=== PATIENT | male | born 1960 | race African-American/Black ===

== ENCOUNTER 2019-05-21 16:01 | Emergency (ER) | payer OTHER, SELFPAY ==
--- OUTSIDE RECORDS SUMMARY | 2019-05-21 16:05 | XMS REPORT | Summary of Care ---
:1960 Author Organization [facility] - [facility] Address [address] [place] [id number] Care Team Providers Name Role Phone Pcp, Patient Does Not Have A Primary Care Provider Reason for Referral (Routine) Status Reason Specialty Diagnoses / Referred By Contact Referred To Procedures Contact New Request Diagnoses Generalized abdominal pain Digna Murphy, Pcp, Patient Does Procedures Discharge Follow-up: PCP PATIENT DOES NOT HAVE A PCP; 1 Week DO Not Have A [address] [place] [address] MRI/CAT Scan (STAT) Status Reason Specialty Diagnoses / Referred By Referred To Procedures Contact Contact New Request Diagnostic Diagnoses Generalized abdominal pain Digna Murphy Radiology Procedures CT ABDOMEN PELVIS W CONTRAST J, DO [address] [phone] MRI/CAT Scan (STAT) Status Reason Specialty Diagnoses / Referred By Referred To Procedures Contact Contact New Request Diagnostic Diagnoses Generalized abdominal pain Digna Murphy Radiology Procedures CT ABDOMEN PELVIS W CONTRAST J, DO [address] [phone] Reason for Visit Reason Comments Shortness of Breath Bradycardia Encounter Details Date Type Department Care Team Description 11/29/2018 Emergency ADC-Emergency Digna Murphy, Generalized abdominal Department DO pain (Primary Dx) [address] [place] [address] [address] [place] [address] [place] [address] [phone] Allergies No Known Allergiesdocumented as of this encounter (statuses as of 11/29/2018) Medications Medication Sig Dispensed Refills Start Date End Date Status cephALEXin (KEFLEX) 500 Take 1 capsule 30 capsule 0 09/07/2017 Active mg capsule by mouth 3 (three) times daily. sulfamethoxazole-trimet Take 1 tablet by 20 tablet 0 09/07/2017 Active hoprim 800-160 mg per mouth every 12 tablet (twelve) hours. traMADOL 50 mg tablet Take 1 tablet by 20 tablet 0 09/07/2017 Active mouth every 6 (six) hours as needed for Pain (scale 4-6). ondansetron (ZOFRAN Take 1 tablet by 14 tablet 0 11/29/2018 Active ODT) 4 mg mouth every 8 disintegrating (eight) hours as tabletIndications: needed for Generalized abdominal Nausea and pain Vomiting (N/V). lisinopril 10 mg Take 1 tablet by 30 tablet 0 11/29/2018 Active tabletIndications: mouth at Generalized abdominal bedtime. pain documented as of this encounter (statuses as of 11/29/2018) Active Problems No known active problemsdocumented as of this encounter (statuses as of 2018) Social History Tobacco Use Types Packs/Day Years Used Date Never Assessed Sex Assigned at Date Recorded Not on file Job Start Date Occupation Industry Not on file Not on file Not on file Travel History Travel Start Travel End No recent travel history available. documented as of this encounter Last Filed Vital Signs Vital Sign Reading Time Taken Comments Blood Pressure 186/103 11/29/2018 1:28 PM CDT Pulse 46 11/29/2018 1:28 PM CDT Temperature 36.7 C (98 F) 11/29/2018 10:18 AM CDT Respiratory Rate 15 11/29/2018 1:28 PM CDT Oxygen Saturation 100% 11/29/2018 1:28 PM CDT Inhaled Oxygen Concentration - - Weight 72.6 kg (160 lb) 11/29/2018 10:18 AM CDT Height 180.3 cm (5' 11") 11/29/2018 10:18 AM CDT Body Mass Index 22.32 11/29/2018 10:18 AM CDT documented in this encounter Discharge Instructions Digna Bryant, - 11/29/2018DIAGNOSIS 1. Hypertension 2. Vomiting 3. Abdominal Pain 4. Renal Cysts NO LIFE-THREATENING FINDINGS ON TODAY'S EXAM. PROCEDURES IN THE ER TODAY: Blood work Urine test CT abdomen/pelvis EKG MEDICATIONS ADMINISTERED IN THE ER TODAY: IV Fluids Reglan Bentyl Enalapril YOUR PRESCRIPTIONS AND [id number] MEDICATION RECOMMENDATIONS: Zofran by mouth every 8 hours as needed for nausea/vomiting. Lisinopril by mouth daily - this is medicine for your blood pressure.. SPECIAL CARE INSTRUCTIONS: Please follow-up with your primary care physician in one week for a blood pressure check. FOLLOW-UP RECOMMENDATIONS: RECOMMEND FOLLOW-UP WITH A PRIMARY CARE PROVIDER OR SPECIALIST IN 2-5 DAYS, ESPECIALLY IF NO IMPROVEMENT IN SYMPTOMS. TO FOLLOW-UP WITHIN THE [facility], TRY THESE OPTIONS (CLINIC APPOINTMENTS AVAILABLE ON [id number] BASIS): 1. SCHEDULE AN APPOINTMENT ONLINE AT WWW[facility] 2. OR CALL THE [facility]ENTER AT OR 3. OR CALL YOUR [facility] PHYSICIAN'S OFFICE DIRECTLY IF YOU ARE ALREADY AN ESTABLISHED [facility] PATIENT. OR, YOU MAY FOLLOW-UP WITH A PROVIDER OF YOUR CHOICE, SUCH : 1. A PHYSICIAN OF YOUR CHOICE 2. [facility], . LOCATIONS IN [facility] 3. [facility], [address] [place] [address]; RETURN TO ER FOR WORSENING OF SYMPTOMS. AttachmentsThe following attachments cannot be sent through Care Everywhere.Vomiting and Diarrhea, Nonspecific (Adult) (Bahraini)Vomiting and Diarrhea,Self-Care for ([place]i)Diet, [place] (Adult) ([place]i)Hypertension, Established ([place]i)documented in this encounter Plan of Treatment Health Maintenance Due Date Last Done Comments HEPATITIS C (HCV) SCREEN 1960 DTaP,Tdap,and Td Vaccines (1 - 01/08/1979 Tdap) COLONOSCOPY 01/08/2010 Zoster Recombinant Vaccine 01/08/2010 (SHINGRIX) (1 of 2) INFLUENZA VACCINE 12/24/2018 PNEUMOCOCCAL 0-64 YEARS COMBINED Aged Out No longer eligible based on SERIES patient's age to complete this topic documented as of this encounter Procedures Procedure Name Priority Date/Time Associated Diagnosis Comments CT ABDOMEN PELVIS W STAT 11/29/2018 12:24 Generalized Results for this CONTRAST PM CDT abdominal pain procedure are in the results section. CBC WITH DIFFERENTIAL STAT 11/29/2018 10:30 Generalized Results for this AM CDT abdominal pain procedure are in the results section. LACTIC ACID WHOLE STAT 11/29/2018 10:30 Generalized Results for this BLOOD AM CDT abdominal pain procedure are in the results section. URINALYSIS STAT 11/29/2018 10:30 Generalized Results for this AM CDT abdominal pain procedure are in the results section. CBC WITH DIFF Routine 11/29/2018 10:30 Generalized Results for this AM CDT abdominal pain procedure are in the results section. BASIC METABOLIC PANEL STAT 11/29/2018 10:30 Generalized Results for this (NA, K, CL, CO2, AM CDT abdominal pain procedure are in GLUCOSE, BUN, the results CREATININE, CA) section. HEPATIC FUNCTION STAT 11/29/2018 10:30 Generalized Results for this PANEL (81348) AM CDT abdominal pain procedure are in (ALB,T.PRO,BILI the results T,BU/BC,ALT,AST,ALK section. PHOS) TROPONIN I STAT 11/29/2018 10:30 Generalized Results for this AM CDT abdominal pain procedure are in the results section. LIPASE STAT 11/29/2018 10:30 Generalized Results for this AM CDT abdominal pain procedure are in the results section. EKG-12 LEAD STAT 11/29/2018 10:18 AM CDT documented in this encounter Results CT ABDOMEN PELVIS W CONTRAST (11/29/2018 12:24 PM CDT) Specimen Impressions Performed At 1. No definite acute intra-abdominal or pelvic pathology PACS/VR/DOSE 2. Bilateral renal cysts 3. Very mild aneurysmal dilation of the distal abdominal aorta with a diameter of 5 cm. The abdominal aorta is ectatic in general. Narrative Performed At * * * * * * * * ORIGINAL REPORT * * * * * * * * PACS/VR/DOSE EXAM: CT SCAN OF THE ABDOMEN AND PELVIS WITH CONTRAST HISTORY: Abd pain, acute, generalized TECHNIQUE:3 mm axial images are obtained from diaphragmatic domes to symphysis pubis following intravenous administration of 120 mL of Omnipaque 350. Sagittal and coronal preformation the carried out. COMPARISON: None FINDINGS:The visualized lung bases are clear. No pleural effusion is present. Heart size is normal. Liver and spleen are normal in size, shape and appearance. No focal masses are seen. Gallbladder is removed. No biliary tree dilation is noted. Pancreas is somewhat atrophic. No ductal dilation is seen. Adrenal glands are normal. Kidneys are normal in size and shape. No renal stone or hydronephrosis is present. A well-circumscribed low-density lesion is present in the interpolar zone of the right kidney measuring 3.[address] volume of 15 Hounsfield units. There is a well-circumscribed low-density lesion in the upper pole of the left kidney measuring3.[address] density of 11 Hounsfield units. A similar but larger well-circumscribed lesion is present in the inferior pole measuring 5.9 cm in size with CT density of 17 Hounsfield units. Very mild focal dilation of the distal abdominal aorta is seen with a maximum diameter of 2.5 cm. No free fluid or free air is seen in the abdomen. No definite enlarged lymph nodes are noted. Bowel loops are normal in caliber. No evidence of bowel obstruction is seen. The appendix is not definitely seen, however there is no indirect evidence of appendicitis. The urinary bladder appears to be normal. No free fluid seen in the pelvis. Changes of spondylosis are seen at L5-S1. There is slight retrolisthesis of L5. No suspicious bony abnormality is noted. Procedure Note [facility], Radiant Results Inft User - 11/29/2018 12:45 PM CDT * * * * * * * * ORIGINAL REPORT * * * * * * * * EXAM: CT SCAN OF THE ABDOMEN AND PELVIS WITH CONTRAST HISTORY: Abd pain, acute, generalized TECHNIQUE:3 mm axial images are obtained from diaphragmatic domes to symphysis pubis following intravenous administration of 120 mL of Omnipaque 350. Sagittal and coronal preformation the carried out. COMPARISON: None FINDINGS:The visualized lung bases are clear. No pleural effusion is present. Heart size is normal. Liver and spleen are normal in size, shape and appearance. No focal masses are seen. Gallbladder is removed. No biliary tree dilation is noted. Pancreas is somewhat atrophic. No ductal dilation is seen. Adrenal glands are normal. Kidneys are normal in size and shape. No renal stone or hydronephrosis is present. A well-circumscribed low-density lesion is present in the interpolar zone of the right kidney measuring 3.[address] volume of 15 Hounsfield units. There is a well-circumscribed low-density lesion in the upper pole of the left kidney measuring3.[address] density of 11 Hounsfield units. A similar but larger well-circumscribed lesion is present in the inferior pole measuring 5.9 cm in size with CT density of 17 Hounsfield units. Very mild focal dilation of the distal abdominal aorta is seen with a maximum diameter of 2.5 cm. No free fluid or free air is seen in the abdomen. No definite enlarged lymph nodes are noted. Bowel loops are normal in caliber. No evidence of bowel obstruction is seen. The appendix is not definitely seen, however there is no indirect evidence of appendicitis. The urinary bladder appears to be normal. No free fluid seen in the pelvis. Changes of spondylosis are seen at L5-S1. There is slight retrolisthesis of L5. No suspicious bony abnormality is noted. IMPRESSION 1. No definite acute intra-abdominal or pelvic pathology 2. Bilateral renal cysts 3. Very mild aneurysmal dilation of the distal abdominal aorta with a diameter of 5 cm. The abdominal aorta is ectatic in general. Performing Organization Address City/State/Zipcode Phone Number PACS/VR/DOSE CBC WITH DIFFERENTIAL (11/29/2018 10:30 AM CDT) WBC 9.67 4.20 - 10.70 [facility] 10*3/L [facility] RBC 4.90 4.26 - 5.52 [facility] 10*6/L [facility] HGB 13.5 12.2 - 16.4 [facility] g/dL [facility] HCT 40.5 38.4 - 49.3 % [facility] MCV 82.7 81.7 - 95.6 fL [facility] MCH 27.6 26.1 - 32.7 pg [facility] MCHC 33.3 31.2 - 35.0 [facility] g/dL [facility] RDW-SD 45.9 38.5 - 51.6 fL [facility] RDW-CV 15.3 12.1 - 15.4 % [facility] PLT 321 150 - 328 [facility] 10*3/L [facility] MPV 9.6 (L) 9.8 - 13.0 fL [facility] NRBC/100 WBC 0.0 0.0 - 10.0 /100 [facility] W[address] [facility] NRBC x10^3 <0.01 10*3/L [facility] GRAN MAT (NEUT) % 72.7 % [facility] IMM GRAN % 0.20 % [facility] LYMPH % 20.5 % [facility] MONO % 5.4 % [facility] EOS % 0.8 % [facility] BASO % 0.4 % [facility] GRAN MAT x10^3(ANC) 7.03 (H) 1.99 - 6.95 [facility] 10*3/uL [facility] IMM GRAN x10^3 <0.03 0.00 - 0.06 [facility] 10*3/uL [facility] LYMPH x10^3 1.98 1.09 - 3.23 [facility] 10*3/uL [facility] MONO x10^3 0.52 0.36 - 1.02 [facility] 10*3/uL [facility] EOS x10^3 0.08 0.06 - 0.53 [facility] 10*3/uL [facility] BASO x10^3 0.04 0.01 - 0.09 [facility] 10*3/uL [facility] Specimen Blood - VENOUS Performing Organization Address City/[facility]/Zipcode Phone Number [facility] CLIA: [id number], [address] [place], [place] [address] [address] Lactic Acid Whole Blood (11/29/2018 10:30 AM CDT) LACTIC ACID 1.91 0.50 - 2.20 mmol/L [facility] Specimen Blood - VENOUS Performing Organization Address City/[facility]/Zipcode Phone Number [facility] CLIA: [id number], [address] [place] [address] Troponin I (11/29/2018 10:30 AM CDT) TROPONIN I <0.012 <=0.034 ng/mL [facility] Specimen Blood - VENOUS Narrative Performed At Equal or Less than 0.034 ng/ml---Normal [facility] Note: Cardiac troponin begins to rise 3-4 hours after the onset of ischemia. Repeat in 4-6 hours if the sample was drawn within 3-4 hours of the onset of the symptom and found normal. Between 0.035 and 0.120 ng/mL--- Borderline. Questionable myocardial injury or necrosis Note: Serial measurement may be necessary to confirm or exclude the diagnosis of myocardial injury or necrosis; Clinical correlation (symptoms, EKGs, imaging studies, and others) required; Repeat in 4-6 hours if clinically indicated. Equal or Higher than 0.121 ng/mL---Abnormal. Myocardial Injury or Necrosis Likely Biotin has been reported to cause a negative bias, interpret results relative to patient's use of biotin. Performing Organization Address City/[facility] Phone Number [facility] CLIA: [id number], [address] [place] [address] LABORATORY Hospital [facility] Lipase Serum (11/29/2018 10:30 AM CDT) LIPASE 54 0 - 220 U/L [facility] Specimen Blood - VENOUS Performing Organization Address [facility] Phone Number [facility] CLIA: [id number], [address] [place] [address] Basic Metabolic Panel (NA, K, CL, CO2, GLUCOSE, BUN, CREATININE, CA) (2018 10:30 AM CDT) NA 147 (H) 135 - 145 [facility] mmol/L [facility] K 3.2 (L) 3.5 - 5.0 [facility] mmol/L [facility] CL 105 98 - 108 mmol/L [facility] CO2 TOTAL 31 23 - 31 mmol/L [facility] AGAP 11 2 - 16 [facility] BUN 11 7 - 23 mg/dL [facility] GLUCOSE 124 (H) 70 - 110 mg/dL [facility] CREATININE 0.77 0.60 - 1.25 [facility] mg/dL [facility] CALCIUM 9.4 8.6 - 10.6 [facility] mg/dL [facility] eGFR Calculation 103.8 mL/min/1.73m2 [facility] (Non[facility] LABORATORY [place]ian) eGFR Calculation 125.8 mL/min/1.73m2 [facility] LABORATORY Specimen Blood - VENOUS Narrative Performed At Association of Glomerular Filtration Rate (GFR) [facility] and Staging of Kidney Disease* + + +- + | GFR (mL/min/1.73 m2)| With Kidney Damage|Without Kidney Damage + + +- + |>90| Stage one| Normal + + +- + |60-89|S tage two| Decreased GFR + + +- + |30-59|S tage three| Stage three + + +- + |15-29|S tage four | Stage four + + +- + |<15 (or dialysis)|Stage five | Stage five + + +- + *Each stage assumes the associated GFR level has been in effect for at least three months.Stages 1 to 5, with or without kidney disease, indicate chronic kidney disease. Notes: Determination of stages one and two (with eGFR >59mL/min/1.73 m2) requires estimation of kidney damage for at least three months as defined by structural or functional abnormalities of the kidney, manifested by either: Pathological abnormalities or Markers of kidney damage (including abnormalities in the composition of the blood or urine or abnormalities in imaging tests). Performing Organization Address [facility] Phone Number [facility] CLIA: [id number], [address] [place] [address] Hepatic Function Panel (ALB, T.PRO, BILI T, BU/BC, ALT, AST, ALK PHOS) (2018 10:30 AM CDT) TOTAL BILI 0.3 0.1 - 1.1 mg/dL [facility] BILI UNCON 0.2 0.1 - 1.1 mg/dL [facility] BILI CONJ 0.0 0.0 - 0.3 mg/dL [facility] T PROTEIN 8.3 (H) 6.3 - 8.2 g/dL [facility] ALBUMIN 4.6 3.5 - 5.0 g/dL [facility] ALK PHOS 92 34 - 122 U/L [facility] ALT(SGPT) 13 9 - 51 U/L [facility] AST(SGOT) 25 13 - 40 U/L [facility] Specimen Blood - VENOUS Performing Organization Address [facility] Phone Number [facility] CLIA: [id number], [address] [place] [id number] [address] Urinalysis (11/29/2018 10:30 AM CDT) APPEARANCE Clear Clear [facility] COLOR Colorless (A) Yellow [facility] PH 8.0 4.8 - 8.0 [facility] SP GRAVITY 1.015 1.003 - 1.030 [facility] GLU U QUAL Negative Negative [facility] BLOOD Trace (A) Negative [facility] KETONES Negative Negative [facility] PROTEIN Negative Negative [facility] UROBILIN 0.2 mg/dL 0-1.0 mg/dL [facility] BILIRUBIN Negative Negative [facility] NITRITE Negative Negative [facility] LEUK THANG Negative Negative [facility] RBC/HPF 10 (H) 0 - 3 HPF [facility] WBC/HPF 2 0 - 5 HPF [facility] BACTERIA Few (A) Negative [facility] MUCOUS Moderate (A) Negative LPF [facility] AMORPHOUS Few HPF [facility] SQ EPITH 0 HPF [facility] SPERM 1 <=1 HPF [facility] Specimen Urine - URINE, CLEAN CATCH Performing Organization Address City/State/Zipcode Phone Number [facility] CLIA: [id number], [address] [place] [address] LABORATORY Hospital [facility] documented in this encounter Visit Diagnoses Diagnosis Generalized abdominal pain - Primary Abdominal pain, generalized documented in this encounter Administered Medications Medication Order MAR Action Action Date Dose Rate Site dicyclomine (BENTYL) Given 11/29/2018 12:57 PM 20 mg Right Deltoid-IM injection 20 mg CDT 20 mg, Intramuscular, ONCE, 1 dose, Tue11/29/18 at 1400, Routine enalaprilat (VASOTEC I.V.) injection 1.25 Given 11/29/2018 12:35 PM CDT 1.25 mg mg 1.25 mg, Slow IV Push, ONCE, 1 dose, Tue11/29/18 at 1315, STAT iohexol (OMNIPAQUE 350 BULK-150 mL) Given 11/29/2018 12:15 PM CDT 120 mL injection 120 mL 120 mL, Intravenous, ONCE, 1 dose, Tue11/29/18 at 1215, Routine metoclopramide HCl (REGLAN) injection 10 mg Given 11/29/2018 12:57 PM CDT 10 mg 10 mg, Slow IV Push, ONCE, 1 dose, Tue11/29/18 at 1400, FUENTES NaCl 0.9% (NS) bolus infusion New Bag 11/29/2018 10:30 AM CDT 1,000 mL 999 mL/hr 1,000 mL at 999 mL/hr, 1,000 mL, IV Infusion, ONCE, 1 dose, Tue11/29/18 at 1030, FUENTES documented in this encounter
--- OUTSIDE RECORDS SUMMARY | 2019-05-21 16:06 | XMS REPORT ---
:1960 Author Organization [facility] Address [address] [place] [address] [address] [place] [address] Care Team Providers Name Role Phone Unavailable Unavailable Unavailable Problems This patient has no known problems. Allergies, Adverse Reactions, Alerts This patient has no known allergies or adverse reactions. Medications This patient has no known medications. Encounters Start End Encounter Admission Attending Care Care Encounter Date/Time Date/Time Type Type Clinicians Facility Department ID 2018-12-01 2018-12-01 Inpatient E [facility] CAR [id number] 13:43:00 10:12:00 2018-12-01 2018-12-01 Outpatient [facility] LEROY [id number] 10:12:00 10:12:00
[2019-05-21 17:15] LABS: Absolute Lymphocytes (CBC) 1.6 K/uL (0.7-4.9); Basophils % 0.7 % (0-1.3); Hematocrit 39.6 % (39.6-49.0); Lymphocytes % 17.5 % (15.3-44.8); MPV 7.2 fL (7.6-11.3); RBC Red Blood Cell Count 4.66 M/uL (4.33-5.43)
--- NOTE | 2019-05-21 17:18 | RAD REPORT ---
EXAM DESCRIPTION: CT - Head Brain Wo Cont - 05/21/2019 5:11 pm CLINICAL HISTORY: SYNCOPE Hypertension, syncope, headache, drowsiness COMPARISON: No comparisons TECHNIQUE: All CT scans are performed using dose optimization technique as appropriate and may inclu de automated exposure control or mA/KV adjustment according to patient size. FINDINGS: No intracranial hemorrhage, hydrocephalus or extra-axial fluid collection.No areas of brai n edema or evidence of midline shift. The paranasal sinuses and mastoids are clear. The calvarium is intact. IMPRESSION: No acute intracranial abnormality.
[2019-05-21 17:23] LABS: Protime INR 1.09
--- NOTE | 2019-05-21 17:33 | RAD REPORT ---
EXAM DESCRIPTION: RAD - Chest Single View - 05/21/2019 5:27 pm CLINICAL HISTORY: syncope Chest pain. COMPARISON: No comparisons FINDINGS: Portable technique limits examination quality. The lungs are grossly clear. The heart is normal in size. No displaced fractures. IMPRESSION: No acute intrathoracic process suspected.
[2019-05-21 17:36] LABS: Barbiturates NEGATIVE (NEGATIVE); Benzodiazepines NEGATIVE (NEGATIVE); Cocaine NEGATIVE (NEGATIVE); METHAMPHETAM NEGATIVE (NEGATIVE); Methadone NEGATIVE (NEGATIVE); Opiates NEGATIVE (NEGATIVE); Phencyclidine NEGATIVE (NEGATIVE); THC Cannibis POSITIVE (NEGATIVE)
[2019-05-21 18:16] LABS: ALT/SGPT 19 U/L (12-78); AST/SGOT 14 U/L (15-37); Albumin 3.8 g/dL (3.4-5.0); Alkaline Phosphatase 90 U/L (45-117); BUN Blood Urea Nitrogen 7 mg/dL (7-18); Bicarbonate 31 mmol/L (21-32); Bilirubin Direct < 0.1 mg/dL (0-0.2); Bilirubin Total 0.3 mg/dL (0.2-1.0); Glucose Level 82 mg/dL (74-106); Magnesium 2.1 mg/dL (1.8-2.4); NT PRO-BNP 87 pg/mL (<125); Potassium 3.8 mmol/L (3.5-5.1); Sodium Level 140 mmol/L (136-145); Troponin (Emerg Dept Use Only) < 0.02 ng/mL (0.0-0.045)
[2019-05-21] MEDS ORDERED: ACETAMINOPHEN 500 MG TAB ONE (19:30)
[2019-05-21 20:15] LABS: Urine Blood TRACE (NEG); Urine Glucose NEGATIVE (NEG); Urine Protein NEGATIVE (NEG); Urine pH 8.5 (5.0-7.0)
--- NOTE | 2019-05-22 02:05 | EDPHYS ---
Physician Documentation [facility] Name: River Plunkett Age: 59 yrs Sex: Male : 1960 Arrival Date: 05/21/2019 Time: 16:05 Bed 17 Private MD: ED Physician Dusty Flores HPI: 05/21 17:33 This 59 yrs old Black Male presents to ER via Ambulatory with complaints of High Blood la1 Pressure, Fever, Headache. 17:33 The patient has elevated blood pressure and discovered this at home. Onset: The la1 symptoms/episode began/occurred 1 month(s) ago. Modifying factors: The symptoms are aggravated by movement. Associated signs and symptoms: Pertinent positives: syncope. Severity of symptoms: At its worst the blood pressure was moderate, in the emergency department the blood pressure is unchanged. The patient has experienced a previous episode. pt reports that he gets dizzy when going from sitting to standing for the past few months. Was recently in the hospital in [place] and saw a farm crew leader. was discharged at the end of March, reports that he did have a normal stress test. Pt reports that he has also been feeling suicidal for the last 2 weeks, reports he has never had sx like this in the past but he just doest want to live anymore, reports he would "blow his brains out", pt reports that he does have access to a gun. . Historical: - Allergies: 16:14 No Known Allergies; tw2 - Home Meds: 16:14 lisinopril 20 mg Oral tab 1 tab once daily [Active]; hydralazine 10 mg Oral tab 1 tab 2 tw2 times per day [Active]; - PMHx: 16:14 Hypertension; Pancreatitis; tw2 - PSHx: 16:14 Cholecystectomy; tw2 - Immunization history:: Adult Immunizations. - Coronavirus screen:: The patient has NOT traveled to [place], [place], or [place] in the past 14 days. - Social history:: Smoking status: Patient reports the use of cigarette tobacco products, smokes one pack cigarettes per day. Patient uses street drugs, "i used just the hydrocodone". - Ebola Screening: : Patient denies travel to an Ebola-affected area in the 21 days before illness onset. ROS: 17:37 Constitutional: Negative for fever, chills, and weight loss, Eyes: Negative for injury, la1 pain, redness, and discharge, ENT: Negative for injury, pain, and discharge, Neck: Negative for injury, pain, and swelling, Cardiovascular: Negative for chest pain, palpitations, and edema, Respiratory: Negative for shortness of breath, cough, wheezing, and pleuritic chest pain, Abdomen/GI: Negative for abdominal pain, nausea, vomiting, diarrhea, and constipation, Back: Negative for injury and pain, : Negative for injury, bleeding, discharge, and swelling, MS/Extremity: Negative for injury and deformity, Skin: Negative for injury, rash, and discoloration, Neuro: Negative for headache, weakness, numbness, tingling, and seizure. 17:37 Cardiovascular: Negative for chest pain, palpitations, and edema, reports a few episodes of syncope when moving from sitting or lying to standing at home over the course of the last couple months 17:37 Psych: Positive for suicidal ideation. Exam: 17:39 Constitutional: This is a well developed, well nourished patient who is awake, alert, la1 and in no acute distress. Head/Face: Normocephalic, atraumatic. Eyes: Pupils equal round and reactive to light, extra-ocular motions intact. Lids and lashes normal. Conjunctiva and sclera are non-icteric and not injected. Cornea within normal limits. Periorbital areas with no swelling, redness, or edema. ENT: Mucous membranes moist. Neck: Trachea midline, no thyromegaly or masses palpated, and no cervical lymphadenopathy. Supple, full range of motion without nuchal rigidity, or vertebral point tenderness. No Meningismus. Chest/axilla: Normal chest wall appearance and motion. Nontender with no deformity. No lesions are appreciated. Cardiovascular: Regular rate and rhythm with a normal S1 and S2. No gallops, murmurs, or rubs. Normal PMI, no JVD. No pulse deficits. Respiratory: Lungs have equal breath sounds bilaterally, clear to auscultation No rales, rhonchi or wheezes noted. No increased work of breathing, no retractions or nasal flaring. Abdomen/GI: Soft, non-tender, with normal bowel sounds. No distension or tympany. No guarding or rebound. No evidence of tenderness throughout. Back: No spinal tenderness. No costovertebral tenderness. Full range of motion. Skin: Warm, dry with normal turgor. Normal color with no rashes, no lesions, and no evidence of cellulitis. MS/ Extremity: Pulses equal, no cyanosis. Neurovascular intact. Full, normal range of motion. Neuro: Awake and alert, GCS 15, oriented to person, place, time, and situation. Cranial nerves II-XII grossly intact. Motor strength 5/5 in all extremities. Sensory grossly intact. Cerebellar exam normal. Normal gait. Psych: Awake, alert, with orientation to person, place and time. Behavior, mood, and affect are within normal limits. Vital Signs: 16:12 BP 166 / 105; Pulse 90; Resp 18; Temp 99.9(TE); Pulse Ox 100% on R/A; Weight 65.77 kg tw2 (R); Height 5 ft. 11 in. (180.34 cm); Pain 8/10; 16:21 BP 178 / 105; Pulse 75; Resp 20; Pulse Ox 100% on R/A; sv 16:40 BP 163 / 99 LA Supine (/reg); Pulse 80; sv 16:42 BP 173 / 96 LA Sitting (auto/reg); Pulse 86; sv 16:44 BP 139 / 116 LA Sitting (auto/reg); Pulse 92; sv 17:30 BP 162 / 92; Pulse 82; Resp 17; Pulse Ox 100% on R/A; sg 19:14 BP 168 / 98; Pulse 92; Resp 16; Pulse Ox 99% on R/A; mt 20:36 BP 131 / 97; Pulse 72; Resp 16; Pulse Ox 100% on R/A; mt 05/22 00:58 Temp 98.6(O); mt 00:58 BP 136 / 84; Pulse 84; Resp 17; Pulse Ox 98% on R/A; mt 05/21 16:12 Body Mass Index 20.22 (65.77 kg, 180.34 cm) tw2 05/21 16:44 Pt was able to stand for a minute and stated that he felt weak all over, pt sat on the sv stretcher and BP was taken. MDM: 16:22 Patient medically screened. la1 19:56 ED course: awaiting consult with [facility]. la1 22:17 Data reviewed: vital signs, nurses notes, lab test result(s), EKG, radiologic studies, la1 I have discussed the patient's presentation/case with the attending Emergency Department Physician; and as a result, I will admit patient. Data interpreted: Pulse oximetry: on room air is 100 %. Interpretation: normal. Counseling: I had a detailed discussion with the patient and/or guardian regarding: the historical points, exam findings, and any diagnostic results supporting the discharge/admit diagnosis, the presence of at least one elevated blood pressure reading (>120/80) during this emergency department visit, lab results, the need to transfer to another facility, [facility] does not immediately have the required specialist. Medication response: headache improved. Response to treatment: the patient's symptoms have mildly improved after treatment. ED course: pt reports SI with plan, recommend inpatient treatment at this time. Will begin transfer process, pt voluntary at this time, states he is feeling better now medically.. 05/21 16:42 Order name: Basic Metabolic Panel 05/21 16:42 Order name: CBC with Diff; Complete Time: 17:37 va05/21 16:42 Order name: LFT's; Complete Time: 19:19 05/21 16:42 Order name: Magnesium; Complete Time: 19:19 05/21 16:42 Order name: NT PRO-BNP; Complete Time: 19:19 va05/21 16:42 Order name: PT-INR; Complete Time: 17:37 05/21 16:42 Order name: Troponin (emerg Dept Use Only); Complete Time: 19:19 05/21 16:42 Order name: XRAY Chest (1 view); Complete Time: 17:37 05/21 16:42 Order name: ETOH Level; Complete Time: 19:19 05/21 16:42 Order name: Acetaminophen; Complete Time: 19:19 05/21 16:42 Order name: ASA; Complete Time: 19:19 va05/21 16:42 Order name: UDS; Complete Time: 17:37 05/21 16:43 Order name: Basic Metabolic Panel; Complete Time: 19:19 [facility] 05/21 17:22 Order name: Urine Dipstick--Ancillary (enter results) bd 05/21 16:42 Order name: Cardiac monitoring; Complete Time: 17:16 05/21 16:42 Order name: EKG - Nurse/Tech; Complete Time: 18:37 05/21 16:42 Order name: IV Saline Lock; Complete Time: 17:15 05/21 16:42 Order name: Labs collected and sent; Complete Time: 17:16 05/21 16:42 Order name: O2 Per Protocol; Complete Time: 17:16 05/21 16:42 Order name: O2 Sat Monitoring; Complete Time: 17:16 05/21 16:42 Order name: Urine Dipstick-Ancillary (obtain specimen); Complete Time: 22:24 05/21 16:42 Order name: Orthostatics; Complete Time: 18:37 05/21 16:42 Order name: CT Head Brain wo Cont; Complete Time: 17:37 Administered Medications: 19:30 Drug: Tylenol 1000 mg Route: PO; 05/22 03:14 Follow up: Response: No adverse reaction; Pain is decreased 03:14 Drug: Tylenol 650 mg Route: PO; 03:14 Follow up: Response: No adverse reaction Disposition: 07:00 Co-signature as Attending Physician, Dusty Flores MD I agree with the assessment and ryan plan of care. Disposition: 05/22/19 02:04 Transfer ordered to [facility]. Diagnosis is Suicidal ideations. - Reason for transfer: Higher level of care. - Accepting physician is [facility] Dr. [place]. - Condition is Stable. - Problem is new. - Symptoms are unchanged. Signatures: Dispatcher [employer] Dusty Urbina MD MD cha Attema, Lee, FACILITIES MAINTENANCE TECHNICIAN-C FACILITIES MAINTENANCE TECHNICIAN-Cla1 Ramona Thomason RN RN tw2 Anne Laureano Corrections: (The following items were deleted from the chart) 02:29 02:04 05/22/2019 02:04 Transfer ordered to [facility]. Diagnosis is Suicidal la1 ideations. Reason for transfer: Higher level of care. Accepting physician is [facility]. Condition is Stable. Problem is new. Symptoms are unchanged. la1 03:16 02:29 05/22/2019 02:04 Transfer ordered to [facility]. Diagnosis is Suicidal wh ideations. Reason for transfer: Higher level of care. Accepting physician is [facility] Dr[facility] [place]. Condition is Stable. Problem is new. Symptoms are unchanged. la1
--- NOTE | 2019-05-22 02:05 | ER ---
Nurse's Notes [facility] Name: River Plunkett Age: 59 yrs Sex: Male : 1960 Arrival Date: 05/21/2019 Time: 16:05 Bed 17 Private MD: Diagnosis: Suicidal ideations Presentation: 05/21 16:09 Presenting complaint: Patient states: i have been feeling bad for a month or more, my tw2 blood pressure is high and i am on 2 blood pressure medicines but my pressure bottoms out and i am blacking out, dr. suarez in [facility] sent me here she thinks something in my brain is causing me to black out. i have blacked out 3 times. Transition of care: patient was not received from another setting of care. Onset of symptoms was May 21, 2019. Risk Assessment: Do you want to hurt yourself or someone else? Patient reports no desire to harm self or others. Initial Sepsis Screen: Does the patient meet any 2 criteria? No. Patient's initial sepsis screen is negative. Does the patient have a suspected source of infection? No. Patient's initial sepsis screen is negative. Care prior to arrival: None. 16:09 Method Of Arrival: Ambulatory tw2 16:09 Acuity: ROBERT 3 tw2 Triage Assessment: 16:11 Headache History: The patient has had previous headaches and this one is different than tw2 previous episodes. General: Appears uncomfortable, slender, Behavior is calm, cooperative, appropriate for age. Pain: Complains of pain in headache Pain currently is 8 out of 10 on a pain scale. Pain began a month Also complains of fatigued and headache 6 days ago. Neuro: Level of Consciousness is awake, alert, obeys commands, Reports dizziness, photophobia lightheadedness. Historical: - Allergies: 16:14 No Known Allergies; tw2 - Home Meds: 16:14 lisinopril 20 mg Oral tab 1 tab once daily [Active]; hydralazine 10 mg Oral tab 1 tab 2 tw2 times per day [Active]; - PMHx: 16:14 Hypertension; Pancreatitis; tw2 - PSHx: 16:14 Cholecystectomy; tw2 - Immunization history:: Adult Immunizations. - Coronavirus screen:: The patient has NOT traveled to [place], [place], or [place] in the past 14 days. - Social history:: Smoking status: Patient reports the use of cigarette tobacco products, smokes one pack cigarettes per day. Patient uses street drugs, "i used just the hydrocodone". - Ebola Screening: : Patient denies travel to an Ebola-affected area in the 21 days before illness onset. Screenin:22 Abuse screen: Denies threats or abuse. Denies injuries from another. Nutritional sv screening: No deficits noted. Tuberculosis screening: No symptoms or risk factors identified. Fall Risk None identified. Assessment: 16:22 General: Appears in no apparent distress. comfortable, slender, Behavior is calm, sv cooperative, appropriate for age. General: Reports feeling ill for about 4 months. he has lost about 50 pounds as well. Pain: Complains of pain in left adventism and right adventism Pain currently is 8 out of 10 on a pain scale. Quality of pain is described as throbbing, Is continuous. Neuro: Level of Consciousness is awake, alert, obeys commands, Oriented to person, place, time, situation, Moves all extremities. Full function Gait is steady, Speech is normal, Facial symmetry appears normal, Reports headache a syncopal episode. Cardiovascular: Patient's skin is warm and dry. Rhythm is sinus rhythm. Respiratory: Reports shortness of breath on exertion cough that is non-productive, Airway is patent Respiratory effort is even, unlabored, Respiratory pattern is regular, symmetrical. Derm: Skin is pink, warm \\T\\ dry. Musculoskeletal: Range of motion: intact in all extremities. 17:20 Reassessment: Patient appears in no apparent distress at this time. report received sg from Britta DIAZ. General: Behavior is calm, cooperative, appropriate for age. Respiratory: Airway is patent Respiratory effort is even, unlabored, Respiratory pattern is regular, symmetrical. 19:15 Reassessment: Patient appears in no apparent distress at this time. Patient and/or family updated on plan of care and expected duration. Pain level reassessed. Patient is alert, oriented x 3, equal unlabored respirations, skin warm/dry/pink. 20:30 Reassessment: Patient appears in no apparent distress at this time. No changes from previously documented assessment. Patient and/or family updated on plan of care and expected duration. Pain level reassessed. Patient is alert, oriented x 3, equal unlabored respirations, skin warm/dry/pink. 21:04 Reassessment: [facility] at bedside assessing Pt. 22:00 Reassessment: Patient appears in no apparent distress at this time. No changes from previously documented assessment. Patient and/or family updated on plan of care and expected duration. Pain level reassessed. Patient is alert, oriented x 3, equal unlabored respirations, skin warm/dry/pink. Pt sleeping well no signs of distress noted, sitter at bedside. 23:00 Reassessment: Patient appears in no apparent distress at this time. No changes from previously documented assessment. Patient and/or family updated on plan of care and expected duration. Pain level reassessed. Patient is alert, oriented x 3, equal unlabored respirations, skin warm/dry/pink. Pt sleeping well no signs of distress noted, sitter at bedside. 05/22 00:06 Reassessment: Patient appears in no apparent distress at this time. No changes from previously documented assessment. Patient and/or family updated on plan of care and expected duration. Pain level reassessed. Patient is alert, oriented x 3, equal unlabored respirations, skin warm/dry/pink. Pt sleeping well no signs of distress noted, sitter at bedside. 02:42 Reassessment: Patient appears in no apparent distress at this time. No changes from previously documented assessment. Patient and/or family updated on plan of care and expected duration. Pain level reassessed. Patient is alert, oriented x 3, equal unlabored respirations, skin warm/dry/pink. Report given to Ilia Jewell RN at [facility]. 03:05 Reassessment: PT belongings, clothes, shoes and belt returned to PT. Psych: 05/21 17:00 Subjective: Patient's mood is sad, Having thoughts of suicide. with a plan. Objective: sv Patient is cooperative, Speech is normal, Affect is appropriate. Interventions: Removed personal items and placed in bag. Patient placed in hospital gown. Urine collected and sent for urine drug test. Safety Checks: Personal items have been removed. Door is open. No visitors are present at this time. Commitment: Patient will be a voluntary commitment. 19:30 Suicide Risk Assessment: Sad Person Scale: Sex of patient: Male: Score 1 point. Age of patient: Score 0 point if patient falls outside of specified age parameters. Depression: Score 0 point if signs of depression are not present. Previous Attempt: Score 0 point if patient has not previously attempted suicide. Substance Abuse: Score 1 point if patient abuses alcohol or drugs. Rational Thinking: Score 0 point if patient has rational thinking. Social Support: Score 0 if social support is present/available. Organized Plan: Score 1 point if patient had a plan in place. Relationship: Score 0 point if patient has a spouse or domestic partner. Patient uses marijuana. Vital Signs: 16:12 BP 166 / 105; Pulse 90; Resp 18; Temp 99.9(TE); Pulse Ox 100% on R/A; Weight 65.77 kg tw2 (R); Height 5 ft. 11 in. (180.34 cm); Pain 8/10; 16:21 BP 178 / 105; Pulse 75; Resp 20; Pulse Ox 100% on R/A; sv 16:40 BP 163 / 99 LA Supine (/reg); Pulse 80; sv 16:42 BP 173 / 96 LA Sitting (auto/reg); Pulse 86; sv 16:44 BP 139 / 116 LA Sitting (auto/reg); Pulse 92; sv 17:30 BP 162 / 92; Pulse 82; Resp 17; Pulse Ox 100% on R/A; sg 19:14 BP 168 / 98; Pulse 92; Resp 16; Pulse Ox 99% on R/A; mt 20:36 BP 131 / 97; Pulse 72; Resp 16; Pulse Ox 100% on R/A; mt 05/22 00:58 Temp 98.6(O); mt 00:58 BP 136 / 84; Pulse 84; Resp 17; Pulse Ox 98% on R/A; mt 05/21 16:12 Body Mass Index 20.22 (65.77 kg, 180.34 cm) tw2 05/21 16:44 Pt was able to stand for a minute and stated that he felt weak all over, pt sat on the sv stretcher and BP was taken. ED Course: 16:05 Patient arrived in ED. mr 16:11 Triage completed. tw2 16:11 Arm band placed on. tw2 16:15 Britta Van, JOE is Primary Nurse. sv 16:22 Stevan Cm FNP-C [facility]. la1 16:22 Dusty Flores MD is Attending Physician. la1 16:22 Awaiting ED provider evaluation. sv 16:22 Patient has correct armband on for positive identification. Placed in gown. Bed in low sv position. Call light in reach. Adult w/ patient. monitoring coordinator on. Pulse ox on. NIBP on. Door closed. Head of bed elevated. 16:34 Nurse Practitioner and/or Physician Paper Pattern Inspector to see patient. sv 16:50 Inserted saline lock: 20 gauge in right forearm, using aseptic technique. Blood sv collected. Flushed right forearm with 5 ml normal saline. 16:55 Initial lab(s) drawn, by me, sent to lab. with 21G needle, site covered with 2x2 gauze sv and tape. 17:00 15 minute safety checks done on paperwork. ms 17:[address] via wheelchair. sv 17:10 Report given to Corby DIAZ. sv 17:11 CT Head Brain wo Cont In Process Unspecified. EDMS 17:27 XRAY Chest (1 view) In Process Unspecified. EDMS 17:58 Corby Cohn, JOE is Primary Nurse. 19:19 Anne Laureano is Primary Nurse. 19:45 called [facility] spoke to Marisel. Screener will be at our facility to speak with 2 patient. 20:03 Estefany the screener from [facility] called and is leaving [place] and will be here [facility] to visit patient. 21:50 Estefany with [facility] at bedside for evaluation. [facility] 05/22 03:12 No provider procedures requiring assistance completed. IV discontinued, intact, wh bleeding controlled, No redness/swelling at site. Administered Medications: 05/21 19:30 Drug: Tylenol 1000 mg Route: PO; 05/22 03:14 Follow up: Response: No adverse reaction; Pain is decreased 03:14 Drug: Tylenol 650 mg Route: PO; 03:14 Follow up: Response: No adverse reaction Outcome: 02:04 ER care complete, transfer ordered by MD. dixon 03:15 Transferred by ground EMS to [facility], Transfer form completed. X-rays sent w/ patient. Note: Report given to [facility] 03:15 Condition: stable 03:15 Instructed on the need for transfer. 03:17 Patient left the ED. Signatures: Dispatcher [employer] Britta De Jesus RN RN sv Gay, Steven, RN RN sg Rivera, Mary mr Espinoza, Vero ms Soila, Stevan, VOYAGE MANAGEMENT SYSTEM OPERATOR-C VOYAGE MANAGEMENT SYSTEM OPERATOR-Cla1 Ramona Thomason RN RN tw2 Salazar, Caren [facility], Andreastree Walston, Cristhian 2 Corrections: (The following items were deleted from the chart) 05/21 16:36 16:22 Respiratory: Airway is patent Respiratory effort is even, unlabored, Respiratory sv pattern is regular, symmetrical, sv 22:00 20:03 Jenae the screener from [facility] called and is leaving [place] and will mw2 be here to visit patient mw2 22:01 20:03 Kathrynn the screener from [facility] called and is leaving [place] and will mw2 be here to visit patient mw2 22:01 21:50 Jenae with [facility] at bedside for evaluation [facility]
[2019-05-22] MEDS ORDERED: ACETAMINOPHEN 325 MG TABLET ONE (03:14)
[2019-05-22 03:44] VITALS: BP 136/84; TEMP 98.6; O2SAT 98
== END 2019-05-22 03:17 | disposition short-term general hospital (02) ==
LOC: ER 16:01
DX: R45.851 Suicidal ideations (principal); F17.210 Nicotine dependence, cigarettes, uncomplicated
CPT/HCPCS: 36415; 70450; 71045; 80048; 80076; 80307; 80320; 80329; 81003; 83735; 83880; 84484; 85025; 85610; 99285

== ENCOUNTER 2020-07-17 07:14 | Inpatient (IN) | payer MEDICAID, SELFPAY ==
--- OUTSIDE RECORDS SUMMARY | 2020-07-17 07:20 | XMS REPORT | Continuity of Care Document ---
:1960 Author Organization [facility] t Address [address] [place] [address] Care Team Providers Name Role Phone Antione Murphy DO Attending Clinician Aliza Good MD Attending Clinician Doctor Unassigned, Name Attending Clinician Unavailable MARIBELL Attending Clinician Unavailable Saurabh, Jacob Attending Clinician Unavailable D'EMPAIRE Admitting Clinician Unavailable Jacob Wiley Admitting Clinician Unavailable Payers Payer Name Policy Type Policy Number Effective Date Expiration Date S ource Problems Condition Condition Condition Status Onset Resolution Last Treating Co mments Source Name Details Category Date Date Treatment Clinician Date MONAE Diagnosis Active 2018-12-05 Veronicaoria BILLING 8 14:15:00 l 00:00: Roland LICONA 00 BILLING Active 12/05/2018 [facility] HYPERTENSI Diagnosis Active 2019-02-15 Memoria VE 12-01 15:40:00 l EMERGENCY 00:00: Roland HYPERTENSI 00 VE EMERGENCY Active 12/01/2018 [facility] CHEST PAIN Diagnosis Active 2018-12-01 Memoria 12-01 12:01:00 l CHEST 00:00: Roland PAIN 00 Active 12/01/2018 [facility] Allergies, Adverse Reactions, Alerts Allergy Allergy Status Severity Reaction(s) Onset Inactive Treating Comm ents Source Name Type Date Date Clinician No Known DA Active [facility] Allergie 2-13 [place] s 00:00: d 00 [facility] No Known No Known Active Memori a Medicati Medicati l on on [place] Allerggary Allergie s s Social History Smoking Status Start Date Stop Date Source Social History 2018-12-01 15:56:47 [facility] Medications Ordered Filled Start Stop Current Ordering Indication Dosage Frequency Signature Comments Components Source Medication Medication Date Date Medication? Clinician (SIG) Name Name amLODIPine Yes 10 mg = 1 Me moria 10 mg oral 8-12 tab, PO, l tablet 17:49: Daily, # Roland 00 30 tab, 1 Refill(s) lisinopril Yes 20 mg = 1 Me moria 20 mg oral 8-12 tab, PO, l tablet 17:49: Daily, # [place] 00 30 tab, 1 Refill(s) Maalox No 30 mL, Memoria Advanced 12 Route: PO, l Regular 15:24: Drug Form: Herm cecelia Strength 00 SUSP, SUSP Dosing Weight 64.205, kg, QID, PRN Indigestio n, Start date: 12/04/18 10:24:00 CDT, Duration: 30 day, Stop date: 01/03/19 10:23:00 CDT Al No Notes: Memoria hydroxide/M -12 (aluminum l g 14:00: hydroxide- Roland hydroxide/s 00 magnesium imethicone hyd-simeth icone 200-200-20 mg/5ml 30 ml ud GRECIA) Xylocaine Yes Notes: Memori a Viscous 2% 8-12 (Same as: l mucous 14:00: Xylocaine) Bonnie nn membrane 00 solution NIFEdipine No Notes: Memor ia 60 mg oral 8-12 (Same as: l tablet, 13:30: Adalat CC, Herm cecelia extended 00 Procardia release XL) Give on empty stomach. Take 1 hour before or 2 hours after meal; "Avoid grapefruit and grapefruit juice". Do not crush GI cocktail No 45 ml, Ketan brooks (aluminum 812 Route: PO, l hydroxide/m 12:29: Drug Form: [place] agnesium 00 SUSP, hydroxide/l Dosing idocaine/si Weight methicone) 64.205, kg, ONCE, Routine, Start date: 12/04/18 7:29:00 CDT, Stop date: 12/04/18 7:29:00 CDT Imdur No Notes: Memoria 12-04 (Same l 02:00: as:Imdur) Roland 00 "Do Not Crush" Take on empty stomach/ full glass of water. Do not crush NIFEdipine No 30 mg, Memor ia 30 mg oral 12-03 Route: PO, l tablet, 02:00: Drug form: Herm cecelia extended 00 ERTAB, release Q12H, Dosing Weight 64.205, kg, Start date: 12/02/18 21:00:00 CDT, Duration: 30 day, Stop date: 01/01/19 9:00:00 CDT metoprolol No Notes: Memor ia tartrate 12-03 (Same as: l 02:00: Lopressor) [place] Maalox No Notes: Memoria Advanced 12-03 (aluminum l Regular 01:20: hydroxide- Herm cecelia Strength 00 magnesium SUSP hyd-simeth icone 200-200-20 mg/5ml 30 ml ud GRECIA) Acetaminoph No Notes: Do M emoria en 300 MG / 12-03 not exceed l Codeine 01:14: 4gm/day of Herm cecelia Phosphate 00 acetaminop 30 MG Oral hen. Tablet (Same as: [Tylenol Tylenol with with Codeine #3] Codeine # 3) Protonix No 40 mg, Memoria 12-03 Route: PO, l 01:12: Daily, [place] 00 Dosing Weight 64.205, kg, Priority: NOW, Start date: 12/02/18 20:12:00 CDT, Duration: 30 day, Stop date: 01/01/19 9:00:00 CDT NIFEdipine No Notes: Memor ia 30 mg oral 8-11 (Same as: l tablet, 00:48: Adalat CC, Herm cecelia extended Procardia release XL) Give on empty stomach. Take 1 hour before or 2 hours after meal; "Avoid grapefruit and grapefruit juice". Do not crush NIFEdipine No 30 mg, Memor ia 30 mg oral 810 Route: PO, l tablet, 22:00: Drug form: Herm cecelia extended ERTAB, release BID, Dosing Weight 64.205, kg, Start date: 12/02/18 17:00:00 CDT, Duration: 30 day, Stop date: 01/01/19 9:00:00 CDT Lisinopril No Notes: Memor ia 8-10 (Same as: l 16:46: Prinivil, Zestril) Famotidine No Notes: Memor ia 8-10 (Same as: l 14:00: Pepcid AC) Aspirin No Notes: Memoria 8-10 Take with l 14:00: food. Maalox No Notes: Memoria Advanced 8-10 (aluminum l Regular 12:50: hydroxide- Herm cecelia Strength 00 magnesium SUSP hyd- simethicon e 200-200-20 mg/5ml GRECIA) (Same as: Maalox Plus Extra Strength) Saline No Notes: Memoria Flush 0.9% 12-02 (Same as: l 02:00: BD Posiflush) Lisinopril No 20 mg, PO, M emoria 12-01 Daily, 0 l 23:43: Refill(s) Potassium No Notes: Memori a Chloride 12-01 (Same as: l 23:34: K-Dur 20) "Do Not Crush" Give with food and full glass of water For patients unable to swallow tablet, dissolve in one half glass of water. Allow about 2 minutes for the tablets to disintegra te. Stir before giving to prepare slurry and administer . Please exclude Patient s with feeding tube less than 14 Italian (Dobhoff, J-tube etc) and pediatric and patients. potassium No Notes: Memori a phosphate-s 12-01 (Same as: l odium 23:34: Phos-NaK) Roland phosphate 00 Each 1.5 250 mg-280 gm pkt has mg-160 mg 250mg oral powder phosphorou for s. Mix reconstitut w/2.5oz ion water and stir. potassium No Notes: Memori a phosphate 12-01 (Same as: l 23:34: K Roland 00 Phosphate. ) Do not infuse phosphorou s concurrent ly in the same line as TPN or IVF that contains calcium. For double lumen central lines, phosphorou s may be infused in a separate lumen from TPN. 1 mMol phoshate has 1.47 mEq potassium Infuse over 4 hours sodium No Notes: Memoria phosphate 12-01 Infuse l 23:34: over 4 hour. Do not infuse phosphorou s concurrent ly in the same line as TPN or IVF that contains calcium. For double lumen central lines, phosphorou s may be infused in a separate lumen from TPN. Magnesium No Notes: Memori a Sulfate 12-01 WASTE: F/P l 23:34: - Sink; E - Municipal Trash Bin Magnesium No Notes: Memori a Oxide 12-01 (Same as: l 23:34: Mag-Ox [place] 400) Magnesium oxide 546lc=049i g elemental magnesium Dose=____m g magnesium oxide (___mg elemental magnesium) Calcium No Notes: Memoria Gluconate 12-01 WASTE: F/P l 23:34: - Sink; E - Municipal Trash Bin heparin No Notes: Memoria 12-01 porcine l 21:00: heparin Magnesium No Notes: Memori a Sulfate 12-01 WASTE: F/P l 20:36: - Sink; E - Municipal Trash Bin Isolyte S No Notes: Memori a PH-7.4 12-01 (Same as: l (Bolus) IV 20:34: Isolyte S PH7.4) Potassium No 80 mEq, 4 Mem oria Chloride 12-01 tab, l 20:33: Route: PO, Roland 00 Drug form: ERTAB, ONCE, Dosing Weight 68.182, kg, Priority: NOW, Start date: 12/01/18 15:33:00 CDT, Stop date: 12/01/18 15:33:00 CDT, 0 Cardene 40 No Notes: Memor ia mg in NS 12-01 (Same as: l 200 mL 20:32: Cardene) Roland (Titrate.) 00 IV 40 mg Morphine No Notes: Memoria 12-01 (Same l 20:11: as:MORPhin Roland 00 e Sulfate) Nystatin No Notes: Memoria 100 UNT/MG 12-01 (Same l Topical 19:04: as:Mycosta Herm cecelia Powder 00 tin, Nilstat) For external use only. Saline No Notes: Memoria Flush 0.9% 12-01 (Same as: l 19:04: BD Roland 00 Posiflush) Nitroglycer No Notes: Ketan brooks in 12-01 (Same l 17:29: as:Tridil) [place] 00 Xylocaine No Notes: Memori a Viscous 2% 12-01 (Same as: l mucous 17:00: Xylocaine) Bonnie nn membrane 00 solution Al No Notes: Memoria hydroxide/M 12-01 (aluminum l g 16:51: hydroxide- Roland hydroxide/s 00 magnesium imethicone hyd-simeth icone 200-200-20 mg/5ml 30 ml ud GRECIA) GI cocktail No 45 mL, Ketan brooks (aluminum 12-01 Route: PO, l hydroxide/m 16:45: Dosing Herm cecelia agnesium 00 Weight hydroxide/l 68.182, idocaine/si kg, ONCE, methicone) STAT, Start date: 12/01/18 11:45:00 CDT, Stop date: 12/01/18 11:45:00 CDT Nitroglycer No Notes: Ketan brooks in 12-01 (Same l 16:14: as:Tridil) Roland Final conc = 0.4 mg/ml. Premix bottle. Iohexol No 100 mL, Memoria 12-01 Route: l 16:11: IVP, Drug [place] 00 Form: SOLN, Dosing Weight 68.182, kg, ONCALL, STAT, Start date: 12/01/18 11:11:00 CDT, Duration: 1 doses or times, Dose = 2.2ml/kg, Max dose = 100ml -- "To be infused by Radiology Staff ONLY" Famotidine No Notes: Memor ia 12-01 (Same as: l 15:23: Pepcid) Roland 00 Can be dilute in 5-10cc NS IVP: Slow IV push over at least 2 minutes. GI cocktail No 45 mL, Ketan brooks (aluminum 12-01 Route: PO, l hydroxide/m 15:20: kg, ONCE, H ermann agnesium 00 STAT, hydroxide/l Start idocaine/si date: methicone) 12/01/18 10:20:00 CDT, Stop date: 12/01/18 10:20:00 CDT Vital Signs Vital Name Observation Time Observation Value Comments Source Temperature Oral (F) 2018-12-04 17:00:00 98.3 F [facility] Respitory Rate 2018-12-04 15:00:00 Memori al [place] Systolic (mm Hg) 2018-12-04 15:00:00 Ketan rial [place] Diastolic (mm Hg) 2018-12-04 15:00:00 Mem orial [place] Respitory Rate 2018-12-04 14:00:00 Memori al [place] Systolic (mm Hg) 2018-12-04 14:00:00 Ketan rial [place] Diastolic (mm Hg) 2018-12-04 14:00:00 Mem orial [place] Respitory Rate 2018-12-04 13:00:00 Memori al [place] Systolic (mm Hg) 2018-12-04 13:00:00 Ketan rial [place] Diastolic (mm Hg) 2018-12-04 13:00:00 Mem orial [place] Temperature Oral (F) 2018-12-04 12:32:00 98.5 F [facility] Temperature Oral (F) 2018-12-04 04:44:00 98.5 F [facility] Roland Height 2018-12-01 23:35:00 180.34 cm [facility] Weight 2018-12-01 23:35:00 [facility] [place] BMI Calculated 2018-12-01 23:35:00 Memori al [place] Heart Rate 2018-12-01 15:16:00 Marcos Watkins Height 2018-12-01 15:16:00 [facility] 2018-12-01 15:16:00 Tremaine Chen Weight 2018-12-01 15:16:00 [facility] Roland Procedures Procedure Date / Time Performed Performing Clinician Sourc e Cholecystectomy [facility] Roland Encounters Start End Encounter Admission Attending Care Care Encounter Source Date/Time Date/Time Type Type Clinicians Facility Department ID 2020-07-07 2020-07-07 Outpatient [facility] [id number] [place] 00:00:00 00:00:[address] 2020-06-07 2020-06-07 Emergency Jeffrey [facility] [id number] 09:18:00 13:32:00 Digna Burns [id number] [place] [id number] [place] [id number] 2019-06-12 2019-06-12 Emergency [place] [facility] [id number] 17:21:36 19:07:00 , Christine Burns [id number] Aliza [place] [id number] [place] [id number] 2019-06-12 2019-06-12 Orders Doctor LEACH [id number] 00:00:00 00:00:00 Only Unassigned, [place] [id number] [place] [facility] [id number] 2019-05-22 2019-06-04 Inpatient [facility] [id number] [place] 00:00:00 00:00:00 [place] [address] 2018-12-01 2018-12-04 Outpatient Saurabh [facility] [id number] 10:16:00 14:55:00 Selam Romero 2018-12-01 2018-12-01 Inpatient E [facility] [id number] 13:43:00 10:12:00 2018-12-01 2018-12-01 Outpatient [facility] 10:12:00 10:12:00 2018-11-29 2018-11-29 Emergency [facility] [id number] 10:15:46 14:01:00 Digna Burns [id number] [place] [id number] [place] [id number] Results Test Description Test Time Test Comments Results Result Comments Source BASIC METABOLIC PANEL 2019-06-07 03:18:00 Test Item Value Reference Range Interpretation Comme nts SODIUM (test code = NA) 139 mmol/L 134-147 N POTASSIUM (test code = K) 3.5 mmol/L 3.4-5.0 N CHLORIDE (test code = CL) 102 mmol/L 100-108 N CARBON DIOXIDE (test code = CO2) 31 mmol/L 21-32 N ANION GAP (test code = GAP) 6.0 GAP calc 4.0-15.0 N GLUCOSE (test code = GLU) 74 MG/DL 70-110 N BLOOD UREA NITROGEN (test code = BUN) 19 MG/DL 7-18 H GLOMERULAR FILTRATION RATE (test code = GFR) >=60 max estimate estG FR >60 CREATININE (test code = CREAT) 1.1 MG/DL 0.8-1.3 N CALCIUM (test code = CA) 9.7 MG/DL 8.5-10.1 N Last Dose Date: 04/25/00 Dose Time: HEPATIC FUNCTION [id number] 03:18:00 Test Item Value Reference Range Interpretation Comments TOTAL PROTEIN (test code = PROT) 8.4 G/DL 6.4-8.2 H ALBUMIN (test code = ALB) 3.5 G/DL 3.4-5.0 N BILIRUBIN TOTAL (test code = 0.20 MG/DL 0.2-1.2 N BILT) BILIRUBIN DIRECT (test code = < 0.10 MG/DL 0.00-0.30 N BILD) BILIRUBIN INDIRECT (test code = 0.10 MG/DL 0.2-1.2 L BILIND) SGOT/AST (test code = AST) 21 Unit/L 15-37 N SGPT/ALT (test code = ALT) 15 Unit/L 12-78 N ALKALINE PHOSPHATASE TOTAL (test 106 Unit/L 50-136 N code = ALKP) Last Dose Date: 04/25/00 Dose Time: [id number] 03:18:00 Test Item Value Reference Range Interpretation Comments LIPASE (test code = LIP) 114 Unit/L 114-286 N Last Dose Date: 04/25/00Las Dose Time: [id number] 03:18:00 Test Item Value Reference Range Interpretation Comments ACETAMINOPHEN (test code = ACET) <2.0 mcG/ML 10.0-30.0 L Last Dose Date: 04/25/00Las Dose Time: [id number] 03:18:00 Test Item Value Reference Range Interpretation Comments ALCOHOL (test code = ALC) < 3 MG/DL 0-10 N Last Dose Date: 04/25/00Las Dose Time: [id number] 03:10:00 Test Item Value Reference Range Interpretation Comments SALICYLATE (test code = ALYSSA) < 1.7 MG/DL 2.8-20.0 THER L UA RFLX MICR CULT IF [id number] 02:59:00 Test Item Value Reference Range Interpretation Comments UA COLOR (test code = YELLOW discript YEL/STRAW COLU) UA APPEARANCE (test code CLEAR discript CLEAR = APPU) UA GLUCOSE DIPSTICK (test NEGATIVE mg/dL NEG code = DGLUU) UA BILIRUBIN DIPSTICK NEGATIVE mg/dL NEG (test code = BILU) UA KETONE DIPSTICK (test NEGATIVE mg/dL NEG code = KETU) UA SPECIFIC GRAVITY (test 1.020 SG 1.005-1.030 code = SGU) UA BLOOD DIPSTICK (test TRACE mg/DL NEG code = PATIENCE) UA PH DIPSTICK (test code 6.0 pH UNITS 5.0-7.0 = TIFFANIE) UA PROTEIN DIPSTICK (test NEGATIVE mg/dL NEG code = PROU) UA UROBILINIOGEN DIPSTICK 0.2 mg/dL <2.0 (test code = URO) UA NITRITE DIPSTICK (test NEGATIVE SCREEN NEG code = FREDY) UA LEUKOCYTE ESTERASE NEGATIVE Leuk/mcL NEGATIVE DIPSTICK (test code = LEUU) UA WBC (test code = WBCU) 0-1 #WBC/HPF 0-3 UA RBC (test code = RBCU) 0-1 #RBC/HPF 0-3 UA BACTERIA (test code = OCCASIONAL /HPF NONE-TRACE BACU) UA CULTURE NEEDED? (test NO, WBC<10 Criteria Culture CHK code = UACULT) SOURCE OF URINE: CLEAN CATCHIndication for culture: Suprapubic PainDRUGS OF ABUSE SCREEN [id number] 02:59:00 Test Item Value Reference Range Interpretation Comments URN COCAINE (test code = NEGATIVE SCcutoff <300 NG/ML COCAURN) URN CANNABINOIDS (test code POSITIVE SCcutoff <50 NG/ML A = CANNABURN) URN AMPHETAMINE (test code NEGATIVE SCcutoff <1000 NG/ML = AMPHETURN) URN BARBITURATE (test code NEGATIVE SCcutoff <200 NG/ML = BARBITURN) URN BENZODIAZEPINE (test NEGATIVE SCcutoff <200 NG/ML code = BENZOURN) URN OPIATES (test code = NEGATIVE SCcutoff <2000 NG/ML OPIATURN) URN PHENCYCLIDINE (PCP) NEGATIVE SCcutoff <25 NG/ML (test code = PHENCURN) URN METHADONE (test code = NEGATIVE SCcutoff <300 NG/ML METHAURN) SOURCE OF URINE: CLEAN CATCHIndication for culture: Suprapubic PainBASIC METABOLIC [id number] 02:57:00 Test Item Value Reference Range Interpretation Comments SODIUM (test code = NA) 139 mmol/L 134-147 N POTASSIUM (test code = K) 3.5 mmol/L 3.4-5.0 N CHLORIDE (test code = CL) 102 mmol/L 100-108 N CARBON DIOXIDE (test code = CO2) 31 mmol/L 21-32 N ANION GAP (test code = GAP) 6.0 GAP calc 4.0-15.0 N GLUCOSE (test code = GLU) 74 MG/DL 70-110 N BLOOD UREA NITROGEN (test code = 19 MG/DL 7-18 H BUN) GLOMERULAR FILTRATION RATE (test estGFR >60 code = GFR) CREATININE (test code = CREAT) MG/DL 0.8-1.3 CALCIUM (test code = CA) 9.7 MG/DL 8.5-10.1 N Last Dose Date: 04/25/00Last Dose Time: 0000HEPATIC FUNCTION [id number] 02:57:00 Test Item Value Reference Range Interpretation Comments TOTAL PROTEIN (test code = PROT) G/DL 6.4-8.2 ALBUMIN (test code = ALB) G/DL 3.4-5.0 BILIRUBIN TOTAL (test code = BILT) MG/DL 0.2-1.2 BILIRUBIN DIRECT (test code = BILD) MG/DL 0.00-0.30 BILIRUBIN INDIRECT (test code = MG/DL 0.2-1.2 BILIND) SGOT/AST (test code = AST) Unit/L 15-37 SGPT/ALT (test code = ALT) Unit/L 12-78 ALKALINE PHOSPHATASE TOTAL (test code Unit/L 50-136 = ALKP) Last Dose Date: 04/25/00Las Dose Time: [id number] 02:57:00 Test Item Value Reference Range Interpretation Comments LIPASE (test code = LIP) 114 Unit/L 114-286 N Last Dose Date: 04/25/00Las Dose Time: [id number] 02:57:00 Test Item Value Reference Range Interpretation Comments ACETAMINOPHEN (test code = ACET) mcG/ML 10.0-30.0 Last Dose Date: 04/25/00Las Dose Time: [id number] 02:57:00 Test Item Value Reference Range Interpretation Comments ALCOHOL (test code = ALC) MG/DL 0-10 Last Dose Date: 04/25/00Las Dose Time: 0000UA RFLX MICR CULT IF INDICATED 2019-06-07 02:55:00 Test Item Value Reference Range Interpretation Comments UA COLOR (test code = YELLOW discript YEL/STRAW COLU) UA APPEARANCE (test code CLEAR discript CLEAR = APPU) UA GLUCOSE DIPSTICK (test NEGATIVE mg/dL NEG code = DGLUU) UA BILIRUBIN DIPSTICK NEGATIVE mg/dL NEG (test code = BILU) UA KETONE DIPSTICK (test NEGATIVE mg/dL NEG code = KETU) UA SPECIFIC GRAVITY (test 1.020 SG 1.005-1.030 code = SGU) UA BLOOD DIPSTICK (test TRACE mg/DL NEG code = PATIENCE) UA PH DIPSTICK (test code 6.0 pH UNITS 5.0-7.0 = TIFFANIE) UA PROTEIN DIPSTICK (test NEGATIVE mg/dL NEG code = PROU) UA UROBILINIOGEN DIPSTICK 0.2 mg/dL <2.0 (test code = URO) UA NITRITE DIPSTICK (test NEGATIVE SCREEN NEG code = FREDY) UA LEUKOCYTE ESTERASE NEGATIVE Leuk/mcL NEGATIVE DIPSTICK (test code = LEUU) UA WBC (test code = WBCU) 0-1 #WBC/HPF 0-3 UA RBC (test code = RBCU) 0-1 #RBC/HPF 0-3 UA BACTERIA (test code = OCCASIONAL /HPF NONE-TRACE BACU) UA CULTURE NEEDED? (test NO, WBC<10 Criteria Culture CHK code = UACULT) SOURCE OF URINE: CLEAN CATCHIndication for culture: Suprapubic PainDRUGS OF ABUSE SCREEN [id number] 02:55:00 Test Item Value Reference Range Interpretation Comments URN COCAINE (test code = COCAURN) SCcutoff <300 NG/ML URN CANNABINOIDS (test code = SCcutoff <50 NG/ML CANNABURN) URN AMPHETAMINE (test code = SCcutoff <1000 NG/ML AMPHETURN) URN BARBITURATE (test code = SCcutoff <200 NG/ML BARBITURN) URN BENZODIAZEPINE (test code = SCcutoff <200 NG/ML BENZOURN) URN OPIATES (test code = OPIATURN) SCcutoff <2000 NG/ML URN PHENCYCLIDINE (PCP) (test code SCcutoff <25 NG/ML = PHENCURN) URN METHADONE (test code = SCcutoff <300 NG/ML METHAURN) SOURCE OF URINE: CLEAN CATCHIndication for culture: Suprapubic PainCBC W/AUTO [id number] 02:43:00 Test Item Value Reference Range Interpretation Comments WHITE BLOOD CELL (test code = 9.0 K/mm3 3.5-11.0 N WBC) RED BLOOD CELL (test code = RBC) 4.48 M/mm3 4.70-6.10 L HEMOGLOBIN (test code = HGB) 12.4 G/DL 12.3-15.9 N HEMATOCRIT (test code = HCT) 37.1 % 35.8-46.7 N MEAN CELL VOLUME (test code = 82.8 Fl 86.3-98.9 L MCV) MEAN CELL HGB (test code = MCH) 27.7 pg 28.9-34.4 L MEAN CELL HGB CONCETRATION (test 33.4 G/DL 32.1-34.5 N code = MCHC) RED CELL DISTRIBUTION WIDTH (test 15.8 SD 11.5-14.5 H code = RDW) PLATELET COUNT (test code = PLT) 480.0 K/mm3 150-450 H MEAN PLATELET VOLUME (test code = 8.20 fL 7.0-9.6 N MPV) NEUTROPHIL % (test code = NT%) 45.4 % 40-76 N LYMPHOCYTE % (test code = LY%) 41.9 % 20.5-51.1 N MONOCYTE % (test code = MO%) 9.7 % 1.7-9.3 H EOSINOPHIL % (test code = EO%) 2.7 % 0.0-6.0 N BASOPHIL % (test code = BA%) 0.3 % 0.0-2.0 N NEUTROPHIL # (test code = NT#) 4.08 K/mm3 1.8-7.6 N LYMPHOCYTE # (test code = LY#) 3.8 K/mm3 0.6-3.0 H MONOCYTE # (test code = MO#) 0.9 K/mm3 0.2-1.5 N EOSINOPHIL # (test code = EO#) 0.2 K/mm3 0.0-0.4 N BASOPHIL # (test code = BA#) 0.0 K/mm3 0.0-0.2 N MANUAL DIFF REQUIRED (test code = NO DIFF/SCN CRITERIA MDIFF) UA RFLX MICR CULT IF [id number] 02:42:00 Test Item Value Reference Range Interpretation Comments UA COLOR (test code = COLU) YELLOW discript YEL/STRAW UA APPEARANCE (test code = CLEAR discript CLEAR APPU) UA GLUCOSE DIPSTICK (test NEGATIVE mg/dL NEG code = DGLUU) UA BILIRUBIN DIPSTICK (test NEGATIVE mg/dL NEG code = BILU) UA KETONE DIPSTICK (test NEGATIVE mg/dL NEG code = KETU) UA SPECIFIC GRAVITY (test 1.020 SG 1.005-1.030 code = SGU) UA BLOOD DIPSTICK (test TRACE mg/DL NEG code = PATIENCE) UA PH DIPSTICK (test code = 6.0 pH UNITS 5.0-7.0 TIFFANIE) UA PROTEIN DIPSTICK (test NEGATIVE mg/dL NEG code = PROU) UA UROBILINIOGEN DIPSTICK 0.2 mg/dL <2.0 (test code = URO) UA NITRITE DIPSTICK (test NEGATIVE SCREEN NEG code = FREDY) UA LEUKOCYTE ESTERASE NEGATIVE Leuk/mcL NEGATIVE DIPSTICK (test code = LEUU) UA CULTURE NEEDED? (test Criteria Culture CHK code = UACULT) SOURCE OF URINE: CLEAN CATCHIndication for culture: Suprapubic PainDRUGS OF ABUSE SCREEN [id number] 02:42:00 Test Item Value Reference Range Interpretation Comments URN COCAINE (test code = COCAURN) SCcutoff <300 NG/ML URN CANNABINOIDS (test code = SCcutoff <50 NG/ML CANNABURN) URN AMPHETAMINE (test code = SCcutoff <1000 NG/ML AMPHETURN) URN BARBITURATE (test code = SCcutoff <200 NG/ML BARBITURN) URN BENZODIAZEPINE (test code = SCcutoff <200 NG/ML BENZOURN) URN OPIATES (test code = OPIATURN) SCcutoff <2000 NG/ML URN PHENCYCLIDINE (PCP) (test code SCcutoff <25 NG/ML = PHENCURN) URN METHADONE (test code = SCcutoff <300 NG/ML METHAURN) SOURCE OF URINE: CLEAN CATCHIndication for culture: Suprapubic PainCHEM [id number] 05:19:0095[facility]annCHEM [id number] 05:19:0010 [facility]annCHEM [id number] 05:19:000.80[facility]annCHEM PANEL 2018-12-04 05:19:13611Bjdxvmmv HermannCHEM [id number] 05:19:003.5[facility]annCHEM [id number] 05:19:50238Swcycxjw HermannCHEM VSARJ3188-67-10 05:19:0030[facility]annCHEM DFHFW0729-17-47 05:19:008.7[facility]annCHEM LEUEK8294-61-63 05:19:81832Pnixqorl HermannCHEM PYLJR8829-72-60 05:19:009.5 [facility]annCHEM OBTXL7825-05-79 05:19:002.3[facility]annCHEM PANEL 2018-12-04 05:19:002.8[facility] SajicqoQBOCSEIQVD2521-27-46 05:19:008.1[facility] FjbqzqrTGFGQPKZVL1555-54-04 05:19:004.27[facility] IfexuwmWMUUBFCBGX6314-91-32 05:19:0012.2[facility] IivsdzvTTMLTMNUTX8141-21-52 05:19:0035.7[facility] [place] VIBASAACFE3693-27-54 05:19:0083.8[facility] JmllxfzYUGOQLOWSR4340-53-83 05:19:00 Test Item Value Reference Range Interpretation Comments MCH (test code = MCH) 28.6 pg 27.0-31.0 [facility] FtguzwzLLHRCGBNQB1080-13-72 05:19:0034.2[facility] HermannHEMATOLOGY 2018-12-04 05:19:0015.1[facility] NigrpcgCSDNZIKYCW3450-66-41 05:19:59821Chzfcxsz PcvhtogRAEGONEDMQ0082-80-49 05:19:007.7[facility] YsbtiwfHZHIJAKPLY1541-08-63 05:19:0040.4[facility] NqxjkpxEILAPIINMK1170-72-60 05:19:0048.4[facility] [place] SUFYVHBGIZ8149-38-34 05:19:008.6[facility] EnmobgiZBOWPKWTDL5110-68-43 05:19:001.7 [facility] VulbvflSSKWAZGEQY2541-18-46 05:19:000.9[facility] HermannHEMATOLOGY 2018-12-04 05:19:003.3[facility] GwwkmhyVJVGBPDYSQ8432-86-76 05:19:003.9[facility] TthogjpMYTPYVXLDS2298-89-14 05:19:000.7[facility] OmxuxtxYGNLELHWXB2230-38-33 05:19:000.1[facility] BqsruxfEQUTYDBUYL6843-43-76 05:19:000.1[facility] PARATHYROID UTGPETI9098-48-62 05:19:001.12[facility] HermannPARATHYROID PROFILE 2018-12-04 05:19:001.16[facility] PwpijevKYOLDI2030-57-75 13:51:64790Wmtjsbzn HeeedvmHPSZRM8785-79-49 13:51:0086[facility] UhbsvvzCXYNPT6992-76-34 13:51:38098 [facility] FhxhwgiWLSEEC1596-47-75 13:51:0035[facility] QrihioaHJHRBN1833-85-46 13:51:00 Test Item Value Reference Range Interpretation Comments CHD Risk (test code = CHD Risk) 4.89 1 4.00-7.30 [facility] YspbjocKVMHWN5341-12-69 13:51:00 Test Item Value Reference Range Interpretation Comments VLDL (test code = VLDL) 17 1 [facility] [id number] 09:48:008.7[facility]annCHE[facility] PANEL 2018-12-03 09:48:83230Lwnflmnz HermannCHEM FZLBE1889-15-40 09:48:008.7[facility]annCHE[facility] UGOMT5123-45-26 09:48:002.4[facility]annCHE[facility] FJUVG0420-53-17 09:48:002.7[facility] KamialnIOTZITGIZW4159-85-57 09:48:0046.3[facility] EUJQDQYNHF0817-77-47 09:48:0042.1[facility] TarybhdBBTRFXFNXR0553-99-79 09:48:00 9.0[facility] TwxklraSEUZTXOIJV2350-10-47 09:48:001.[facility]annHEMATOLOGY 2018-12-03 09:48:001.2[facility] XfgujoxWKHFLOZDHC8899-17-75 09:48:003.4[facility] KycmufpQQHDVZEYLA3905-25-45 09:48:003.1[facility] EhrgdyoMXNOVGRFWL6541-43-74 09:48:000.7[facility] SxvdhinKEXXJZPTJO8658-46-19 09:48:000.1[facility] RTDPCLLMZP4951-57-11 09:48:000.1[facility] CrausokQZEEBTJHLQ5235-23-83 09:48:007.4 [facility] OzgkztaWRNYHGFKWW1262-70-71 09:48:004.42[facility]annHEMATOLOGY 2018-12-03 09:48:0012.7[facility] DbssmelYQAHSEMNMU7343-90-95 09:48:0037.1[facility] DzskhgyCUOEWKUNIT3936-36-31 09:48:0083.9[facility] JozjufrDVBAWEPBRH9468-18-79 09:48:00 Test Item Value Reference Range Interpretation Comments MCH (test code = MCH) 28.7 pg 27.0-31.0 [facility] MydckkuVQUCYVLDBK2032-21-38 09:48:0034.1[facility]annHEMATOLOGY 2018-12-03 09:48:0015.2[facility] EmeswhyWFPOWEQLBU3292-30-69 09:48:55347Lehbfxlt WukefmpIOTFMFVIDN5608-50-98 09:48:007.8[facility] HermannPARATHYROID PROFILE 2018-12-03 09:48:001.04[facility]annPARATHYROID HLCOIXO0211-81-74 09:48:00 1.09[facility]annSPECIAL SCNHHQLCY3654-62-80 09:48:005.6[facility]annCHEM HWFIJ8129-06-48 09:48:0090[facility]annCHE[facility] GSCBO6324-72-78 09:48:0013 [facility] DSCXJ5644-88-45 09:48:000.77[facility]annCHEM PANEL 2018-12-03 09:48:61882Gizszfzu HermannCHEM NNLFU0808-71-94 09:48:003.7[facility]annCHE[facility] JERQC8105-34-43 09:48:63820Vyaxqncf HermannCHEM XXRDH7806-74-43 09:48:0029[facility]CHE[facility] ZKGLG7762-02-78 21:45:85513Runxpmev HermannCHEM CPBLP0065-26-42 21:45:0018[facility]CHE[facility] VJMUN3051-72-05 21:45:003.6 [facility] TQZQO8392-11-51 21:45:0079[facility]annCHE[facility] PANEL 2018-12-02 21:45:000.1[facility] RJXVX4347-96-76 21:45:000.5[facility]annCHE[facility] SFVMU9306-71-38 21:45:000.4[facility]annCHE[facility] NMCBO7920-41-47 21:45:006.9[facility]annCHE[facility] ROSNV7274-03-96 21:45:0018[facility]annCHEM DPICH0131-55-32 21:45:003.3[facility]annCHE[facility] RBKBY2254-87-27 21:45:00 Test Item Value Reference Range Interpretation Comments A/G Ratio (test code = A/G Ratio) 1.1 1 0.7-1.6 [facility]annCARDIAC BMLQIFM6242-50-13 05:53:00<0.02[facility]CHEM MSTVC6752-91-11 05:53:001.3[facility]annCHE[facility] DDMYI7321-01-05 05:53:91346 [facility] WVZDP5001-12-54 05:53:0019[facility]annCHE[facility] PANEL 2018-12-02 05:53:000.92[facility]CHE[facility] RIJOG9869-47-98 05:53:55985Jvobgrqt HermannCHEM LVQFM1667-78-80 05:53:003.5[facility]CHE[facility] FTMBG3407-53-90 05:53:33956Yemnndso HermannCHEM EUFGR1387-92-76 05:53:0029[facility]CHE[facility] WWYJF5191-39-08 05:53:008.7[facility]CHE[facility] DLHDF3299-32-54 05:53:99250 [facility] IRVKB4659-95-35 05:53:0011.5[facility]annCHEM PANEL 2018-12-02 05:53:002.8[facility]annCHE[facility] EXWLX8287-33-71 05:53:002.4[facility] ZnhmnkrWHERCDOUFO5016-77-03 05:53:0051.2[facility] YjkdvbaIXAPPSYSGJ4377-68-40 05:53:0038.9[facility] YlgssihOOMKLBEXRD8874-54-18 05:53:008.6[facility] HKLBRAPFOV4857-07-49 05:53:000.3[facility] GncdpgqTLEIPWKLCB4456-72-67 05:53:001.0 [facility] JdprxmoPLRHXUNQQB7098-49-36 05:53:005.6[facility]annHEMATOLOGY 2018-12-02 05:53:004.3[facility] PmnjirxSKUHUPGUNP3057-63-62 05:53:000.9[facility] RucwdjsMKAUWGKSBM4871-10-03 05:53:000.1[facility] UqxmnazTFWNXOTVCE9269-38-46 05:53:0011.0[facility] QvlulcmUVVWVNWKIW0793-47-49 05:53:004.46[facility] AZVKSCENFV2346-56-82 05:53:0012.5[facility] PetlkrdZTTRNIVEHB3951-04-15 05:53:00 37.3[facility] AgrsdoeOSJIYZTRWQ2030-85-57 05:53:0083.7[facility]annHEMATOLOGY 2018-12-02 05:53:00 Test Item Value Reference Range Interpretation Comments MCH (test code = MCH) 28.0 pg 27.0-31.0 [facility] QpvjiffXEZXULTZXE8186-61-25 05:53:0033.5[facility]annHEMATOLOGY 2018-12-02 05:53:0015.3[facility] BcdmudnJUPEEXEZNF5291-71-90 05:53:56233Rjoyqlcm TserslaFASVKVGXBE0658-52-29 05:53:007.5[facility] HermannBACTERIAL - SEROLOGY 2018-12-02 03:05:00Negative (12/01/18 10:05 PM)[facility]annDRUG SCREEN 2018-12-02 03:05:00Negative *NA*(12/01/18 10:05 PM)[facility] SCREEN 2018-12-02 03:05:00Negative *NA*(12/01/18 10:05 PM)[facility] SCREEN 2018-12-02 03:05:00Negative *NA*(12/01/18 10:05 PM)[facility] SCREEN 2018-12-02 03:05:00Negative *NA*(12/01/18 10:05 PM)[facility] SCREEN 2018-12-02 03:05:00Positive *ABN*(12/01/18 10:05 PM)[facility] SCREEN 2018-12-02 03:05:00Positive *ABN*(12/01/18 10:05 PM)[facility] SCREEN 2018-12-02 03:05:00Negative *NA*(12/01/18 10:05 PM)[facility]DR[facility] SCREEN 2018-12-02 03:05:00See Note (12/01/18 10:05 PM)[facility] STOOL 2018-12-02 03:05:00Yellow *NA*(12/01/18 10:05 PM)[facility] STOOL 2018-12-02 03:05:00Clear (12/01/18 10:05 PM)[facility] STOOL 2018-12-02 03:05:00 Test Item Value Reference Range Interpretation Comments UA Spec Grav (test code = UA Spec 1.036 1 Grav) [facility] [id number] 03:05:00 Test Item Value Reference Range Interpretation Comments UA pH (test code = UA pH) 5.0 1 5.0-8.0 [facility] [id number] 03:05:00Negative *NA*(12/01/18 10:05 PM) [facility] CTAMX8313-36-71 03:05:00Small *ABN*(12/01/18 10:05 PM) [facility] NYKCG3097-65-88 03:05:00<1.0[facility] [id number] 03:05:00Negative (12/01/18 10:05 PM)[facility] MIACS9696-79-18 03:05:00Negative (12/01/18 10:05 PM)[facility] XJSDF6218-98-22 03:05:001[facility] QTYXE4322-78-76 03:05:002 [facility]annCARDIAC SOJXGQD1258-17-47 21:40:00<0.02[facility] CARDIAC ZEWYCSC6848-62-21 21:18:000.7[facility]annCARDIAC CNOLNTE2303-68-38 21:18:00 Test Item Value Reference Range Interpretation Comments CK MB Index (test 0.3 1 See_Comment [Automate d message] The code = CK MB Index) system w [facility] generated this result transmit keon reference range : <=2.5. The reference range was not used to interpr et this result as evan l/abnormal. [facility]CARDIAC MWIJVOD1303-25-59 21:18:58078Msznihsn HermannCARDIAC FBBJPNA6337-20-38 21:18:00<0.02[facility]annCHEM WAYMT3655-51-88 21:18:00 2.1[facility]annCHEM HYFIC2444-19-53 21:18:0043[facility]annCHEM PANEL 2018-12-01 21:18:007.9[facility]annCHEM HHETA9583-97-71 21:18:003.7[facility]annCHEM WPZXO3329-74-39 21:18:004.2[facility]annCHEM BSXAF5185-23-87 21:18:00 Test Item Value Reference Range Interpretation Comments A/G Ratio (test code = A/G Ratio) 0.9 1 0.7-1.6 [facility] GKQZQ6125-27-60 21:18:0020[facility]annCHEM PANEL 2018-12-01 21:18:0020[facility]annCHE[facility] AJMLZ7625-61-04 21:18:0084[facility]annCHEM NEAXS5212-48-12 21:18:000.6[facility]annCHEM XIQAI8346-66-58 21:18:000.1[facility]annCHEM MJSMU0075-79-66 21:18:000.5[facility] OSJWGW9233-68-51 21:18:56680Kprweopw NezfuvsBLAWQL2795-55-25 21:18:43417Orweszge ManpfjyDKZCKG0651-50-29 21:18:0030[facility] IkddlptUCJKMD4851-54-07 21:18:78287 [facility] QhuzweeKBBXXJ2353-36-30 21:18:00 Test Item Value Reference Range Interpretation Comments VLDL (test code = VLDL) 23 1 [facility] YxoxzaeLLPBJV6651-05-46 21:18:00 Test Item Value Reference Range Interpretation Comments CHD Risk (test code = CHD Risk) 6.23 1 4.00-7.30 [facility] LlmfvuiJKWVQWEWS3967-67-15 21:18:0058[facility] HermannPARATHYROID ZNLCYUW8065-71-23 21:18:000.97[facility] HermannPARATHYROID UCAXJGS3663-54-88 21:18:001.05[facility]annSPECIAL KSJMSOVZX2645-02-11 21:18:005.5[facility]annCHEM KXIIV9435-03-61 15:51:001.3[facility] HermannBLOOD BANK RESULTS 2018-12-01 15:42:00Negative (12/01/18 10:42 AM)[facility]annCHEM PANEL 2018-12-01 15:40:578.3[facility]annCHEM DNVKR3120-41-49 15:40:574.0[facility]annCHEM ARMIJ0268-40-14 15:40:5720[facility]annCHEM VRLZD6003-01-37 15:40:5731[facility]annCHEM JCXNM0426-73-16 15:40:5789[facility]annCHEM NDCOP2150-30-80 15:40:570.5[facility]annCHEM WTQUQ8402-57-33 15:40:570.1 [facility] TEKFQ4307-35-33 15:40:570.4[facility]annCHEM PANEL 2018-12-01 15:40:574.3[facility]annCHEM KAHYI3422-33-23 15:40:57 Test Item Value Reference Range Interpretation Comments A/G Ratio (test code = A/G Ratio) 0.9 1 0.7-1.6 [facility]CHE[facility] FRHBK9825-15-01 15:40:572.8[facility]annCHEM PANEL 2018-12-01 15:40:5773[facility] VvpblheFCQPRPJJKU2083-96-13 15:40:57 Test Item Value Reference Range Interpretation Comments PTT (test code = PTT) 31.7 s 22.9-35.8 [facility] CenterFjaorjoNAONZATRQO7854-57-30 15:40:57 Test Item Value Reference Range Interpretation Comments PT (test code = PT) 13.7 s 12.0-14.7 [facility] CenterAchnttwDWXEYFEUNJ1829-36-47 15:40:57 Test Item Value Reference Range Interpretation Comments INR (test code = INR) 1.07 1 0.85-1.17 Marcos Roland
[2020-07-17 08:14] LABS: Urine Bacteria NONE SEEN /HPF (NONE SEEN); Urine RBC <5 /HPF (NONE SEEN)
[2020-07-17 08:15] LABS: Urine Blood NEGATIVE (NEG); Urine Glucose NEGATIVE (NEG); Urine Protein NEGATIVE (NEG); Urine Specific Gravity 1.025 (1.005-1.030); Urine pH 8.5 (5.0-7.0)
[2020-07-17] MEDS ORDERED: ONDANSETRON 4 MG/2 ML VIAL ONE (08:17)
[2020-07-17] MEDS ORDERED: MORPHINE 4 MG/ML SYR ONE ×2 (08:17→12:30)
[2020-07-17] MEDS ORDERED: CEFTRIAXONE/SWI 1gm 1 GM/10 ML SYR ONE (08:18)
[2020-07-17 08:24] LABS: Absolute Lymphocytes (CBC) 2.2 K/uL (0.7-4.9); Basophils % 0.5 % (0-1.3); Hematocrit 41.5 % (39.6-49.0); Lymphocytes % 15.5 % (15.3-44.8); RBC Red Blood Cell Count 4.97 M/uL (4.33-5.43)
[2020-07-17 08:28] LABS: Protime INR 1.01
[2020-07-17 08:29] LABS: ALT/SGPT 19 U/L (12-78); AST/SGOT 18 U/L (15-37); Albumin 4.1 g/dL (3.4-5.0); Alkaline Phosphatase 93 U/L (45-117); Amylase 70 U/L (25-115); BUN Blood Urea Nitrogen 14 mg/dL (7-18); Bicarbonate 27 mmol/L (21-32); Bilirubin Direct < 0.1 mg/dL (0-0.2); Bilirubin Total 0.3 mg/dL (0.2-1.0); CKMB Creatine Kinase MB 1.4 ng/mL (0.3-3.6); Creatine Phosphokinase 145 U/L (39-308); Glucose Level 136 mg/dL (74-106); Lipase 123 U/L (73-393); Potassium 3.1 mmol/L (3.5-5.1); Protein, Total 8.5 g/dL (6.4-8.2); Sodium Level 140 mmol/L (136-145); Troponin (Emerg Dept Use Only) < 0.02 ng/mL (0.0-0.045)
[2020-07-17] MEDS ORDERED: VANCOMYCIN 1.5 GM in NA CHLORIDE 0.9% 500 ML IVPB ONE (08:30)
[2020-07-17] MEDS ORDERED: FAMOTIDINE 20 MG/2 ML VIAL IV ONE (08:35)
[2020-07-17] MEDS ORDERED: HYDRALAZINE HCL 20 MG/ML VIAL ONE (08:35)
--- NOTE | 2020-07-17 09:14 | RAD REPORT ---
EXAM DESCRIPTION: CT - Chest Abdomen Pelvis W Cont - 07/17/2020 8:56 am CLINICAL HISTORY: Chest and abdominal pain COMPARISON: None TECHNIQUE: Computed axial tomography of the chest, abdomen and pelvis was obtained. 100 cc Isovue-30 0 was administered intravenously. Oral contrast was not requested. This limits evaluation of bowel. All CT scans are performed using dose optimization technique as appropriate and may include automated exposure control or mA/KV adjustment according to patient size. FINDINGS: Lungs are clear. No mediastinal or hilar lymphadenopathy. Pleural effusion is not present. No pericardial effusion 3.6 centimeter left renal cyst. 6.7 centimeter left renal cyst. 3 centimeter right renal cyst. Liver, spleen, pancreas and adrenals are unremarkable. Cholecystectomy. No evidence of diverticulitis. Left testicle lies within the left inguinal canal. Lower abdominal aorta has an AP diameter of 2.6 centimeters. Right common iliac artery measures 17 mi llimeters. Mild posterior subluxation L5 on S1. IMPRESSION: No acute abnormality displayed
--- NOTE | 2020-07-17 09:29 | RAD REPORT ---
EXAM DESCRIPTION: CT - Head Brain Wo Cont - 07/17/2020 9:02 am CLINICAL HISTORY: Dizziness COMPARISON: 2019 TECHNIQUE: Computed axial tomography of the head was obtained. IV contrast was not requested. All CT scans are performed using dose optimization technique as appropriate and may include automated exposure control or mA/KV adjustment according to patient size. FINDINGS: An intracranial bleed is not seen . The ventricles, fissures and sulci are small. No extra-axial fluid collection is noted. Fluid within the sinuses/ mastoids is not seen. IMPRESSION: The ventricles, fissures and sulci are small. However it is without significant change f rom the prior exam and probably is not significant. If the patient has clinical symptoms to suggest cerebral edema then MRI would be recommended
--- NOTE | 2020-07-17 09:32 | RAD REPORT ---
EXAM DESCRIPTION: Yogesh Single View07/17/2020 8:15 am CLINICAL HISTORY: Abdominal pain COMPARISON: 2019 FINDINGS: The lungs appear clear of acute infiltrate. The heart is normal size IMPRESSION: No acute abnormalities displayed
[2020-07-17] MEDS ORDERED: NA CHLORIDE 0.9% 1,000 ML ONE (10:21)
--- NOTE | 2020-07-17 12:59 | EDPHYS ---
Physician Documentation [facility] Name: River Plunkett Age: 60 yrs Sex: Male : 1960 Arrival Date: 07/17/2020 Time: 07:16 Bed 6 Private MD: ED Physician Dread Sanchez HPI: 07/17 07:38 This 60 yrs old Black Male presents to ER via EMS with complaints of abdomina,l n/v. kdr 07:38 The patient presents with abdominal pain that is diffuse. kdr 07:52 Onset: The symptoms/episode began/occurred gradually, 1 week(s) ago. The symptoms do kdr not radiate. Associated signs and symptoms: Pertinent positives: nausea and vomiting, Pertinent negatives: chest pain, constipation, fever, headache, hematuria, vomiting blood. The symptoms are described as achy, crampy, dull, steady. Modifying factors: The symptoms are alleviated by nothing, the symptoms are aggravated by movement, touching the area. Severity of pain: At its worst the pain was moderate severe just prior to arrival, in the emergency department the pain is unchanged. The patient has not experienced similar symptoms in the past. The patient has not recently seen a physician. Historical: - Allergies: 07:57 No Known Allergies; jl7 - Home Meds: 07:38 hydralazine 10 mg Oral tab 1 tab 2 times per day [Active]; lisinopril 20 mg Oral tab 1 jl7 tab once daily [Active]; - PMHx: 07:38 Hypertension; Pancreatitis; High Cholesterol; jl7 - PSHx: 07:38 Cholecystectomy; jl7 - Immunization history:: Adult Immunizations unknown. - Social history:: Smoking status: Patient reports the use of cigarette tobacco products, smokes one pack cigarettes per day. Patient uses street drugs, marijuana. ROS: 07:52 Constitutional: The patient was a poor historian Eyes: Negative for injury, pain, kdr redness, and discharge, ENT: Negative for injury, pain, and discharge, Neck: Negative for injury, pain, and swelling, Cardiovascular: Negative for chest pain, palpitations, and edema, Respiratory: Negative for shortness of breath, cough, wheezing, and pleuritic chest pain, Back: Negative for injury and pain, : Negative for injury, bleeding, discharge, and swelling, MS/Extremity: Negative for injury and deformity, Skin: Negative for injury, rash, and discoloration, Neuro: Negative for headache, weakness, numbness, tingling, and seizure activity. Psych: Negative for depression, anxiety, suicide ideation, homicidal ideation, and hallucinations, Allergy/Immunology: Negative for hives, rash, and allergies, Endocrine: Negative for neck swelling, polydipsia, polyuria, polyphagia, and marked weight changes, Hematologic/Lymphatic: Negative for swollen nodes, abnormal bleeding, and unusual bruising. 07:52 Abdomen/GI: Positive for abdominal pain, nausea and vomiting, abdominal cramps, Negative for constipation, abdominal distension, dysphagia, hematemesis, black/tarry stool, rectal pain, rectal bleeding, bowel incontinence. Exam: 07:52 Constitutional: This is a well developed, well nourished patient who is awake, alert, kdr and in no acute distress. Head/Face: Normocephalic, atraumatic. Eyes: Pupils equal round and reactive to light, extra-ocular motions intact. Lids and lashes normal. Conjunctiva and sclera are non-icteric and not injected. Cornea within normal limits. Periorbital areas with no swelling, redness, or edema. Neck: Trachea midline, no thyromegaly or masses palpated, and no cervical lymphadenopathy. Supple, full range of motion without nuchal rigidity, or vertebral point tenderness. No Meningismus. Chest/axilla: Normal chest wall appearance and motion. Nontender with no deformity. No lesions are appreciated. Cardiovascular: Regular rate and rhythm with a normal S1 and S2. No gallops, murmurs, or rubs. Normal PMI, no JVD. No pulse deficits. Respiratory: Lungs have equal breath sounds bilaterally, clear to auscultation and percussion. No rales, rhonchi or wheezes noted. No increased work of breathing, no retractions or nasal flaring. Back: No spinal tenderness. No costovertebral tenderness. Full range of motion. Skin: Warm, dry with normal turgor. Normal color with no rashes, no lesions, and no evidence of cellulitis. MS/ Extremity: Pulses equal, no cyanosis. Neurovascular intact. Full, normal range of motion. Neuro: Awake and alert, GCS 15, oriented to person, place, time, and situation. Cranial nerves II-XII grossly intact. Motor strength 5/5 in all extremities. Sensory grossly intact. Cerebellar exam normal. Normal gait. Psych: Awake, alert, with orientation to person, place and time. Behavior, mood, and affect are within normal limits. 07:52 Abdomen/GI: Inspection: abdomen appears normal, Bowel sounds: diminished, absent, in all quadrants, Palpation: moderate abdominal tenderness, rebound tenderness, is elicited in all quadrants, mild. 09:15 ECG was reviewed by the Attending Physician. kdr Vital Signs: 07:18 BP 228 / 110 LA; Pulse 43; Resp 24; Pulse Ox 100% ; jl7 07:30 BP 216 / 114 RA; Pulse 49; Resp 23 S; Temp 95.1(R); Pulse Ox 100% on R/A; Pain 10/10; jl7 08:11 Weight 72.57 kg; Height 5 ft. 11 in. (180.34 cm); jl7 09:43 BP 192 / 90; Pulse 50; Resp 21; Temp 94.8(R); Pulse Ox 100% ; jl7 10:27 BP 198 / 111; Pulse 55; Resp 20; Pulse Ox 100% ; jl7 11:58 BP 209 / 84; Pulse 54; Resp 19; Temp 95.9(R); Pulse Ox 100% ; jl7 12:26 BP 199 / 103; Pulse 52; Resp 20; Pulse Ox 97% ; jl7 13:00 BP 181 / 80; Pulse 53; Resp 19; Pulse Ox 100% ; jl7 14:12 BP 202 / 101; Pulse 57; Resp 17 S; Temp 98.5(O); Pulse Ox 97% on R/A; jl7 16:31 BP 141 / 96; Pulse 67; Resp 17; Pulse Ox 100% ; jl7 08:11 Body Mass Index 22.32 (72.57 kg, 180.34 cm) jl7 MDM: 12:57 Patient medically screened. kdr 12:58 Data reviewed: vital signs, nurses notes, lab test result(s), radiologic studies. kdr Counseling: I had a detailed discussion with the patient and/or guardian regarding: the historical points, exam findings, and any diagnostic results supporting the discharge/admit diagnosis, lab results, radiology results, the need for further work-up and treatment in the hospital. 07/17 07:19 Order name: Basic Metabolic Panel; Complete Time: 09:15 kdr 07/17 07:19 Order name: CBC with Diff; Complete Time: 09:15 kdr 07/17 07:19 Order name: Hepatic Function; Complete Time: 09:15 kdr 07/17 07:19 Order name: Lipase; Complete Time: 09:15 [facility] 07/17 07:30 Order name: Amylase, Serum [facility] 07/17 07:30 Order name: Blood Culture Adult (2) [facility] 07/17 07:30 Order name: Ckmb [facility] 07/17 07:30 Order name: CPK [facility] 07/17 07:30 Order name: Lactate [facility] 07/17 07:30 Order name: Procalcitonin [facility] 07/17 07:30 Order name: Protime (+inr) [facility] 07/17 07:30 Order name: Ptt, Activated; Complete Time: 09:15 [facility] 07/17 07:30 Order name: Troponin (emerg Dept Use Only); Complete Time: 09:15 [facility] 07/17 07:30 Order name: Urine Microscopic Only; Complete Time: 09:15 [facility] 07/17 07:30 Order name: Amylase; Complete Time: 09:15 [facility] 07/17 07:30 Order name: Blood Culture [facility] 07/17 07:30 Order name: CKMB Creatine Kinase MB; Complete Time: 09:15 EDMS 07/17 07:30 Order name: Creatine Phosphokinase; Complete Time: 09:15 [facility] 07/17 07:30 Order name: Lactate; Complete Time: 09:15 EDMS 07/17 07:30 Order name: Procalcitonin; Complete Time: 09:15 EDMS 07/17 07:30 Order name: Protime (+INR); Complete Time: 09:15 [facility] 07/17 08:02 Order name: Urine Dipstick--Ancillary (enter results); Complete Time: 09:15 em1 07/17 08:05 Order name: CREATININE WHOLE BLOOD; Complete Time: 09:15 EDMS 07/17 08:21 Order name: Glucose, Ancillary Testing; Complete Time: 09:15 EDMS 07/17 09:23 Order name: SARS-COV-2 RT PCR; Complete Time: 10:00 EDMS 07/17 15:24 Order name: Troponin I [facility] 07/17 15:24 Order name: T4 Free [facility] 07/17 15:24 Order name: Thyroid Stimulating Hormone [facility] 07/17 07:19 Order name: IV Saline Lock; Complete Time: 08:27 kdr 07/17 07:19 Order name: Labs collected and sent; Complete Time: 08: kdr 07/17 07:30 Order name: Chest Single View XRAY; Complete Time: 10:00 kdr 07/17 07:30 Order name: Accucheck; Complete Time: 08:27 kdr 07/17 07:30 Order name: Cardiac monitoring; Complete Time: 08: kdr 07/17 07:30 Order name: EKG - Nurse/Tech; Complete Time: 08:04 kdr 07/17 07:30 Order name: IV Saline Lock - Large Bore; Complete Time: 08: kdr 07/17 07:30 Order name: O2 Per Protocol; Complete Time: 08: kdr 07/17 07:30 Order name: O2 Sat Monitoring; Complete Time: 08: kdr 07/17 07:30 Order name: Urine Dipstick-Ancillary (obtain specimen); Complete Time: 08: kdr 07/17 07:36 Order name: CT Chest, Abdomen, Pelvis - W/Contrast; Complete Time: 10: kdr 07/17 08:50 Order name: Head Brain Wo Cont; Complete Time: 10:00 EDMS 07/17 15:24 Order name: Heart Healthy EDMS 07/17 15:25 Order name: Echo with Doppler EDMS EC:15 Rate is 43 beats/min. Rhythm is regular, Sinus bradycardia with No ectopy. QRS Bessie is kdr Normal. AR interval is normal. QRS interval is normal. QT interval is normal. Clinical impression: Sinus bradycardia. Administered Medications: 08:06 Drug: Zofran (Ondansetron) 4 mg Route: IVP; Site: left wrist; jl7 08:30 Follow up: Response: No adverse reaction; Nausea is decreased jl7 08:08 Drug: morphine 4 mg Route: IVP; Site: left wrist; jl7 08:30 Follow up: Response: No adverse reaction; Pain is decreased jl7 08:23 Drug: hydrALAZINE 10 mg Route: IV; Rate: calculated rate; Site: right forearm; jl7 08:24 Follow up: Response: No adverse reaction; IV Status: Completed infusion jl7 08:25 Drug: Pepcid 20 mg Route: IVP; Site: right forearm; jl7 09:43 Follow up: Response: No adverse reaction jl7 08:26 Drug: Rocephin (cefTRIAXone) 1 grams Route: IV; Rate: calculated rate; Site: right jl7 forearm; 08:29 Follow up: Response: No adverse reaction; IV Status: Completed infusion jl7 08:27 CANCELLED (wrong pharmacy order): Rocephin - (cefTRIAXone) 1 grams IVPB once over 30 jl7 mins; (mix in 50 mL NS) 09:15 Drug: vancoMYCIN 1.5 grams Route: IVPB; Rate: calculated rate; Site: left wrist; jl7 11:15 Follow up: Response: No adverse reaction; IV Status: Completed infusion jl7 10:25 Drug: NS 0.9% 1000 ml Route: IV; Rate: 1 bolus; Site: left forearm; jl7 10:30 Follow up: Response: No adverse reaction; IV Status: Completed infusion; IV Intake: jl7 1000ml 12:00 Drug: hydrALAZINE 10 mg Route: IV; Rate: calculated rate; Site: left wrist; jl7 12:01 Follow up: Response: No adverse reaction; IV Status: Completed infusion jl7 13:00 Follow up: Response: Blood pressure is lowered jl7 12:10 Drug: morphine 4 mg Route: IVP; Site: left wrist; jl7 12:40 Follow up: Response: No adverse reaction; Pain is decreased jl7 Disposition: 07/17/20 12:57 Hospitalization ordered by Karli Ivy for Inpatient Admission. 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 - Bed requested for Telemetry/MedSurg (Inpatient). - Status is Inpatient Admission. jl7 - Condition is Fair. - Problem is new. - Symptoms have improved. Signatures: Dispatcher [employer] EDMS Dread Sanchez MD MD kdr Calderon, Audri, RN RN aa5 Sola Daly RN RN jl7 Corrections: (The following items were deleted from the chart) 08:27 07:36 Rocephin - (cefTRIAXone) 1 grams IVPB once over 30 mins; (mix in 50 mL NS) jl7 ordered. kdr 08:27 08:26 Rocephin - (cefTRIAXone) 1 grams IVPB once over 30 mins; (mix in 50 mL NS) jl7 ordered. jl7 08:41 08:10 CORONAVIRUS+MR.LAB.BRZ ordered. EDMS EDMS 08:50 08:47 Head Brain W/ Wo Con+CT.RAD.KHOI ordered. EDWV EDMS 16:23 12:57 Hospitalization Ordered by Karli Ivy MD for Inpatient Admission. Preliminary aa5 diagnosis is Hypertenisve Heart Disease - Poorly contolled, Bradycardia, hypothermia. Bed requested for Telemetry/MedSurg (Inpatient). Status is Inpatient Admission. Condition is Fair. Problem is new. Symptoms have improved. kdr 17:28 16:23 07/17/2020 12:57 Hospitalization Ordered by Karli Ivy MD for Inpatient jl7 Admission. 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 Bed requested for Telemetry/MedSurg (Inpatient). Status is Inpatient Admission. Condition is Fair. Problem is new. Symptoms have improved. aa5
--- NOTE | 2020-07-17 12:59 | ER ---
[facility]urse[facility] Name: River Plunkett Age: 60 yrs Sex: Male : 1960 Arrival Date: 07/17/2020 Time: 07:16 Bed 6 Private MD: Diagnosis: Hypertenisve Heart Disease - Poorly contolled, Bradycardia, hypothermia Presentation: 07/17 07:30 Chief complaint: EMS states: Toned out for abdominal pain, N/V since this morning, hx jl7 of pancreatitis. Pt denies alcohol use. Reports abdominal pain at umbilical area and epigastric area. Coronavirus screen: Client denies travel out of the [place] in the last 14 days. At this time, the client does not indicate any symptoms associated with coronavirus-19. Ebola Screen: No symptoms or risks identified at this time. Initial Sepsis Screen: Does the patient meet any 2 criteria? No. Patient's initial sepsis screen is negative. Does the patient have a suspected source of infection? No. Patient's initial sepsis screen is negative. Risk Assessment: Do you want to hurt yourself or someone else? Patient reports no desire to harm self or others. Onset of symptoms was July 17, 2020. Care prior to arrival: Medication(s) given: Normal saline infusion, 500 mL, zofran 4 mg, 100 mcg Fentanyl IVP IV initiated. 20 GA, in the right forearm, Glucose check: 141. Transition of care: patient was not received from another setting of care. 07:30 Method Of Arrival: EMS: [facility] jl7 07:30 Acuity: ROBERT 2 jl7 Historical: - Allergies: 07:57 No Known Allergies; jl7 - Home Meds: 07:38 hydralazine 10 mg Oral tab 1 tab 2 times per day [Active]; lisinopril 20 mg Oral tab 1 jl7 tab once daily [Active]; - PMHx: 07:38 Hypertension; Pancreatitis; High Cholesterol; jl7 - PSHx: 07:38 Cholecystectomy; jl7 - Immunization history:: Adult Immunizations unknown. - Social history:: Smoking status: Patient reports the use of cigarette tobacco products, smokes one pack cigarettes per day. Patient uses street drugs, marijuana. Screenin:58 Abuse screen: Denies threats or abuse. Denies injuries from another. Nutritional jl7 screening: No deficits noted. Tuberculosis screening: No symptoms or risk factors identified. Fall Risk IV access (20 points). Total Norton Fall Scale indicates No Risk (0-24 pts). Assessment: 07:30 General: Appears in no apparent distress. uncomfortable, slender, unkempt, Behavior is jl7 cooperative, anxious. Pain: Complains of pain in epigastric area and umbilical area Pain currently is 10 out of 10 on a pain scale. Pain began 1 day ago. Is continuous. Neuro: Level of Consciousness is awake, alert, obeys commands, Oriented to person, place, time, situation. Cardiovascular: Heart tones present Patient's skin is warm and dry. Rhythm is regular. Respiratory: Airway is patent Respiratory effort is even, unlabored, Respiratory pattern is symmetrical, tachypnea. GI: Abdomen is flat, non-distended, Abdomen is tender to palpation X 4 quads. Reports nausea, vomiting. Derm: Skin is dry, Skin is normal, Skin temperature is cool. 08:30 Reassessment: Patient appears in no apparent distress at this time. No changes from 7 previously documented assessment. Patient and/or family updated on plan of care and expected duration. Pain level reassessed. Patient is alert, oriented x 3, equal unlabored respirations, skin warm/dry/pink. 09:30 Reassessment: Patient appears in no apparent distress at this time. No changes from 7 previously documented assessment. Patient and/or family updated on plan of care and expected duration. Pain level reassessed. Patient is alert, oriented x 3, equal unlabored respirations, skin warm/dry/pink. 10:15 Reassessment: Dr. Sanchez notified of rectal temp, VO to administer 1L NS via fluid jl7 warmer. 11:15 Reassessment: Patient appears in no apparent distress at this time. No changes from 7 previously documented assessment. Patient and/or family updated on plan of care and expected duration. Pain level reassessed. Patient is alert, oriented x 3, equal unlabored respirations, skin warm/dry/pink. 11:30 Reassessment: Chandan Plunkett, Pt's , . [facility] 12:03 Reassessment: [facility] notified of increase in rectal temp., BP and total output at this jl7 point, no new orders received. Dr. Sanchez to consult hospitalist for admission, pt updated. 13:00 Reassessment: Patient appears in no apparent distress at this time. Patient and/or jl7 family updated on plan of care and expected duration. Pain level reassessed. Patient is alert, oriented x 3, equal unlabored respirations, skin warm/dry/pink. 14:18 Reassessment: Patient appears in no apparent distress at this time. Patient and/or jl7 family updated on plan of care and expected duration. Pain level reassessed. Patient is alert, oriented x 3, equal unlabored respirations, skin warm/dry/pink. 15:30 Reassessment: Patient appears in no apparent distress at this time. No changes from jl7 previously documented assessment. Patient and/or family updated on plan of care and expected duration. Pain level reassessed. Patient is alert, oriented x 3, equal unlabored respirations, skin warm/dry/pink. 16:31 Reassessment: Patient appears in no apparent distress at this time. Patient and/or jl7 family updated on plan of care and expected duration. Pain level reassessed. Patient is alert, oriented x 3, equal unlabored respirations, skin warm/dry/pink. Patient states feeling better. Patient states symptoms have improved. Vital Signs: 07:18 BP 228 / 110 LA; Pulse 43; Resp 24; Pulse Ox 100% ; jl7 07:30 BP 216 / 114 RA; Pulse 49; Resp 23 S; Temp 95.1(R); Pulse Ox 100% on R/A; Pain 10/10; jl7 08:11 Weight 72.57 kg; Height 5 ft. 11 in. (180.34 cm); jl7 09:43 BP 192 / 90; Pulse 50; Resp 21; Temp 94.8(R); Pulse Ox 100% ; jl7 10:27 BP 198 / 111; Pulse 55; Resp 20; Pulse Ox 100% ; jl7 11:58 BP 209 / 84; Pulse 54; Resp 19; Temp 95.9(R); Pulse Ox 100% ; jl7 12:26 BP 199 / 103; Pulse 52; Resp 20; Pulse Ox 97% ; jl7 13:00 BP 181 / 80; Pulse 53; Resp 19; Pulse Ox 100% ; jl7 14:12 BP 202 / 101; Pulse 57; Resp 17 S; Temp 98.5(O); Pulse Ox 97% on R/A; jl7 16:31 BP 141 / 96; Pulse 67; Resp 17; Pulse Ox 100% ; jl7 08:11 Body Mass Index 22.32 (72.57 kg, 180.34 cm) jl7 ED Course: 07:16 Patient arrived in ED. em1 07:19 Dread Sanchez MD is Attending Physician. kdr 07:30 Sola Daly RN is Primary Nurse. jl7 07:36 Triage completed. jl7 07:38 Arm band placed on right wrist. jl7 07:45 Warm blanket given. jl7 07:57 Initial lab(s) drawn, by mt, sent to lab. Urine collected: clean catch specimen, clear. jl7 Inserted saline lock: 20 gauge in left wrist, using aseptic technique. Blood collected. 08:00 Maintain EMS IV. Dressing intact. Good blood return noted. Site clean \T\ dry. Gauge \T\ jl 7 site: 20 R FA. 08:02 Urine Microscopic Only Sent. ds4 08:03 Patient has correct armband on for positive identification. Placed in gown. Bed in low ds4 position. Call light in reach. Side rails up X2. retail director on. Pulse ox on. NIBP on. 08:03 Urine collected: clean catch specimen, clear. ds4 08:03 Thermoregulation: Mark blanket applied. jl7 08:04 EKG done, by ED staff, reviewed by Dread Sanchez MD. ds4 08:14 Chest Single View XRAY In Process Unspecified. EDMS 08:56 CT Chest, Abdomen, Pelvis - W/Contrast In Process Unspecified. EDMS 09:02 Head Brain Wo Cont In Process Unspecified. EDMS 10:25 Thermoregulation: warm intravenous fluids. jl7 10:30 No provider procedures requiring assistance completed. jl7 12:55 Karli Ivy MD is Hospitalizing Provider. kdr 16:39 Patient admitted, IV remains in place. intact, No redness/swelling at site. jl7 Administered Medications: 08:06 Drug: Zofran (Ondansetron) 4 mg Route: IVP; Site: left wrist; jl7 08:30 Follow up: Response: No adverse reaction; Nausea is decreased jl7 08:08 Drug: morphine 4 mg Route: IVP; Site: left wrist; jl7 08:30 Follow up: Response: No adverse reaction; Pain is decreased jl7 08:23 Drug: hydrALAZINE 10 mg Route: IV; Rate: calculated rate; Site: right forearm; jl7 08:24 Follow up: Response: No adverse reaction; IV Status: Completed infusion jl7 08:25 Drug: Pepcid 20 mg Route: IVP; Site: right forearm; jl7 09:43 Follow up: Response: No adverse reaction jl7 08:26 Drug: Rocephin (cefTRIAXone) 1 grams Route: IV; Rate: calculated rate; Site: right jl7 forearm; 08:29 Follow up: Response: No adverse reaction; IV Status: Completed infusion jl7 08:27 CANCELLED (wrong pharmacy order): Rocephin - (cefTRIAXone) 1 grams IVPB once over 30 jl7 mins; (mix in 50 mL NS) 09:15 Drug: vancoMYCIN 1.5 grams Route: IVPB; Rate: calculated rate; Site: left wrist; jl7 11:15 Follow up: Response: No adverse reaction; IV Status: Completed infusion jl7 10:25 Drug: NS 0.9% 1000 ml Route: IV; Rate: 1 bolus; Site: left forearm; jl7 10:30 Follow up: Response: No adverse reaction; IV Status: Completed infusion; IV Intake: jl7 1000ml 12:00 Drug: hydrALAZINE 10 mg Route: IV; Rate: calculated rate; Site: left wrist; jl7 12:01 Follow up: Response: No adverse reaction; IV Status: Completed infusion jl7 13:00 Follow up: Response: Blood pressure is lowered jl7 12:10 Drug: morphine 4 mg Route: IVP; Site: left wrist; jl7 12:40 Follow up: Response: No adverse reaction; Pain is decreased jl7 Intake: 10:30 IV: 1000ml; Total: 1000ml. jl7 11:58 IV: 1000ml (IV Fluid); Total: 2000ml. jl7 Output: 07:45 Urine: 500ml (Voided); Total: 500ml. jl7 08:30 Urine: 500ml (Voided); Total: 1000ml. jl7 09:45 Urine: 500ml (Voided); Total: 1500ml. jl7 10:30 Urine: 500ml (Voided); Total: 2000ml. jl7 11:58 Urine: 1000ml (Voided); Total: 3000ml. jl7 Outcome: 12:57 Decision to Hospitalize by Provider. kdr 16:39 Admitted to Tele accompanied by tech, via wheelchair, room 228, with chart, Report jl7 called to JOE Kinney 16:39 Condition: stable 16:39 Discharge instructions given to patient, Instructed on the need for admit, Demonstrated understanding of instructions. 17:28 Patient left the ED. jl7 Signatures: Dispatcher [employer] EDMS Dread Sanchez MD MD kdr Martinez, Eric em1 Tacho Shepherd ds4 Sola Daly RN RN jl7 Corrections: (The following items were deleted from the chart) 10:44 08:03 Warm blanket given. BEAR HUGGER. ds4 jl7 12:03 11:55 hydrALAZINE 10 mg IV at calculated rate in left wrist jl7 jl7 14:20 07:30 Chief complaint: EMS states: Toned out for abdominal pain, N/V since this jl7 morning, hx of pancreatitis. Pt denies alcohol use, reports daily marijuana use. Reports abdominal pain at umbilical area and epigastric area jl7 16:34 16:31 Reassessment: Patient appears in no apparent distress at this time. No changes jl7 from previously documented assessment. Patient and/or family updated on plan of care and expected duration. Pain level reassessed. Patient is alert, oriented x 3, equal unlabored respirations, skin warm/dry/pink. jl7
[2020-07-17] MEDS ORDERED: ONDANSETRON 4 MG/2 ML VIAL IV PRN (15:20)
[2020-07-17] MEDS ORDERED: ACETAMINOPHEN 500 MG TAB PO PRN (15:20)
[2020-07-17 17:05] LABS: Troponin I < 0.02 ng/mL (0.0-0.045)
[2020-07-17 17:42] VITALS: BMI 22.3
[2020-07-17] MEDS: NA CHLORIDE 0.9% 1,000 ML IV SCH (18:22)
[2020-07-18] MEDS: MORPHINE 2 MG/ML SYR IV PRN ×2 (04:29→13:05)
[2020-07-18] MEDS: NA CHLORIDE 0.9% 1,000 ML IV SCH (04:29)
[2020-07-18 05:16] LABS: Basophils % 0.9 % (0-1.3); Hematocrit 40.8 % (39.6-49.0); Lymphocytes % 32.1 % (15.3-44.8); MPV 7.5 fL (7.6-11.3); RBC Red Blood Cell Count 4.87 M/uL (4.33-5.43)
[2020-07-18 05:37] LABS: Bilirubin Total 0.4 mg/dL (0.2-1.0); Potassium 4.3 mmol/L (3.5-5.1); Protein, Total 8.6 g/dL (6.4-8.2)
[2020-07-18 10:16] VITALS: O2SAT 98
[2020-07-18] MEDS ORDERED: lisinopriL 20 MG TAB PO ONE (12:39)
[2020-07-18] MEDS ORDERED: METOPROLOL XL 25 MG TAB PO SCH (12:45)
[2020-07-18 12:53] VITALS: BP 190/99; TEMP 98.3
--- NOTE | 2020-07-18 13:05 | P.HP ---
Certification for Inpatient Patient admitted to: Observation With expected LOS: <2 Midnights Patient will require the following post-hospital care: None Practitioner: I am a practitioner with admitting privileges, knowledge of patient current condition, hospital course, and medical plan of care. Services: Services provided to patient in accordance with Admission requirements found in Title 42 Section 412.3 of the Code of Federal Regulations Patient History Date of Service: 07/17/20 Reason for admission: Bradycardia and hypothermia History of Present Illness: Patient is a 60-year-old gentleman who came to the hospital with a low heart rate and hypothermia. Patient has been feeling poorly for the last few days. The family brought him into the hospital for further evaluation. He said he has been feeling sick since he has got the COVID-19 vaccine. Overall, clinically he appears to be doing well. Most likely Vital signs are stable and labs are unremarkable. Thyroid studies are pending. Cortisol levels are pending. Most probable related to lopressor. Allergies No Known Allergies Allergy (Unverified 07/17/20 08:13) Home Medications: Duloxetine HCl [Cymbalta] 1 cap PO DAILY 07/17/20 Gabapentin 1 cap PO BID 07/17/20 Lisinopril [Zestril] 1 tab PO DAILY 07/17/20 Pantoprazole Sodium [Protonix] 1 tab PO DAILY 07/17/20 - Past Medical/Surgical History Has patient received pneumonia vaccine in the past: No Diabetic: No -: HTN -: Depression Past Surgical History: Patient denies surgical history - Family History Father Family History: Reviewed- Non-Contributory - Social History Smoking Status: Current every day smoker Alcohol use: No CD- Drugs: No Caffeine use: No Place of Residence: Home Review of Systems 10-point ROS is otherwise unremarkable Physical Examination - Vital Signs Temperature: 98.3 F Blood Pressure: 190/99 Pulse: 56 Respirations: 18 Pulse Ox (%): 98 - Physical Exam General: Alert, In no apparent distress, Oriented x3 HEENT: Atraumatic, PERRLA, Mucous membr. moist/pink, EOMI, Sclerae nonicteric Neck: Supple, 2+ carotid pulse no bruit, No LAD, Without JVD or thyroid abnormality Respiratory: Clear to auscultation bilaterally, Normal air movement Cardiovascular: Regular rate/rhythm, Normal S1 S2 Gastrointestinal: Normal bowel sounds, Soft and benign, Non-distended, No tenderness Musculoskeletal: No clubbing, No swelling, No tenderness Integumentary: No rashes Neurological: Normal gait, Normal speech, Normal strength at 5/5 x4 extr, Normal tone, Sensation intact, Cranial nerves 3-12 intact, Normal affect Lymphatics: No axilla or inguinal lymphadenopathy - Studies Microbiology Data (last 24 hrs): 07/17/20 07:42 Blood - Blood Anaerobic Blood Culture - Final Assessment & Plan - Problems (Diagnosis) (1) Hypothermia Current Visit: Yes Status: Acute (2) Bradycardia Current Visit: Yes Status: Acute (3) Encounter for monitoring beta yariel therapy Current Visit: Yes Status: Acute - Plan PLAN: 1. Stop beta-yariel therapy 2. Check thyroid studies 3. Check B12 levels in folic acid levels 4. Cortisol levels 5. Monitor hemodynamics closely 6. GI and DVT prophylaxis Discharge Plan: Home Plan to discharge in: 24 Hours - Advance Directives Does patient have a Living Will: No Does patient have a Durable POA for Healthcare: No - Code Status/Comfort Care Code Status Assessed: Yes Code Status: Full Code Critical Care: No Time Spent Managing PTS Care (In Minutes): 35
--- NOTE | 2020-07-18 13:13 | P.DS ---
Discharge Date: 07/18/20 Disposition: ROUTINE DISCHARGE Discharge Condition: GOOD Reason for Admission: Bradycardia and hypothermia - Problems (1) Hypothermia Current Visit: Yes Status: Acute (2) Bradycardia Current Visit: Yes Status: Acute (3) Encounter for monitoring beta yariel therapy Current Visit: Yes Status: Acute Brief History of Present Illness: Patient is a 60-year-old gentleman who came to the hospital with a low heart rate and hypothermia. Patient has been feeling poorly for the last few days. The family brought him into the hospital for further evaluation. He said he has been feeling sick since he has got the COVID-19 vaccine. Overall, clinically he appears to be doing well. Most likely Vital signs are stable and labs are unremarkable. Thyroid studies are pending. Cortisol levels are pending. Most probable related to lopressor. Hospital Course: Patient has done well during hospital stay. Patient clinically feeling much better. We decided to stop the beta-yariel therapy. Hemodynamically patient has been stable and temperature has been stable as well since we stopped beta blockers. At this time patient is stable for discharge home. Vital Signs/Physical Exam: Temp Pulse Resp BP Pulse Ox 98.3 F 56 18 190/99 H 98 07/18/20 13:08 07/18/20 13:08 07/18/20 13:08 07/18/20 13:08 07/18/20 13:08 General: Alert, In no apparent distress, Oriented x3 Laboratory Data at Discharge: WBC 9.20 K/uL (4.3-10.9) D 07/18/20 04:58 Hgb 13.6 g/dL (13.6-17.9) 07/18/20 04:58 Hct 40.8 % (39.6-49.0) 07/18/20 04:58 Plt Count 369 K/uL (152-406) 07/18/20 04:58 PT 11.6 SECONDS (9.5-12.5) 07/17/20 07:53 INR 1.01 07/17/20 07:53 APTT 32.6 SECONDS (24.3-36.9) 07/17/20 07:53 Sodium 141 mmol/L (136-145) 07/18/20 04:58 Potassium 4.3 mmol/L (3.5-5.1) 07/18/20 04:58 BUN 17 mg/dL (7-18) 07/18/20 04:58 Creatinine 1.16 mg/dL (0.55-1.3) 07/18/20 04:58 Glucose 88 mg/dL (74-106) 07/18/20 04:58 Total Bilirubin 0.4 mg/dL (0.2-1.0) 07/18/20 04:58 AST 23 U/L (15-37) 07/18/20 04:58 ALT 20 U/L (12-78) 07/18/20 04:58 Alkaline Phosphatase 92 U/L (45-117) 07/18/20 04:58 Troponin I < 0.02 ng/mL (0.0-0.045) 07/18/20 00:21 Amylase 70 U/L (25-115) 07/17/20 07:53 Lipase 123 U/L (73-393) 07/17/20 07:53 Home Medications: Duloxetine HCl [Cymbalta] 1 cap PO DAILY 07/17/20 Gabapentin 1 cap PO BID 07/17/20 Lisinopril [Zestril] 1 tab PO DAILY 07/17/20 Pantoprazole Sodium [Protonix] 1 tab PO DAILY 07/17/20 Physician Discharge Instructions: OK TO DC IV AND DC HOME FOLLOW-UP WITH PRIMARY CARE PROVIDER IN 1-2 WEEKS FOLLOW-UP WITH CARDIOLOGY for further evaluation of low heart rate if it continues even after stopping Lopressor-please give patient information 2 c ardiology office RETURN TO THE ER IF symptoms worsen CALL or TEXT DR. VALLE AT [phone] IF ANY QUESTIONS REGARDING HOSPITAL STAY. PLEASE CALL THE FLOOR AT [phone] IF ANY MEDICATION OR NURSING QUESTIONS. Diet: AHA Activity: Fall precautions Followup: NONE,NONE [Primary Care Provider] - Time spent managing pt's care (in minutes): 35
[2020-07-18] MEDS ORDERED: GABAPENTIN 100 MG CAP PO SCH (21:00)
[2020-07-18] MEDS ORDERED: ENSURE ENLIVE 237 ML CAN PO SCH (21:00)
[2020-07-19] MEDS ORDERED: PANTOPRAZOLE 40MG TABLET PO SCH (09:00)
[2020-07-19] MEDS ORDERED: lisinopriL 20 MG TAB PO SCH (09:00)
[2020-07-19] MEDS ORDERED: DULOXETINE 30 MG CAP PO SCH (09:00)
--- NOTE | 2020-07-21 08:41 | ECHO ---
HEIGHT: 5 ft 11 in WEIGHT: 160 lb 0 oz DATE OF STUDY: 07/18/[address]: Karli Ivy MD 2-DIMENSIONAL: YES M.MODE: YES DOPPLER: YES COLOR FLOW: YES TDS: NO PORTABLE: NO DEFINITY: NO BUBBLE STUDY: NO DIAGNOSIS: BRADYCARDIA CARDIAC HISTORY: CATHERIZATION: NO SURGERY: NO PROSTHETIC VALVE: NO PACEMAKER: NO MEASUREMENTS (cm) DIASTOLIC (NORMALS) SYSTOLIC (NORMALS) IVSd 1.1 (0.6-1.2) LA Diam 2.4 (1.9-4.0) LVEF 56% LVIDd 4.3 (3.5-5.7) LVIDs 3.1 (2.0-3.5) %FS 29% LVPWd 1.1 (0.6-1.2) Ao Diam 2.9 (2.0-3.7) 2 DIMENSIONAL ASSESSMENT: RIGHT ATRIUM: NORMAL LEFT ATRIUM: NORMAL RIGHT VENTRICLE: NORMAL LEFT VENTRICLE: NORMAL TRICUSPID VALVE: NORMAL MITRAL VALVE: NORMAL PULMONIC VALVE: NORMAL AORTIC VALVE: NORMAL PERICARDIAL EFFUSION: NONE AORTIC ROOT: NORMAL LEFT VENTRICULAR WALL MOTION: NORMAL DOPPLER/COLOR FLOW: NORMAL COMMENTS: NORMAL 2D ECHOCARDIOGRAM WITH DOPPLER. NO WALL MOTION ABNORMALITY. NO EFFUSION. TECHNOLOGIST: Devyn BARNHART
== END 2020-07-18 16:25 | disposition home or self-care (01) | DRG 948 ==
LOC: ER 07:14 → INTOOBSV 15:20 → ERHOLD 15:20 → OBSVTOIN 15:20 → 2ND 17:04
PROVIDERS: ADMIT Hospitalist; ATTEND Internal Medicine Nephrology
DX: R68.0 Hypothermia, not associated with low environmental temperature (principal); I10 Essential (primary) hypertension; F17.210 Nicotine dependence, cigarettes, uncomplicated; R00.1 Bradycardia, unspecified; T44.7X5A Adverse effect of beta-adrenoreceptor antagonists, initial encounter; Z90.49 Acquired absence of other specified parts of digestive tract; Z79.899 Other long term (current) drug therapy; Z20.822 Contact with and (suspected) exposure to COVID-19
CPT/HCPCS: 36415; 70450; 71045; 71260; 74177; 80048; 80053; 80076; 81003; 81015; 82150; 82533; 82550; 82553; 82565; 82947; 83605; 83690; 84145; 84439; 84443; 84484; 85025; 85610; 85730; 87040; 93005; 93306; 99285; J0360; J0696; J2270; J2405; J3370; J7030; J7040; Q9967; U0003

== ENCOUNTER 2022-06-22 10:02 | Emergency (ER) | payer SELFPAY ==
--- OUTSIDE RECORDS SUMMARY | 2022-06-22 10:16 | XMS REPORT | Continuity of Care Document ---
:1960 Author Organization [facility] t Address [address] [facility] [address] [place] [address] Care Team Providers Name Role Phone Asked, No Pcp Primary Care Physician Unavailable Vaccine, Adc Family Medicine Attending Clinician Unavailable Jewel Shabazz DO Attending Clinician Digna Medina DO Attending Clinician DIGNA MEDINA Attending Clinician Unavailable Christine Good MD Attending Clinician [phone] Doctor Unassigned, Pax Attending Clinician Unavailable KIMBERLY REYNA Attending Clinician Unavailable TRUONG HICKS Attending Clinician Unavailable IBRAHIMA URIAS Attending Clinician Unavailable Selam Wiley Attending Clinician Unavailable SHARYN OKEEFE Admitting Clinician Unavailable BRIAN PALENCIA Admitting Clinician Unavailable IBRAHIMA URIAS Admitting Clinician Unavailable Selam Wiley Admitting Clinician Unavailable Payers Payer Name Policy Type Policy Number Effective Date Expiration Date S ourmedardo Problems Condition Condition Condition Status Onset Resolution Last Treating Co mments Source Name Details Category Date Date Treatment Clinician Date Pancreatic Pancreatic Disease Recurre Methodi insufficie insufficie nce 2- [facility]cy ncy 00:[facility]: Hospita 00 l 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 pylori H. pylori Disease Recurre Me thodi infection infection nce 2- st 00:00: Hospita 00 l Essential Essential Disease Active Met hodi hypertensi hypertensi 05-22 st on on 00:00: Hospita 00 l Weight Weight Disease Active Overview: Method i loss loss 05-[address] 00:00: g of this Hospita 00 note l might be different from the original. Added automatic ally from request for surgery [id number] Dysphagia Dysphagia Disease Active Overview: Methodi 05-[address] 00:00: g of this Hospita 00 note l might be different from the original. 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 Dehydratio Dehydratio Disease Active 2018-04 U nivers n n 2-27 ity of 00:00: [address] MONAE MONAE Diagnosis Active 2018-12-05 Memoria BILLING BILLING 12-05 14:15:00 l Active 00:00: Roland 12/05/[address] [place] [address] HYPERTENSI HYPERTENS Diagnosis Active 2019-02-15 Memoria VE LINO 12-01 15:40:00 l EMERGENCY EMERGENCY 00:00: Herm cecelia Active [address] CHEST PAIN CHEST Diagnosis Active 2018-12-01 Memoria PAIN 12-01 12:01:00 l Active 00:00: Roland 12/01/2018 00 [facility] No known No known Disease Unive rs active active ity of problems problems [facility] Allergies, Adverse Reactions, Alerts Allergy Allergy Status Severity Reaction(s) Onset Inactive Treating Comm ents Source Name Type Date Date Clinician No Known DA Active U 2019-0 [facility] [facility] No Known DA Active U 2020-0 [facility] Allergie 2-13 [place] [facility] NO KNOWN Drug Active Univers ALLERGIE Class ity of S [facility] No Known No Known Active Memori a Medicati Medicati l on on [place] Allergie Allergie s s Social History Social Habit Start Date Stop Date Quantity Comments Source History of tobacco Cigarette Smoker [facility] use Hospital Exposure to Not sure University of SARS-CoV-2 (event) [facility] Alcohol intake 2019-07-05 2019-07-05 Ex-drinker [facility]ism 00:00:00 00:00:00 (finding) Hospital Cigarettes smoked 2019-05-22 2019-05-22 [facility] current (pack per 00:00:00 00:00:00 Hospita l day) - Reported Tobacco use and 2019-05-22 2019-05-22 Smokeless Yazidism exposure 00:00:00 00:00:00 tobacco non-user Hospital Cigarette 2019-04-20 2019-04-20 University of pack-years 00:00:00 00:00:00 [facility] Sex Ass[birth year] At [birth year] [facility] 00:00:00 00:00:00 Hospital Smoking Status Start Date Stop Date Source Smokes tobacco daily 2019-05-22 00:00:00 [facility] Social History 2018-12-01 15:56:47 [facility] Unknown if ever smoked [facility] Medications Ordered Filled Start Stop Current Ordering Indication Dosage Frequency Signature Comments Components Source Medication Medication Date Date Medication? Clinician (SIG) Name Name amLODIPine 2020- No 10mg 10 mg, Univ ers (NORVASC) 06-07 Oral, ity of tablet 10 19:15: 18:33 [place]CE[place] mg [place] :[place] dose, Sat Medical 06/07/20 at Branch 1315, FUENTES lisinopriL 2020- No 10mg 10 mg, Univ ers (PRINIVIL,Z 06-07-13 Oral, ity of ESTRIL) 19:15: 18:33 ONCE, 1 [place] tablet 10 00 :00 dose, Sat Medic al mg 06/07/20 at Branch 1315, Routine morpHINE 2020- No 4mg 4 mg, Slow Un angelo injection 4 06-07 IV Push, ity of mg 16:45: 16:03 ONCE, 1 [place] 00 :00 dose, Sat Medical 06/07/20 at Branch 1045, STAT metoclopram 2020- No 10mg 10 mg, Uni vers bella HCl 06-07- Slow IV ity of (REGLAN) 16:30: 16:08 Push, [place] injection 00 :00 ONCE, 1 Medical 10 mg dose, Sat [place] 06/07/20 at 1030, FUENTES NaCl 0.9% 2020- No 1000mL at 999 Uni vers (NS) bolus 06-07 mL/hr, ity of infusion 15:30: 19:29 1,000 mL, Eladio as 1,000 mL 00 :00 IV Medical Infusion, [place] ONCE, 1 dose, 06/07/20 at 0930, FUENTES metoclopram 2020-0 Yes [id number] 10mg Take 1 Univers bella HCl 10 2-13 tablet by ity of mg tablet 00:00: mouth [place] 00 every 6 Medical (six) Branch hours as needed for Nausea and Vomiting (N/V). metoclopram 2020-0 Yes [id number] 10mg Take 1 Univers bella HCl 10 2-13 tablet by ity of mg tablet 00:00: mouth [place] 00 every 6 Medical (six) Branch hours as needed for Nausea and Vomiting (N/V). metoclopram 2020-0 Yes [id number] 10mg Take 1 Univers bella HCl 10 2-13 tablet by ity of mg tablet 00:00: mouth [place] 00 every 6 Medical (six) Branch hours as needed for Nausea and Vomiting (N/V). hydrALAZINE 2019-0 2020- No 12.5mg 12.5 mg, Univers (APRESOLINE 06-13 Oral, ONCE i ty of ) tablet 01:15: 00:30 NOW, 1 [place] 12.5 mg 00 :00 dose, Tue Medical 06/12/19 at Branch 1915, Routine folic acid 2020-0 Yes 1mg QD Take 1 Metho di (FOLVITE) 1 2-11 tablet (1 st MG tablet 00:00: mg total) Hos ronald 00 by mouth l daily .vitamin supplement ation. multivitami 2020-0 Yes 1{tbl} QD Take 1 Me thodi n 2-[address] (THERAGRAN) 00:00: mouth Hospi ta tablet 00 daily l .vitamin supplement ation. folic acid 2020-0 Yes 1mg QD Take 1 Metho di (FOLVITE) 1 2-11 tablet (1 st MG tablet 00:00: mg total) Hos ronald 00 by mouth l daily .vitamin supplement ation. multivitami 2020-0 Yes 1{tbl} QD Take 1 Me thodi n 2-[address] (THERAGRAN) 00:00: mouth Hospi ta tablet 00 daily l .vitamin supplement ation. folic acid 2020-0 Yes 1mg QD Take 1 Metho di (FOLVITE) 1 2-11 tablet (1 st MG tablet 00:00: mg total) Hos ronald 00 by mouth l daily .vitamin supplement ation. multivitami 2020-0 Yes 1{tbl} QD Take 1 Me thodi n 2-[address] (THERAGRAN) 00:00: mouth Hospi ta tablet 00 daily l .vitamin supplement ation. folic acid 2020-0 Yes 1mg QD Take 1 Metho di (FOLVITE) 1 2-11 tablet (1 st MG tablet 00:00: mg total) Hos ronald 00 by mouth l daily .vitamin supplement ation. multivitami 2020-0 Yes 1{tbl} QD Take 1 Me thodi n 2-[address] (THERAGRAN) 00:00: mouth Hospi ta tablet 00 daily l .vitamin supplement ation. polyethylen 2020-0 Yes [id number] 17g QD Take 17 g Methodi e glycol 2-[address] (MIRALAX) 00:00: daily Hospita 17 gram 00 .constipat l packet ion. polyethylen 2020-0 Yes [id number] 17g QD Take 17 g Methodi e glycol 2-[address] (MIRALAX) 00:00: daily Hospita 17 gram 00 .constipat l packet ion. polyethylen 2020-0 Yes [id number] 17g QD Take 17 g Methodi e glycol 2-[address] (MIRALAX) 00:00: daily Hospita 17 gram 00 .constipat l packet ion. polyethylen 2020-0 Yes [id number] 17g QD Take 17 g Methodi e glycol 2-[address] (MIRALAX) 00:00: daily Hospita 17 gram 00 .constipat l packet ion. amLODIPine 2018-04 Yes 10mg Take 10 mg U nivers 10 mg 2-31 by mouth ity of tablet 21:55: daily. [address] amLODIPine 2018-04 Yes 10mg Take 10 mg U nivers 10 mg 2-31 by mouth ity of tablet 21:55: daily. [address] amLODIPine 2018-04 Yes 10mg Take 10 mg U nivers 10 mg 2-31 by mouth ity of tablet 21:55: daily. [address] amLODIPine 2018-04 Yes 10mg Take 10 mg U nivers 10 mg 2-31 by mouth ity of tablet 15:55: daily. [address] amLODIPine 2018-04 Yes 10mg Take 10 mg U nivers 10 mg 2-31 by mouth ity of tablet 15:55: daily. [address] amLODIPine Yes 10 mg = 1 Me moria 10 mg oral 8-12 tab, PO, l tablet 17:49: Daily, # [place] 00 30 tab, 1 Refill(s) lisinopril Yes 20 mg = 1 Me moria 20 mg oral 8-12 tab, PO, l tablet 17:49: Daily, # [place] 00 30 tab, 1 Refill(s) lisinopril Yes 20 mg = 1 Me moria 20 mg oral 8-12 tab, PO, l tablet 17:49: Daily, # [place] 00 30 tab, 1 Refill(s) amLODIPine Yes 10 mg = 1 Me moria 10 mg oral 8-12 tab, PO, l tablet 17:49: Daily, # [place] 00 30 tab, 1 Refill(s) lisinopril Yes 20 mg = 1 Me moria 20 mg oral 8-12 tab, PO, l tablet 17:49: Daily, # [place] 00 30 tab, 1 Refill(s) amLODIPine Yes 10 mg = 1 Me moria 10 mg oral 8-12 tab, PO, l tablet 17:49: Daily, # [place] 00 30 tab, 1 Refill(s) lisinopril 2019-0 Yes 20 mg = 1 Me moria 20 mg oral 8-12 tab, PO, l tablet 17:49: Daily, # [place] 00 30 tab, 1 Refill(s) amLODIPine 2018- Yes 10 mg = 1 Me moria 10 mg oral 8-12 tab, PO, l tablet 17:49: Daily, # [place] 00 30 tab, 1 Refill(s) Maalox 2018-0 No 30 mL, Memoria Advanced 12-04 Route: PO, l Regular 15:24: Drug Form: Herm cecelia Strength 00 SUSP, SUSP Dosing Weight 64.205, kg, QID, PRN Indigestio n, Start date: 12/04/18 10:24:00 CDT, Duration: 30 day, Stop date: 01/03/19 10:23:00 CDT Maalox 2018-0 No 30 mL, [facility] Advanced 12-04 Route: PO, l Regular 15:24: Drug Form: Herm cecelia Strength 00 SUSP, SUSP Dosing Weight 64.205, kg, QID, PRN Indigestio n, Start date: 12/04/18 10:24:00 CDT, Duration: 30 day, Stop date: 01/03/19 10:23:00 CDT Maalox 2018-0 No 30 mL, [facility] Advanced 12-04 Route: PO, l Regular 15:24: Drug Form: Herm cecelia Strength 00 SUSP, SUSP Dosing Weight 64.205, kg, QID, PRN Indigestio n, Start date: 12/04/18 10:24:00 CDT, Duration: 30 day, Stop date: 01/03/19 10:23:00 CDT Maalox 2018-0 No 30 mL, [facility] Advanced 12-04 Route: PO, l Regular 15:24: Drug Form: Herm cecelia Strength 00 SUSP, SUSP Dosing Weight 64.205, kg, QID, PRN Indigestio n, Start date: 12/04/18 10:24:00 CDT, Duration: 30 day, Stop date: 01/03/19 10:23:00 CDT Al 2019-0 No Notes: Memoria hydroxide/M 8-12 (aluminum l g 14:00: hydroxide- [place] hydroxide/s 00 magnesium imethicone hyd-simeth icone 200-200-20 mg/5ml 30 ml ud GRECIA) Xylocaine Yes Notes: Memori a Viscous 2% 8-12 (Same as: l mucous 14:00: Xylocaine) Bonnie nn membrane 00 solution Xylocaine Yes Notes: Memori a Viscous 2% 8-12 (Same as: l mucous 14:00: Xylocaine) [place] nn membrane 00 solution Al No Notes: Memoria hydroxide/M 8-12 (aluminum l g 14:00: hydroxide- [place] hydroxide/s 00 magnesium imethicone hyd-simeth icone 200-200-20 mg/5ml 30 ml ud GRECIA) Xylocaine Yes Notes: Memori a Viscous 2% 8-12 (Same as: l mucous 14:00: Xylocaine) [place] nn membrane 00 solution Al No Notes: Memoria hydroxide/M 8-12 (aluminum l g 14:00: hydroxide- [place] hydroxide/s 00 magnesium imethicone hyd-simeth icone 200-200-20 mg/5ml 30 ml ud GRECIA) Xylocaine Yes Notes: Memori a Viscous 2% 8-12 (Same as: l mucous 14:00: Xylocaine) [place] nn membrane 00 solution Al No Notes: Memoria hydroxide/M 8-12 (aluminum l g 14:00: hydroxide- [place] hydroxide/s 00 magnesium imethicone hyd-simeth icone 200-200-20 mg/5ml 30 ml ud GRECIA) NIFEdipine No Notes: Memor ia 60 mg oral 8-12 (Same as: l tablet, 13:30: Adalat CC, Herm cecelia extended 00 Procardia release XL) Give on empty stomach. Take 1 hour before or 2 hours after meal; "Avoid grapefruit and grapefruit juice". Do not crush NIFEdipine No Notes: Memor ia 60 mg oral 8-12 (Same as: l tablet, 13:30: Adalat CC, Herm cecelia extended 00 Procardia release XL) Give on empty stomach. Take 1 hour before or 2 hours after meal; "Avoid grapefruit and grapefruit juice". Do not crush NIFEdipine No Notes: Memor ia 60 mg oral 8-12 (Same as: l tablet, 13:30: Adalat CC, Herm cecelia extended 00 Procardia release XL) Give on empty stomach. Take 1 hour before or 2 hours after meal; "Avoid grapefruit and grapefruit juice". Do not crush NIFEdipine No Notes: Memor ia 60 mg oral 8-12 (Same as: l tablet, 13:30: Adalat CC, Herm cecelia extended 00 Procardia release XL) Give on empty stomach. Take 1 hour before or 2 hours after meal; "Avoid grapefruit and grapefruit juice". Do not crush GI cocktail No 45 ml, Ketan brooks (aluminum 8-12 Route: PO, l hydroxide/m 12:29: Drug Form: [place] agnesium 00 SUSP, hydroxide/l Dosing idocaine/si Weight methicone) 64.205, kg, ONCE, Routine, Start date: 12/04/18 7:29:00 CDT, Stop date: 12/04/18 7:29:00 CDT GI cocktail No 45 ml, Ketan brooks (aluminum 8-12 Route: PO, l hydroxide/m 12:29: Drug Form: [place] agnesium 00 SUSP, hydroxide/l Dosing idocaine/si Weight methicone) 64.205, kg, ONCE, Routine, Start date: 12/04/18 7:29:00 CDT, Stop date: 12/04/18 7:29:00 CDT GI cocktail No 45 ml, Ketan brooks (aluminum 8-12 Route: PO, l hydroxide/m 12:29: Drug Form: [place] agnesium 00 SUSP, hydroxide/l Dosing idocaine/si Weight methicone) 64.205, kg, ONCE, Routine, Start date: 12/04/18 7:29:00 CDT, Stop date: 12/04/18 7:29:00 CDT GI cocktail No 45 ml, Ketan brooks (aluminum 8-12 Route: PO, l hydroxide/m 12:29: Drug Form: [place] agnesium 00 SUSP, hydroxide/l Dosing idocaine/si Weight methicone) 64.205, kg, ONCE, Routine, Start date: 12/04/18 7:29:00 CDT, Stop date: 12/04/18 7:29:00 CDT Imdur 0 No Notes: Memoria 8-12 (Same l 02:00: as:Imdur) "Do Not Crush" Take on empty stomach/ full glass of water. Do not crush Imdur No Notes: Memoria 8-12 (Same l 02:00: as:Imdur) [place] 00 "Do Not Crush" Take on empty stomach/ full glass of water. Do not crush Imdur No Notes: Memoria 8-12 (Same l 02:00: as:Imdur) "Do Not Crush" Take on empty stomach/ full glass of water. Do not crush Imdur No Notes: Memoria 8-12 (Same l 02:00: as:Imdur) [place] 00 "Do Not Crush" Take on empty stomach/ full glass of water. Do not crush NIFEdipine No 30 mg, Memor ia 30 mg oral 811 Route: PO, l tablet, 02:00: Drug form: Herm cecelia extended 00 ERTAB, release Q12H, Dosing Weight 64.205, kg, Start date: 12/02/18 21:00:00 CDT, Duration: 30 day, Stop date: 01/01/19 9:00:00 CDT metoprolol 0 No Notes: Memor ia tartrate 8-11 (Same as: l 02:00: Lopressor) NIFEdipine No 30 mg, Memor ia 30 mg oral 811 Route: PO, l tablet, 02:00: Drug form: Herm cecelia extended 00 ERTAB, release Q12H, Dosing Weight 64.205, kg, Start date: 12/02/18 21:00:00 CDT, Duration: 30 day, Stop date: 01/01/19 9:00:00 CDT metoprolol 0 No Notes: Memor ia tartrate 8-11 (Same as: l 02:00: Lopressor) NIFEdipine No 30 mg, Memor ia 30 mg oral 811 Route: PO, l tablet, 02:00: Drug form: Herm cecelia extended 00 ERTAB, release Q12H, Dosing Weight 64.205, kg, Start date: 12/02/18 21:00:00 CDT, Duration: 30 day, Stop date: 01/01/19 9:00:00 CDT metoprolol 2019-0 No Notes: Memor ia tartrate 8-11 (Same as: l 02:00: Lopressor) [place] NIFEdipine 2019-0 No 30 mg, Memor ia 30 mg oral 8- Route: PO, l tablet, 02:00: Drug form: Herm cecelia extended 00 ERTAB, release Q12H, Dosing Weight 64.205, kg, Start date: 12/02/18 21:00:00 CDT, Duration: 30 day, Stop date: 01/01/19 9:00:00 CDT metoprolol 2018- No Notes: Memor ia tartrate 8-11 (Same as: l 02:00: Lopressor) [place] 00 Maalox No Notes: [facility] Advanced 8-11 (aluminum l Regular 01:20: hydroxide- Herm cecelia Strength 00 magnesium SUSP hyd-simeth icone 200-200-20 mg/5ml 30 ml ud GRECIA) Maalox No Notes: [facility] Advanced 8-11 (aluminum l Regular 01:20: hydroxide- Herm cecelia Strength 00 magnesium SUSP hyd-simeth icone 200-200-20 mg/5ml 30 ml ud GRECIA) Maalox No Notes: [facility] Advanced 8-11 (aluminum l Regular 01:20: hydroxide- Herm cecelia Strength 00 magnesium SUSP hyd-simeth icone 200-200-20 mg/5ml 30 ml ud GRECIA) Maalox No Notes: [facility] Advanced 8-11 (aluminum l Regular 01:20: hydroxide- Herm cecelia Strength 00 magnesium SUSP hyd-simeth icone 200-200-20 mg/5ml 30 ml ud GRECIA) Acetaminoph No Notes: Do M emoria en 300 MG / 8-11 not exceed l Codeine 01:14: 4gm/day of Herm cecelia Phosphate 00 acetaminop 30 MG Oral hen. (Same Tablet as: [Tylenol Tylenol with with Codeine #3] Codeine # 3) Acetaminoph No Notes: Do M emoria en 300 MG / 8-11 not exceed l Codeine 01:14: 4gm/day of Herm cecelia Phosphate 00 acetaminop 30 MG Oral hen. (Same Tablet as: [Tylenol Tylenol with with Codeine #3] Codeine # 3) Acetaminoph 2019-0 No Notes: Do M emoria en 300 MG / 11 not exceed l Codeine 01:14: 4gm/day of Herm cecelia Phosphate 00 acetaminop 30 MG Oral hen. (Same Tablet as: [Tylenol Tylenol with with Codeine #3] Codeine # 3) Acetaminoph 2019-0 No Notes: Do M emoria en 300 MG / 811 not exceed l Codeine 01:14: 4gm/day of Herm cecelia Phosphate 00 acetaminop 30 MG Oral hen. (Same Tablet as: [Tylenol Tylenol with with Codeine #3] Codeine # 3) Protonix 2019-0 No 40 mg, Memoria 8-11 Route: PO, l 01:12: Daily, Dosing Weight 64.205, kg, Priority: NOW, Start date: 12/02/18 20:12:00 CDT, Duration: 30 day, Stop date: 01/01/19 9:00:00 CDT Protonix 2019-0 No 40 mg, Memoria 8-11 Route: PO, l 01:12: Daily, Dosing Weight 64.205, kg, Priority: NOW, Start date: 12/02/18 20:12:00 CDT, Duration: 30 day, Stop date: 01/01/19 9:00:00 CDT Protonix 2019-0 No 40 mg, Memoria 8-11 Route: PO, l 01:12: Daily, Dosing Weight 64.205, kg, Priority: NOW, Start date: 12/02/18 20:12:00 CDT, Duration: 30 day, Stop date: 01/01/19 9:00:00 CDT Protonix 2019-0 No 40 mg, Memoria 8-11 Route: PO, l 01:12: Daily, Dosing Weight 64.205, kg, Priority: NOW, Start date: 12/02/18 20:12:00 CDT, Duration: 30 day, Stop date: 01/01/19 9:00:00 CDT NIFEdipine 2019-0 No Notes: Memor ia 30 mg oral 12-03 (Same as: l tablet, 00:48: Adalat CC, Herm cecelia extended 00 Procardia release XL) Give on empty stomach. Take 1 hour before or 2 hours after meal; "Avoid grapefruit and grapefruit juice". Do not crush NIFEdipine 2018-0 No Notes: Memor ia 30 mg oral 8-11 (Same as: l tablet, 00:48: Adalat CC, Herm cecelia extended 00 Procardia release XL) Give on empty stomach. Take 1 hour before or 2 hours after meal; "Avoid grapefruit and grapefruit juice". Do not crush NIFEdipine 2018-0 No Notes: Memor ia 30 mg oral 8-11 (Same as: l tablet, 00:48: Adalat CC, Herm cecelia extended 00 Procardia release XL) Give on empty stomach. Take 1 hour before or 2 hours after meal; "Avoid grapefruit and grapefruit juice". Do not crush NIFEdipine 2018-0 No Notes: Memor ia 30 mg oral 8-11 (Same as: l tablet, 00:48: Adalat CC, Herm cecelia extended 00 Procardia release XL) Give on empty stomach. Take 1 hour before or 2 hours after meal; "Avoid grapefruit and grapefruit juice". Do not crush NIFEdipine 2018-0 No 30 mg, Memor ia 30 mg oral 8-10 Route: PO, l tablet, 22:00: Drug form: Herm cecelia extended 00 ERTAB, release BID, Dosing Weight 64.205, kg, Start date: 12/02/18 17:00:00 CDT, Duration: 30 day, Stop date: 01/01/19 9:00:00 CDT NIFEdipine 2018-0 No 30 mg, Memor ia 30 mg oral 8-10 Route: PO, l tablet, 22:00: Drug form: Herm cecelia extended 00 ERTAB, release BID, Dosing Weight 64.205, kg, Start date: 12/02/18 17:00:00 CDT, Duration: 30 day, Stop date: 01/01/19 9:00:00 CDT NIFEdipine 2019-0 No 30 mg, Memor ia 30 mg oral 8-10 Route: PO, l tablet, 22:00: Drug form: Herm cecelia extended 00 ERTAB, release BID, Dosing Weight 64.205, kg, Start date: 12/02/18 17:00:00 CDT, Duration: 30 day, Stop date: 01/01/19 9:00:00 CDT NIFEdipine No 30 mg, Memor ia 30 mg oral 8-10 Route: PO, l tablet, 22:00: Drug form: Herm cecelia extended ERTAB, release BID, Dosing Weight 64.205, kg, Start date: 12/02/18 17:00:00 CDT, Duration: 30 day, Stop date: 01/01/19 9:00:00 CDT Lisinopril No Notes: Memor ia 8-10 (Same as: l 16:46: Prinivil, Roland Zestril) Lisinopril No Notes: Memor ia 8-10 (Same as: l 16:46: Prinivil, [place] 00 Zestril) Lisinopril No Notes: Memor ia 8-10 (Same as: l 16:46: Prinivil, [place] 00 Zestril) Lisinopril No Notes: Memor ia 8-10 (Same as: l 16:46: Prinivil, [place] 00 Zestril) Famotidine No Notes: Memor ia 8-10 (Same as: l 14:00: Pepcid AC) Aspirin No Notes: Memoria 8-10 Take with l 14:00: food. Famotidine No Notes: Memor ia 8-10 (Same as: l 14:00: Pepcid AC) Aspirin No Notes: Memoria 8-10 Take with l 14:00: food. Famotidine No Notes: Memor ia 8-10 (Same as: l 14:00: Pepcid AC) Aspirin No Notes: Memoria 8-10 Take with l 14:00: food. Famotidine No Notes: Memor ia 8-10 (Same as: l 14:00: Pepcid AC) Aspirin No Notes: Memoria 8-10 Take with l 14:00: food. Maalox No Notes: [facility] Advanced 8-10 (aluminum l Regular 12:50: hydroxide- Herm cecelia Strength 00 magnesium SUSP hyd- simethicon e 200-200-20 mg/5ml GRECIA) (Same as: Maalox Plus Extra Strength) Maalox No Notes: [facility] Advanced 8-10 (aluminum l Regular 12:50: hydroxide- Herm cecelia Strength 00 magnesium SUSP hyd- simethicon e 200-200-20 mg/5ml GRECIA) (Same as: Maalox Plus Extra Strength) Maalox No Notes: [facility] Advanced 8-10 (aluminum l Regular 12:50: hydroxide- Herm cecelia Strength 00 magnesium SUSP hyd- simethicon e 200-200-20 mg/5ml GRECIA) (Same as: Maalox Plus Extra Strength) Maalox No Notes: [facility] Advanced 8-10 (aluminum l Regular 12:50: hydroxide- Herm cecelia Strength 00 magnesium SUSP hyd- simethicon e 200-200-20 mg/5ml GRECIA) (Same as: Maalox Plus Extra Strength) Saline No Notes: Memoria Flush 0.9% 8-10 (Same as: l 02:00: BD Roland 00 Posiflush) Saline No Notes: Memoria Flush 0.9% 8-10 (Same as: l 02:00: BD [place] 00 Posiflush) Saline No Notes: Memoria Flush 0.9% 8-10 (Same as: l 02:00: BD [place] 00 Posiflush) Saline No Notes: Memoria Flush 0.9% 8-10 (Same as: l 02:00: BD [place] 00 Posiflush) Lisinopril No 20 mg, PO, M emoria 8- Daily, 0 l 23:43: Refill(s) Roland Lisinopril No 20 mg, PO, M emoria 8- Daily, 0 l 23:43: Refill(s) [place] Lisinopril 0 No 20 mg, PO, M emoria 8- Daily, 0 l 23:43: Refill(s) Roland 00 Lisinopril 0 No 20 mg, PO, M emoria 8- Daily, 0 l 23:43: Refill(s) Roland Potassium No Notes: Memori a Chloride 12-01 [...] s with feeding tube less than 14 [place] (Dobhoff, J-tube etc) and pediatric and patients. potassium No Notes: Memori a phosphate-s 12-01 (Same as: l odium 23:34: Phos-NaK) Roland phosphate 00 Each 1.5 250 mg-280 gm pkt has mg-160 mg 250mg oral powder phosphorou for s. Mix reconstitut w/2.5oz ion water and stir. potassium No Notes: Memori a phosphate 12-01 (Same as: l 23:34: K [place] Phosphate. ) Do not infuse phosphorou s concurrent ly in the same line as TPN or IVF that contains calcium. For double lumen central lines, phosphorou s may be infused in a separate lumen from TPN. 1 mMol phoshate has 1.47 mEq potassium Infuse over 4 hours sodium No Notes: Memoria phosphate 12-01 Infuse l 23:34: over 4 Roland 00 hour. Do not infuse phosphorou s concurrent [...] Oxide 12-01 (Same as: l 23:34: Mag-Ox Roland 00 400) Magnesium oxide 939hs=664g g elemental magnesium Dose=____m g magnesium oxide (___mg elemental magnesium) Calcium No Notes: Memoria Gluconate 12-01 WASTE: F/P l 23:34: - Sink; E - Municipal Trash Bin Potassium No Notes: Memori a Chloride 12-01 [...] s with feeding tube less than 14 [place] (Dobhoff, J-tube etc) and pediatric and patients. potassium No Notes: Memori a phosphate-s 12-01 (Same as: l odium 23:34: Phos-NaK) Roland phosphate 00 Each 1.5 250 mg-280 gm pkt has mg-160 mg 250mg oral powder phosphorou for s. Mix reconstitut w/2.5oz ion water and stir. Potassium No Notes: Memori a Chloride 12-01 [...] s with feeding tube less than 14 [place] (Dobhoff, J-tube etc) and pediatric and patients. potassium No Notes: Memori a phosphate-s 12-01 (Same as: l odium 23:34: Phos-NaK) Roland phosphate 00 Each 1.5 250 mg-280 gm pkt has mg-160 mg 250mg oral powder phosphorou for s. Mix reconstitut w/2.5oz ion water and stir. potassium No Notes: Memori a phosphate 12-01 (Same as: l 23:34: K [place] 00 Phosphate. ) Do not infuse phosphorou s concurrent ly in the same line as TPN or IVF that contains calcium. For double lumen central lines, phosphorou s may be infused in a separate lumen from TPN. 1 mMol phoshate has 1.47 mEq potassium Infuse over 4 hours sodium No Notes: Memoria phosphate 12-01 Infuse l 23:34: over 4 [place] 00 hour. Do not infuse phosphorou s concurrent ly in the same line as TPN or IVF that contains calcium. For double lumen central lines, phosphorou s may be infused in a separate lumen from TPN. Magnesium No Notes: Memori a Sulfate 8-09 WASTE: F/P l 23:34: - Sink; E [place] - Municipal Trash Bin Magnesium No Notes: Memori a Oxide 12-01 (Same as: l 23:34: Mag-Ox [place] 400) Magnesium oxide [id number] g elemental magnesium Dose=____m g magnesium oxide (___mg elemental magnesium) Calcium No Notes: Memoria Gluconate 12-01 WASTE: F/P l 23:34: - Sink; E [place] - Municipal Trash Bin potassium No Notes: Memori a phosphate 12-01 (Same as: l 23:34: K [place] 00 Phosphate. ) Do not infuse phosphorou s concurrent ly in the same line as TPN or IVF that contains calcium. For double lumen central lines, phosphorou s may be infused in a separate lumen from TPN. 1 mMol phoshate has 1.47 mEq potassium Infuse over 4 hours sodium No Notes: Memoria phosphate 12-01 Infuse l 23:34: over 4 [place] 00 hour. Do not infuse phosphorou s concurrent ly in the same line as TPN or IVF that contains calcium. For double lumen central lines, phosphorou s may be infused in a separate lumen from TPN. Magnesium No Notes: Memori a Sulfate 12-01 WASTE: F/P l 23:34: - Sink; E [place] 00 - Municipal Trash Bin Magnesium No Notes: Memori a Oxide 12-01 (Same as: l 23:34: Mag-Ox [place] 400) Magnesium oxide [id number] g elemental magnesium Dose=____m g magnesium oxide (___mg elemental magnesium) Calcium No Notes: Memoria Gluconate 12-01 WASTE: F/P l 23:34: - Sink; E [place] - [facility] Trash Bin Potassium No Notes: Memori a Chloride 12-01 [...] s with feeding tube less than 14 [place] (Dobhoff, J-tube etc) and pediatric and patients. [...] phosphate 12-01 Infuse l 23:34: over 4 [place] 00 hour. Do not infuse phosphorou s concurrent ly in the same line as TPN or IVF that contains calcium. For double lumen central lines, phosphorou s may be infused in a separate lumen from TPN. Magnesium No Notes: Memori a Sulfate 12-01 WASTE: F/P l 23:34: - Sink; E [place] - [facility] Trash Bin Magnesium No Notes: Memori a Oxide 12-01 (Same as: l 23:34: Mag-Ox [place] 00 400) Magnesium oxide [id number] g elemental magnesium Dose=____m g magnesium oxide (___mg elemental magnesium) Calcium No Notes: Memoria Gluconate 12-01 WASTE: F/P l 23:34: - Sink; E [place] - [facility] Trash Bin heparin No Notes: Memoria 12-01 porcine l 21:00: heparin [place] heparin No Notes: Memoria 12-01 porcine l 21:00: heparin [place] heparin No Notes: Memoria 12-01 porcine l 21:00: heparin [place] heparin No Notes: Memoria 12-01 porcine l 21:00: heparin [place] Magnesium No Notes: Memori a Sulfate 12-01 WASTE: F/P l 20:36: - Sink; E [place] - [facility] Trash Bin Magnesium No Notes: Memori a Sulfate 8-09 WASTE: F/P l 20:36: - Sink; E [place] - [facility] Trash Bin Magnesium No Notes: Memori a Sulfate 8-09 WASTE: F/P l 20:36: - Sink; E [place] - [facility] Trash Bin Magnesium No Notes: Memori a Sulfate 8-09 WASTE: F/P l 20:36: - Sink; E [place] - [facility] Trash Bin Isolyte S No Notes: Memori a PH-7.4 8-09 (Same as: l (Bolus) IV 20:34: Isolyte S He rmann 00 PH7.4) Isolyte S No Notes: Memori a PH-7.4 8-09 (Same as: l (Bolus) IV 20:34: Isolyte S He rmann 00 PH7.4) Isolyte S No Notes: Memori a PH-7.4 8-09 (Same as: l (Bolus) IV 20:34: Isolyte S He rmann 00 PH7.4) Isolyte S No Notes: Memori a PH-7.4 8-09 (Same as: l (Bolus) IV 20:34: Isolyte S He rmann 00 PH7.4) Potassium No 80 mEq, 4 Mem oria Chloride 8-09 tab, l 20:33: Route: PO, Drug form: ERTAB, ONCE, Dosing Weight 68.182, kg, Priority: NOW, Start date: 12/01/18 15:33:00 CDT, Stop date: 12/01/18 15:33:00 CDT, 0 Potassium 2019-0 No 80 mEq, 4 Mem oria Chloride 8-09 tab, l 20:33: Route: PO, Drug form: ERTAB, ONCE, Dosing Weight 68.182, kg, Priority: NOW, Start date: 12/01/18 15:33:00 CDT, Stop date: 12/01/18 15:33:00 CDT, 0 Potassium 2019-0 No 80 mEq, 4 Mem oria Chloride 8-09 tab, l 20:33: Route: PO, Drug form: ERTAB, ONCE, Dosing Weight 68.182, kg, Priority: NOW, Start date: 12/01/18 15:33:00 CDT, Stop date: 12/01/18 15:33:00 CDT, 0 Potassium No 80 mEq, 4 Mem oria Chloride 12-01 tab, l 20:33: Route: PO, [place] 00 Drug form: ERTAB, ONCE, Dosing Weight 68.182, kg, Priority: NOW, Start date: 12/01/18 15:33:00 CDT, Stop date: 12/01/18 15:33:00 CDT, 0 Cardene 40 No Notes: Memor ia mg in NS 12-01 (Same as: l 200 mL 20:32: Cardene) Roland (Titrate.) 00 IV 40 mg Cardene 40 No Notes: Memor ia mg in NS 12-01 (Same as: l 200 mL 20:32: Cardene) [place] (Titrate.) 00 IV 40 mg Cardene 40 No Notes: Memor ia mg in NS 12-01 (Same as: l 200 mL 20:32: Cardene) [place] (Titrate.) 00 IV 40 mg Cardene 40 No Notes: Memor ia mg in NS 12-01 (Same as: l 200 mL 20:32: Cardene) [place] (Titrate.) 00 IV 40 mg Morphine No Notes: Memoria 12-01 (Same l 20:11: as:MORPhin [place] 00 e Sulfate) Morphine No Notes: Memoria 12-01 (Same l 20:11: as:MORPhin [place] 00 e Sulfate) Morphine No Notes: Memoria 12-01 (Same l 20:11: as:MORPhin [place] 00 e Sulfate) Morphine No Notes: Memoria 12-01 (Same l 20:11: as:MORPhin [place] 00 e Sulfate) Nystatin No Notes: Memoria 100 UNT/MG 12-01 (Same l Topical 19:04: as:Mycosta Herm cecelia Powder 00 tin, Nilstat) For external use only. Saline No Notes: Memoria Flush 0.9% 12-01 (Same as: l 19:04: BD [place] 00 Posiflush) Nystatin No Notes: Memoria 100 UNT/MG 8-09 (Same l Topical 19:04: as:Mycosta Herm cecelia Powder 00 tin, Nilstat) For external use only. Saline No Notes: Memoria Flush 0.9% 8-09 (Same as: l 19:04: BD [place] 00 Posiflush) Nystatin No Notes: Memoria 100 UNT/MG 8- (Same l Topical 19:04: as:Mycosta Herm cecelia Powder 00 tin, Nilstat) For external use only. Saline No Notes: Memoria Flush 0.9% 8-09 (Same as: l 19:04: BD [place] 00 Posiflush) Nystatin No Notes: Memoria 100 UNT/MG 8- (Same l Topical 19:04: as:Mycosta Herm cecelia Powder 00 tin, Nilstat) For external use only. Saline No Notes: Memoria Flush 0.9% 8- (Same as: l 19:04: BD [place] 00 Posiflush) Nitroglycer No Notes: Ketan brooks in 8- (Same l 17:29: as:Tridil) [place] Nitroglycer No Notes: Ketan brooks in 8- (Same l 17:29: as:Tridil) [place] Nitroglycer No Notes: Ketan brooks in 8- (Same l 17:29: as:Tridil) [place] Nitroglycer No Notes: Ketan brooks in 8 (Same l 17:29: as:Tridil) [place] Xylocaine No Notes: Memori a Viscous 2% - (Same as: l mucous 17:00: Xylocaine) Bonnie nn membrane 00 solution Xylocaine No Notes: Memori a Viscous 2% 8-09 (Same as: l mucous 17:00: Xylocaine) Bonnie nn membrane 00 solution Xylocaine No Notes: Memori a Viscous 2% - (Same as: l mucous 17:00: Xylocaine) Bonnie nn membrane 00 solution Xylocaine No Notes: Memori a Viscous 2% - (Same as: l mucous 17:00: Xylocaine) Bonnie nn membrane 00 solution Al No Notes: Memoria hydroxide/M 8-09 (aluminum l g 16:51: hydroxide- [place] hydroxide/s 00 magnesium imethicone hyd-simeth icone 200-200-20 mg/5ml 30 ml ud GRECIA) Al 2018-0 No Notes: Memoria hydroxide/M 8-09 (aluminum l g 16:51: hydroxide- [place] hydroxide/s 00 magnesium imethicone hyd-simeth icone 200-200-20 mg/5ml 30 ml ud GRECIA) Al 2018-0 No Notes: Memoria hydroxide/M 8-09 (aluminum l g 16:51: hydroxide- [place] hydroxide/s 00 magnesium imethicone hyd-simeth icone 200-200-20 mg/5ml 30 ml ud GRECIA) Al 2018-0 No Notes: Memoria hydroxide/M 8-09 (aluminum l g 16:51: hydroxide- [place] hydroxide/s 00 magnesium imethicone hyd-simeth icone 200-200-20 mg/5ml 30 ml ud GRECIA) GI cocktail 0 No 45 mL, Ketan brooks (aluminum 809 Route: PO, l hydroxide/m 16:45: Dosing Herm cecelia agnesium 00 Weight hydroxide/l 68.182, idocaine/si kg, ONCE, methicone) STAT, Start date: 12/01/18 11:45:00 CDT, Stop date: 12/01/18 11:45:00 CDT GI cocktail 2018-0 No 45 mL, Ketan brooks (aluminum 8 Route: PO, l hydroxide/m 16:45: Dosing Herm cecelia agnesium 00 Weight hydroxide/l 68.182, idocaine/si kg, ONCE, methicone) STAT, Start date: 12/01/18 11:45:00 CDT, Stop date: 12/01/18 11:45:00 CDT GI cocktail 2018-0 No 45 mL, Ketan brooks (aluminum 809 Route: PO, l hydroxide/m 16:45: Dosing Herm cecelia agnesium 00 Weight hydroxide/l 68.182, idocaine/si kg, ONCE, methicone) STAT, Start date: 12/01/18 11:45:00 CDT, Stop date: 12/01/18 11:45:00 CDT GI cocktail 0 No 45 mL, Ketan brooks (aluminum 8-09 Route: PO, l hydroxide/m 16:45: Dosing Herm cecelia agnesium 00 Weight hydroxide/l 68.182, idocaine/si kg, ONCE, methicone) STAT, Start date: 12/01/18 11:45:00 CDT, Stop date: 12/01/18 11:45:00 CDT Nitroglycer No Notes: Ketan brooks in 12-01 (Same l 16:14: as:Tridil) [place] Final conc = 0.4 mg/ml. Premix bottle. Nitroglycer No Notes: Ketan brooks in 12-01 (Same l 16:14: as:Tridil) [place] Final conc = 0.4 mg/ml. Premix bottle. Nitroglycer No Notes: Ketan brooks in 12-01 (Same l 16:14: as:Tridil) [place] Final conc = 0.4 mg/ml. Premix bottle. Nitroglycer No Notes: Ketan brooks in 12-01 (Same l 16:14: as:Tridil) [place] Final conc = 0.4 mg/ml. Premix bottle. Iohexol 2018-0 No 100 mL, Memoria 12-01 Route: l 16:11: IVP, Drug [place] 00 Form: SOLN, Dosing Weight 68.182, kg, ONCALL, STAT, Start date: 12/01/18 11:11:00 CDT, Duration: 1 doses or times, Dose = 2.2ml/kg, Max dose = 100ml -- "To be infused by Radiology Staff ONLY" Iohexol 2018-0 No 100 mL, Memoria 12-01 Route: l 16:11: IVP, Drug [place] 00 Form: SOLN, Dosing Weight 68.182, kg, ONCALL, STAT, Start date: 12/01/18 11:11:00 CDT, Duration: 1 doses or times, Dose = 2.2ml/kg, Max dose = 100ml -- "To be infused by Radiology Staff ONLY" Iohexol 2019-0 No 100 mL, Memoria 12-01 Route: l 16:11: IVP, Drug [place] 00 Form: SOLN, Dosing Weight 68.182, kg, ONCALL, STAT, Start date: 12/01/18 11:11:00 CDT, Duration: 1 doses or times, Dose = 2.2ml/kg, Max dose = 100ml -- "To be infused by Radiology Staff ONLY" Iohexol No 100 mL, Memoria 12-01 Route: l 16:11: IVP, Drug [place] 00 Form: SOLN, Dosing Weight 68.182, kg, ONCALL, STAT, Start date: 12/01/18 11:11:00 CDT, Duration: 1 doses or times, Dose = 2.2ml/kg, Max dose = 100ml -- "To be infused by Radiology Staff ONLY" Famotidine No Notes: Memor ia 12-01 (Same as: l 15:23: Pepcid) [place] 00 Can be dilute in 5-10cc NS IVP: Slow IV push over at least 2 minutes. Famotidine No Notes: Memor ia 12-01 (Same as: l 15:23: Pepcid) [place] 00 Can be dilute in 5-10cc NS IVP: Slow IV push over at least 2 minutes. Famotidine No Notes: Memor ia 12-01 (Same as: l 15:23: Pepcid) [place] 00 Can be dilute in 5-10cc NS IVP: Slow IV push over at least 2 minutes. Famotidine No Notes: Memor ia 12-01 (Same as: l 15:23: Pepcid) [place] 00 Can be dilute in 5-10cc NS IVP: Slow IV push over at least 2 minutes. GI cocktail No 45 mL, Ketan brooks (aluminum 12-01 Route: PO, l hydroxide/m 15:20: kg, ONCE, H ermann agnesium 00 STAT, hydroxide/l Start idocaine/si date: methicone) 12/01/18 10:20:00 CDT, Stop date: 12/01/18 10:20:00 CDT GI cocktail No 45 mL, Ketan brooks (aluminum 12-01 Route: PO, l hydroxide/m 15:20: kg, ONCE, H ermann agnesium 00 STAT, hydroxide/l Start idocaine/si date: methicone) 12/01/18 10:20:00 CDT, Stop date: 12/01/18 10:20:00 CDT GI cocktail No 45 mL, Ketan brooks (aluminum 12-01 Route: PO, l hydroxide/m 15:20: kg, ONCE, H ermann agnesium 00 STAT, hydroxide/l Start idocaine/si date: methicone) 12/01/18 10:20:00 CDT, Stop date: 12/01/18 10:20:00 CDT GI cocktail No 45 mL, Ketan brooks (aluminum 12-01 Route: PO, l hydroxide/m 15:20: kg, ONCE, H ermann agnesium 00 STAT, hydroxide/l Start idocaine/si date: methicone) 12/01/18 10:20:00 CDT, Stop date: 12/01/18 10:20:00 CDT dicyclomine 2018- No 20mg 20 mg, Uni vers (BENTYL) 11-29 Intramuscu ity of injection 19:00: 17:57 lar, ONCE, [place] 20 mg 00 :00 1 dose, Medical [facility] 11/29/18 Branch at 1400, Routine metoclopram 2018- No 10mg 10 mg, Uni vers bella HCl 11-29 Slow IV ity of (REGLAN) 19:00: 17:57 Push, [place] injection 00 :00 ONCE, 1 Medical 10 mg dose, [facility] Branch 11/29/18 at 1400, FUENTES enalaprilat 2018- No 1.25mg 1.25 mg, Univers (VASOTEC 11-29 Slow IV ity of I.V.) 18:15: 17:35 Push, [place] injection 00 :00 ONCE, 1 Medical 1.25 mg dose, [facility] Branch 11/29/18 at 1315, STAT iohexol 2018- No 120mL 120 mL, Unive rs (OMNIPAQUE 11-29 Intravenou it y of 350 17:15: 17:15 s, ONCE, 1 [place] BULK-150 00 :00 dose, Wed Medica l mL) 11/29/18 at Branch injection 1215, 120 mL Routine NaCl 0.9% 2018- No 1000mL at 999 Uni vers (NS) bolus 11-29 mL/hr, ity of infusion 15:30: 17:40 1,000 mL, Eladio as 1,000 mL 00 :00 IV Medical Infusion, Branch ONCE, 1 dose, Tue11/29/18 at 1030, FUENTES lisinopril 2018- Yes [id number] 10mg Take 1 Univers 10 mg 8-07 tablet by ity of tablet 00:00: mouth at [place] [id number] bedtime. Medical Branch ondansetron Yes [id number] 4mg Take 1 Univers (ZOFRAN 8-07 tablet by ity of ODT) 4 mg 00:00: mouth [place] disintegrat 00 every 8 Medic al ing tablet (eight) Branch hours as needed for Nausea and Vomiting (N/V). lisinopril Yes [id number] 10mg Take 1 Univers 10 mg 8-07 tablet by ity of tablet 00:00: mouth at [place] [address] bedtime. Medical Branch lisinopril Yes [id number] 10mg Take 1 Univers 10 mg 8-07 tablet by ity of tablet 00:00: mouth at [place] [address] bedtime. Medical Branch lisinopril Yes [id number] 10mg Take 1 Univers 10 mg 8-07 tablet by ity of tablet 00:00: mouth at [place] [address] bedtime. Medical Branch lisinopril Yes [id number] 10mg Take 1 Univers 10 mg 8-07 tablet by ity of tablet 00:00: mouth at [place] [address] bedtime. Medical Branch lisinopril Yes [id number] 10mg Take 1 Univers 10 mg 8-07 tablet by ity of tablet 00:00: mouth at [place] [address] bedtime. Medical Branch cephALEXin Yes 500mg Take 1 Univ ers (KEFLEX) 5-16 capsule by ity o f 500 mg 00:00: mouth 3 [place] capsule 00 (three) Medical times Branch daily. sulfamethox 2017-0 Yes 1{tbl} Take 1 Un angelo azole-trime 5-16 tablet by ity of thoprim 00:00: mouth [place] 800-160 mg 00 every 12 Medic al per tablet (twelve) Branc h hours. traMADOL 50 2017-0 Yes 50mg Take 1 Univ ers mg tablet 5-16 tablet by ity o f 00:00: mouth [place] 00 every 6 Medical (six) Branch hours as needed for Pain (scale 4-6). Immunizations Ordered Filled Immunization Date Status Comments [facility] e Immunization Name Name SARS-COV-2 COVID-19 2021-12-10 Completed Unive rsity of PFIZER LIDIA-SUCROSE 00:00:00 [place] Medical VACCINE (DAIGLE TOP) Branch SARS-COV-2 COVID-19 2021-10-12 Completed Unive rsity of PFIZER LIDIA-SUCROSE 00:00:00 [place] Medical VACCINE (DAIGLE TOP) Branch SARS-COV-2 COVID-19 2021-10-12 Completed Unive rsity of PFIZER LIDIA-SUCROSE 00:00:00 [place] Medical VACCINE (DAIGLE TOP) Branch PFIZER COVID-19 2020-07-07 Completed [facility] VACCINATION 00:00:00 Hospital PFIZER COVID-19 2020-07-07 Completed [facility] MRNA VACCINATION 00:00:00 Hospital PFIZER COVID-19 2020-07-07 Completed [facility] MRNA VACCINATION 00:00:00 [facility] PFIZER COVID-19 2020-07-07 Completed [facility] MRNA VACCINATION 00:00:00 Hospital Vital Signs Vital Name Observation Time Observation Value Comments Source Systolic blood 2020-06-07 19:16:00 194 mm[Hg] Univer sity of pressure [place] [facility] Diastolic blood 2020-06-07 19:16:00 99 mm[Hg] Unive rsity of [facility] Heart rate 2020-06-07 19:16:00 43 /min General acute hospital Respiratory rate 2020-06-07 19:16:00 18 /min [facility] Oxygen saturation in 2020-06-07 19:16:00 100 /min [facility] Arterial blood by [facility] Pulse oximetry Branch Body temperature 2020-06-07 15:19:00 36.28 [facility] weight 2020-06-07 15:19:00 63.05 kg General acute hospital BMI 2020-06-07 15:19:00 19.39 kg/m2 General acute hospital Systolic blood 2020-06-07 19:16:00 194 mm[Hg] Univer sity of pressure [place] [facility] Diastolic blood 2020-06-07 19:16:00 99 mm[Hg] Unive rsity of pressure [place] [facility] Heart rate 2020-06-07 19:16:00 43 /min General acute hospital Respiratory rate 2020-06-07 19:16:00 18 /min Univ ersity of [place] [facility] Oxygen saturation in 2020-06-07 19:16:00 100 /min University of Arterial blood by [facility] Pulse oximetry Branch Body temperature 2020-06-07 15:19:00 36.28 Carine Univ ersity of [place] [facility] Body weight 2020-06-07 15:19:00 63.05 kg Universi ty [facility] [place] [facility] BMI 2020-06-07 15:19:00 19.39 kg/m2 [facility] [place] [facility] Systolic blood 2019-06-13 00:20:02 166 mm[Hg] Univer sity of pressure [place] [facility] Diastolic blood 2019-06-13 00:20:02 101 mm[Hg] Unive rsity of pressure [place] [facility] Heart rate 2019-06-13 00:20:02 70 /min [facility] [place] [facility] Respiratory rate 2019-06-13 00:20:02 20 /min Univ ersity of [place] [facility] Oxygen saturation in 2019-06-13 00:20:02 100 /min University of Arterial blood by [facility] Pulse oximetry Branch Body temperature 2019-06-12 23:20:00 36.56 Carine Univ ersity [facility] [place] [facility] Body weight 2019-06-12 23:20:00 63.05 kg [facility] [place] [facility] BMI 2019-06-12 23:20:00 19.39 kg/m2 [facility] [place] [facility] Systolic blood 2019-06-13 00:20:02 166 mm[Hg] Univer sity of pressure [place] [facility] Diastolic blood 2019-06-13 00:20:02 101 mm[Hg] Unive rsity of pressure [place] [facility] Heart rate 2019-06-13 00:20:02 70 /min [facility] [place] [facility] Respiratory rate 2019-06-13 00:20:02 20 /min Univ ersity of [place] [facility] Oxygen saturation in 2019-06-13 00:20:02 100 /min University of Arterial blood by [facility] Pulse oximetry Branch Body temperature 2019-06-12 23:20:00 36.56 Carine Univ ers[facility] [place] [facility] Body weight 2019-06-12 23:20:00 63.05 kg [facility] [place] [facility] BMI 2019-06-12 23:20:00 19.39 kg/m2 [facility] [place] [facility] Systolic blood 2018-11-29 18:28:00 186 mm[Hg] Univer sity of pressure [place] [facility] Diastolic blood 2018-11-29 18:28:00 103 mm[Hg] Unive rsity of pressure [place] [facility] Heart rate 2018-11-29 18:28:00 46 /min [facility] [place] [facility] Respiratory rate 2018-11-29 18:28:00 15 /min Univ ersity of [place] [facility] Oxygen saturation in 2018-11-29 18:28:00 100 /min University of Arterial blood by [place] [facility] Pulse oximetry Branch Body temperature 2018-11-29 15:18:00 36.67 Carine Univ ersity of [place] [facility] Body height 2018-11-29 15:18:00 180.3 cm [facility] [place] [facility] Body weight 2018-11-29 15:18:00 72.576 kg [facility] [place] [facility] BMI 2018-11-29 15:18:00 22.32 kg/m2 [facility] [place] [facility] Systolic blood 2018-11-29 18:28:00 186 mm[Hg] Univer sity of pressure [place] [facility] Diastolic blood 2018-11-29 18:28:00 103 mm[Hg] Unive rsity of pressure [place] [facility] Heart rate 2018-11-29 18:28:00 46 /min [facility] [place] [facility] Respiratory rate 2018-11-29 18:28:00 15 /min Univ ersity of [place] [facility] Oxygen saturation in 2018-11-29 18:28:00 100 /min University of Arterial blood by [place] [facility] eric Pulse oximetry Branch Body temperature 2018-11-29 15:18:00 36.67 Carine Univ ers[facility] [place] [facility] Body height 2018-11-29 15:18:00 180.3 cm [facility] [place] [facility] Body weight 2018-11-29 15:18:00 72.576 kg [facility] [place] [facility] BMI 2018-11-29 15:18:00 22.32 kg/m2 [facility] [place] [facility] Temperature Oral (F) 2018-12-04 17:00:00 98.3 F Marcos [place] Respitory Rate 2018-12-04 15:00:00 Tremaine Chen Systolic (mm Hg) 2018-12-04 15:00:00 Ketan rial [place] Diastolic (mm Hg) 2018-12-04 15:00:00 Mem orial [place] Respitory Rate 2018-12-04 14:00:00 Memori al [place] Systolic (mm Hg) 2018-12-04 14:00:00 Ketan rial [place] Diastolic (mm Hg) 2018-12-04 14:00:00 Mem orial [place] Respitory Rate 2018-12-04 13:00:00 Memori al [place] Systolic (mm Hg) 2018-12-04 13:00:00 Ketan rial [place] Diastolic (mm Hg) 2018-12-04 13:00:00 Mem orial [place] Temperature Oral (F) 2018-12-04 12:32:00 98.5 F [facility] [place] Temperature Oral (F) 2018-12-04 04:44:00 98.5 F [facility] [place] Height 2018-12-01 23:35:00 180.34 cm [facility] [place] Weight 2018-12-01 23:35:00 [facility] [place] BMI Calculated 2018-12-01 23:35:00 Memori al [place] Heart Rate 2018-12-01 15:16:00 [facility] [place] Height 2018-12-01 15:16:00 180.34 cm [facility] [place] BMI Calculated 2018-12-01 15:16:00 Memori al [place] Weight 2018-12-01 15:16:00 [facility] [place] Procedures Procedure Date / Time Performing Clinician Source Performed SARS-COV-2 COVID-19 2021-12-10 19:42:29 [facility]igned, [facility] [place] VACCINE 12 YRS+,0.3ML,IM [facility] (PFIZER - DAIGLE TOP) SARS-COV-2 COVID-19 2021-10-12 16:25:59 Doctor Unassigned, Unive rsity of [place] VACCINE 12 YRS+,0.3ML,IM [facility] (PFIZER - DAIGLE TOP) URINALYSIS 2020-06-07 16:42:00 Digna Medina [facility] CBC WITH DIFF 2020-06-07 15:24:00 Digna Medina [facility] LIPASE 2020-06-07 15:24:00 Digna Medina [facility] COMP. METABOLIC PANEL 2020-06-07 15:24:00 Digna Medina [facility] ([id number]) [facility] Branch POCT GLUCOSE (AUTOMATED) 2020-06-07 15:19:00 Digna Medina [facility] NOTICE OF PRIVACY 2019-06-12 23:08:16 Doctor Arik, [facility] PRACTICES Pax [facility] CONSENT/REFUSAL FOR 2019-06-12 23:08:00 Doctor Unassnakul, [facility] DIAGNOSIS AND TREATMENT [facility]ax [facility] CT ABDOMEN PELVIS W 2018-11-29 17:24:50 Digna Medina [facility] CONTRAST [facility] Branch LIPASE 2018-11-29 15:30:00 Digna Medina [facility] TROPONIN I 2018-11-29 15:30:00 Digna Medina [facility] HEPATIC FUNCTION PANEL 2018-11-29 15:30:00 [id number] (ALB,T.PRO,BILI [facility] T,BU/BC,ALT,AST,ALK PHOS) BASIC METABOLIC PANEL (NA, 2018-11-29 15:30:00 Digna Medina [facility] K, CL, CO2, GLUCOSE, BUN, Medica l Branch CREATININE, CA) CBC WITH DIFFERENTIAL 2018-11-29 15:30:00 Digna Medina [facility] acute hospital URINALYSIS 2018-11-29 15:30:00 Digna Medina [facility] LACTIC ACID WHOLE BLOOD 2018-11-29 15:30:00 [facility] 2018-11-29 15:18:19 Digna Medina [facility] Cholecystectomy [facility] Plan of Care Planned Activity Planned Date Details Comments Source Future Scheduled 2022-06-22 Pneumococcal Vaccine: [facility] Test 10:05:14 Pediatrics (0 to 5 Years) and At-Risk Patients (6 to 64 Years) (1 - PCV) [code = Pneumococcal Vaccine: Pediatrics (0 to 5 Years) and At-Risk Patients (6 to 64 Years) (1 - PCV)] Future Scheduled 2022-06-22 [facility] Test 10:05:14 (procedure) [code = [id number]] Future Scheduled 2022-06-22 COLONOSCOPY SCREENING [facility] Hospital Test 10:05:14 [code = COLONOSCOPY SCREENING] Future Scheduled 2022-06-22 SHINGLES VACCINES (1 Met [facility] Test 10:05:14 of 2) [code = SHINGLES VACCINES (1 of 2)] Future Scheduled 2022-06-22 COVID-19 VACCINE (2 - [facility] Test 10:05:14 Pfizer series) [code = COVID-19 VACCINE (2 - Pfizer series)] Future Scheduled 2022-06-22 INFLUENZA VACCINE Method is Hospital Test 10:05:14 [code = INFLUENZA VACCINE] Future Scheduled 2022-04-09 Pneumococcal Vaccine: [facility] Test 08:46:51 Pediatrics (0 to 5 Years) and At-Risk Patients (6 to 64 Years) (1 - PCV) [code = Pneumococcal Vaccine: Pediatrics (0 to 5 Years) and At-Risk Patients (6 to 64 Years) (1 - PCV)] Future Scheduled 2022-04-09 Hepatitis C screening [facility] Test 08:46:51 (procedure) [code = 319799646] Future Scheduled 2022-04-09 COLONOSCOPY SCREENING [facility] Test 08:46:51 [code = COLONOSCOPY SCREENING] Future Scheduled 2022-04-09 SHINGLES VACCINES (1 Met [facility] Hospital Test 08:46:51 of 2) [code = SHINGLES VACCINES (1 of 2)] Future Scheduled 2022-04-09 COVID-19 VACCINE (2 - [facility] Test 08:46:51 Pfizer series) [code = COVID-19 VACCINE (2 - Pfizer series)] Future Scheduled 2022-04-09 INFLUENZA VACCINE Method [facility] Hospital Test 08:46:51 [code = INFLUENZA VACCINE] Future Scheduled 2022-04-09 Pneumococcal Vaccine: [facility] Test 08:46:51 Pediatrics (0 to 5 Years) and At-Risk Patients (6 to 64 Years) (1 - PCV) [code = Pneumococcal Vaccine: Pediatrics (0 to 5 Years) and At-Risk Patients (6 to 64 Years) (1 - PCV)] Future Scheduled 2022-04-09 Hepatitis C screening [facility] Test 08:46:51 (procedure) [code = [id number]] Future Scheduled 2022-04-09 COLONOSCOPY SCREENING [facility] Test 08:46:51 [code = COLONOSCOPY SCREENING] Future Scheduled 2022-04-09 SHINGLES VACCINES ([address] [facility] Test 08:46:51 of 2) [code = SHINGLES VACCINES (1 of 2)] Future Scheduled 2022-04-09 COVID-19 VACCINE (2 - [facility] Test 08:46:51 Pfizer series) [code = COVID-19 VACCINE (2 - Pfizer series)] Future Scheduled 2022-04-09 INFLUENZA VACCINE Method [facility] Hospital Test 08:46:51 [code = INFLUENZA VACCINE] Future Scheduled 2021-12-24 HEPATITIS B VACCINES Met [facility] Test 03:33:05 (1 of 3 - 3-dose series) [code = HEPATITIS B VACCINES (1 of 3 - 3-dose series)] Future Scheduled 2021-12-24 Pneumococcal Vaccine: [facility] Test 03:33:05 Pediatrics (0 to 5 Years) and At-Risk Patients (6 to 64 Years) (1 - PCV) [code = Pneumococcal Vaccine: Pediatrics (0 to 5 Years) and At-Risk Patients (6 to 64 Years) (1 - PCV)] Future Scheduled 2021-12-24 Hepatitis C screening [facility] Test 03:33:05 (procedure) [code = [id number]] Future Scheduled 2021-12-24 COLONOSCOPY SCREENING [facility] Test 03:33:05 [code = COLONOSCOPY SCREENING] Future Scheduled 2021-12-24 SHINGLES VACCINES (1 Met [facility] Hospital Test 03:33:05 of 2) [code = SHINGLES VACCINES (1 of 2)] Future Scheduled 2021-12-24 COVID-19 VACCINE (2 - [facility] Test 03:33:05 Pfizer series) [code = COVID-19 VACCINE (2 - Pfizer series)] Future Scheduled 2021-12-24 INFLUENZA VACCINE Method [facility] Test 03:33:05 [code = INFLUENZA VACCINE] Encounters Start End Encounter Admission Attending Care Care Encounter Source Date/Time Date/Time Type Type Clinicians Facility Department ID 2019-06-07 Inpatient HCAPM MANNIE [id number] [facility] 02:13:00 28 [facility] 2022-06-22 2022-06-22 Outpatient [facility] [id number] [place] 09:08:37 09:08:37 8 F [place] 2022-06-21 2022-06-21 Outpatient [facility] [id number] [place]az[place] 14:07:14 14:07:14 7 F [place] 2021-12-10 2021-12-10 Imm/Inj Vaccine, [facility] 1.2.840.114 [id number] Univers 15:00:00 15:10:00 Visit Jewel Shabazz 350.1.13 .10 [place] [phone] dical NAL 044 [facility] 2021-10-12 2021-10-12 Imm/Inj Vaccine, [facility] 1.2.840.114 [id number] [facility] 11:00:00 11:10:00 Visit Jewel Shabazz 350.1.13 .10 [place] [phone] Ct dical NAL 044 [facility] 2020-07-07 2020-07-07 Outpatient [facility] [id number] [address] [place] [address] 00:00:00 00:00:[address] 2020-06-07 2020-06-07 Emergency [facility] 1.2.840.114 [id number] Univers 09:18:00 13:32:00 Digna Burns 350.1.13.10 [place] [phone] [address] 2020-06-07 2020-06-07 Emergency [facility] 1.2.840.114 [id number] 09:18:00 13:32:00 Digna Burns 350.1.13.10 [place] 4.2.7.2.686 [place] [phone] [facility] 2020-06-07 2020-06-07 Emergency [facility] [id number] Univers 09:18:00 09:18:[address] [facility] 2019-06-12 2019-06-12 Emergency Aufder[place]ide [facility] 1.2.840.114 [id number] Univers 17:21:36 19:07:00 , Christine Burns 350.1.13.10 i ty of [place] 4.2.7.2.686 [facility] [phone] [facility] [address] [place] 2019-06-12 2019-06-12 Emergency [place]ide [facility] 1.2.840.114 [id number] 17:21:36 19:07:00 , Christine Grant 350.1.13.10 [place] 4.2.7.2.686 [place] [phone] [facility] 2019-06-12 2019-06-12 Orders Doctor LEACH 1.2.840.114 [id number] Univers 00:00:00 00:00:00 Only Unassigned, HAILEY 350.1.13.10 ity of [place] [facility] 4.2.7.2.686 [facility] [phone] [address] 2019-06-12 2019-06-12 Orders Doctor LEACH 1.2.840.114 [id number] 00:00:00 00:00:00 Only Unassigned, HAILEY 350.1.13.10 Pax [facility] 4.2.7.2.686 [phone] 009 2019-05-22 2019-06-04 Inpatient [facility] [id number] [place] [address] 00:00:00 00:00:00 KIMBERLY [address] 2019-04-20 2019-04-24 Inpatient X KENDALLRAQUEL [facility] SAMANTHA [id number] Univers 12:26:58 15:05:00 TRUONG [facility] 2019-04-18 2019-04-18 Emergency X BRIDGETT [facility] ERT [id number] Univers 16:34:57 21:50:00 [facility] 2018-12-01 2018-12-04 Inpatient [facility] [id number] Memoria 15:16:00 19:55:00 flako Watkins [address] [place] [address] 2018-12-01 2018-12-04 Inpatient [facility] [id number] Memoria 15:16:00 19:55:00 flako Watkins [address] [place] [address] 2018-12-01 2018-12-04 Outpatient Saurabh [facility] [id number] 10:16:00 14:55:00 Selam Romero 2018-12-01 2018-12-01 Inpatient E [facility] CAR 9367 [facility] 13:43:00 10:12:00 2018-12-01 2018-12-01 Outpatient [facility] LEROY 9370 [facility] 10:12:00 10:12:00 2018-11-29 2018-11-29 Emergency [facility] 1.2.840.114 [id number] [facility] 10:15:46 14:01:00 Digna Burns 350.1.13.10 ity [facility] 4.2.7.2.686 [facility] [phone] [facility] [address] [place] 2018-11-29 2018-11-29 Emergency [facility] 1.2.840.114 [id number] 10:15:46 14:01:00 Digna Burns 350.1.13.10 [place] 4.2.7.2.686 [place] [phone] 084 Results Test Description Test Time Test Comments Results Result Comments Source LIPID PANEL 2022-01-06 06:57:58 Test Item Value Reference Range Interpretation Comme nts CHOLESTEROL (test code = 2210) 200 MG/DL <200 H TRIGLYCERIDES (test code = 2232) 112 MG/DL <150 HDL CHOLESTEROL (test code = 34 MG/DL >39 L 0) CALC LDL CHOL (test code = 2237) 143 MG/DL <100 H NOTE: CALCULATED LDL IS BASED ON TAINA-COCHRAN METHOD WHICHINCLUDES A DJUSTABLE TRIGLYCERIDE:VL DL CHOLESTEROL RATIO.THIS FACT OR VARIES BY MEASURED TRIGLY CERIDE AND NON-HDLCHOLESTE ROL CONCENTRATIONS WITH INCREASED CALCULATED LDL SEENIN HIGHER T RIGLYCERIDE OR LOWER NON-HDL S PECIMENS. FOR MOREINFORMATION , SEE CLIENT ANNOUNCEMENT AT [email or web address] RATIO LDL/HDL (test code = 4.21 RATIO <3.55 H 2237) COMPREHENSIVE METABOLIC [id number] 06:57:58 Test Item Value Reference Range Interpretation Comments GLUCOSE (test code = 70 MG/DL 70-99 2216) BUN (test code = 9 MG/DL -2207) CREATININE (test 1.05 MG/DL 0.80-1.40 code = 221) eGFR (2020 CKD-EPI) 81 ML/MIN/1.73 >60 (test code = 07089) CALC BUN/CREAT (test 9 RATIO 6-28 code = 223) SODIUM (test code = 143 MEQ/L 171-167 8250) POTASSIUM (test code 4.6 MEQ/L 3.5-5.4 = 2227) CHLORIDE (test code 103 MEQ/L 95-107 = 2214) CARBON DIOXIDE (test 28 MEQ/L 19-31 code = 2205) CALCIUM (test code = 9.8 MG/DL 8.5-10.5 2208) PROTEIN, TOTAL (test 7.5 G/DL 6.1-8.3 code = 2228) ALBUMIN (test code = 4.5 G/DL 3.5-5.2 2200) CALC GLOBULIN (test 3.0 G/DL 1.9-3.7 code = 2239) CALC A/G RATIO (test 1.5 RATIO 1.0-2.6 code = 2233) BILIRUBIN, TOTAL 0.2 MG/DL See_Comment [Automated message] (test code = 2206) The syste m which generated this result transmit keon reference range : <=1.2. The refe rence range was not u sed to interpret th is result as normal/abnormal . ALKALINE PHOSPHATASE 123 U/L 40-123 (test code = 2203) AST (test code = 13 U/L 9-50 2217) ALT (test code = <5 U/L 5-50 L 2218) CBC W/AUTO DIFF WITH [id number] 06:22:07 Test Item Value Reference Range Interpretation Comments WBC (test code = 8.7 K/UL 3.5-11.0 1001) RBC (test code = 4.35 M/UL 4.50-6.10 L 1002) HEMOGLOBIN (test code 11.9 G/DL 13.5-17.0 L = 1003) HEMATOCRIT (test code 36.9 % 40.0-51.0 L = 1004) MCV (test code = 84.8 fL 80.0-99.0 1005) MCH (test code = 27.4 PG 25.0-33.0 1006) MCHC (test code = 32.2 G/DL 31.0-36.0 1007) RDW (test code = 15.1 % 11.5-15.0 H 1038) NEUTROPHILS (test 43.7 % code = 1008) LYMPHOCYTES (test 45.8 % code = 1010) MONOCYTES (test code 7.6 % = 1011) EOSINOPHILS (test 2.1 % code = 1012) BASOPHILS (test code 0.6 % = 1013) IMMATURE GRANULOCYTES 0.2 % (test code = 1036) NUCLEATED RBCS (test 0.0 /100 WBC'S See_Comment [Aut omated code = 1065) message] The sy stem which generated this result transmitted reference range : 0.0. The refere nce range was not u sed to interpret th is result as normal/abnormal . PLATELET COUNT (test 337 K/UL 130-400 code = 1015) ABSOLUTE NEUTROPHILS 3.78 K/UL 1.50-7.50 (test code = 1066) ABSOLUTE LYMPHOCYTES 3.96 K/UL 1.00-4.00 (test code = 1067) ABSOLUTE MONOCYTES 0.66 K/UL 0.20-1.00 (test code = 1068) ABSOLUTE EOSINOPHILS 0.18 K/UL 0.00-0.50 (test code = 1040) ABSOLUTE BASOPHILS 0.05 K/UL 0.00-0.20 (test code = 1069) ABS IMMATURE 0.02 K/UL 0.00-0.10 GRANULOCYTES (test code = 1020) ABS NUCLEATED RBCS 0.00 K/UL 0.00-0.11 (test code = 38346) [id number] 03:21:52 Test Item Value Reference Range Interpretation Comments RPR RESULT (test NON-REACTIVE NON-REACTIVE code = 3501) RPR TITER (test NOT INDIC. NOT INDIC. UNLESS OTHE RWISE code = 3500) TITER INDICATED, ALL TESTING PERFORMED [facility] [address] [facility] [place] [place] [address] LABORATORY DIRE CTOR: Sheridan MENENDEZIA NUMBER [id number] [facility] [place] [id number] 17:21:00 Test Item Value Reference Range Interpretation Comments APPEARANCE (test code = Clear Clear 9245018748) COLOR (test code = Yellow Yellow 8927435343) PH (test code = 4.8-8.0 3145661959) SP GRAVITY (test code = 1.003-1.030 0069489481) GLU U QUAL (test code = Normal Normal 2109084725) BLOOD (test code = Negative Negative 7886823580) KETONES (test code = 20 mg/dL Negative A 3648135202) PROTEIN (test code = Negative Negative 2887-8) UROBILIN (test code = Normal Normal 0760472321) BILIRUBIN (test code = Negative Negative 7622240940) NITRITE (test code = Negative Negative 2867160466) LEUK THANG (test code = Negative Negative 5245854361) RBC/HPF (test code = See_Comment [Autom ated message] 0895597739) The system [employer] generated this result transmitted ref erence range: 0 - 3 HP F. The reference range was not used to int erpret this result as normal/abnormal . WBC/HPF (test code = See_Comment [Autom ated message] 6341681401) The system [employer] generated this result transmitted ref erence range: 0 - 5 HP F. The reference range was not used to int erpret this result as normal/abnormal . BACTERIA (test code = Negative Negative 0017491534) Lab Interpretation (test Abnormal code = 85502-8) [facility] [id number] 16:15:00 Test Item Value Reference Range Interpretation Comments NA (test code = 138 mmol/L 135-145 8255191003) K (test code = 3.3 mmol/L 3.5-5 L 1253366019) CL (test code = 104 mmol/L 98-108 5533678961) CO2 TOTAL (test code = 24 mmol/L 23-31 3813099403) AGAP (test code = 2-16 7738704749) BUN (test code = 21 mg/dL 7-23 1753967827) GLUCOSE (test code = 121 mg/dL 70-110 H 9313148788) CREATININE (test code = 0.80 mg/dL 0.6-1.25 6398023233) TOTAL BILI (test code = 0.7 mg/dL 0.1-1.3 6802474865) CALCIUM (test code = 9.6 mg/dL 8.6-10.6 4671959944) T PROTEIN (test code = 8.0 g/dL 6.3-8.2 6970680010) ALBUMIN (test code = 4.8 g/dL 3.5-5 4017521614) ALK PHOS (test code = 97 U/L 34-122 3705860552) ALTv (test code = 11 U/L 5-50 1742-6) AST(SGOT) (test code = 34 U/L 13-40 6995628172) eGFR Calculation mL/min/1.73m2 (Non-) (test code = 7403285924) eGFR Calculation mL/min/1.73m2 () (test code = 7532900828) CHUYITA (test code = CHUYITA) Association of Glomerular Filtration Rate (GFR) and Staging of Kidney Disease* + --+ --+ ------+| GFR (mL/min/1.73 m2) ?| With Kidney Damage ?| ?Without Kidney Damage+ --------+ --------+ +| ?>90 ?| ?Stage one ?| ? Normal ?+ ---+ ---+ -------+| ?60-89 ?| ?Stage two ?| ? Decreased GFR ? + --+ --+ ------+| ?30-59 ?| ?Stage three ?| ? Stage three ? + --+ --+ ------+| ?15-29 ?| ?Stage four ? | ? Stage four ?+ ---+ ---+ -------+| ?<15 (or dialysis) ? ?| ?Stage five ? | ? Stage five ?+ ---+ ---+ -------+ *Each stage assumes the associated GFR level has been in effect for at least three months. ?Stages 1 to 5, with or without kidney disease, indicate chronic kidney disease. Notes: Determination of stages one and two (with eGFR >59mL/min/1.73 m2) requires estimation of kidney damage for at least three months as defined by structural or functional abnormalities of the kidney, manifested by either:Pathological abnormalities or Markers of kidney damage (including abnormalities in the composition of the blood or urine or abnormalities in imaging tests). Lab Interpretation Abnormal (test code = 09470-4) [facility], [id number] 16:14:00 Test Item Value Reference Range Interpretation Comments LIPASE (test code = 6355790275) 52 U/L 0-220 Lab Interpretation (test code = Normal 29715-5) [facility] with [id number] 16:00:00 Test Item Value Reference Range Interpretation Comments WBC (test code = See_Comment [Automated 6690-2) message] The sy stem which generated this result transmitted reference range : 4.20 - 10.70 10*3/?L. The reference range was not used to interpret this result as normal/abnormal . RBC (test code = See_Comment [Automated 789-8) message] The sy stem which generated this result transmitted reference range : 4.26 - 5.52 10*6/?L. The reference range was not used to interpret this result as normal/abnormal . HGB (test code = 13.5 g/dL 12.2-16.4 718-7) HCT (test code = 40.1 % 38.4-49.3 4544-3) MCV (test code = 81.8 fL 81.7-95.6 787-2) MCH (test code = 27.6 pg 26.1-32.7 785-6) MCHC (test code = 33.7 g/dL 31.2-35 786-4) RDW-SD (test code = 46.6 fL 38.5-51.6 26940-2) RDW-CV (test code = 15.7 % 12.1-15.4 H 788-0) PLT (test code = See_Comment [Automated 777-3) message] The sy stem which generated this result transmitted reference range : 150 - 328 10*3/ ?L. The reference r gayle was not used to interpret this result as normal/abnormal . MPV (test code = 9.6 fL 9.8-13 L 44194-5) NRBC/100 WBC (test See_Comment [Automat ed code = 1512725523) message] The system which generated this result transmitted reference range : 0.0 - 10.0 /100 WBCs. The refer ence range was not u sed to interpret th is result as normal/abnormal . NRBC x10^3 (test code <0.01 See_Comment [Auto mated = 5690200498) message] The s ystem which generated this result transmitted reference range : 10*3/?L. The reference range was not used to interpret this result as normal/abnormal . GRAN MAT (NEUT) % 55.4 % (test code = 770-8) IMM GRAN % (test code 0.10 % = 5406807075) LYMPH % (test code = 35.4 % 736-9) MONO % (test code = 6.4 % 5905-5) EOS % (test code = 2.2 % 713-8) BASO % (test code = 0.5 % 706-2) GRAN MAT x10^3(ANC) 4.24 10*3/uL 1.99-6.95 (test code = 5345036102) IMM GRAN x10^3 (test <0.03 0-0.06 code = 2292561643) LYMPH x10^3 (test code 2.71 10*3/uL 1.09-3.23 = 731-0) MONO x10^3 (test code 0.49 10*3/uL 0.36-1.02 = 742-7) EOS x10^3 (test code = 0.17 10*3/uL 0.06-0.53 711-2) BASO x10^3 (test code 0.04 10*3/uL 0.01-0.09 = 704-7) Lab Interpretation Abnormal (test code = 47558-5) [facility]2020-[facility]-07 15:24:00 Test Item Value Reference Range Interpretation Comments POCT GLU (test code = 9100127078) 115 mg/dL 70-110 H Lab Interpretation (test code = Abnormal 68513-5) [facility] METABOLIC [id number] 03:18:00 Test Item Value Reference Range Interpretation Comments SODIUM (test code = NA) 139 mmol/L 134-147 N POTASSIUM (test code = 3.5 mmol/L 3.4-5.0 N K) CHLORIDE (test code = 102 mmol/L 100-108 N CL) CARBON DIOXIDE (test 31 mmol/L 21-32 N code = CO2) ANION GAP (test code = 6.0 GAP calc 4.0-15.0 N GAP) GLUCOSE (test code = 74 MG/DL 70-110 N GLU) BLOOD UREA NITROGEN 19 MG/DL 7-18 H (test code = BUN) GLOMERULAR FILTRATION >=60 max estimate >60 RATE (test code = GFR) estGFR CREATININE (test code = 1.1 MG/DL 0.8-1.3 N CREAT) CALCIUM (test code = CA) 9.7 MG/DL 8.5-10.1 N Last Dose Date: 04/25/00 Dose Time: HEPATIC FUNCTION [id number] 03:18:00 Test Item Value Reference Range Interpretation [...] ALKP) Last Dose Date: 04/25/00 Dose Time: [id number] 03:18:00 Test Item Value Reference Range Interpretation Comments LIPASE (test code = LIP) 114 Unit/L 114-286 N Last Dose Date: 04/25/00 Dose Time: [id number] 03:18:00 Test Item Value Reference Range Interpretation Comments ACETAMINOPHEN (test code = ACET) <2.0 mcG/ML 10.0-30.0 L Last Dose Date: 04/25/00 Dose Time: [id number] 03:18:00 Test Item Value Reference Range Interpretation Comments ALCOHOL (test code = ALC) < 3 MG/DL 0-10 N Last Dose Date: 04/25/00 Dose Time: [id number] 03:10:00 Test Item Value Reference Range Interpretation Comments SALICYLATE (test code = ALYSSA) < 1.7 MG/DL 2.8-20.0 THER L UA RFLX MICR CULT IF [id number] 02:59:00 Test Item Value Reference Range Interpretation [...] for culture: Suprapubic PainDRUGS OF ABUSE SCREEN [id number] 02:59:00 Test Item Value Reference Range Interpretation [...] CLEAN CATCHIndication for culture: Suprapubic PainBASIC METABOLIC [id number] 02:57:00 Test Item Value Reference Range Interpretation [...] N Last Dose Date: 04/25/00 Dose Time: 0000HEPATIC FUNCTION [id number] 02:57:00 Test Item Value Reference Range Interpretation [...] Unit/L 50-136 = ALKP) Last Dose Date: 04/25/00 Dose Time: [id number] 02:57:00 Test Item Value Reference Range Interpretation Comments LIPASE (test code = LIP) 114 Unit/L 114-286 N Last Dose Date: 04/25/00 Dose Time: [id number] 02:57:00 Test Item Value Reference Range Interpretation Comments ACETAMINOPHEN (test code = ACET) mcG/ML 10.0-30.0 Last Dose Date: 04/25/00Las Dose Time: [id number] 02:57:00 Test Item Value Reference Range Interpretation Comments ALCOHOL (test code = ALC) MG/DL 0-10 Last Dose Date: 04/25/00Last Dose Time: 0000UA RFLX MICR CULT IF [...] for culture: Suprapubic PainDRUGS OF ABUSE SCREEN [id number] 02:55:00 Test Item Value Reference Range Interpretation [...] CLEAN CATCHIndication for culture: Suprapubic PainCBC W/AUTO [id number] 02:43:00 Test Item Value Reference Range Interpretation [...] CRITERIA MDIFF) UA RFLX MICR CULT IF [id number] 02:42:00 Test Item Value Reference Range Interpretation [...] for culture: Suprapubic PainDRUGS OF ABUSE SCREEN [id number] 02:42:00 Test Item Value Reference Range Interpretation [...] URINE: CLEAN CATCHIndication for culture: Suprapubic PainCHEM PANEL 2018-12-04 05:19:00 Test Item Value Reference Range Interpretation Comments Creatinine Lvl (test code = Creatinine 0.80 0.50-1.40 Lvl) [facility]2019-08-12 05:19:00 Test Item Value Reference Range Interpretation Comments Potassium Lvl (test code = Potassium 3.5 3.5-5.1 Lvl) [facility]2019-08-12 05:19:00 Test Item Value Reference Range Interpretation Comments Chloride Lvl (test code = Chloride Lvl) 103 95-109 [facility]2019-08-12 05:19:00 Test Item Value Reference Range Interpretation Comments CO2 (test code = CO2) 30 24-32 [facility]2019-08-12 05:19:00 Test Item Value Reference Range Interpretation Comments Calcium Lvl (test code = Calcium Lvl) 8.7 8.5-10.5 [facility]2019-08-12 05:19:00 Test Item Value Reference Range Interpretation Comments eGFR (test code = eGFR) 114 [facility]2019-08-12 05:19:00 Test Item Value Reference Range Interpretation Comments AGAP (test code = AGAP) 9.5 10.0-20.0 [facility]2019-08-12 05:19:00 Test Item Value Reference Range Interpretation Comments Magnesium Lvl (test code = Magnesium 2.3 1.8-2.4 Lvl) [facility]2019-08-12 05:19:00 Test Item Value Reference Range Interpretation Comments Phosphorus (test code = Phosphorus) 2.8 2.5-4.5 [id number] 05:19:00 Test Item Value Reference Range Interpretation Comments WBC (test code = WBC) 8.1 3.7-10.4 [id number] 05:19:00 Test Item Value Reference Range Interpretation Comments RBC (test code = RBC) 4.27 4.70-6.10 [facility] [id number] 05:19:00 Test Item Value Reference Range Interpretation Comments Sodium Lvl (test code = Sodium Lvl) 139 135-145 [facility] [id number] 05:19:00 Test Item Value Reference Range Interpretation Comments Hgb (test code = Hgb) 12.2 14.0-18.0 [facility] [id number] 05:19:00 Test Item Value Reference Range Interpretation Comments Hct (test code = Hct) 35.7 42.0-54.0 [id number] 05:19:00 Test Item Value Reference Range Interpretation Comments MCV (test code = MCV) 83.8 80.0-94.0 [facility] [id number] 05:19:00 Test Item Value Reference Range Interpretation Comments MCH (test code = MCH) 28.6 pg 27.0-31.0 [facility] [id number] 05:19:00 Test Item Value Reference Range Interpretation Comments MCHC (test code = MCHC) 34.2 32.0-36.0 [facility] [id number] 05:19:00 Test Item Value Reference Range Interpretation Comments RDW (test code = RDW) 15.1 11.5-14.5 [facility] [id number] 05:19:00 Test Item Value Reference Range Interpretation Comments Platelet (test code = Platelet) 250 133-450 [facility] [facility]iscoHqvmuekZEVMMBQJZF8607-00-03 05:19:00 Test Item Value Reference Range Interpretation Comments MPV (test code = MPV) 7.7 7.4-10.4 [facility]iscoXfhwjxpBIJDZIGOVN3340-90-35 05:19:00 Test Item Value Reference Range Interpretation Comments Segs (test code = Segs) 40.4 45.0-75.0 [facility]iscoPnyvgtdMAZEDLKUCY6032-20-34 05:19:00 Test Item Value Reference Range Interpretation Comments Lymphocytes (test code = Lymphocytes) 48.4 20.0-40.0 [facility]2019-08-12 05:19:00 Test Item Value Reference Range Interpretation Comments Potassium Lvl (test code = Potassium 3.5 3.5-5.1 Lvl) [place] 210939-08-12 05:19:00 Test Item Value Reference Range Interpretation Comments Monocytes (test code = Monocytes) 8.6 2.0-12.0 [facility]iscoSdjsjjnZBMSGDZCIV5337-88-54 05:19:00 Test Item Value Reference Range Interpretation Comments Eosinophils (test code = 1.7 See_Comment [A utomated message] The Eosinophils) system which ge nerated this result tra nsmitted reference range : <=4.0. The reference r gayle was not used to int erpret this result as normal/abnormal . [facility]iscoBxxkeizUDVAZFGAOP9676-89-08 05:19:00 Test Item Value Reference Range Interpretation Comments Basophils (test code = 0.9 See_Comment [Aut omated message] The Basophils) system which ge nerated this result tra nsmitted reference range : <=1.0. The reference r gayle was not used to int erpret this result as normal/abnormal . [facility]iscoFsewebdLTNMZZISHR2621-81-34 05:19:00 Test Item Value Reference Range Interpretation Comments Neutrophils # (test code = Neutrophils 3.3 1.5-8.1 #) [facility]iscoHybbrouOROFMAKWMK3781-17-28 05:19:00 Test Item Value Reference Range Interpretation Comments Lymphocytes # (test code = Lymphocytes 3.9 1.0-5.5 #) [facility]iscoEhqslenQDQXRPRVQQ7882-76-08 05:19:00 Test Item Value Reference Range Interpretation Comments Monocytes # (test code 0.7 See_Comment [Aut omated message] The = Monocytes #) system which generated this result tra nsmitted reference range : <=0.8. The reference r gayle was not used to int erpret this result as normal/abnormal . [facility]iscoFapjbzvIONVXLXDOA8907-74-20 05:19:00 Test Item Value Reference Range Interpretation Comments Eosinophils # (test code 0.1 See_Comment [A utomated message] The = Eosinophils #) system whic h generated this result tra nsmitted reference range : <=0.5. The reference r gayle was not used to int erpret this result as normal/abnormal . [facility]iscoVzsmytbVJZQQSCWDC0432-12-81 05:19:00 Test Item Value Reference Range Interpretation Comments Basophils # (test code 0.1 See_Comment [Aut omated message] The = Basophils #) system which generated this result tra nsmitted reference range : <=0.2. The reference r gayle was not used to int erpret this result as normal/abnormal . [facility] ELUURQM2604[facility]68-14 05:19:00 Test Item Value Reference Range Interpretation Comments Ca Ion WB (test code = Ca Ion WB) 1.12 1.05-1.25 [facility] [id number] 05:19:00 Test Item Value Reference Range Interpretation Comments Ca Norm WB (test code = Ca Norm WB) 1.16 1.05-1.25 [facility]2019-08-12 05:19:00 Test Item Value Reference Range Interpretation Comments Chloride Lvl (test code = Chloride Lvl) 103 95-109 [facility]2019-08-12 05:19:00 Test Item Value Reference Range Interpretation Comments CO2 (test code = CO2) 30 24-32 [facility]2019-08-12 05:19:00 Test Item Value Reference Range Interpretation Comments Calcium Lvl (test code = Calcium Lvl) 8.7 8.5-10.5 [facility]2019-08-12 05:19:00 Test Item Value Reference Range Interpretation Comments eGFR (test code = eGFR) 114 [facility]2019-08-12 05:19:00 Test Item Value Reference Range Interpretation Comments AGAP (test code = AGAP) 9.5 10.0-20.0 [facility]2019-08-12 05:19:00 Test Item Value Reference Range Interpretation Comments Magnesium Lvl (test code = Magnesium 2.3 1.8-2.4 Lvl) [facility]2019-08-12 05:19:00 Test Item Value Reference Range Interpretation Comments Phosphorus (test code = Phosphorus) 2.8 2.5-4.5 [facility]iscoQzsxvejAYDXPOWRBT7585-21-18 05:19:00 Test Item Value Reference Range Interpretation Comments WBC (test code = WBC) 8.1 3.7-10.4 [facility]iscoLzrmbtcGQPWXIBIKZ3412-09-89 05:19:00 Test Item Value Reference Range Interpretation Comments RBC (test code = RBC) 4.27 4.70-6.10 [facility]iscoVkbgbfyLTMLXCYPEF0913-52-10 05:19:00 Test Item Value Reference Range Interpretation Comments Hgb (test code = Hgb) 12.2 14.0-18.0 [facility]iscoWcxwwjcHFOHOAXNOY4651-04-23 05:19:00 Test Item Value Reference Range Interpretation Comments Hct (test code = Hct) 35.7 42.0-54.0 [facility] FriscoUzwhgddIXYZFEXYJW6289-44-54 05:19:00 Test Item Value Reference Range Interpretation Comments MCV (test code = MCV) 83.8 80.0-94.0 [facility] FriscoSepambeAYVOMUFHEN4034-54-59 05:19:00 Test Item Value Reference Range Interpretation Comments MCH (test code = MCH) 28.6 pg 27.0-31.0 [facility] FriscoUggdcfzJEPRXOLDKQ7623-03-81 05:19:00 Test Item Value Reference Range Interpretation Comments MCHC (test code = MCHC) 34.2 32.0-36.0 [facility]iscoSbijpwoMAQLLYBGST7688-35-71 05:19:00 Test Item Value Reference Range Interpretation Comments RDW (test code = RDW) 15.1 11.5-14.5 [facility]iscoLlxpabhDLDAZABEJC3304-12-93 05:19:00 Test Item Value Reference Range Interpretation Comments Platelet (test code = Platelet) 250 133-450 [facility] FriscoZopgrdhTJOLBJQNLG0293-52-67 05:19:00 Test Item Value Reference Range Interpretation Comments MPV (test code = MPV) 7.7 7.4-10.4 [facility] FriscoDobejilCUSYSDJCUC4212-37-95 05:19:00 Test Item Value Reference Range Interpretation Comments Segs (test code = Segs) 40.4 45.0-75.0 [facility] FriscoVolwlyqHJUBFWLBCT8824-26-49 05:19:00 Test Item Value Reference Range Interpretation Comments Lymphocytes (test code = Lymphocytes) 48.4 20.0-40.0 [facility] FriscoKbaztubNRDVUOKWOL8695-68-46 05:19:00 Test Item Value Reference Range Interpretation Comments Monocytes (test code = Monocytes) 8.6 2.0-12.0 [facility] FriscoZrahhloBDBSOGPQCL6542-10-22 05:19:00 Test Item Value Reference Range Interpretation Comments Eosinophils (test code = 1.7 See_Comment [A utomated message] The Eosinophils) system which ge nerated this result tra nsmitted reference range : <=4.0. The reference r gayle was not used to int erpret this result as normal/abnormal . [facility]iscoIxwiwooCRBZQDZYFI3538-78-43 05:19:00 Test Item Value Reference Range Interpretation Comments Basophils (test code = 0.9 See_Comment [Aut omated message] The Basophils) system which ge nerated this result tra nsmitted reference range : <=1.0. The reference r gayle was not used to int erpret this result as normal/abnormal . [facility] FriscoTnllfepTKEYEXQLZT6049-10-39 05:19:00 Test Item Value Reference Range Interpretation Comments Neutrophils # (test code = Neutrophils 3.3 1.5-8.1 #) [facility]iscoRlwejhxESUKLAYBWJ0075-70-51 05:19:00 Test Item Value Reference Range Interpretation Comments Lymphocytes # (test code = Lymphocytes 3.9 1.0-5.5 #) [facility]iscoIcysckaYZMNSRCHBQ0551-98-48 05:19:00 Test Item Value Reference Range Interpretation Comments Monocytes # (test code 0.7 See_Comment [Aut omated message] The = Monocytes #) system which generated this result tra nsmitted reference range : <=0.8. The reference r gayle was not used to int erpret this result as normal/abnormal . [facility]iscoLmeyftdPBTYIGAXFD3470-95-33 05:19:00 Test Item Value Reference Range Interpretation Comments Eosinophils # (test code 0.1 See_Comment [A utomated message] The = Eosinophils #) system whic h generated this result tra nsmitted reference range : <=0.5. The reference r gayle was not used to int erpret this result as normal/abnormal . [facility]iscoVossinnASVINJHCPF5118-07-11 05:19:00 Test Item Value Reference Range Interpretation Comments Basophils # (test code 0.1 See_Comment [Aut omated message] The = Basophils #) system which generated this result tra nsmitted reference range : <=0.2. The reference r gayle was not used to int erpret this result as normal/abnormal . [facility]2019-08-12 05:19:00 Test Item Value Reference Range Interpretation Comments Ca Ion WB (test code = Ca Ion WB) 1.12 1.05-1.25 [facility]2019-08-12 05:19:00 Test Item Value Reference Range Interpretation Comments Ca Norm WB (test code = Ca Norm WB) 1.16 1.05-1.25 [facility]2019-08-12 05:19:00 Test Item Value Reference Range Interpretation Comments Glucose Lvl (test code = Glucose Lvl) 95 70-99 [facility]2019-08-12 05:19:00 Test Item Value Reference Range Interpretation Comments BUN (test code = BUN) 10 11-13 [facility]2019-08-12 05:19:00 Test Item Value Reference Range Interpretation Comments Creatinine Lvl (test code = Creatinine 0.80 0.50-1.40 Lvl) [facility]2019-08-12 05:19:00 Test Item Value Reference Range Interpretation Comments Sodium Lvl (test code = Sodium Lvl) 139 135-145 [facility]2019-08-12 05:19:00 Test Item Value Reference Range Interpretation Comments Glucose Lvl (test code = Glucose Lvl) 95 70-99 [facility]2019-08-12 05:19:00 Test Item Value Reference Range Interpretation Comments BUN (test code = BUN) 10 11-13 [facility]2019-08-12 05:19:00 Test Item Value Reference Range Interpretation Comments Creatinine Lvl (test code = Creatinine 0.80 0.50-1.40 Lvl) [facility]2019-08-12 05:19:00 Test Item Value Reference Range Interpretation Comments Potassium Lvl (test code = Potassium 3.5 3.5-5.1 Lvl) [facility]2019-08-12 05:19:00 Test Item Value Reference Range Interpretation Comments Sodium Lvl (test code = Sodium Lvl) 139 135-145 [facility]2019-08-12 05:19:00 Test Item Value Reference Range Interpretation Comments Potassium Lvl (test code = Potassium 3.5 3.5-5.1 Lvl) [facility]2019-08-12 05:19:00 Test Item Value Reference Range Interpretation Comments Chloride Lvl (test code = Chloride Lvl) 103 95-109 [facility]2019-08-12 05:19:00 Test Item Value Reference Range Interpretation Comments CO2 (test code = CO2) 30 24-32 [facility]2019-08-12 05:19:00 Test Item Value Reference Range Interpretation Comments Calcium Lvl (test code = Calcium Lvl) 8.7 8.5-10.5 [facility]2019-08-12 05:19:00 Test Item Value Reference Range Interpretation Comments eGFR (test code = eGFR) 114 [facility]2019-08-12 05:19:00 Test Item Value Reference Range Interpretation Comments AGAP (test code = AGAP) 9.5 10.0-20.0 [facility]2019-08-12 05:19:00 Test Item Value Reference Range Interpretation Comments Magnesium Lvl (test code = Magnesium 2.3 1.8-2.4 Lvl) [facility]2019-08-12 05:19:00 Test Item Value Reference Range Interpretation Comments Phosphorus (test code = Phosphorus) 2.8 2.5-4.5 [facility]iscoLzgqrhiEZBYQDPXJR3230-83-17 05:19:00 Test Item Value Reference Range Interpretation Comments WBC (test code = WBC) 8.1 3.7-10.4 [facility]2019-08-12 05:19:00 Test Item Value Reference Range Interpretation Comments Chloride Lvl (test code = Chloride Lvl) 103 95-109 [facility] [place]iscoSebwfoxNGBNDIQCAX9950-53-92 05:19:00 Test Item Value Reference Range Interpretation Comments RBC (test code = RBC) 4.27 4.70-6.10 [facility]iscoYqorqswSPLZKUSOYE0879-44-20 05:19:00 Test Item Value Reference Range Interpretation Comments Hgb (test code = Hgb) 12.2 14.0-18.0 [facility]iscoKdxhqigGGXUQOVCGY8331-66-75 05:19:00 Test Item Value Reference Range Interpretation Comments Hct (test code = Hct) 35.7 42.0-54.0 [facility]iscoWncrhkfKLOTEZKNMG6976-27-58 05:19:00 Test Item Value Reference Range Interpretation Comments MCV (test code = MCV) 83.8 80.0-94.0 [facility]iscoXslkufnDIHUJYZUVA4463-15-67 05:19:00 Test Item Value Reference Range Interpretation Comments MCH (test code = MCH) 28.6 pg 27.0-31.0 [facility]iscoPzyyasyLEZVUIWQLD2622-53-02 05:19:00 Test Item Value Reference Range Interpretation Comments MCHC (test code = MCHC) 34.2 32.0-36.0 [place] 210939-08-12 05:19:00 Test Item Value Reference Range Interpretation Comments RDW (test code = RDW) 15.1 11.5-14.5 [facility]iscoBegbygxULTJBWEYZW8416-35-30 05:19:00 Test Item Value Reference Range Interpretation Comments Platelet (test code = Platelet) 250 133-450 [facility] FriscoWpmembcCXOBPACSTA8132-28-47 05:19:00 Test Item Value Reference Range Interpretation Comments MPV (test code = MPV) 7.7 7.4-10.4 [facility]iscoNvyqnpbBQMDUAWLYE2309-76-66 05:19:00 Test Item Value Reference Range Interpretation Comments Segs (test code = Segs) 40.4 45.0-75.0 [facility]2019-08-12 05:19:00 Test Item Value Reference Range Interpretation Comments CO2 (test code = CO2) 30 24-32 [facility]iscoQkncdqaQANFQLWHTG2966-26-01 05:19:00 Test Item Value Reference Range Interpretation Comments Lymphocytes (test code = Lymphocytes) 48.4 20.0-40.0 [facility] FriscoPfhsifwINYFCENZPT5632-75-70 05:19:00 Test Item Value Reference Range Interpretation Comments Monocytes (test code = Monocytes) 8.6 2.0-12.0 [facility]iscoVyrqnhoADVUENFJVL3028-34-87 05:19:00 Test Item Value Reference Range Interpretation Comments Eosinophils (test code = 1.7 See_Comment [A utomated message] The Eosinophils) system which ge nerated this result tra nsmitted reference range : <=4.0. The reference r gayle was not used to int erpret this result as normal/abnormal . [facility] FriscoDilxpifPBDBSGPLFC4618-74-37 05:19:00 Test Item Value Reference Range Interpretation Comments Basophils (test code = 0.9 See_Comment [Aut omated message] The Basophils) system which ge nerated this result tra nsmitted reference range : <=1.0. The reference r gayle was not used to int erpret this result as normal/abnormal . [facility] FriscoRsenjnwBDZOJRKEYX0964-85-17 05:19:00 Test Item Value Reference Range Interpretation Comments Neutrophils # (test code = Neutrophils 3.3 1.5-8.1 #) [facility]iscoHftyqnkHJAMLNVLYQ3391-27-63 05:19:00 Test Item Value Reference Range Interpretation Comments Lymphocytes # (test code = Lymphocytes 3.9 1.0-5.5 #) [facility]iscoWxkuvagQHUCVRZAXT8838-92-42 05:19:00 Test Item Value Reference Range Interpretation Comments Monocytes # (test code 0.7 See_Comment [Aut omated message] The = Monocytes #) system which generated this result tra nsmitted reference range : <=0.8. The reference r gayle was not used to int erpret this result as normal/abnormal . [facility] FriscoRbsncnoZHYKZTWVEH2855-17-85 05:19:00 Test Item Value Reference Range Interpretation Comments Eosinophils # (test code 0.1 See_Comment [A utomated message] The = Eosinophils #) system whic h generated this result tra nsmitted reference range : <=0.5. The reference r gayle was not used to int erpret this result as normal/abnormal . [facility]iscoCvgtlrfOOOHPVMCEW7054-99-02 05:19:00 Test Item Value Reference Range Interpretation Comments Basophils # (test code 0.1 See_Comment [Aut omated message] The = Basophils #) system which generated this result tra nsmitted reference range : <=0.2. The reference r gayle was not used to int erpret this result as normal/abnormal . [facility] SQNSZRP7057-73-57 05:19:00 Test Item Value Reference Range Interpretation Comments Ca Ion WB (test code = Ca Ion WB) 1.12 1.05-1.25 [facility]2019-08-12 05:19:00 Test Item Value Reference Range Interpretation Comments Calcium Lvl (test code = Calcium Lvl) 8.7 8.5-10.5 [facility]2019-08-12 05:19:00 Test Item Value Reference Range Interpretation Comments Ca Norm WB (test code = Ca Norm WB) 1.16 1.05-1.25 [facility]2019-08-12 05:19:00 Test Item Value Reference Range Interpretation Comments eGFR (test code = eGFR) 114 [facility]2019-08-12 05:19:00 Test Item Value Reference Range Interpretation Comments AGAP (test code = AGAP) 9.5 10.0-20.0 [facility]2019-08-12 05:19:00 Test Item Value Reference Range Interpretation Comments Magnesium Lvl (test code = Magnesium 2.3 1.8-2.4 Lvl) [facility]2019-08-12 05:19:00 Test Item Value Reference Range Interpretation Comments Phosphorus (test code = Phosphorus) 2.8 2.5-4.5 [facility]iscoEyhaqszRXJRULRBZM1119-45-23 05:19:00 Test Item Value Reference Range Interpretation Comments WBC (test code = WBC) 8.1 3.7-10.4 [facility] FriscoSibvakgJXQFGYMOYF7395-60-11 05:19:00 Test Item Value Reference Range Interpretation Comments RBC (test code = RBC) 4.27 4.70-6.10 [facility]iscoIbvkyziRZBTNPDSFX5820-85-56 05:19:00 Test Item Value Reference Range Interpretation Comments Hgb (test code = Hgb) 12.2 14.0-18.0 [facility] FriscoTxqzfnzCXCJLLGSFD1254-15-93 05:19:00 Test Item Value Reference Range Interpretation Comments Hct (test code = Hct) 35.7 42.0-54.0 [facility]iscoXncbpqbEMABGCWZZA6951-96-87 05:19:00 Test Item Value Reference Range Interpretation Comments MCV (test code = MCV) 83.8 80.0-94.0 [facility] FriscoCgekiftZQVNLQLFOY6830-97-05 05:19:00 Test Item Value Reference Range Interpretation Comments MCH (test code = MCH) 28.6 pg 27.0-31.0 [facility] FriscoNinsjsxBBDJNNWKQS2136-37-65 05:19:00 Test Item Value Reference Range Interpretation Comments MCHC (test code = MCHC) 34.2 32.0-36.0 [facility] FriscoSsibjwsLGKMZXFGNX3321-13-57 05:19:00 Test Item Value Reference Range Interpretation Comments RDW (test code = RDW) 15.1 11.5-14.5 [facility] FriscoMjtxupzBVCKFBCFGW0246-19-84 05:19:00 Test Item Value Reference Range Interpretation Comments Platelet (test code = Platelet) 250 133-450 [facility] FriscoEowyhutKSOMCDWUOG2188-02-35 05:19:00 Test Item Value Reference Range Interpretation Comments MPV (test code = MPV) 7.7 7.4-10.4 [facility] FriscoYeymrguQJQKBSYWMA4206-63-69 05:19:00 Test Item Value Reference Range Interpretation Comments Segs (test code = Segs) 40.4 45.0-75.0 [facility] FriscoLpidaeeHCWIAEWUAK2238-15-55 05:19:00 Test Item Value Reference Range Interpretation Comments Lymphocytes (test code = Lymphocytes) 48.4 20.0-40.0 [facility] FriscoCliowhrRCZDHNPDVN3664-24-92 05:19:00 Test Item Value Reference Range Interpretation Comments Monocytes (test code = Monocytes) 8.6 2.0-12.0 [facility] FriscoAsjyxnbCIQDABZQIY6966-05-64 05:19:00 Test Item Value Reference Range Interpretation Comments Eosinophils (test code = 1.7 See_Comment [A utomated message] The Eosinophils) system which ge nerated this result tra nsmitted reference range : <=4.0. The reference r gayle was not used to int erpret this result as normal/abnormal . [facility] FriscoOnyqixeAWTFJCWOAH7149-21-30 05:19:00 Test Item Value Reference Range Interpretation Comments Basophils (test code = 0.9 See_Comment [Aut omated message] The Basophils) system which ge nerated this result tra nsmitted reference range : <=1.0. The reference r gayle was not used to int erpret this result as normal/abnormal . [facility] FriscoYxessnkUPFMQSGIGQ7529-24-59 05:19:00 Test Item Value Reference Range Interpretation Comments Neutrophils # (test code = Neutrophils 3.3 1.5-8.1 #) [facility] FriscoGceklasHMBKLKGFRR7801-61-69 05:19:00 Test Item Value Reference Range Interpretation Comments Lymphocytes # (test code = Lymphocytes 3.9 1.0-5.5 #) [facility] FriscoLbpdvppGBKKVYHKHQ7115-89-75 05:19:00 Test Item Value Reference Range Interpretation Comments Monocytes # (test code 0.7 See_Comment [Aut omated message] The = Monocytes #) system which generated this result tra nsmitted reference range : <=0.8. The reference r gayle was not used to int erpret this result as normal/abnormal . [facility] FriscoDoparjbBCSZLVMNQE6878-03-73 05:19:00 Test Item Value Reference Range Interpretation Comments Eosinophils # (test code 0.1 See_Comment [A utomated message] The = Eosinophils #) system whic h generated this result tra nsmitted reference range : <=0.5. The reference r gayle was not used to int erpret this result as normal/abnormal . [facility] FriscoZqircibHYQJZAHVMG8654-57-50 05:19:00 Test Item Value Reference Range Interpretation Comments Basophils # (test code 0.1 See_Comment [Aut omated message] The = Basophils #) system which generated this result tra nsmitted reference range : <=0.2. The reference r gayle was not used to int erpret this result as normal/abnormal . [facility]2019-08-12 05:19:00 Test Item Value Reference Range Interpretation Comments Ca Ion WB (test code = Ca Ion WB) 1.12 1.05-1.25 [facility] WAMWMOX7506-36-18 05:19:00 Test Item Value Reference Range Interpretation Comments Ca Norm WB (test code = Ca Norm WB) 1.16 1.05-1.25 [facility]2019-08-12 05:19:00 Test Item Value Reference Range Interpretation Comments Glucose Lvl (test code = Glucose Lvl) 95 70-99 [facility]2019-08-12 05:19:00 Test Item Value Reference Range Interpretation Comments BUN (test code = BUN) 10 11-13 [facility]2019-08-12 05:19:00 Test Item Value Reference Range Interpretation Comments Glucose Lvl (test code = Glucose Lvl) 95 70-99 [facility]2019-08-12 05:19:00 Test Item Value Reference Range Interpretation Comments BUN (test code = BUN) 10 11-13 [facility] [place]2019-08-12 05:19:00 Test Item Value Reference Range Interpretation Comments Creatinine Lvl (test code = Creatinine 0.80 0.50-1.40 Lvl) [facility] [place]2019-08-12 05:19:00 Test Item Value Reference Range Interpretation Comments Sodium Lvl (test code = Sodium Lvl) 139 135-145 [facility]FofkfllEAQYIF2988[facility]63-69 13:51:00 Test Item Value Reference Range Interpretation Comments LDL (Calculated) (test code = LDL 119 (Calculated)) [facility] HospitalZhewrsgHEQEPR1378-93-31 13:51:00 Test Item Value Reference Range Interpretation Comments Trig (test code = Trig) 86 [facility] HospitalDzhldebJIFZUW1446-08-28 13:51:00 Test Item Value Reference Range Interpretation Comments Chol (test code = Chol) 171 [facility] HospitalRtswdpqCJWFQY8158-90-18 13:51:00 Test Item Value Reference Range Interpretation Comments HDL (test code = HDL) 35 [facility]NuwstdmBIBPJT6164-91-00 13:51:00 Test Item Value Reference Range Interpretation Comments CHD Risk (test code = CHD Risk) 4.89 1 4.00-7.30 [facility]RjhwosrNHAYJO2022-45-55 13:51:00 Test Item Value Reference Range Interpretation Comments VLDL (test code = VLDL) 17 1 [facility]GyhglowNGPKAO5310-69-29 13:51:00 Test Item Value Reference Range Interpretation Comments LDL (Calculated) (test code = LDL 119 (Calculated)) [facility] TexasYofmshdYGPPZU2223-36-14 13:51:00 Test Item Value Reference Range Interpretation Comments Trig (test code = Trig) 86 [facility]HhcvpwaAHVXYC1832-85-15 13:51:00 Test Item Value Reference Range Interpretation Comments Chol (test code = Chol) 171 [facility]OjsrhnhQCCHCE4022-80-51 13:51:00 Test Item Value Reference Range Interpretation Comments HDL (test code = HDL) 35 [facility] TexasFsaifuyQYUWJY9544-58-48 13:51:00 Test Item Value Reference Range Interpretation Comments CHD Risk (test code = CHD Risk) 4.89 1 4.00-7.30 [facility] TexasCvcoxsrJIELBH3981-83-34 13:51:00 Test Item Value Reference Range Interpretation Comments VLDL (test code = VLDL) 17 1 [facility] TexasYapygdyOWNAPS5666-23-86 13:51:00 Test Item Value Reference Range Interpretation Comments LDL (Calculated) (test code = LDL 119 (Calculated)) [facility] TexasPzhqbdmCGSFCW1918-65-68 13:51:00 Test Item Value Reference Range Interpretation Comments Trig (test code = Trig) 86 [facility] TexasJqzimtbQQHJXY7775-31-22 13:51:00 Test Item Value Reference Range Interpretation Comments Chol (test code = Chol) 171 [facility] TexasZvatrdnSIWHJC4560-81-42 13:51:00 Test Item Value Reference Range Interpretation Comments HDL (test code = HDL) 35 [facility] TexasGggyeddOTEKOG9861-21-74 13:51:00 Test Item Value Reference Range Interpretation Comments CHD Risk (test code = CHD Risk) 4.89 1 4.00-7.30 [facility] TexasZamiuayOWZDCO0176-37-99 13:51:00 Test Item Value Reference Range Interpretation Comments VLDL (test code = VLDL) 17 1 [facility] HospitalUxkxbceNOFSNJ6261-55-18 13:51:00 Test Item Value Reference Range Interpretation Comments LDL (Calculated) (test code = LDL 119 (Calculated)) [facility] TexasFompzfdLWVGTA2141-60-14 13:51:00 Test Item Value Reference Range Interpretation Comments Trig (test code = Trig) 86 [facility] TexasZumzuxhLMJGWD8257-01-85 13:51:00 Test Item Value Reference Range Interpretation Comments Chol (test code = Chol) 171 [facility] HospitalCdsdzyvFZCCBU7469-29-59 13:51:00 Test Item Value Reference Range Interpretation Comments HDL (test code = HDL) 35 [facility] TexasBecjjdoSJHJUP1256-68-61 13:51:00 Test Item Value Reference Range Interpretation Comments CHD Risk (test code = CHD Risk) 4.89 1 4.00-7.30 [facility] TexasObbhkefDLYPDH4101-60-64 13:51:00 Test Item Value Reference Range Interpretation Comments VLDL (test code = VLDL) 17 1 [facility] [place]2019-08-11 09:48:00 Test Item Value Reference Range Interpretation Comments Calcium Lvl (test code = Calcium Lvl) 8.7 8.5-10.5 [facility] [place]2019-08-11 09:48:00 Test Item Value Reference Range Interpretation Comments eGFR (test code = eGFR) 116 [facility] [place]2019-08-11 09:48:00 Test Item Value Reference Range Interpretation Comments AGAP (test code = AGAP) 8.7 10.0-20.0 [facility] [place]2019-08-11 09:48:00 Test Item Value Reference Range Interpretation Comments Magnesium Lvl (test code = Magnesium 2.4 1.8-2.4 Lvl) [facility] [place]2019-08-11 09:48:00 Test Item Value Reference Range Interpretation Comments Phosphorus (test code = Phosphorus) 2.7 2.5-4.5 [facility]iscoJmygysrFZLRALKFAE3734-09-49 09:48:00 Test Item Value Reference Range Interpretation Comments Segs (test code = Segs) 46.3 45.0-75.0 [facility] FriscoVcekkanUWWAEQLHUQ9136-91-36 09:48:00 Test Item Value Reference Range Interpretation Comments Lymphocytes (test code = Lymphocytes) 42.1 20.0-40.0 [place] 210939-08-11 09:48:00 Test Item Value Reference Range Interpretation Comments Monocytes (test code = Monocytes) 9.0 2.0-12.0 [facility] FriscoRhevmczLKKDIBYMUX8529-58-35 09:48:00 Test Item Value Reference Range Interpretation Comments Eosinophils (test code = 1.4 See_Comment [A utomated message] The Eosinophils) system which ge nerated this result tra nsmitted reference range : <=4.0. The reference r gayle was not used to int erpret this result as normal/abnormal . [facility] FriscoLkzgvefSYKCPHTTSI9787-97-22 09:48:00 Test Item Value Reference Range Interpretation Comments Basophils (test code = 1.2 See_Comment [Aut omated message] The Basophils) system which ge nerated this result tra nsmitted reference range : <=1.0. The reference r gayle was not used to int erpret this result as normal/abnormal . [facility] FriscoEzptpmtCSEZTXRUAX8894-16-55 09:48:00 Test Item Value Reference Range Interpretation Comments Neutrophils # (test code = Neutrophils 3.4 1.5-8.1 #) [facility] FriscoNyehaiqXBERPJZFKB5327-58-70 09:48:00 Test Item Value Reference Range Interpretation Comments Lymphocytes # (test code = Lymphocytes 3.1 1.0-5.5 #) [facility] FriscoYkvxgqgWQQSGJXIYJ4606-43-09 09:48:00 Test Item Value Reference Range Interpretation Comments Monocytes # (test code 0.7 See_Comment [Aut omated message] The = Monocytes #) system which generated this result tra nsmitted reference range : <=0.8. The reference r gayle was not used to int erpret this result as normal/abnormal . [facility] FriscoTqkogjwWSFIDAKHOY5804-27-17 09:48:00 Test Item Value Reference Range Interpretation Comments Eosinophils # (test code 0.1 See_Comment [A utomated message] The = Eosinophils #) system whic h generated this result tra nsmitted reference range : <=0.5. The reference r gayle was not used to int erpret this result as normal/abnormal . [facility] FriscoUzokhuxYGCNHTLYMV6416-93-42 09:48:00 Test Item Value Reference Range Interpretation Comments Basophils # (test code 0.1 See_Comment [Aut omated message] The = Basophils #) system which generated this result tra nsmitted reference range : <=0.2. The reference r gayle was not used to int erpret this result as normal/abnormal . [facility] FriscoPrhwmegJCXUHXJRLR9234-51-31 09:48:00 Test Item Value Reference Range Interpretation Comments WBC (test code = WBC) 7.4 3.7-10.4 [facility] FriscoVivztbhBPUPEFDJGC3956-08-72 09:48:00 Test Item Value Reference Range Interpretation Comments RBC (test code = RBC) 4.42 4.70-6.10 [facility] FriscoJpkrteaFLJPBDJBSO5016-81-23 09:48:00 Test Item Value Reference Range Interpretation Comments Hgb (test code = Hgb) 12.7 14.0-18.0 [facility] FriscoRsidodiXXIEPPINLG6363-01-76 09:48:00 Test Item Value Reference Range Interpretation Comments Hct (test code = Hct) 37.1 42.0-54.0 [facility] FriscoGthcmcaKKBSTZYHKL0608-59-62 09:48:00 Test Item Value Reference Range Interpretation Comments MCV (test code = MCV) 83.9 80.0-94.0 [facility] FriscoRprraydIAIJZZMCQV0422-34-73 09:48:00 Test Item Value Reference Range Interpretation Comments MCH (test code = MCH) 28.7 pg 27.0-31.0 [facility] FriscoBotsdoyIHYKPTGAGZ0841-91-62 09:48:00 Test Item Value Reference Range Interpretation Comments MCHC (test code = MCHC) 34.1 32.0-36.0 [facility] FriscoIvxbybhJXPCUEXBCB2247-62-51 09:48:00 Test Item Value Reference Range Interpretation Comments RDW (test code = RDW) 15.2 11.5-14.5 [facility] FriscoFnaemtgZGONXZSJRA9481-87-08 09:48:00 Test Item Value Reference Range Interpretation Comments Platelet (test code = Platelet) 269 133-450 [facility] FriscoAieluvaJMUSZEZIGJ7002-51-78 09:48:00 Test Item Value Reference Range Interpretation Comments MPV (test code = MPV) 7.8 7.4-10.4 [facility] TFDCCDU3698-07-91 09:48:00 Test Item Value Reference Range Interpretation Comments Ca Ion WB (test code = Ca Ion WB) 1.04 1.05-1.25 [facility] LZKDLJD2763-57-58 09:48:00 Test Item Value Reference Range Interpretation Comments Ca Norm WB (test code = Ca Norm WB) 1.09 1.05-1.25 [facility] KGGFCNHON5659-65-71 09:48:00 Test Item Value Reference Range Interpretation Comments Hgb A1C (test code = Hgb A1C) 5.6 [facility] [place]2019-08-11 09:48:00 Test Item Value Reference Range Interpretation Comments Glucose Lvl (test code = Glucose Lvl) 90 70-99 [facility] [place]2019-08-11 09:48:00 Test Item Value Reference Range Interpretation Comments BUN (test code = BUN) 13 7-22 [facility] [place]2019-08-11 09:48:00 Test Item Value Reference Range Interpretation Comments Creatinine Lvl (test code = Creatinine 0.77 0.50-1.40 Lvl) [facility] [place]2019-08-11 09:48:00 Test Item Value Reference Range Interpretation Comments Sodium Lvl (test code = Sodium Lvl) 140 135-145 [facility] [place]2019-08-11 09:48:00 Test Item Value Reference Range Interpretation Comments Potassium Lvl (test code = Potassium 3.7 3.5-5.1 Lvl) [facility] [place]2019-08-11 09:48:00 Test Item Value Reference Range Interpretation Comments Chloride Lvl (test code = Chloride Lvl) 106 95-109 [facility] [place]2019-08-11 09:48:00 Test Item Value Reference Range Interpretation Comments CO2 (test code = CO2) 29 24-32 [facility] [place]2019-08-11 09:48:00 Test Item Value Reference Range Interpretation Comments Magnesium Lvl (test code = Magnesium 2.4 1.8-2.4 Lvl) [facility] [place]2019-08-11 09:48:00 Test Item Value Reference Range Interpretation Comments Phosphorus (test code = Phosphorus) 2.7 2.5-4.5 [facility]NxwyzohMJVZOOOJHQ1884-94-36 09:48:00 Test Item Value Reference Range Interpretation Comments Segs (test code = Segs) 46.3 45.0-75.0 [facility] HospitalTldpkkgUWCDNHUQOD9518-05-09 09:48:00 Test Item Value Reference Range Interpretation Comments Lymphocytes (test code = Lymphocytes) 42.1 20.0-40.0 [facility] FriscoMeceassWSEKQVBJWW2679-21-28 09:48:00 Test Item Value Reference Range Interpretation Comments Monocytes (test code = Monocytes) 9.0 2.0-12.0 [facility] FriscoFfhegorZQMIVAUDWX0898-58-75 09:48:00 Test Item Value Reference Range Interpretation Comments Eosinophils (test code = 1.4 See_Comment [A utomated message] The Eosinophils) system which ge nerated this result tra nsmitted reference range : <=4.0. The reference r gayle was not used to int erpret this result as normal/abnormal . [facility] FriscoQcpjasmLLSOMYRSTV6493-29-73 09:48:00 Test Item Value Reference Range Interpretation Comments Basophils (test code = 1.2 See_Comment [Aut omated message] The Basophils) system which ge nerated this result tra nsmitted reference range : <=1.0. The reference r gayle was not used to int erpret this result as normal/abnormal . [facility] FriscoVlibdusVAKXBNWLGO6310-45-07 09:48:00 Test Item Value Reference Range Interpretation Comments Neutrophils # (test code = Neutrophils 3.4 1.5-8.1 #) [facility] FriscoGawrshqLKKHNRQCDT1921-49-04 09:48:00 Test Item Value Reference Range Interpretation Comments Lymphocytes # (test code = Lymphocytes 3.1 1.0-5.5 #) [facility] FriscoSyizfbcFNGCXNKLBK9110-64-34 09:48:00 Test Item Value Reference Range Interpretation Comments Monocytes # (test code 0.7 See_Comment [Aut omated message] The = Monocytes #) system which generated this result tra nsmitted reference range : <=0.8. The reference r gayle was not used to int erpret this result as normal/abnormal . [facility] FriscoAsqkqfyUPDPKLTACN7933-12-27 09:48:00 Test Item Value Reference Range Interpretation Comments Eosinophils # (test code 0.1 See_Comment [A utomated message] The = Eosinophils #) system whic h generated this result tra nsmitted reference range : <=0.5. The reference r gayle was not used to int erpret this result as normal/abnormal . [facility] FriscoVwrmswhOBCRISNXXF7487-48-32 09:48:00 Test Item Value Reference Range Interpretation Comments Basophils # (test code 0.1 See_Comment [Aut omated message] The = Basophils #) system which generated this result tra nsmitted reference range : <=0.2. The reference r gayle was not used to int erpret this result as normal/abnormal . [facility] FriscoFtabwxoOZBILASYPX0127-58-29 09:48:00 Test Item Value Reference Range Interpretation Comments WBC (test code = WBC) 7.4 3.7-10.4 [facility] FriscoKjdqxtjFUBQMJJENG7134-93-42 09:48:00 Test Item Value Reference Range Interpretation Comments RBC (test code = RBC) 4.42 4.70-6.10 [facility] FriscoNeuzdecEFQWLCZJBQ1856-69-93 09:48:00 Test Item Value Reference Range Interpretation Comments Hgb (test code = Hgb) 12.7 14.0-18.0 [facility] FriscoZxqtvxtEUWHFLRDWA7461-64-86 09:48:00 Test Item Value Reference Range Interpretation Comments Hct (test code = Hct) 37.1 42.0-54.0 [facility] FriscoScpkyeaHPZPOFGVVO2515-10-39 09:48:00 Test Item Value Reference Range Interpretation Comments MCV (test code = MCV) 83.9 80.0-94.0 [facility] FriscoXjoqdlgIELJSMCCMQ9183-10-31 09:48:00 Test Item Value Reference Range Interpretation Comments MCH (test code = MCH) 28.7 pg 27.0-31.0 [facility] FriscoOdqyespRCCCUNSFBS1862-82-87 09:48:00 Test Item Value Reference Range Interpretation Comments MCHC (test code = MCHC) 34.1 32.0-36.0 [facility] FriscoTymbevkDGSYOZQFFP3865-96-77 09:48:00 Test Item Value Reference Range Interpretation Comments RDW (test code = RDW) 15.2 11.5-14.5 [facility] FriscoWbkgelfRYHHOQINTG6354-12-96 09:48:00 Test Item Value Reference Range Interpretation Comments Platelet (test code = Platelet) 269 133-450 [facility] FriscoDyowdceAGNNRIDPMF2443-94-79 09:48:00 Test Item Value Reference Range Interpretation Comments MPV (test code = MPV) 7.8 7.4-10.4 [facility]PARATHYROID TUNBEHB9251-60-05 09:48:00 Test Item Value Reference Range Interpretation Comments Ca Ion WB (test code = Ca Ion WB) 1.04 1.05-1.25 [facility]RO[facility] IODPRFO3319-96-84 09:48:00 Test Item Value Reference Range Interpretation Comments Ca Norm WB (test code = Ca Norm WB) 1.09 1.05-1.25 [facility] WGIYKMBMQ8143-99-96 09:48:00 Test Item Value Reference Range Interpretation Comments Hgb A1C (test code = Hgb A1C) 5.6 [facility] [place]2019-08-11 09:48:00 Test Item Value Reference Range Interpretation Comments Glucose Lvl (test code = Glucose Lvl) 90 70-99 [facility] [place]2019-08-11 09:48:00 Test Item Value Reference Range Interpretation Comments BUN (test code = BUN) 13 7-22 [facility] [place]2019-08-11 09:48:00 Test Item Value Reference Range Interpretation Comments Creatinine Lvl (test code = Creatinine 0.77 0.50-1.40 Lvl) [facility] [place]2019-08-11 09:48:00 Test Item Value Reference Range Interpretation Comments Sodium Lvl (test code = Sodium Lvl) 140 135-145 [facility] [place]2019-08-11 09:48:00 Test Item Value Reference Range Interpretation Comments Potassium Lvl (test code = Potassium 3.7 3.5-5.1 Lvl) [facility] [place]2019-08-11 09:48:00 Test Item Value Reference Range Interpretation Comments Chloride Lvl (test code = Chloride Lvl) 106 95-109 [facility] [place]2019-08-11 09:48:00 Test Item Value Reference Range Interpretation Comments CO2 (test code = CO2) 29 24-32 [facility] [place]2019-08-11 09:48:00 Test Item Value Reference Range Interpretation Comments Calcium Lvl (test code = Calcium Lvl) 8.7 8.5-10.5 [facility] [place]2019-08-11 09:48:00 Test Item Value Reference Range Interpretation Comments eGFR (test code = eGFR) 116 [facility] [place]2019-08-11 09:48:00 Test Item Value Reference Range Interpretation Comments AGAP (test code = AGAP) 8.7 10.0-20.0 [facility] [place]2019-08-11 09:48:00 Test Item Value Reference Range Interpretation Comments Magnesium Lvl (test code = Magnesium 2.4 1.8-2.4 Lvl) [facility] [place]2019-08-11 09:48:00 Test Item Value Reference Range Interpretation Comments Phosphorus (test code = Phosphorus) 2.7 2.5-4.5 [facility] FriscoMmypnlnVRMMYKPOTK7289-27-98 09:48:00 Test Item Value Reference Range Interpretation Comments Segs (test code = Segs) 46.3 45.0-75.0 [facility] FriscoVqkzbpsXXFJOAQDCW3377-60-56 09:48:00 Test Item Value Reference Range Interpretation Comments Lymphocytes (test code = Lymphocytes) 42.1 20.0-40.0 [facility] FriscoZenajwpPSHJPGGLVN2049-96-72 09:48:00 Test Item Value Reference Range Interpretation Comments Monocytes (test code = Monocytes) 9.0 2.0-12.0 [facility] FriscoZkzwcvoNOHQWHKJTP7022-55-08 09:48:00 Test Item Value Reference Range Interpretation Comments Eosinophils (test code = 1.4 See_Comment [A utomated message] The Eosinophils) system which ge nerated this result tra nsmitted reference range : <=4.0. The reference r gayle was not used to int erpret this result as normal/abnormal . [facility] FriscoKehvnmcCOARQTZGUO5276-33-81 09:48:00 Test Item Value Reference Range Interpretation Comments Basophils (test code = 1.2 See_Comment [Aut omated message] The Basophils) system which ge nerated this result tra nsmitted reference range : <=1.0. The reference r gayle was not used to int erpret this result as normal/abnormal . [facility] FriscoVuoganmAYXRGQCCNL4125-94-62 09:48:00 Test Item Value Reference Range Interpretation Comments Neutrophils # (test code = Neutrophils 3.4 1.5-8.1 #) [facility] FriscoBithqeiQTTTUSYFYG5613-78-15 09:48:00 Test Item Value Reference Range Interpretation Comments Lymphocytes # (test code = Lymphocytes 3.1 1.0-5.5 #) [facility] FriscoMgkrdmeQPNFWXEGCJ5683-78-81 09:48:00 Test Item Value Reference Range Interpretation Comments Monocytes # (test code 0.7 See_Comment [Aut omated message] The = Monocytes #) system which generated this result tra nsmitted reference range : <=0.8. The reference r gayle was not used to int erpret this result as normal/abnormal . [facility] FriscoJtykmyfBAXCZRNKQC9231-70-81 09:48:00 Test Item Value Reference Range Interpretation Comments Eosinophils # (test code 0.1 See_Comment [A utomated message] The = Eosinophils #) system whic h generated this result tra nsmitted reference range : <=0.5. The reference r gayle was not used to int erpret this result as normal/abnormal . [facility] FriscoDkvbjwwRYAGLMGJXW7755-01-03 09:48:00 Test Item Value Reference Range Interpretation Comments Basophils # (test code 0.1 See_Comment [Aut omated message] The = Basophils #) system which generated this result tra nsmitted reference range : <=0.2. The reference r gayle was not used to int erpret this result as normal/abnormal . [facility] FriscoChnrtgnACAPYRTBDH0230-56-88 09:48:00 Test Item Value Reference Range Interpretation Comments WBC (test code = WBC) 7.4 3.7-10.4 [facility] FriscoRrkubfkPHLZMXLEEF5836-78-33 09:48:00 Test Item Value Reference Range Interpretation Comments RBC (test code = RBC) 4.42 4.70-6.10 [facility] FriscoGgomtzxXQEOJYEBWB1781-84-53 09:48:00 Test Item Value Reference Range Interpretation Comments Hgb (test code = Hgb) 12.7 14.0-18.0 [facility] FriscoUrebvkaECBOZHWCUB9073-03-53 09:48:00 Test Item Value Reference Range Interpretation Comments Hct (test code = Hct) 37.1 42.0-54.0 [facility] FriscoKzpmawrEPRVOWISBG9135-10-29 09:48:00 Test Item Value Reference Range Interpretation Comments MCV (test code = MCV) 83.9 80.0-94.0 [facility] FriscoXycrdmkNPTQKJKATV9808-80-34 09:48:00 Test Item Value Reference Range Interpretation Comments MCH (test code = MCH) 28.7 pg 27.0-31.0 [facility] FriscoFxvgoyeTGRFSLAUBB3205-51-08 09:48:00 Test Item Value Reference Range Interpretation Comments MCHC (test code = MCHC) 34.1 32.0-36.0 [facility] FriscoLanhmwmCWLJAYCJMJ8980-58-60 09:48:00 Test Item Value Reference Range Interpretation Comments RDW (test code = RDW) 15.2 11.5-14.5 [facility] FriscoHbxyvxuPUDVEDOZFX5308-72-99 09:48:00 Test Item Value Reference Range Interpretation Comments Platelet (test code = Platelet) 269 133-450 [facility] HospitalAxvzmakLTEUDBQBVU9750-75-96 09:48:00 Test Item Value Reference Range Interpretation Comments MPV (test code = MPV) 7.8 7.4-10.4 [facility]PARATHYROID [id number] 09:48:00 Test Item Value Reference Range Interpretation Comments Ca Ion WB (test code = Ca Ion WB) 1.04 1.05-1.25 [facility] [id number] 09:48:00 Test Item Value Reference Range Interpretation Comments Ca Norm WB (test code = Ca Norm WB) 1.09 1.05-1.25 [facility] GGUFLVYGI1437-56-87 09:48:00 Test Item Value Reference Range Interpretation Comments Hgb A1C (test code = Hgb A1C) 5.6 [facility] [place]2019-08-11 09:48:00 Test Item Value Reference Range Interpretation Comments Glucose Lvl (test code = Glucose Lvl) 90 70-99 [facility] [place]2019-08-11 09:48:00 Test Item Value Reference Range Interpretation Comments BUN (test code = BUN) 13 7-22 [facility] [place]2019-08-11 09:48:00 Test Item Value Reference Range Interpretation Comments Creatinine Lvl (test code = Creatinine 0.77 0.50-1.40 Lvl) [facility] [place]2019-08-11 09:48:00 Test Item Value Reference Range Interpretation Comments Sodium Lvl (test code = Sodium Lvl) 140 135-145 [facility]2019-08-11 09:48:00 Test Item Value Reference Range Interpretation Comments Potassium Lvl (test code = Potassium 3.7 3.5-5.1 Lvl) [facility]2019-08-11 09:48:00 Test Item Value Reference Range Interpretation Comments Chloride Lvl (test code = Chloride Lvl) 106 95-109 [facility]2019-08-11 09:48:00 Test Item Value Reference Range Interpretation Comments CO2 (test code = CO2) 29 24-32 [facility]2019-08-11 09:48:00 Test Item Value Reference Range Interpretation Comments Calcium Lvl (test code = Calcium Lvl) 8.7 8.5-10.5 [facility]2019-08-11 09:48:00 Test Item Value Reference Range Interpretation Comments eGFR (test code = eGFR) 116 [facility]2019-08-11 09:48:00 Test Item Value Reference Range Interpretation Comments AGAP (test code = AGAP) 8.7 10.0-20.0 [facility]2019-08-11 09:48:00 Test Item Value Reference Range Interpretation Comments Magnesium Lvl (test code = Magnesium 2.4 1.8-2.4 Lvl) [facility]2019-08-11 09:48:00 Test Item Value Reference Range Interpretation Comments Phosphorus (test code = Phosphorus) 2.7 2.5-4.5 [id number] 09:48:00 Test Item Value Reference Range Interpretation Comments Segs (test code = Segs) 46.3 45.0-75.0 [facility]iscoKdwxfljMDQJFWJZCM1637-57-19 09:48:00 Test Item Value Reference Range Interpretation Comments Lymphocytes (test code = Lymphocytes) 42.1 20.0-40.0 [facility] FriscoLbqynnqEOGUSNKQZX4819-79-07 09:48:00 Test Item Value Reference Range Interpretation Comments Monocytes (test code = Monocytes) 9.0 2.0-12.0 [facility] FriscoOlplyiqAEDKWJRHGL9335-64-07 09:48:00 Test Item Value Reference Range Interpretation Comments Eosinophils (test code = 1.4 See_Comment [A utomated message] The Eosinophils) system which ge nerated this result tra nsmitted reference range : <=4.0. The reference r gayle was not used to int erpret this result as normal/abnormal . [facility] FriscoDxysyvpFWYQJLZZAK1312-66-59 09:48:00 Test Item Value Reference Range Interpretation Comments Basophils (test code = 1.2 See_Comment [Aut omated message] The Basophils) system which ge nerated this result tra nsmitted reference range : <=1.0. The reference r gayle was not used to int erpret this result as normal/abnormal . [facility]iscoMvqczleCZZRLTVRQC3862-19-91 09:48:00 Test Item Value Reference Range Interpretation Comments Neutrophils # (test code = Neutrophils 3.4 1.5-8.1 #) [facility] FriscoRdjshcgZBUWAPDGUQ9897-44-94 09:48:00 Test Item Value Reference Range Interpretation Comments Lymphocytes # (test code = Lymphocytes 3.1 1.0-5.5 #) [facility] FriscoKjecqxsKDBZSUARZD0654-81-39 09:48:00 Test Item Value Reference Range Interpretation Comments Monocytes # (test code 0.7 See_Comment [Aut omated message] The = Monocytes #) system which generated this result tra nsmitted reference range : <=0.8. The reference r gayle was not used to int erpret this result as normal/abnormal . [facility] FriscoQjkjtncUMYLWYQSZQ9680-59-95 09:48:00 Test Item Value Reference Range Interpretation Comments Eosinophils # (test code 0.1 See_Comment [A utomated message] The = Eosinophils #) system whic h generated this result tra nsmitted reference range : <=0.5. The reference r gayle was not used to int erpret this result as normal/abnormal . [facility] FriscoOqhqbjmVJFCIJNLRX1242-61-32 09:48:00 Test Item Value Reference Range Interpretation Comments Basophils # (test code 0.1 See_Comment [Aut omated message] The = Basophils #) system which generated this result tra nsmitted reference range : <=0.2. The reference r gayle was not used to int erpret this result as normal/abnormal . [facility] FriscoAglnzrpCUEMDCOEHW8744-86-38 09:48:00 Test Item Value Reference Range Interpretation Comments WBC (test code = WBC) 7.4 3.7-10.4 [facility] FriscoRkqlkkyJWIUILFSRC7064-48-83 09:48:00 Test Item Value Reference Range Interpretation Comments RBC (test code = RBC) 4.42 4.70-6.10 [facility] FriscoYlbgsksRGEAUAPYSC7849-07-18 09:48:00 Test Item Value Reference Range Interpretation Comments Hgb (test code = Hgb) 12.7 14.0-18.0 [facility] FriscoNzetjylYIJNISZHEP3264-93-36 09:48:00 Test Item Value Reference Range Interpretation Comments Hct (test code = Hct) 37.1 42.0-54.0 [facility] FriscoEwosxlcJOUGIULYMD3726-25-19 09:48:00 Test Item Value Reference Range Interpretation Comments MCV (test code = MCV) 83.9 80.0-94.0 [facility] FriscoCbxrbcpGRJHHZHWUB8757-09-14 09:48:00 Test Item Value Reference Range Interpretation Comments MCH (test code = MCH) 28.7 pg 27.0-31.0 [facility]XjpwdaiKUSRFKUBHH3175-70-15 09:48:00 Test Item Value Reference Range Interpretation Comments MCHC (test code = MCHC) 34.1 32.0-36.0 [facility] HospitalVbhyfmpVCVEWFPETH9054-26-46 09:48:00 Test Item Value Reference Range Interpretation Comments RDW (test code = RDW) 15.2 11.5-14.5 [facility]rapevineYzdqoojOCTYDWWOCO0804-57-38 09:48:00 Test Item Value Reference Range Interpretation Comments Platelet (test code = Platelet) 269 133-450 [facility]OlxcubqJTGCVICCCD0162-73-50 09:48:00 Test Item Value Reference Range Interpretation Comments MPV (test code = MPV) 7.8 7.4-10.4 [facility] HospitalPARATHYROID [id number] 09:48:00 Test Item Value Reference Range Interpretation Comments Ca Ion WB (test code = Ca Ion WB) 1.04 1.05-1.25 [facility] [id number] 09:48:00 Test Item Value Reference Range Interpretation Comments Ca Norm WB (test code = Ca Norm WB) 1.09 1.05-1.25 [facility] [id number] 09:48:00 Test Item Value Reference Range Interpretation Comments Hgb A1C (test code = Hgb A1C) 5.6 [facility] [id number] 09:48:00 Test Item Value Reference Range Interpretation Comments Glucose Lvl (test code = Glucose Lvl) 90 70-99 [facility] [id number] 09:48:00 Test Item Value Reference Range Interpretation Comments BUN (test code = BUN) 13 7-22 [facility] [id number] 09:48:00 Test Item Value Reference Range Interpretation Comments Creatinine Lvl (test code = Creatinine 0.77 0.50-1.40 Lvl) [facility] [id number] 09:48:00 Test Item Value Reference Range Interpretation Comments Sodium Lvl (test code = Sodium Lvl) 140 135-145 [facility] [id number] 09:48:00 Test Item Value Reference Range Interpretation Comments Potassium Lvl (test code = Potassium 3.7 3.5-5.1 Lvl) [facility]2019-08-11 09:48:00 Test Item Value Reference Range Interpretation Comments Chloride Lvl (test code = Chloride Lvl) 106 95-109 [facility]2019-08-11 09:48:00 Test Item Value Reference Range Interpretation Comments CO2 (test code = CO2) 29 24-32 [facility]2019-08-11 09:48:00 Test Item Value Reference Range Interpretation Comments Calcium Lvl (test code = Calcium Lvl) 8.7 8.5-10.5 [facility]2019-08-11 09:48:00 Test Item Value Reference Range Interpretation Comments eGFR (test code = eGFR) 116 [facility]2019-08-11 09:48:00 Test Item Value Reference Range Interpretation Comments AGAP (test code = AGAP) 8.7 10.0-20.0 [facility]2019-08-10 21:45:00 Test Item Value Reference Range Interpretation Comments Lipase Lvl (test code = Lipase Lvl) 114 73-393 [facility]2019-08-10 21:45:00 Test Item Value Reference Range Interpretation Comments ALT (test code = ALT) 18 See_Comment [Auto mated message] The system which ge nerated this result transmit keon reference range : <=65. The reference range was not used to interpr et this result as evan l/abnormal. [facility]2019-08-10 21:45:00 Test Item Value Reference Range Interpretation Comments Albumin Lvl (test code = Albumin Lvl) 3.6 3.5-5.0 [facility]2019-08-10 21:45:00 Test Item Value Reference Range Interpretation Comments Alk Phos (test code = Alk Phos) 79 39-136 [facility]2019-08-10 21:45:00 Test Item Value Reference Range Interpretation Comments Bili Direct (test code 0.1 See_Comment [Aut omated message] The = Bili Direct) system which generated this result tra nsmitted reference range : <=0.3. The reference r gayle was not used to int erpret this result as evan l/abnormal. [facility]2019-08-10 21:45:00 Test Item Value Reference Range Interpretation Comments Bili Total (test code = Bili Total) 0.5 0.2-1.3 [facility]2019-08-10 21:45:00 Test Item Value Reference Range Interpretation Comments Bili Indirect (test 0.4 See_Comment [Automa keon message] The code = Bili Indirect) system which generated this result tra nsmitted reference range : <=1.0. The reference r gayle was not used to int erpret this result as normal/abnormal . [facility]2019-08-10 21:45:00 Test Item Value Reference Range Interpretation Comments Total Protein (test code = Total 6.9 6.4-8.4 Protein) [facility]2019-08-10 21:45:00 Test Item Value Reference Range Interpretation Comments AST (test code = AST) 18 See_Comment [Auto mated message] The system which ge nerated this result transmit keon reference range : <=37. The reference range was not used to interpr et this result as evan l/abnormal. [facility]2019-08-10 21:45:00 Test Item Value Reference Range Interpretation Comments Globulin (test code = Globulin) 3.3 2.7-4.2 [facility]2019-08-10 21:45:00 Test Item Value Reference Range Interpretation Comments A/G Ratio (test code = A/G Ratio) 1.1 1 0.7-1.6 [facility]2019-08-10 21:45:00 Test Item Value Reference Range Interpretation Comments Lipase Lvl (test code = Lipase Lvl) 114 73-393 [facility] GrapevineEdicyNOR[facility] CAROLINA SPECIALTY [id number] 21:45:00 Test Item Value Reference Range Interpretation Comments ALT (test code = ALT) 18 See_Comment [Auto mated message] The system which ge nerated this result transmit keon reference range : <=65. The reference range was not used to interpr et this result as evan l/abnormal. [facility]rapevineStarfish 360 [id number] 21:45:00 Test Item Value Reference Range Interpretation Comments Albumin Lvl (test code = Albumin Lvl) 3.6 3.5-5.0 [facility]vineStar[facility] [id number] 21:45:00 Test Item Value Reference Range Interpretation Comments Alk Phos (test code = Alk Phos) 79 39-136 [facility]2019-08-10 21:45:00 Test Item Value Reference Range Interpretation Comments Bili Direct (test code 0.1 See_Comment [Aut omated message] The = Bili Direct) system which generated this result tra nsmitted reference range : <=0.3. The reference r gayle was not used to int erpret this result as evan l/abnormal. [facility]2019-08-10 21:45:00 Test Item Value Reference Range Interpretation Comments Bili Total (test code = Bili Total) 0.5 0.2-1.3 [facility]2019-08-10 21:45:00 Test Item Value Reference Range Interpretation Comments Bili Indirect (test 0.4 See_Comment [Automa keon message] The code = Bili Indirect) system which generated this result tra nsmitted reference range : <=1.0. The reference r gayle was not used to int erpret this result as normal/abnormal . [facility]2019-08-10 21:45:00 Test Item Value Reference Range Interpretation Comments Total Protein (test code = Total 6.9 6.4-8.4 Protein) [facility]2019-08-10 21:45:00 Test Item Value Reference Range Interpretation Comments AST (test code = AST) 18 See_Comment [Auto mated message] The system which ge nerated this result transmit keon reference range : <=37. The reference range was not used to interpr et this result as evan l/abnormal. [facility]2019-08-10 21:45:00 Test Item Value Reference Range Interpretation Comments Globulin (test code = Globulin) 3.3 2.7-4.2 [facility]2019-08-10 21:45:00 Test Item Value Reference Range Interpretation Comments A/G Ratio (test code = A/G Ratio) 1.1 1 0.7-1.6 [facility]2019-08-10 21:45:00 Test Item Value Reference Range Interpretation Comments Lipase Lvl (test code = Lipase Lvl) 114 73-393 [facility]2019-08-10 21:45:00 Test Item Value Reference Range Interpretation Comments ALT (test code = ALT) 18 See_Comment [Auto mated message] The system which ge nerated this result transmit keon reference range : <=65. The reference range was not used to interpr et this result as evan l/abnormal. [facility]2019-08-10 21:45:00 Test Item Value Reference Range Interpretation Comments Albumin Lvl (test code = Albumin Lvl) 3.6 3.5-5.0 [facility]2019-08-10 21:45:00 Test Item Value Reference Range Interpretation Comments Alk Phos (test code = Alk Phos) 79 39-136 [facility]2019-08-10 21:45:00 Test Item Value Reference Range Interpretation Comments Bili Direct (test code 0.1 See_Comment [Aut omated message] The = Bili Direct) system which generated this result tra nsmitted reference range : <=0.3. The reference r gayle was not used to int erpret this result as evan l/abnormal. [facility]2019-08-10 21:45:00 Test Item Value Reference Range Interpretation Comments Bili Total (test code = Bili Total) 0.5 0.2-1.3 [facility]2019-08-10 21:45:00 Test Item Value Reference Range Interpretation Comments Bili Indirect (test 0.4 See_Comment [Automa keon message] The code = Bili Indirect) system which generated this result tra nsmitted reference range : <=1.0. The reference r gayle was not used to int erpret this result as normal/abnormal . [facility]2019-08-10 21:45:00 Test Item Value Reference Range Interpretation Comments Total Protein (test code = Total 6.9 6.4-8.4 Protein) [facility]2019-08-10 21:45:00 Test Item Value Reference Range Interpretation Comments AST (test code = AST) 18 See_Comment [Auto mated message] The system which ge nerated this result transmit keon reference range : <=37. The reference range was not used to interpr et this result as evan l/abnormal. [facility]2019-08-10 21:45:00 Test Item Value Reference Range Interpretation Comments Globulin (test code = Globulin) 3.3 2.7-4.2 [facility]2019-08-10 21:45:00 Test Item Value Reference Range Interpretation Comments A/G Ratio (test code = A/G Ratio) 1.1 1 0.7-1.6 [facility]2019-08-10 21:45:00 Test Item Value Reference Range Interpretation Comments Lipase Lvl (test code = Lipase Lvl) 114 73-393 [facility]2019-08-10 21:45:00 Test Item Value Reference Range Interpretation Comments ALT (test code = ALT) 18 See_Comment [Auto mated message] The system which ge nerated this result transmit keon reference range : <=65. The reference range was not used to interpr et this result as evan l/abnormal. [facility]2019-08-10 21:45:00 Test Item Value Reference Range Interpretation Comments Albumin Lvl (test code = Albumin Lvl) 3.6 3.5-5.0 [facility]2019-08-10 21:45:00 Test Item Value Reference Range Interpretation Comments Alk Phos (test code = Alk Phos) 79 39-136 [facility]2019-08-10 21:45:00 Test Item Value Reference Range Interpretation Comments Bili Direct (test code 0.1 See_Comment [Aut omated message] The = Bili Direct) system which generated this result tra nsmitted reference range : <=0.3. The reference r gayle was not used to int erpret this result as evan l/abnormal. [facility]2019-08-10 21:45:00 Test Item Value Reference Range Interpretation Comments Bili Total (test code = Bili Total) 0.5 0.2-1.3 [place] 379349-08-10 21:45:00 Test Item Value Reference Range Interpretation Comments Bili Indirect (test 0.4 See_Comment [Automa keon message] The code = Bili Indirect) system which generated this result tra nsmitted reference range : <=1.0. The reference r gayle was not used to int erpret this result as normal/abnormal . [facility]2019-08-10 21:45:00 Test Item Value Reference Range Interpretation Comments Total Protein (test code = Total 6.9 6.4-8.4 Protein) [facility]2019-08-10 21:45:00 Test Item Value Reference Range Interpretation Comments AST (test code = AST) 18 See_Comment [Auto mated message] The system which ge nerated this result transmit keon reference range : <=37. The reference range was not used to interpr et this result as evan l/abnormal. [facility] [id number] 21:45:00 Test Item Value Reference Range Interpretation Comments Globulin (test code = Globulin) 3.3 2.7-4.2 [facility]2019-08-10 21:45:00 Test Item Value Reference Range Interpretation Comments A/G Ratio (test code = A/G Ratio) 1.1 1 0.7-1.6 [facility]CARDIAC [id number] 05:53:00 Test Item Value Reference Range Interpretation Comments Troponin-I (test code no gt See_Comment [Auto mated message] The = Troponin-I) system which g enerated this result transmit keon reference range : <=0.40. The reference r gayle was not used to interpr et this result as evan l/abnormal. [facility] [id number] 05:53:00 Test Item Value Reference Range Interpretation Comments Lactic Acid Lvl (test code = Lactic 1.3 0.5-2.2 Acid Lvl) [facility] [id number] 05:53:00 Test Item Value Reference Range Interpretation Comments Glucose Lvl (test code = Glucose Lvl) 101 70-99 [facility] [id number] 05:53:00 Test Item Value Reference Range Interpretation Comments BUN (test code = BUN) 19 7-22 [facility] [id number] 05:53:00 Test Item Value Reference Range Interpretation Comments Creatinine Lvl (test code = Creatinine 0.92 0.50-1.40 Lvl) [facility] [id number] 05:53:00 Test Item Value Reference Range Interpretation Comments Sodium Lvl (test code = Sodium Lvl) 140 135-145 [facility] [id number] 05:53:00 Test Item Value Reference Range Interpretation Comments Potassium Lvl (test code = Potassium 3.5 3.5-5.1 Lvl) [facility] [id number] 05:53:00 Test Item Value Reference Range Interpretation Comments Chloride Lvl (test code = Chloride Lvl) 103 95-109 [facility]2019-08-10 05:53:00 Test Item Value Reference Range Interpretation Comments CO2 (test code = CO2) 29 24-32 [facility]2019-08-10 05:53:00 Test Item Value Reference Range Interpretation Comments Calcium Lvl (test code = Calcium Lvl) 8.7 8.5-10.5 [facility]2019-08-10 05:53:00 Test Item Value Reference Range Interpretation Comments eGFR (test code = eGFR) 105 [facility]2019-08-10 05:53:00 Test Item Value Reference Range Interpretation Comments AGAP (test code = AGAP) 11.5 10.0-20.0 [facility]2019-08-10 05:53:00 Test Item Value Reference Range Interpretation Comments Magnesium Lvl (test code = Magnesium 2.8 1.8-2.4 Lvl) [facility]2019-08-10 05:53:00 Test Item Value Reference Range Interpretation Comments Phosphorus (test code = Phosphorus) 2.4 2.5-4.5 [id number] 05:53:00 Test Item Value Reference Range Interpretation Comments Segs (test code = Segs) 51.2 45.0-75.0 [facility] FriscoDlexapxZWTTVPYCIU2584-88-78 05:53:00 Test Item Value Reference Range Interpretation Comments Lymphocytes (test code = Lymphocytes) 38.9 20.0-40.0 [facility] FriscoVsltaatUURBFGGXOQ9209-99-65 05:53:00 Test Item Value Reference Range Interpretation Comments Monocytes (test code = Monocytes) 8.6 2.0-12.0 [facility] FriscoWnuqcyrOFYWJDALSA8388-52-05 05:53:00 Test Item Value Reference Range Interpretation Comments Eosinophils (test code = 0.3 See_Comment [A utomated message] The Eosinophils) system which ge nerated this result tra nsmitted reference range : <=4.0. The reference r gayle was not used to int erpret this result as normal/abnormal . [facility] [id number] 05:53:00 Test Item Value Reference Range Interpretation Comments Basophils (test code = 1.0 See_Comment [Aut omated message] The Basophils) system which ge nerated this result tra nsmitted reference range : <=1.0. The reference r gayle was not used to int erpret this result as normal/abnormal . [facility] FriscoDifkngrDWRBTBNNTE9574-46-95 05:53:00 Test Item Value Reference Range Interpretation Comments Neutrophils # (test code = Neutrophils 5.6 1.5-8.1 #) [facility] [id number] 05:53:00 Test Item Value Reference Range Interpretation Comments Lymphocytes # (test code = Lymphocytes 4.3 1.0-5.5 #) [facility] [id number] 05:53:00 Test Item Value Reference Range Interpretation Comments Monocytes # (test code 0.9 See_Comment [Aut omated message] The = Monocytes #) system which generated this result tra nsmitted reference range : <=0.8. The reference r gayle was not used to int erpret this result as normal/abnormal . [facility] FriscoIdofbntWBATNEMCKU6063-06-72 05:53:00 Test Item Value Reference Range Interpretation Comments Basophils # (test code 0.1 See_Comment [Aut omated message] The = Basophils #) system which generated this result tra nsmitted reference range : <=0.2. The reference r gayle was not used to int erpret this result as normal/abnormal . [facility] FriscoHyjsxbuOCCNZHKHVB7321-65-18 05:53:00 Test Item Value Reference Range Interpretation Comments WBC (test code = WBC) 11.0 3.7-10.4 [facility] F[id number] 05:53:00 Test Item Value Reference Range Interpretation Comments RBC (test code = RBC) 4.46 4.70-6.10 [facility] [id number] 05:53:00 Test Item Value Reference Range Interpretation Comments Hgb (test code = Hgb) 12.5 14.0-18.0 [facility] [facility] FriscoFgbaoosHBVRFZBXJL6572-07-45 05:53:00 Test Item Value Reference Range Interpretation Comments Hct (test code = Hct) 37.3 42.0-54.0 [facility]iscoLazdmcdRBEUHCJCBN2567-26-77 05:53:00 Test Item Value Reference Range Interpretation Comments MCV (test code = MCV) 83.7 80.0-94.0 [facility] FriscoDbntbrrXLZYYCMBFN7632-40-13 05:53:00 Test Item Value Reference Range Interpretation Comments MCH (test code = MCH) 28.0 pg 27.0-31.0 [facility] HospitalJcpapivPRJLMFQZGL5937-71-90 05:53:00 Test Item Value Reference Range Interpretation Comments MCHC (test code = MCHC) 33.5 32.0-36.0 [facility]OvxzmjyXVNOKUUOSB0657-00-48 05:53:00 Test Item Value Reference Range Interpretation Comments RDW (test code = RDW) 15.3 11.5-14.5 [facility]rapevineNeuojamQUAXTVUGHV7168-65-90 05:53:00 Test Item Value Reference Range Interpretation Comments Platelet (test code = Platelet) 279 133-450 [facility] HospitalLewchfzFTTWUNHRHB5655-39-76 05:53:00 Test Item Value Reference Range Interpretation Comments MPV (test code = MPV) 7.5 7.4-10.4 [facility] HospitalCARDIAC [id number] 05:53:00 Test Item Value Reference Range Interpretation Comments Troponin-I (test code no gt See_Comment [Auto mated message] The = Troponin-I) system which g enerated this result transmit keon reference range : <=0.40. The reference r gayle was not used to interpr et this result as evan l/abnormal. [facility]rapevineStarfish 360 [id number] 05:53:00 Test Item Value Reference Range Interpretation Comments Lactic Acid Lvl (test code = Lactic 1.3 0.5-2.2 Acid Lvl) [facility]Side[facility] [id number] 05:53:00 Test Item Value Reference Range Interpretation Comments Glucose Lvl (test code = Glucose Lvl) 101 70-99 [facility] [id number] 05:53:00 Test Item Value Reference Range Interpretation Comments BUN (test code = BUN) 19 7-22 [facility] [id number] 05:53:00 Test Item Value Reference Range Interpretation Comments Creatinine Lvl (test code = Creatinine 0.92 0.50-1.40 Lvl) [facility] [id number] 05:53:00 Test Item Value Reference Range Interpretation Comments Sodium Lvl (test code = Sodium Lvl) 140 135-145 [facility] [id number] 05:53:00 Test Item Value Reference Range Interpretation Comments Potassium Lvl (test code = Potassium 3.5 3.5-5.1 Lvl) [facility]2019-08-10 05:53:00 Test Item Value Reference Range Interpretation Comments Chloride Lvl (test code = Chloride Lvl) 103 95-109 [facility]2019-08-10 05:53:00 Test Item Value Reference Range Interpretation Comments CO2 (test code = CO2) 29 24-32 [facility]2019-08-10 05:53:00 Test Item Value Reference Range Interpretation Comments Calcium Lvl (test code = Calcium Lvl) 8.7 8.5-10.5 [facility]2019-08-10 05:53:00 Test Item Value Reference Range Interpretation Comments eGFR (test code = eGFR) 105 [facility]2019-08-10 05:53:00 Test Item Value Reference Range Interpretation Comments AGAP (test code = AGAP) 11.5 10.0-20.0 [facility]2019-08-10 05:53:00 Test Item Value Reference Range Interpretation Comments Magnesium Lvl (test code = Magnesium 2.8 1.8-2.4 Lvl) [facility]2019-08-10 05:53:00 Test Item Value Reference Range Interpretation Comments Phosphorus (test code = Phosphorus) 2.4 2.5-4.5 [facility]iscoEhruegxOTQKYCHEVC1160-92-48 05:53:00 Test Item Value Reference Range Interpretation Comments Segs (test code = Segs) 51.2 45.0-75.0 [facility] FriscoRywirqgDHZZECUCCT0078-11-85 05:53:00 Test Item Value Reference Range Interpretation Comments Lymphocytes (test code = Lymphocytes) 38.9 20.0-40.0 [facility] FriscoLjminohIYFHESJDKR4007-02-93 05:53:00 Test Item Value Reference Range Interpretation Comments Monocytes (test code = Monocytes) 8.6 2.0-12.0 [facility] FriscoXjxwyarLUTKDNRPUJ8664-01-74 05:53:00 Test Item Value Reference Range Interpretation Comments Eosinophils (test code = 0.3 See_Comment [A utomated message] The Eosinophils) system which ge nerated this result tra nsmitted reference range : <=4.0. The reference r gayle was not used to int erpret this result as normal/abnormal . [facility] FriscoIxtfdcoMLFGVRGTIL8999-87-97 05:53:00 Test Item Value Reference Range Interpretation Comments Basophils (test code = 1.0 See_Comment [Aut omated message] The Basophils) system which ge nerated this result tra nsmitted reference range : <=1.0. The reference r gayle was not used to int erpret this result as normal/abnormal . [facility]iscoPuahrvbLINVHWXCSI4626-52-92 05:53:00 Test Item Value Reference Range Interpretation Comments Neutrophils # (test code = Neutrophils 5.6 1.5-8.1 #) [facility] FriscoZxddxtsOHWHXZNWYO0534-22-87 05:53:00 Test Item Value Reference Range Interpretation Comments Lymphocytes # (test code = Lymphocytes 4.3 1.0-5.5 #) [facility] FriscoLpxzneeJWMQAMNCYV2093-24-69 05:53:00 Test Item Value Reference Range Interpretation Comments Monocytes # (test code 0.9 See_Comment [Aut omated message] The = Monocytes #) system which generated this result tra nsmitted reference range : <=0.8. The reference r gayle was not used to int erpret this result as normal/abnormal . [facility] FriscoSlsanayLNQYKOHNGW3009-61-90 05:53:00 Test Item Value Reference Range Interpretation Comments Basophils # (test code 0.1 See_Comment [Aut omated message] The = Basophils #) system which generated this result tra nsmitted reference range : <=0.2. The reference r gayle was not used to int erpret this result as normal/abnormal . [facility] FriscoZrcbzqjRRFXSEDITE8722-03-01 05:53:00 Test Item Value Reference Range Interpretation Comments WBC (test code = WBC) 11.0 3.7-10.4 [facility] FriscoDfdhwffPYOBBWCBYV7732-79-69 05:53:00 Test Item Value Reference Range Interpretation Comments RBC (test code = RBC) 4.46 4.70-6.10 [facility] FriscoRcwpnkiLVVRFAGXMO9294-31-83 05:53:00 Test Item Value Reference Range Interpretation Comments Hgb (test code = Hgb) 12.5 14.0-18.0 [facility] FriscoJangnwsOIVIHWYGDZ7093-37-98 05:53:00 Test Item Value Reference Range Interpretation Comments Hct (test code = Hct) 37.3 42.0-54.0 [facility] FriscoVparipbZJBWKAMPFR2126-11-64 05:53:00 Test Item Value Reference Range Interpretation Comments MCV (test code = MCV) 83.7 80.0-94.0 [facility] HospitalOzgesglPKKQUSNVSI7172-08-74 05:53:00 Test Item Value Reference Range Interpretation Comments MCH (test code = MCH) 28.0 pg 27.0-31.0 [facility] HospitalGvjwbzpTWDMGNABVF0865-53-22 05:53:00 Test Item Value Reference Range Interpretation Comments MCHC (test code = MCHC) 33.5 32.0-36.0 [facility] HospitalWeatuzxVTSSIVFFIT7039-65-29 05:53:00 Test Item Value Reference Range Interpretation Comments RDW (test code = RDW) 15.3 11.5-14.5 [facility]rapevineGnrrpbbOPFMYZKNCZ0949-62-38 05:53:00 Test Item Value Reference Range Interpretation Comments Platelet (test code = Platelet) 279 133-450 [facility] HospitalYisqmdvLENIMREIWS7919-03-97 05:53:00 Test Item Value Reference Range Interpretation Comments MPV (test code = MPV) 7.5 7.4-10.4 [facility]CARDIAC [id number] 05:53:00 Test Item Value Reference Range Interpretation Comments Troponin-I (test code no gt See_Comment [Auto mated message] The = Troponin-I) system which g enerated this result transmit keon reference range : <=0.40. The reference r gayle was not used to interpr et this result as evan l/abnormal. [facility] [id number] 05:53:00 Test Item Value Reference Range Interpretation Comments Lactic Acid Lvl (test code = Lactic 1.3 0.5-2.2 Acid Lvl) [facility]2019-08-10 05:53:00 Test Item Value Reference Range Interpretation Comments Glucose Lvl (test code = Glucose Lvl) 101 70-99 [facility]2019-08-10 05:53:00 Test Item Value Reference Range Interpretation Comments BUN (test code = BUN) 19 7-22 [facility]2019-08-10 05:53:00 Test Item Value Reference Range Interpretation Comments Creatinine Lvl (test code = Creatinine 0.92 0.50-1.40 Lvl) [facility]2019-08-10 05:53:00 Test Item Value Reference Range Interpretation Comments Sodium Lvl (test code = Sodium Lvl) 140 135-145 [facility]2019-08-10 05:53:00 Test Item Value Reference Range Interpretation Comments Potassium Lvl (test code = Potassium 3.5 3.5-5.1 Lvl) [facility]2019-08-10 05:53:00 Test Item Value Reference Range Interpretation Comments Chloride Lvl (test code = Chloride Lvl) 103 95-109 [facility]2019-08-10 05:53:00 Test Item Value Reference Range Interpretation Comments CO2 (test code = CO2) 29 24-32 [facility]2019-08-10 05:53:00 Test Item Value Reference Range Interpretation Comments Calcium Lvl (test code = Calcium Lvl) 8.7 8.5-10.5 [facility]2019-08-10 05:53:00 Test Item Value Reference Range Interpretation Comments eGFR (test code = eGFR) 105 [facility]2019-08-10 05:53:00 Test Item Value Reference Range Interpretation Comments AGAP (test code = AGAP) 11.5 10.0-20.0 [facility]2019-08-10 05:53:00 Test Item Value Reference Range Interpretation Comments Magnesium Lvl (test code = Magnesium 2.8 1.8-2.4 Lvl) [facility]2019-08-10 05:53:00 Test Item Value Reference Range Interpretation Comments Phosphorus (test code = Phosphorus) 2.4 2.5-4.5 [facility]iscoMxzmjjvYOZIGREQHL9654-22-56 05:53:00 Test Item Value Reference Range Interpretation Comments Segs (test code = Segs) 51.2 45.0-75.0 [facility] FriscoImnshgbBLLNHMJXCB1933-91-42 05:53:00 Test Item Value Reference Range Interpretation Comments Lymphocytes (test code = Lymphocytes) 38.9 20.0-40.0 [facility] FriscoTbqxubrZFMDXZQAFP2028-12-28 05:53:00 Test Item Value Reference Range Interpretation Comments Monocytes (test code = Monocytes) 8.6 2.0-12.0 [facility] FriscoXmlraaxBCUURRHRQT0674-37-60 05:53:00 Test Item Value Reference Range Interpretation Comments Eosinophils (test code = 0.3 See_Comment [A utomated message] The Eosinophils) system which ge nerated this result tra nsmitted reference range : <=4.0. The reference r gayle was not used to int erpret this result as normal/abnormal . [facility] FriscoVypabkmDEYHRDOVUB9062-15-31 05:53:00 Test Item Value Reference Range Interpretation Comments Basophils (test code = 1.0 See_Comment [Aut omated message] The Basophils) system which ge nerated this result tra nsmitted reference range : <=1.0. The reference r gayle was not used to int erpret this result as normal/abnormal . [facility] FriscoAlzishbIQZLAMKXNL3212-56-10 05:53:00 Test Item Value Reference Range Interpretation Comments Neutrophils # (test code = Neutrophils 5.6 1.5-8.1 #) [facility] FriscoCwkgtprIRTWKKDZNL2574-21-72 05:53:00 Test Item Value Reference Range Interpretation Comments Lymphocytes # (test code = Lymphocytes 4.3 1.0-5.5 #) [facility] FriscoRctqaidKWWMDWDKXD9297-16-81 05:53:00 Test Item Value Reference Range Interpretation Comments Monocytes # (test code 0.9 See_Comment [Aut omated message] The = Monocytes #) system which generated this result tra nsmitted reference range : <=0.8. The reference r gayle was not used to int erpret this result as normal/abnormal . [facility] FriscoIqugybkGZQSIKBIFT9319-08-65 05:53:00 Test Item Value Reference Range Interpretation Comments Basophils # (test code 0.1 See_Comment [Aut omated message] The = Basophils #) system which generated this result tra nsmitted reference range : <=0.2. The reference r gayle was not used to int erpret this result as normal/abnormal . [facility] FriscoFnjpuhlDPMRHVDTXN3672-74-93 05:53:00 Test Item Value Reference Range Interpretation Comments WBC (test code = WBC) 11.0 3.7-10.4 [facility] FriscoVtzpkwmDREMMJGOXZ7003-40-31 05:53:00 Test Item Value Reference Range Interpretation Comments RBC (test code = RBC) 4.46 4.70-6.10 [facility] FriscoIdpgxzxPVCKYNISMM4929-96-72 05:53:00 Test Item Value Reference Range Interpretation Comments Hgb (test code = Hgb) 12.5 14.0-18.0 [facility] FriscoMlrsiyaEYBWMSNVED4659-00-14 05:53:00 Test Item Value Reference Range Interpretation Comments Hct (test code = Hct) 37.3 42.0-54.0 [facility] HospitalOyvpzsbWMUFPEJVNM6537-62-84 05:53:00 Test Item Value Reference Range Interpretation Comments MCV (test code = MCV) 83.7 80.0-94.0 [facility] HospitalEwllhxeJQQFQBZNET9037-56-31 05:53:00 Test Item Value Reference Range Interpretation Comments MCH (test code = MCH) 28.0 pg 27.0-31.0 [facility] HospitalKxyryrbYPHPNDPORD3571-69-66 05:53:00 Test Item Value Reference Range Interpretation Comments MCHC (test code = MCHC) 33.5 32.0-36.0 [facility] HospitalFwywawlFFZFUXNAAT5997-32-48 05:53:00 Test Item Value Reference Range Interpretation Comments RDW (test code = RDW) 15.3 11.5-14.5 [facility] HospitalTpnpqzuOFLLYSIPHD0868-38-04 05:53:00 Test Item Value Reference Range Interpretation Comments Platelet (test code = Platelet) 279 133-450 [facility] HospitalJvrpexqJSYMQRVPUJ6656-81-87 05:53:00 Test Item Value Reference Range Interpretation Comments MPV (test code = MPV) 7.5 7.4-10.4 [facility] ZHHOGQZ2135-75-36 05:53:00 Test Item Value Reference Range Interpretation Comments Troponin-I (test code no gt See_Comment [Auto mated message] The = Troponin-I) system which g enerated this result transmit keon reference range : <=0.40. The reference r gayle was not used to interpr et this result as evan l/abnormal. [facility]2019-08-10 05:53:00 Test Item Value Reference Range Interpretation Comments Lactic Acid Lvl (test code = Lactic 1.3 0.5-2.2 Acid Lvl) [facility]2019-08-10 05:53:00 Test Item Value Reference Range Interpretation Comments Glucose Lvl (test code = Glucose Lvl) 101 70-99 [facility]2019-08-10 05:53:00 Test Item Value Reference Range Interpretation Comments BUN (test code = BUN) 19 7-22 [facility]2019-08-10 05:53:00 Test Item Value Reference Range Interpretation Comments Creatinine Lvl (test code = Creatinine 0.92 0.50-1.40 Lvl) [facility]2019-08-10 05:53:00 Test Item Value Reference Range Interpretation Comments Sodium Lvl (test code = Sodium Lvl) 140 135-145 [facility]2019-08-10 05:53:00 Test Item Value Reference Range Interpretation Comments Potassium Lvl (test code = Potassium 3.5 3.5-5.1 Lvl) [facility]2019-08-10 05:53:00 Test Item Value Reference Range Interpretation Comments Chloride Lvl (test code = Chloride Lvl) 103 95-109 [facility]2019-08-10 05:53:00 Test Item Value Reference Range Interpretation Comments CO2 (test code = CO2) 29 24-32 [facility]2019-08-10 05:53:00 Test Item Value Reference Range Interpretation Comments Calcium Lvl (test code = Calcium Lvl) 8.7 8.5-10.5 [facility]2019-08-10 05:53:00 Test Item Value Reference Range Interpretation Comments eGFR (test code = eGFR) 105 [facility]2019-08-10 05:53:00 Test Item Value Reference Range Interpretation Comments AGAP (test code = AGAP) 11.5 10.0-20.0 [facility]2019-08-10 05:53:00 Test Item Value Reference Range Interpretation Comments Magnesium Lvl (test code = Magnesium 2.8 1.8-2.4 Lvl) [facility]2019-08-10 05:53:00 Test Item Value Reference Range Interpretation Comments Phosphorus (test code = Phosphorus) 2.4 2.5-4.5 [facility] FriscoMifuvpvVPGJKNAMCV5392-92-94 05:53:00 Test Item Value Reference Range Interpretation Comments Segs (test code = Segs) 51.2 45.0-75.0 [facility] FriscoJjfldmlZQUHIJQWVL2735-18-63 05:53:00 Test Item Value Reference Range Interpretation Comments Lymphocytes (test code = Lymphocytes) 38.9 20.0-40.0 [facility] FriscoCdyooqqWJUQLGFOQQ3144-80-15 05:53:00 Test Item Value Reference Range Interpretation Comments Monocytes (test code = Monocytes) 8.6 2.0-12.0 [facility] FriscoWkrvgkfBUZAHLQQQL4831-70-44 05:53:00 Test Item Value Reference Range Interpretation Comments Eosinophils (test code = 0.3 See_Comment [A utomated message] The Eosinophils) system which ge nerated this result tra nsmitted reference range : <=4.0. The reference r gayle was not used to int erpret this result as normal/abnormal . [facility] FriscoXuwyjutPSIYKFYROC7085-87-44 05:53:00 Test Item Value Reference Range Interpretation Comments Basophils (test code = 1.0 See_Comment [Aut omated message] The Basophils) system which ge nerated this result tra nsmitted reference range : <=1.0. The reference r gayle was not used to int erpret this result as normal/abnormal . [facility] FriscoDvkgzkmSOXKJYLEBQ6765-82-86 05:53:00 Test Item Value Reference Range Interpretation Comments Neutrophils # (test code = Neutrophils 5.6 1.5-8.1 #) [facility] FriscoCawamdtQMPNOUBNLG1384-81-57 05:53:00 Test Item Value Reference Range Interpretation Comments Lymphocytes # (test code = Lymphocytes 4.3 1.0-5.5 #) [facility] FriscoQouyjrbPDIPNJHFOZ5207-30-11 05:53:00 Test Item Value Reference Range Interpretation Comments Monocytes # (test code 0.9 See_Comment [Aut omated message] The = Monocytes #) system which generated this result tra nsmitted reference range : <=0.8. The reference r gayle was not used to int erpret this result as normal/abnormal . [facility] FriscoVjyeskmCOIMVQQAPO1954-99-07 05:53:00 Test Item Value Reference Range Interpretation Comments Basophils # (test code 0.1 See_Comment [Aut omated message] The = Basophils #) system which generated this result tra nsmitted reference range : <=0.2. The reference r gayle was not used to int erpret this result as normal/abnormal . [facility] FriscoQigwizpEXMBDGXBDP0647-94-40 05:53:00 Test Item Value Reference Range Interpretation Comments WBC (test code = WBC) 11.0 3.7-10.4 [facility] FriscoNirvvhuDGXRTSOYKI6742-23-93 05:53:00 Test Item Value Reference Range Interpretation Comments RBC (test code = RBC) 4.46 4.70-6.10 [facility] FriscoGsefsfpJOOODAPYEY7960-80-74 05:53:00 Test Item Value Reference Range Interpretation Comments Hgb (test code = Hgb) 12.5 14.0-18.0 [facility] HospitalLbpfnftOZUEBXDUTJ6657-52-53 05:53:00 Test Item Value Reference Range Interpretation Comments Hct (test code = Hct) 37.3 42.0-54.0 [facility]vineVfglhtoSKOKMJPESS2342-72-36 05:53:00 Test Item Value Reference Range Interpretation Comments MCV (test code = MCV) 83.7 80.0-94.0 [facility] GrapevineRjxcolcXFVOXJACWT5775-02-96 05:53:00 Test Item Value Reference Range Interpretation Comments MCH (test code = MCH) 28.0 pg 27.0-31.0 [facility] GrapevineNwhxygeFTJNUZBESE3816-35-44 05:53:00 Test Item Value Reference Range Interpretation Comments MCHC (test code = MCHC) 33.5 32.0-36.0 [facility] GrapevineWmfytfaCCXRHICVUW2532-78-09 05:53:00 Test Item Value Reference Range Interpretation Comments RDW (test code = RDW) 15.3 11.5-14.5 [facility] GrapevineQpudopvBDWGBRQRKV8782-19-52 05:53:00 Test Item Value Reference Range Interpretation Comments Platelet (test code = Platelet) 279 133-450 [facility] GrapevineIwyvczqIILBCBCHUQ1083-70-51 05:53:00 Test Item Value Reference Range Interpretation Comments MPV (test code = MPV) 7.5 7.4-10.4 [facility] HospitalBACTERIAL - [id number] 03:05:00 Test Item Value Reference Range Interpretation Comments MRSA by PCR (test Negative (12/01/18 10:05 code = MRSA by PCR) PM) [facility]vineannDR[facility] [id number] 03:05:00 Test Item Value Reference Range Interpretation Comments U Amph Scr (test code Negative *NA*(12/01/18 = U Amph Scr) 10:05 PM) [facility]vineannDR[facility] BGPAPK0895-50-00 03:05:00 Test Item Value Reference Range Interpretation Comments U Bethanie Scr (test code Negative *NA*(12/01/18 = U Bethanie Scr) 10:05 PM) [facility]vineannDR[facility] [id number] 03:05:00 Test Item Value Reference Range Interpretation Comments U Benzodiaz Scr (test Negative *NA*(12/01/18 code = U Benzodiaz Scr) 10:05 PM) [facility]vineannDR[facility] PYPZLY8081-42-20 03:05:00 Test Item Value Reference Range Interpretation Comments U Cocaine Scr (test Negative *NA*(12/01/18 code = U Cocaine Scr) 10:05 PM) [facility] [id number] 03:05:00 Test Item Value Reference Range Interpretation Comments U Cannab Scr (test Positive *ABN*(12/01/18 code = U Cannab Scr) 10:05 PM) [facility] [id number] 03:05:00 Test Item Value Reference Range Interpretation Comments U Opiate Scr (test Positive *ABN*(12/01/18 code = U Opiate Scr) 10:05 PM) [facility] [id number] 03:05:00 Test Item Value Reference Range Interpretation Comments U Phencyclidine Scr (test Negative *NA*(12/01/18 code = U Phencyclidine 10:05 PM) Scr) [facility] [id number] 03:05:00 Test Item Value Reference Range Interpretation Comments UDS Note (test code = See Note (12/01/18 10:05 UDS Note) PM) [facility] [id number] 03:05:00 Test Item Value Reference Range Interpretation Comments UA Color (test code = Yellow *NA*(12/01/18 UA Color) 10:05 PM) [facility] [id number] 03:05:00 Test Item Value Reference Range Interpretation Comments UA Turbidity (test code = Clear (12/01/18 10:05 UA Turbidity) PM) [facility] [id number] 03:05:00 Test Item Value Reference Range Interpretation Comments UA Spec Grav (test code = UA Spec 1.036 1 Grav) [facility] [id number] 03:05:00 Test Item Value Reference Range Interpretation Comments UA pH (test code = UA pH) 5.0 1 5.0-8.0 [facility] [id number] 03:05:00 Test Item Value Reference Range Interpretation Comments UA Protein (test code = UA Negative mg/dL Protein) [facility] [id number] 03:05:00 Test Item Value Reference Range Interpretation Comments UA Glucose (test code = UA Negative mg/dL Glucose) [facility] [id number] 03:05:00 Test Item Value Reference Range Interpretation Comments UA Ketones (test code = UA Negative mg/dL Ketones) [facility] [id number] 03:05:00 Test Item Value Reference Range Interpretation Comments UA Bili (test code = Negative *NA*(12/01/18 UA Bili) 10:05 PM) [facility] [id number] 03:05:00 Test Item Value Reference Range Interpretation Comments UA Blood (test code = Small *ABN*(12/01/18 UA Blood) 10:05 PM) [facility] [id number] 03:05:00 Test Item Value Reference Range Interpretation Comments UA Urobilinogen (test code = UA no gt 0.1-1.0 Urobilinogen) [facility] [id number] 03:05:00 Test Item Value Reference Range Interpretation Comments UA Nitrite (test code Negative (12/01/18 10:05 = UA Nitrite) PM) [facility] [id number] 03:05:00 Test Item Value Reference Range Interpretation Comments UA Leuk Est (test Negative (12/01/18 10:05 code = UA Leuk Est) PM) [facility] [id number] 03:05:00 Test Item Value Reference Range Interpretation Comments UA Sq Epi (test code = UA Sq Occasional /LPF Epi) [facility] [id number] 03:05:00 Test Item Value Reference Range Interpretation Comments UA WBC (test code = 1 See_Comment [Automa keon message] The UA WBC) system which ge nerated this result transmit keon reference range : <=5. The reference range was not used to interpr et this result as evan l/abnormal. [facility] [id number] 03:05:00 Test Item Value Reference Range Interpretation Comments UA RBC (test code = 2 See_Comment [Automa keon message] The UA RBC) system which ge nerated this result transmit keon reference range : <=2. The reference range was not used to interpr et this result as evan l/abnormal. [facility] [id number] 03:05:00 Test Item Value Reference Range Interpretation Comments UA Mucus (test code = UA Mucus) Few /LPF [facility] - [id number] 03:05:00 Test Item Value Reference Range Interpretation Comments MRSA by PCR (test Negative (12/01/18 10:05 code = MRSA by PCR) PM) [facility] [id number] 03:05:00 Test Item Value Reference Range Interpretation Comments U Amph Scr (test code Negative *NA*(12/01/18 = U Amph Scr) 10:05 PM) [facility] [id number] 03:05:00 Test Item Value Reference Range Interpretation Comments U Bethanie Scr (test code Negative *NA*(12/01/18 = U Bethanie Scr) 10:05 PM) [facility] [id number] 03:05:00 Test Item Value Reference Range Interpretation Comments U Benzodiaz Scr (test Negative *NA*(12/01/18 code = U Benzodiaz Scr) 10:05 PM) [facility] [id number] 03:05:00 Test Item Value Reference Range Interpretation Comments U Cocaine Scr (test Negative *NA*(12/01/18 code = U Cocaine Scr) 10:05 PM) [facility] [id number] 03:05:00 Test Item Value Reference Range Interpretation Comments U Cannab Scr (test Positive *ABN*(12/01/18 code = U Cannab Scr) 10:05 PM) [facility] [id number] 03:05:00 Test Item Value Reference Range Interpretation Comments U Opiate Scr (test Positive *ABN*(12/01/18 code = U Opiate Scr) 10:05 PM) [facility] [id number] 03:05:00 Test Item Value Reference Range Interpretation Comments U Phencyclidine Scr (test Negative *NA*(12/01/18 code = U Phencyclidine 10:05 PM) Scr) [facility] [id number] 03:05:00 Test Item Value Reference Range Interpretation Comments UDS Note (test code = See Note (12/01/18 10:05 UDS Note) PM) [facility] [id number] 03:05:00 Test Item Value Reference Range Interpretation Comments UA Color (test code = Yellow *NA*(12/01/18 UA Color) 10:05 PM) [facility] [id number] 03:05:00 Test Item Value Reference Range Interpretation Comments UA Turbidity (test code = Clear (12/01/18 10:05 UA Turbidity) PM) [facility] AND [id number] 03:05:00 Test Item Value Reference Range Interpretation Comments UA Spec Grav (test code = UA Spec 1.036 1 Grav) [facility] AND [id number] 03:05:00 Test Item Value Reference Range Interpretation Comments UA pH (test code = UA pH) 5.0 1 5.0-8.0 [facility] AND [id number] 03:05:00 Test Item Value Reference Range Interpretation Comments UA Protein (test code = UA Negative mg/dL Protein) [facility] AND [id number] 03:05:00 Test Item Value Reference Range Interpretation Comments UA Glucose (test code = UA Negative mg/dL Glucose) [facility] AND [id number] 03:05:00 Test Item Value Reference Range Interpretation Comments UA Ketones (test code = UA Negative mg/dL Ketones) [facility] AND [id number] 03:05:00 Test Item Value Reference Range Interpretation Comments UA Bili (test code = Negative *NA*(12/01/18 UA Bili) 10:05 PM) [facility] AND [id number] 03:05:00 Test Item Value Reference Range Interpretation Comments UA Blood (test code = Small *ABN*(12/01/18 UA Blood) 10:05 PM) [facility] AND [id number] 03:05:00 Test Item Value Reference Range Interpretation Comments UA Urobilinogen (test code = UA no gt 0.1-1.0 Urobilinogen) [facility] AND [id number] 03:05:00 Test Item Value Reference Range Interpretation Comments UA Nitrite (test code Negative (12/01/18 10:05 = UA Nitrite) PM) [facility] AND [id number] 03:05:00 Test Item Value Reference Range Interpretation Comments UA Leuk Est (test Negative (12/01/18 10:05 code = UA Leuk Est) PM) [facility] AND [id number] 03:05:00 Test Item Value Reference Range Interpretation Comments UA Sq Epi (test code = UA Sq Occasional /LPF Epi) [facility] [id number] 03:05:00 Test Item Value Reference Range Interpretation Comments UA WBC (test code = 1 See_Comment [Automa keon message] The UA WBC) system which ge nerated this result transmit keon reference range : <=5. The reference range was not used to interpr et this result as evan l/abnormal. [facility] [id number] 03:05:00 Test Item Value Reference Range Interpretation Comments UA RBC (test code = 2 See_Comment [Automa keon message] The UA RBC) system which ge nerated this result transmit keon reference range : <=2. The reference range was not used to interpr et this result as evan l/abnormal. [facility] [id number] 03:05:00 Test Item Value Reference Range Interpretation Comments UA Mucus (test code = UA Mucus) Few /LPF [facility] - [id number] 03:05:00 Test Item Value Reference Range Interpretation Comments MRSA by PCR (test Negative (12/01/18 10:05 code = MRSA by PCR) PM) [facility] [id number] 03:05:00 Test Item Value Reference Range Interpretation Comments U Amph Scr (test code Negative *NA*(12/01/18 = U Amph Scr) 10:05 PM) [facility] [id number] 03:05:00 Test Item Value Reference Range Interpretation Comments U Bethanie Scr (test code Negative *NA*(12/01/18 = U Bethanie Scr) 10:05 PM) [facility] [id number] 03:05:00 Test Item Value Reference Range Interpretation Comments U Benzodiaz Scr (test Negative *NA*(12/01/18 code = U Benzodiaz Scr) 10:05 PM) [facility] [id number] 03:05:00 Test Item Value Reference Range Interpretation Comments U Cocaine Scr (test Negative *NA*(12/01/18 code = U Cocaine Scr) 10:05 PM) [facility] [id number] 03:05:00 Test Item Value Reference Range Interpretation Comments U Cannab Scr (test Positive *ABN*(12/01/18 code = U Cannab Scr) 10:05 PM) [facility] [id number] 03:05:00 Test Item Value Reference Range Interpretation Comments U Opiate Scr (test Positive *ABN*(12/01/18 code = U Opiate Scr) 10:05 PM) [facility] [id number] 03:05:00 Test Item Value Reference Range Interpretation Comments U Phencyclidine Scr (test Negative *NA*(12/01/18 code = U Phencyclidine 10:05 PM) Scr) [facility] [id number] 03:05:00 Test Item Value Reference Range Interpretation Comments UDS Note (test code = See Note (12/01/18 10:05 UDS Note) PM) [facility] [id number] 03:05:00 Test Item Value Reference Range Interpretation Comments UA Color (test code = Yellow *NA*(12/01/18 UA Color) 10:05 PM) [facility] [id number] 03:05:00 Test Item Value Reference Range Interpretation Comments UA Turbidity (test code = Clear (12/01/18 10:05 UA Turbidity) PM) [facility] [id number] 03:05:00 Test Item Value Reference Range Interpretation Comments UA Spec Grav (test code = UA Spec 1.036 1 Grav) [facility] [id number] 03:05:00 Test Item Value Reference Range Interpretation Comments UA pH (test code = UA pH) 5.0 1 5.0-8.0 [facility] [id number] 03:05:00 Test Item Value Reference Range Interpretation Comments UA Protein (test code = UA Negative mg/dL Protein) [facility] [id number] 03:05:00 Test Item Value Reference Range Interpretation Comments UA Glucose (test code = UA Negative mg/dL Glucose) [facility] [id number] 03:05:00 Test Item Value Reference Range Interpretation Comments UA Ketones (test code = UA Negative mg/dL Ketones) [facility] [id number] 03:05:00 Test Item Value Reference Range Interpretation Comments UA Bili (test code = Negative *NA*(12/01/18 UA Bili) 10:05 PM) [facility] [id number] 03:05:00 Test Item Value Reference Range Interpretation Comments UA Blood (test code = Small *ABN*(12/01/18 UA Blood) 10:05 PM) [facility] [id number] 03:05:00 Test Item Value Reference Range Interpretation Comments UA Urobilinogen (test code = UA no gt 0.1-1.0 Urobilinogen) [facility] [id number] 03:05:00 Test Item Value Reference Range Interpretation Comments UA Nitrite (test code Negative (12/01/18 10:05 = UA Nitrite) PM) [facility] [id number] 03:05:00 Test Item Value Reference Range Interpretation Comments UA Leuk Est (test Negative (12/01/18 10:05 code = UA Leuk Est) PM) [facility] [id number] 03:05:00 Test Item Value Reference Range Interpretation Comments UA Sq Epi (test code = UA Sq Occasional /LPF Epi) [facility] [id number] 03:05:00 Test Item Value Reference Range Interpretation Comments UA WBC (test code = 1 See_Comment [Automa keon message] The UA WBC) system which ge nerated this result transmit keon reference range : <=5. The reference range was not used to interpr et this result as evan l/abnormal. [facility] [id number] 03:05:00 Test Item Value Reference Range Interpretation Comments UA RBC (test code = 2 See_Comment [Automa keon message] The UA RBC) system which ge nerated this result transmit keon reference range : <=2. The reference range was not used to interpr et this result as evan l/abnormal. [facility] [id number] 03:05:00 Test Item Value Reference Range Interpretation Comments UA Mucus (test code = UA Mucus) Few /LPF [facility] [id number] 03:05:00 Test Item Value Reference Range Interpretation Comments MRSA by PCR (test Negative (12/01/18 10:05 code = MRSA by PCR) PM) [facility] [id number] 03:05:00 Test Item Value Reference Range Interpretation Comments U Amph Scr (test code Negative *NA*(12/01/18 = U Amph Scr) 10:05 PM) [facility] [id number] 03:05:00 Test Item Value Reference Range Interpretation Comments U Bethanie Scr (test code Negative *NA*(12/01/18 = U Bethanie Scr) 10:05 PM) [facility] [id number] 03:05:00 Test Item Value Reference Range Interpretation Comments U Benzodiaz Scr (test Negative *NA*(12/01/18 code = U Benzodiaz Scr) 10:05 PM) [facility] [id number] 03:05:00 Test Item Value Reference Range Interpretation Comments U Cocaine Scr (test Negative *NA*(12/01/18 code = U Cocaine Scr) 10:05 PM) [facility] [id number] 03:05:00 Test Item Value Reference Range Interpretation Comments U Cannab Scr (test Positive *ABN*(12/01/18 code = U Cannab Scr) 10:05 PM) [facility] [id number] 03:05:00 Test Item Value Reference Range Interpretation Comments U Opiate Scr (test Positive *ABN*(12/01/18 code = U Opiate Scr) 10:05 PM) [facility] [id number] 03:05:00 Test Item Value Reference Range Interpretation Comments U Phencyclidine Scr (test Negative *NA*(12/01/18 code = U Phencyclidine 10:05 PM) Scr) [facility] [id number] 03:05:00 Test Item Value Reference Range Interpretation Comments UDS Note (test code = See Note (12/01/18 10:05 UDS Note) PM) [facility] [id number] 03:05:00 Test Item Value Reference Range Interpretation Comments UA Color (test code = Yellow *NA*(12/01/18 UA Color) 10:05 PM) [facility] [id number] 03:05:00 Test Item Value Reference Range Interpretation Comments UA Turbidity (test code = Clear (12/01/18 10:05 UA Turbidity) PM) [facility] [id number] 03:05:00 Test Item Value Reference Range Interpretation Comments UA Spec Grav (test code = UA Spec 1.036 1 Grav) [facility] [id number] 03:05:00 Test Item Value Reference Range Interpretation Comments UA pH (test code = UA pH) 5.0 1 5.0-8.0 [facility] AND [id number] 03:05:00 Test Item Value Reference Range Interpretation Comments UA Protein (test code = UA Negative mg/dL Protein) [facility] AND [id number] 03:05:00 Test Item Value Reference Range Interpretation Comments UA Glucose (test code = UA Negative mg/dL Glucose) [facility] AND [id number] 03:05:00 Test Item Value Reference Range Interpretation Comments UA Ketones (test code = UA Negative mg/dL Ketones) [facility] AND [id number] 03:05:00 Test Item Value Reference Range Interpretation Comments UA Bili (test code = Negative *NA*(12/01/18 UA Bili) 10:05 PM) [facility] AND [id number] 03:05:00 Test Item Value Reference Range Interpretation Comments UA Blood (test code = Small *ABN*(12/01/18 UA Blood) 10:05 PM) [facility] AND [id number] 03:05:00 Test Item Value Reference Range Interpretation Comments UA Urobilinogen (test code = UA no gt 0.1-1.0 Urobilinogen) [facility] AND [id number] 03:05:00 Test Item Value Reference Range Interpretation Comments UA Nitrite (test code Negative (12/01/18 10:05 = UA Nitrite) PM) [facility] AND [id number] 03:05:00 Test Item Value Reference Range Interpretation Comments UA Leuk Est (test Negative (12/01/18 10:05 code = UA Leuk Est) PM) [facility] AND [id number] 03:05:00 Test Item Value Reference Range Interpretation Comments UA Sq Epi (test code = UA Sq Occasional /LPF Epi) [facility] AND [id number] 03:05:00 Test Item Value Reference Range Interpretation Comments UA WBC (test code = 1 See_Comment [Automa keon message] The UA WBC) system which ge nerated this result transmit keon reference range : <=5. The reference range was not used to interpr et this result as evan l/abnormal. [facility] AND [id number] 03:05:00 Test Item Value Reference Range Interpretation Comments UA RBC (test code = 2 See_Comment [Automa keon message] The UA RBC) system which ge nerated this result transmit keon reference range : <=2. The reference range was not used to interpr et this result as evan l/abnormal. [facility] AND [id number] 03:05:00 Test Item Value Reference Range Interpretation Comments UA Mucus (test code = UA Mucus) Few /LPF [facility]vine[facility]iAps2019-08-09 21:40:00 Test Item Value Reference Range Interpretation Comments Troponin-I (test code no gt See_Comment [Auto mated message] The = Troponin-I) system which g enerated this result transmit keon reference range : <=0.40. The reference r gayle was not used to interpr et this result as evan l/abnormal. [facility]2019-08-09 21:40:00 Test Item Value Reference Range Interpretation Comments Troponin-I (test code no gt See_Comment [Auto mated message] The = Troponin-I) system which g enerated this result transmit keon reference range : <=0.40. The reference r gayle was not used to interpr et this result as evan l/abnormal. [facility]2019-08-09 21:40:00 Test Item Value Reference Range Interpretation Comments Troponin-I (test code no gt See_Comment [Auto mated message] The = Troponin-I) system which g enerated this result transmit keon reference range : <=0.40. The reference r gayle was not used to interpr et this result as evan l/abnormal. [facility]2019-08-09 21:40:00 Test Item Value Reference Range Interpretation Comments Troponin-I (test code no gt See_Comment [Auto mated message] The = Troponin-I) system which g enerated this result transmit keon reference range : <=0.40. The reference r gayle was not used to interpr et this result as evan l/abnormal. [facility]2019-08-09 21:18:00 Test Item Value Reference Range Interpretation Comments CK MB (test code = CK MB) 0.7 0.5-3.6 [facility] [employer] [id number] 21:18:00 Test Item Value Reference Range Interpretation Comments CK MB Index (test 0.3 1 See_Comment [Automate d message] The code = CK MB Index) system w [facility] generated this result transmit keon reference range : <=2.5. The reference range was not used to interpr et this result as evan l/abnormal. [facility] [employer] [id number] 21:18:00 Test Item Value Reference Range Interpretation Comments Total CK (test code = Total CK) 211 12-191 [facility]vine[facility] [id number] 21:18:00 Test Item Value Reference Range Interpretation Comments Troponin-I (test code no gt See_Comment [Auto mated message] The = Troponin-I) system which g enerated this result transmit keon reference range : <=0.40. The reference r gayle was not used to interpr et this result as evan l/abnormal. [facility] [employer] [id number] 21:18:00 Test Item Value Reference Range Interpretation Comments Lactic Acid Lvl (test code = Lactic 2.1 0.5-2.2 Acid Lvl) [facility] [employer] [id number] 21:18:00 Test Item Value Reference Range Interpretation Comments Lipase Lvl (test code = Lipase Lvl) 43 73-393 [facility] [employer] [id number] 21:18:00 Test Item Value Reference Range Interpretation Comments Total Protein (test code = Total 7.9 6.4-8.4 Protein) [facility] [employer] [id number] 21:18:00 Test Item Value Reference Range Interpretation Comments Albumin Lvl (test code = Albumin Lvl) 3.7 3.5-5.0 [facility] [employer] [id number] 21:18:00 Test Item Value Reference Range Interpretation Comments Globulin (test code = Globulin) 4.2 2.7-4.2 [facility] [employer] [id number] 21:18:00 Test Item Value Reference Range Interpretation Comments A/G Ratio (test code = A/G Ratio) 0.9 1 0.7-1.6 [facility] [employer] [id number] 21:18:00 Test Item Value Reference Range Interpretation Comments ALT (test code = ALT) 20 See_Comment [Auto mated message] The system which ge nerated this result transmit keon reference range : <=65. The reference range was not used to interpr et this result as evan l/abnormal. [facility]2019-08-09 21:18:00 Test Item Value Reference Range Interpretation Comments AST (test code = AST) 20 See_Comment [Auto mated message] The system which ge nerated this result transmit keon reference range : <=37. The reference range was not used to interpr et this result as evan l/abnormal. [facility]2019-08-09 21:18:00 Test Item Value Reference Range Interpretation Comments Alk Phos (test code = Alk Phos) 84 39-136 [facility]2019-08-09 21:18:00 Test Item Value Reference Range Interpretation Comments Bili Total (test code = Bili Total) 0.6 0.2-1.3 [facility]2019-08-09 21:18:00 Test Item Value Reference Range Interpretation Comments Bili Direct (test code 0.1 See_Comment [Aut omated message] The = Bili Direct) system which generated this result tra nsmitted reference range : <=0.3. The reference r gayle was not used to int erpret this result as evan l/abnormal. [facility]2019-08-09 21:18:00 Test Item Value Reference Range Interpretation Comments Bili Indirect (test 0.5 See_Comment [Automa keon message] The code = Bili Indirect) system which generated this result tra nsmitted reference range : <=1.0. The reference r gayle was not used to int erpret this result as normal/abnormal . [id number] 21:18:00 Test Item Value Reference Range Interpretation Comments Trig (test code = Trig) 116 [facility] [id number] 21:18:00 Test Item Value Reference Range Interpretation Comments Chol (test code = Chol) 187 [facility] [id number] 21:18:00 Test Item Value Reference Range Interpretation Comments HDL (test code = HDL) 30 [facility] [id number] 21:18:00 Test Item Value Reference Range Interpretation Comments LDL (Calculated) (test code = LDL 134 (Calculated)) [id number] 21:18:00 Test Item Value Reference Range Interpretation Comments VLDL (test code = VLDL) 23 1 [facility] [id number] 21:18:00 Test Item Value Reference Range Interpretation Comments CHD Risk (test code = CHD Risk) 6.23 1 4.00-7.30 [id number] 21:18:00 Test Item Value Reference Range Interpretation Comments Myoglobin (test code = Myoglobin) 58 25-72 [facility]vineannPARATHYROID [id number] 21:18:00 Test Item Value Reference Range Interpretation Comments Ca Ion WB (test code = Ca Ion WB) 0.97 1.05-1.25 [facility]vineannPARATHYROID [id number] 21:18:00 Test Item Value Reference Range Interpretation Comments Ca Norm WB (test code = Ca Norm WB) 1.05 1.05-1.25 [facility] [id number] 21:18:00 Test Item Value Reference Range Interpretation Comments Hgb A1C (test code = Hgb A1C) 5.5 [facility]vineannCARDIAC [id number] 21:18:00 Test Item Value Reference Range Interpretation Comments CK MB (test code = CK MB) 0.7 0.5-3.6 [facility]CAR[facility] [id number] 21:18:00 Test Item Value Reference Range Interpretation Comments CK MB Index (test 0.3 1 See_Comment [Automate d message] The code = CK MB Index) system w [facility] generated this result transmit keon reference range : <=2.5. The reference range was not used to interpr et this result as evan l/abnormal. [facility]annCARDIAC [id number] 21:18:00 Test Item Value Reference Range Interpretation Comments Total CK (test code = Total CK) 211 12-191 [facility]CAR[facility] [id number] 21:18:00 Test Item Value Reference Range Interpretation Comments Troponin-I (test code no gt See_Comment [Auto mated message] The = Troponin-I) system which g enerated this result transmit keon reference range : <=0.40. The reference r gayle was not used to interpr et this result as evan l/abnormal. [facility]2019-08-09 21:18:00 Test Item Value Reference Range Interpretation Comments Lactic Acid Lvl (test code = Lactic 2.1 0.5-2.2 Acid Lvl) [facility]2019-08-09 21:18:00 Test Item Value Reference Range Interpretation Comments Lipase Lvl (test code = Lipase Lvl) 43 73-393 [facility]2019-08-09 21:18:00 Test Item Value Reference Range Interpretation Comments Total Protein (test code = Total 7.9 6.4-8.4 Protein) [facility]2019-08-09 21:18:00 Test Item Value Reference Range Interpretation Comments Albumin Lvl (test code = Albumin Lvl) 3.7 3.5-5.0 [facility]2019-08-09 21:18:00 Test Item Value Reference Range Interpretation Comments Globulin (test code = Globulin) 4.2 2.7-4.2 [facility]2019-08-09 21:18:00 Test Item Value Reference Range Interpretation Comments A/G Ratio (test code = A/G Ratio) 0.9 1 0.7-1.6 [facility]2019-08-09 21:18:00 Test Item Value Reference Range Interpretation Comments ALT (test code = ALT) 20 See_Comment [Auto mated message] The system which ge nerated this result transmit keon reference range : <=65. The reference range was not used to interpr et this result as evan l/abnormal. [facility]2019-08-09 21:18:00 Test Item Value Reference Range Interpretation Comments AST (test code = AST) 20 See_Comment [Auto mated message] The system which ge nerated this result transmit keon reference range : <=37. The reference range was not used to interpr et this result as evan l/abnormal. [facility]2019-08-09 21:18:00 Test Item Value Reference Range Interpretation Comments Alk Phos (test code = Alk Phos) 84 39-136 [facility]2019-08-09 21:18:00 Test Item Value Reference Range Interpretation Comments Bili Total (test code = Bili Total) 0.6 0.2-1.3 [place] 379349-08-09 21:18:00 Test Item Value Reference Range Interpretation Comments Bili Direct (test code 0.1 See_Comment [Aut omated message] The = Bili Direct) system which generated this result tra nsmitted reference range : <=0.3. The reference r gayle was not used to int erpret this result as evan l/abnormal. [facility] [id number] 21:18:00 Test Item Value Reference Range Interpretation Comments Bili Indirect (test 0.5 See_Comment [Automa keon message] The code = Bili Indirect) system which generated this result tra nsmitted reference range : <=1.0. The reference r gayle was not used to int erpret this result as normal/abnormal . [facility] [id number] 21:18:00 Test Item Value Reference Range Interpretation Comments Trig (test code = Trig) 116 [facility] Ho[id number] 21:18:00 Test Item Value Reference Range Interpretation Comments Chol (test code = Chol) 187 [facility] HospitalRghevtcUAHJBB1217-04-61 21:18:00 Test Item Value Reference Range Interpretation Comments HDL (test code = HDL) 30 [facility] HospitalWppnrroVZTSSF0601-47-80 21:18:00 Test Item Value Reference Range Interpretation Comments LDL (Calculated) (test code = LDL 134 (Calculated)) [facility] HospitalLnpizynPFYENJ5590-72-24 21:18:00 Test Item Value Reference Range Interpretation Comments VLDL (test code = VLDL) 23 1 [facility] HospitalKripsxyXJOZSW0202-09-06 21:18:00 Test Item Value Reference Range Interpretation Comments CHD Risk (test code = CHD Risk) 6.23 1 4.00-7.30 [facility] HospitalFfryzqoHUMZOMVNX9990-73-03 21:18:00 Test Item Value Reference Range Interpretation Comments Myoglobin (test code = Myoglobin) 58 25-72 [facility]PARATHYRO[facility] [id number] 21:18:00 Test Item Value Reference Range Interpretation Comments Ca Ion WB (test code = Ca Ion WB) 0.97 1.05-1.25 [facility]vineannPARATHYROID [id number] 21:18:00 Test Item Value Reference Range Interpretation Comments Ca Norm WB (test code = Ca Norm WB) 1.05 1.05-1.25 [facility] [id number] 21:18:00 Test Item Value Reference Range Interpretation Comments Hgb A1C (test code = Hgb A1C) 5.5 [facility] HospitalCARAC [id number] 21:18:00 Test Item Value Reference Range Interpretation Comments CK MB (test code = CK MB) 0.7 0.5-3.6 [facility] [id number] 21:18:00 Test Item Value Reference Range Interpretation Comments CK MB Index (test 0.3 1 See_Comment [Automate d message] The code = CK MB Index) system w [facility] generated this result transmit keon reference range : <=2.5. The reference range was not used to interpr et this result as evan l/abnormal. [facility] HospitalPelican RenewablesLA[facility] [id number] 21:18:00 Test Item Value Reference Range Interpretation Comments Total CK (test code = Total CK) 211 12-191 [facility]Pel[facility]ablesLA[facility] [id number] 21:18:00 Test Item Value Reference Range Interpretation Comments Troponin-I (test code no gt See_Comment [Auto mated message] The = Troponin-I) system which g enerated this result transmit keon reference range : <=0.40. The reference r gayle was not used to interpr et this result as evan l/abnormal. [facility] [employer] [id number] 21:18:00 Test Item Value Reference Range Interpretation Comments Lactic Acid Lvl (test code = Lactic 2.1 0.5-2.2 Acid Lvl) [facility] [id number] 21:18:00 Test Item Value Reference Range Interpretation Comments Lipase Lvl (test code = Lipase Lvl) 43 73-393 [facility] [id number] 21:18:00 Test Item Value Reference Range Interpretation Comments Total Protein (test code = Total 7.9 6.4-8.4 Protein) [facility] [employer] [id number] 21:18:00 Test Item Value Reference Range Interpretation Comments Albumin Lvl (test code = Albumin Lvl) 3.7 3.5-5.0 [facility] [employer] [id number] 21:18:00 Test Item Value Reference Range Interpretation Comments Globulin (test code = Globulin) 4.2 2.7-4.2 [place] 379349-08-09 21:18:00 Test Item Value Reference Range Interpretation Comments A/G Ratio (test code = A/G Ratio) 0.9 1 0.7-1.6 [place] 379349-08-09 21:18:00 Test Item Value Reference Range Interpretation Comments ALT (test code = ALT) 20 See_Comment [Auto mated message] The system which ge nerated this result transmit keon reference range : <=65. The reference range was not used to interpr et this result as evan l/abnormal. [place] 379349-08-09 21:18:00 Test Item Value Reference Range Interpretation Comments AST (test code = AST) 20 See_Comment [Auto mated message] The system which ge nerated this result transmit keon reference range : <=37. The reference range was not used to interpr et this result as evan l/abnormal. [place] 379349-08-09 21:18:00 Test Item Value Reference Range Interpretation Comments Alk Phos (test code = Alk Phos) 84 39-136 [facility]2019-08-09 21:18:00 Test Item Value Reference Range Interpretation Comments Bili Total (test code = Bili Total) 0.6 0.2-1.3 [place] 379349-08-09 21:18:00 Test Item Value Reference Range Interpretation Comments Bili Direct (test code 0.1 See_Comment [Aut omated message] The = Bili Direct) system which generated this result tra nsmitted reference range : <=0.3. The reference r gayle was not used to int erpret this result as evan l/abnormal. [facility]2019-08-09 21:18:00 Test Item Value Reference Range Interpretation Comments Bili Indirect (test 0.5 See_Comment [Automa keon message] The code = Bili Indirect) system which generated this result tra nsmitted reference range : <=1.0. The reference r gayle was not used to int erpret this result as normal/abnormal . [place] [id number] 21:18:00 Test Item Value Reference Range Interpretation Comments Trig (test code = Trig) 116 [place] 168879-08-09 21:18:00 Test Item Value Reference Range Interpretation Comments Chol (test code = Chol) 187 [facility] YxuwnnuFVVZGK2733-56-44 21:18:00 Test Item Value Reference Range Interpretation Comments HDL (test code = HDL) 30 [facility] GrapevineFqfworhXOHEDV0581-89-20 21:18:00 Test Item Value Reference Range Interpretation Comments LDL (Calculated) (test code = LDL 134 (Calculated)) [facility] [id number] 21:18:00 Test Item Value Reference Range Interpretation Comments VLDL (test code = VLDL) 23 1 [facility] GrapevineEyrjycmGDSNLC6443-27-04 21:18:00 Test Item Value Reference Range Interpretation Comments CHD Risk (test code = CHD Risk) 6.23 1 4.00-7.30 [facility] HospitalFsoknylSHZUKDCZW5618-17-17 21:18:00 Test Item Value Reference Range Interpretation Comments Myoglobin (test code = Myoglobin) 58 25-72 [facility]rapevineannPARATHYROID [id number] 21:18:00 Test Item Value Reference Range Interpretation Comments Ca Ion WB (test code = Ca Ion WB) 0.97 1.05-1.25 [facility] GrapevineannPARATHYROID [id number] 21:18:00 Test Item Value Reference Range Interpretation Comments Ca Norm WB (test code = Ca Norm WB) 1.05 1.05-1.25 [facility] HospitalSPECIAL [id number] 21:18:00 Test Item Value Reference Range Interpretation Comments Hgb A1C (test code = Hgb A1C) 5.5 [facility]vineannCARDIAC [id number] 21:18:00 Test Item Value Reference Range Interpretation Comments CK MB (test code = CK MB) 0.7 0.5-3.6 [facility]vineannCARDIAC [id number] 21:18:00 Test Item Value Reference Range Interpretation Comments CK MB Index (test 0.3 1 See_Comment [Automate d message] The code = CK MB Index) system w [facility] generated this result transmit keon reference range : <=2.5. The reference range was not used to interpr et this result as evan l/abnormal. [facility] HermannCARDIAC [id number] 21:18:00 Test Item Value Reference Range Interpretation Comments Total CK (test code = Total CK) 211 12-191 [facility]vineannCARDIAC [id number] 21:18:00 Test Item Value Reference Range Interpretation Comments Troponin-I (test code no gt See_Comment [Auto mated message] The = Troponin-I) system which g enerated this result transmit keon reference range : <=0.40. The reference r gayle was not used to interpr et this result as evan l/abnormal. [facility] [employer] [id number] 21:18:00 Test Item Value Reference Range Interpretation Comments Lactic Acid Lvl (test code = Lactic 2.1 0.5-2.2 Acid Lvl) [facility] [id number] 21:18:00 Test Item Value Reference Range Interpretation Comments Lipase Lvl (test code = Lipase Lvl) 43 73-393 [facility] [id number] 21:18:00 Test Item Value Reference Range Interpretation Comments Total Protein (test code = Total 7.9 6.4-8.4 Protein) [facility] [id number] 21:18:00 Test Item Value Reference Range Interpretation Comments Albumin Lvl (test code = Albumin Lvl) 3.7 3.5-5.0 [facility] [id number] 21:18:00 Test Item Value Reference Range Interpretation Comments Globulin (test code = Globulin) 4.2 2.7-4.2 [facility] [employer] [id number] 21:18:00 Test Item Value Reference Range Interpretation Comments A/G Ratio (test code = A/G Ratio) 0.9 1 0.7-1.6 [facility] [id number] 21:18:00 Test Item Value Reference Range Interpretation Comments ALT (test code = ALT) 20 See_Comment [Auto mated message] The system which ge nerated this result transmit keon reference range : <=65. The reference range was not used to interpr et this result as evan l/abnormal. [facility] [employer] [id number] 21:18:00 Test Item Value Reference Range Interpretation Comments AST (test code = AST) 20 See_Comment [Auto mated message] The system which ge nerated this result transmit keon reference range : <=37. The reference range was not used to interpr et this result as evan l/abnormal. [facility] [employer] [id number] 21:18:00 Test Item Value Reference Range Interpretation Comments Alk Phos (test code = Alk Phos) 84 39-136 [facility] [id number] 21:18:00 Test Item Value Reference Range Interpretation Comments Bili Total (test code = Bili Total) 0.6 0.2-1.3 [facility]2019-08-09 21:18:00 Test Item Value Reference Range Interpretation Comments Bili Direct (test code 0.1 See_Comment [Aut omated message] The = Bili Direct) system which generated this result tra nsmitted reference range : <=0.3. The reference r gayle was not used to int erpret this result as evan l/abnormal. [facility] HospitalSide.Cr [id number] 21:18:00 Test Item Value Reference Range Interpretation Comments Bili Indirect (test 0.5 See_Comment [Automa keon message] The code = Bili Indirect) system which generated this result tra nsmitted reference range : <=1.0. The reference r gayle was not used to int erpret this result as normal/abnormal . [facility] [id number] 21:18:00 Test Item Value Reference Range Interpretation Comments Trig (test code = Trig) 116 [facility] [id number] 21:18:00 Test Item Value Reference Range Interpretation Comments Chol (test code = Chol) 187 [facility] HospitalSrurqcpHNFZXM3338-81-13 21:18:00 Test Item Value Reference Range Interpretation Comments HDL (test code = HDL) 30 [facility] GrapevineBtglxltGDAIZX6570-36-78 21:18:00 Test Item Value Reference Range Interpretation Comments LDL (Calculated) (test code = LDL 134 (Calculated)) [facility] [id number] 21:18:00 Test Item Value Reference Range Interpretation Comments VLDL (test code = VLDL) 23 1 [facility] [id number] 21:18:00 Test Item Value Reference Range Interpretation Comments CHD Risk (test code = CHD Risk) 6.23 1 4.00-7.30 [facility] HospitalEiehsyaWXSQEMJGD9264-34-01 21:18:00 Test Item Value Reference Range Interpretation Comments Myoglobin (test code = Myoglobin) 58 25-72 [facility] HospitalPARATHYROID [id number] 21:18:00 Test Item Value Reference Range Interpretation Comments Ca Ion WB (test code = Ca Ion WB) 0.97 1.05-1.25 [facility]rapevineannPARATHYROID [id number] 21:18:00 Test Item Value Reference Range Interpretation Comments Ca Norm WB (test code = Ca Norm WB) 1.05 1.05-1.25 [facility] HospitalSPECIAL [id number] 21:18:00 Test Item Value Reference Range Interpretation Comments Hgb A1C (test code = Hgb A1C) 5.5 [facility] [employer]CHEM [id number] 15:51:00 Test Item Value Reference Range Interpretation Comments POC Creatinine (test code = POC 1.3 0.5-1.4 Creatinine) [facility] [employer] [id number] 15:51:00 Test Item Value Reference Range Interpretation Comments POC Creatinine (test code = POC 1.3 0.5-1.4 Creatinine) [facility] [employer] [id number] 15:51:00 Test Item Value Reference Range Interpretation Comments POC Creatinine (test code = POC 1.3 0.5-1.4 Creatinine) [facility] [employer] [id number] 15:51:00 Test Item Value Reference Range Interpretation Comments POC Creatinine (test code = POC 1.3 0.5-1.4 Creatinine) [facility] [employer] [id number] 15:42:00 Test Item Value Reference Range Interpretation Comments ABO/Rh (test code = ABO/Rh) A POS [facility] [employer] [id number] 15:42:00 Test Item Value Reference Range Interpretation Comments Antibody Scrn (test Negative (12/01/18 10:42 code = Antibody Scrn) AM) [facility] [employer] [id number] 15:42:00 Test Item Value Reference Range Interpretation Comments ABO/Rh (test code = ABO/Rh) A POS [facility] [employer] [id number] 15:42:00 Test Item Value Reference Range Interpretation Comments Antibody Scrn (test Negative (12/01/18 10:42 code = Antibody Scrn) AM) [facility] [employer] [id number] 15:42:00 Test Item Value Reference Range Interpretation Comments ABO/Rh (test code = ABO/Rh) A POS [facility] [employer] [id number] 15:42:00 Test Item Value Reference Range Interpretation Comments Antibody Scrn (test Negative (12/01/18 10:42 code = Antibody Scrn) AM) [facility] [employer] [id number] 15:42:00 Test Item Value Reference Range Interpretation Comments ABO/Rh (test code = ABO/Rh) A POS [facility] [employer] [id number] 15:42:00 Test Item Value Reference Range Interpretation Comments Antibody Scrn (test Negative (12/01/18 10:42 code = Antibody Scrn) AM) [facility] [employer] [id number] 15:40:57 Test Item Value Reference Range Interpretation Comments Total Protein (test code = Total 8.3 6.4-8.4 Protein) [facility] [employer] [id number] 15:40:57 Test Item Value Reference Range Interpretation Comments Albumin Lvl (test code = Albumin Lvl) 4.0 3.5-5.0 [facility] [employer] [id number] 15:40:57 Test Item Value Reference Range Interpretation Comments ALT (test code = ALT) 20 See_Comment [Auto mated message] The system which ge nerated this result transmit keon reference range : <=65. The reference range was not used to interpr et this result as evan l/abnormal. [facility] [employer] [id number] 15:40:57 Test Item Value Reference Range Interpretation Comments AST (test code = AST) 31 See_Comment [Auto mated message] The system which ge nerated this result transmit keon reference range : <=37. The reference range was not used to interpr et this result as evan l/abnormal. [facility] [employer] [id number] 15:40:57 Test Item Value Reference Range Interpretation Comments Alk Phos (test code = Alk Phos) 89 39-136 [facility] [employer]2019-08-09 15:40:57 Test Item Value Reference Range Interpretation Comments Bili Total (test code = Bili Total) 0.5 0.2-1.3 [facility] [employer] [id number] 15:40:57 Test Item Value Reference Range Interpretation Comments Bili Direct (test code 0.1 See_Comment [Aut omated message] The = Bili Direct) system which generated this result tra nsmitted reference range : <=0.3. The reference r gayle was not used to int erpret this result as evan l/abnormal. [facility]2019-08-09 15:40:57 Test Item Value Reference Range Interpretation Comments Bili Indirect (test 0.4 See_Comment [Automa keon message] The code = Bili Indirect) system which generated this result tra nsmitted reference range : <=1.0. The reference r gayle was not used to int erpret this result as normal/abnormal . [facility]2019-08-09 15:40:57 Test Item Value Reference Range Interpretation Comments Globulin (test code = Globulin) 4.3 2.7-4.2 [facility]2019-08-09 15:40:57 Test Item Value Reference Range Interpretation Comments A/G Ratio (test code = A/G Ratio) 0.9 1 0.7-1.6 [facility]2019-08-09 15:40:57 Test Item Value Reference Range Interpretation Comments Lactic Acid Lvl (test code = Lactic 2.8 0.5-2.2 Acid Lvl) [facility]2019-08-09 15:40:57 Test Item Value Reference Range Interpretation Comments Lipase Lvl (test code = Lipase Lvl) 73 73-393 [facility] [id number] 15:40:57 Test Item Value Reference Range Interpretation Comments PTT (test code = PTT) 31.7 s 22.9-35.8 [facility] F[id number] 15:40:57 Test Item Value Reference Range Interpretation Comments PT (test code = PT) 13.7 s 12.0-14.7 [facility] Fris[id number] 15:40:57 Test Item Value Reference Range Interpretation Comments INR (test code = INR) 1.07 1 0.85-1.17 [place] 379349-08-09 15:40:57 Test Item Value Reference Range Interpretation Comments Total Protein (test code = Total 8.3 6.4-8.4 Protein) [place] 379349-08-09 15:40:57 Test Item Value Reference Range Interpretation Comments Albumin Lvl (test code = Albumin Lvl) 4.0 3.5-5.0 [facility]2019-08-09 15:40:57 Test Item Value Reference Range Interpretation Comments ALT (test code = ALT) 20 See_Comment [Auto mated message] The system which ge nerated this result transmit keon reference range : <=65. The reference range was not used to interpr et this result as evan l/abnormal. [facility]2019-08-09 15:40:57 Test Item Value Reference Range Interpretation Comments AST (test code = AST) 31 See_Comment [Auto mated message] The system which ge nerated this result transmit keon reference range : <=37. The reference range was not used to interpr et this result as evan l/abnormal. [facility]2019-08-09 15:40:57 Test Item Value Reference Range Interpretation Comments Alk Phos (test code = Alk Phos) 89 39-136 [facility]2019-08-09 15:40:57 Test Item Value Reference Range Interpretation Comments Bili Total (test code = Bili Total) 0.5 0.2-1.3 [facility]2019-08-09 15:40:57 Test Item Value Reference Range Interpretation Comments Bili Direct (test code 0.1 See_Comment [Aut omated message] The = Bili Direct) system which generated this result tra nsmitted reference range : <=0.3. The reference r gayle was not used to int erpret this result as evan l/abnormal. [facility]2019-08-09 15:40:57 Test Item Value Reference Range Interpretation Comments Bili Indirect (test 0.4 See_Comment [Automa keon message] The code = Bili Indirect) system which generated this result tra nsmitted reference range : <=1.0. The reference r gayle was not used to int erpret this result as normal/abnormal . [facility]Side[facility] [id number] 15:40:57 Test Item Value Reference Range Interpretation Comments Globulin (test code = Globulin) 4.3 2.7-4.2 [facility]2019-08-09 15:40:57 Test Item Value Reference Range Interpretation Comments A/G Ratio (test code = A/G Ratio) 0.9 1 0.7-1.6 [facility]2019-08-09 15:40:57 Test Item Value Reference Range Interpretation Comments Lactic Acid Lvl (test code = Lactic 2.8 0.5-2.2 Acid Lvl) [facility]2019-08-09 15:40:57 Test Item Value Reference Range Interpretation Comments Lipase Lvl (test code = Lipase Lvl) 73 73-393 [facility] FriscoPysfjzcPTBTFUSETF9155-27-27 15:40:57 Test Item Value Reference Range Interpretation Comments PTT (test code = PTT) 31.7 s 22.9-35.8 [facility] FriscoHuxdunhVZPBEFIPTF5241-53-02 15:40:57 Test Item Value Reference Range Interpretation Comments PT (test code = PT) 13.7 s 12.0-14.7 [facility] FriscoQnkwnabYVBVOLUIET7882-50-10 15:40:57 Test Item Value Reference Range Interpretation Comments INR (test code = INR) 1.07 1 0.85-1.17 [facility]2019-08-09 15:40:57 Test Item Value Reference Range Interpretation Comments Total Protein (test code = Total 8.3 6.4-8.4 Protein) [facility] [facility]2019-08-09 15:40:57 Test Item Value Reference Range Interpretation Comments Albumin Lvl (test code = Albumin Lvl) 4.0 3.5-5.0 [facility]2019-08-09 15:40:57 Test Item Value Reference Range Interpretation Comments ALT (test code = ALT) 20 See_Comment [Auto mated message] The system which ge nerated this result transmit keon reference range : <=65. The reference range was not used to interpr et this result as evan l/abnormal. [facility]2019-08-09 15:40:57 Test Item Value Reference Range Interpretation Comments AST (test code = AST) 31 See_Comment [Auto mated message] The system which ge nerated this result transmit keon reference range : <=37. The reference range was not used to interpr et this result as evan l/abnormal. [facility]2019-08-09 15:40:57 Test Item Value Reference Range Interpretation Comments Alk Phos (test code = Alk Phos) 89 39-136 [facility]2019-08-09 15:40:57 Test Item Value Reference Range Interpretation Comments Bili Total (test code = Bili Total) 0.5 0.2-1.3 [facility]2019-08-09 15:40:57 Test Item Value Reference Range Interpretation Comments Bili Direct (test code 0.1 See_Comment [Aut omated message] The = Bili Direct) system which generated this result tra nsmitted reference range : <=0.3. The reference r gayle was not used to int erpret this result as evan l/abnormal. [facility]2019-08-09 15:40:57 Test Item Value Reference Range Interpretation Comments Bili Indirect (test 0.4 See_Comment [Automa keon message] The code = Bili Indirect) system which generated this result tra nsmitted reference range : <=1.0. The reference r gayle was not used to int erpret this result as normal/abnormal . [facility]2019-08-09 15:40:57 Test Item Value Reference Range Interpretation Comments Globulin (test code = Globulin) 4.3 2.7-4.2 [place] 379349-08-09 15:40:57 Test Item Value Reference Range Interpretation Comments A/G Ratio (test code = A/G Ratio) 0.9 1 0.7-1.6 [place] 379349-08-09 15:40:57 Test Item Value Reference Range Interpretation Comments Lactic Acid Lvl (test code = Lactic 2.8 0.5-2.2 Acid Lvl) [facility]2019-08-09 15:40:57 Test Item Value Reference Range Interpretation Comments Lipase Lvl (test code = Lipase Lvl) 73 73-393 [id number] 15:40:57 Test Item Value Reference Range Interpretation Comments PTT (test code = PTT) 31.7 s 22.9-35.8 [place] 210939-08-09 15:40:57 Test Item Value Reference Range Interpretation Comments PT (test code = PT) 13.7 s 12.0-14.7 [place] 210939-08-09 15:40:57 Test Item Value Reference Range Interpretation Comments INR (test code = INR) 1.07 1 0.85-1.17 [facility]2019-08-09 15:40:57 Test Item Value Reference Range Interpretation Comments Total Protein (test code = Total 8.3 6.4-8.4 Protein) [facility]2019-08-09 15:40:57 Test Item Value Reference Range Interpretation Comments Albumin Lvl (test code = Albumin Lvl) 4.0 3.5-5.0 [facility]2019-08-09 15:40:57 Test Item Value Reference Range Interpretation Comments ALT (test code = ALT) 20 See_Comment [Auto mated message] The system which ge nerated this result transmit keon reference range : <=65. The reference range was not used to interpr et this result as evan l/abnormal. [place] 379349-08-09 15:40:57 Test Item Value Reference Range Interpretation Comments AST (test code = AST) 31 See_Comment [Auto mated message] The system which ge nerated this result transmit keon reference range : <=37. The reference range was not used to interpr et this result as evan l/abnormal. [facility]2019-08-09 15:40:57 Test Item Value Reference Range Interpretation Comments Alk Phos (test code = Alk Phos) 89 39-136 [facility]2019-08-09 15:40:57 Test Item Value Reference Range Interpretation Comments Bili Total (test code = Bili Total) 0.5 0.2-1.3 [facility]2019-08-09 15:40:57 Test Item Value Reference Range Interpretation Comments Bili Direct (test code 0.1 See_Comment [Aut omated message] The = Bili Direct) system which generated this result tra nsmitted reference range : <=0.3. The reference r gayle was not used to int erpret this result as evan l/abnormal. [facility]2019-08-09 15:40:57 Test Item Value Reference Range Interpretation Comments Bili Indirect (test 0.4 See_Comment [Automa keon message] The code = Bili Indirect) system which generated this result tra nsmitted reference range : <=1.0. The reference r gayle was not used to int erpret this result as normal/abnormal . [place] 379349-08-09 15:40:57 Test Item Value Reference Range Interpretation Comments Globulin (test code = Globulin) 4.3 2.7-4.2 [place] 379349-08-09 15:40:57 Test Item Value Reference Range Interpretation Comments A/G Ratio (test code = A/G Ratio) 0.9 1 0.7-1.6 [facility] [id number] 15:40:57 Test Item Value Reference Range Interpretation Comments Lactic Acid Lvl (test code = Lactic 2.8 0.5-2.2 Acid Lvl) [facility] [id number] 15:40:57 Test Item Value Reference Range Interpretation Comments Lipase Lvl (test code = Lipase Lvl) 73 73-393 [id number] 15:40:57 Test Item Value Reference Range Interpretation Comments PTT (test code = PTT) 31.7 s 22.9-35.8 [id number] 15:40:57 Test Item Value Reference Range Interpretation Comments PT (test code = PT) 13.7 s 12.0-14.7 [id number] 15:40:57 Test Item Value Reference Range Interpretation Comments INR (test code = INR) 1.07 1 0.85-1.17 [facility] ABDOMEN PELVIS W [id number] 17:43:181. No definite acute intra-abdominal or pelvic pathology2. Bilateral renal cysts3. Very mild aneurysmal dilation of the distal abdominal aorta with adiameter of 5 cm. The abdominal aorta is ectatic in general. * * * * * * * * ORIGINAL REPORT * * * * * * * *EXAM: CT SCAN OF THE ABDOMEN AND PELVIS WITH CONTRAST HISTORY: Abd pain, acute, generalized TECHNIQUE:3 mm axial images are obtained from diaphragmatic domes tosymphysis pubis following intravenous administration of 120 mL of [id number]. Sagittal and coronal preformation the carried out. COMPARISON: None FINDINGS:The visualized lung bases are clear. No pleural effusion ispresent. Heart size is normal. Liver and spleen are normal in size, shapeand appearance. No focal massesare seen. Gallbladder is removed. No biliary tree dilation is noted. Pancreas is somewhat atrophic. No ductal dilation is seen. Adrenal glands are normal. Kidneys are normal in size and shape. No renal stone or hydronephrosis ispresent. A well-circumscribed low-density lesion is present in theinterpolar zone of the right kidney measuring 3.[address] volume of 15Hounsfield units. There is a well-circumscribed low-density lesion in theupper pole of the left kidney measuring3.[address] density of 11Hounsfield units. A similar but larger well-circumscribed lesion ispresentin the inferior pole measuring 5.9 cm in size with CT density of 17Hounsfield units. Very mild focal dilation of the distal abdominal aorta is seen with amaximum diameter of 2.5 cm. No free fluid or free air is seen in the abdomen. No definite enlargedlymph nodes are noted. Bowel loops are normal in caliber. No evidence of bowel obstruction isseen. The appendix is not definitely seen, however there is no indirectevidence of appendicitis. The urinary bladder appears to be normal. No freefluid seen in the pelvis. Changes of spondylosis are seen at L5-S1. There is slight retrolisthesis ofL5. Nosuspicious bony abnormality is noted. [facility], Radiant Results Inft User - 11/29/2018 12:45 PM CDT* * * * * * ORIGINAL REPORT * * * * * * * *EXAM: CT SCAN OF THE ABDOMEN AND PELVIS WITH CONTRASTHISTORY: Abd pain, acute, generalizedTECHNIQUE:3 mm axial images are obtained from diaphragmatic domes tosymphysis pubis following intravenous administration of 120 mL of [id number]. Sagittal and coronal preformation the carried out.COMPARISON: NoneFINDINGS:The visualized lung bases are clear. No pleural effusion ispresent. Heart size is normal.Liver and spleen are normal in size, shape and appearance. Nofocal massesare seen.Gallbladder is removed. No biliary tree dilation is noted.Pancreas is somewhat atrophic. No ductal dilation is seen.Adrenal glands are normal.Kidneys are normal in size and shape. No renal stone or hydronephrosis ispresent. A well-circumscribed low-density lesion is present in theinterpolar zone of the right kidney measuring 3.[address] volume of 15Hounsfield units. There is awell-circumscribed low-density lesion in theupper pole of the left kidney measuring3.[address] density of 11Hounsfield units. A similar but larger well-circumscribed lesion is presentin the inferior pole measuring 5.9 cm in size with CT density of 17Hounsfield units.Very mild focal dilation of the distal abdominal aorta is seen with amaximum diameter of 2.5 cm.No free fluid or free air is seen in the abdomen. No definite enlargedlymph nodes are noted.Bowel loops are normal in caliber. No evidenceof bowel obstruction isseen. The appendix is not definitely seen, however there is no indirectevidence of appendicitis. The urinary bladder appears to be normal. No freefluid seen in the pelvis.Changesof spondylosis are seen at L5-S1. There is slight retrolisthesis ofL5. No suspicious bony abnormality is noted.IMPRESSION1. No definite acute intra-abdominal or pelvic pathology2. Bilateral renal cysts3. Very mild aneurysmal dilation of the distal abdominal aorta with adiameter of 5 cm. The abdominal aorta is ectatic in general. [facility] Test Item Value Reference Range Interpretation Comments APPEARANCE (test code = Clear Clear 4650946358) COLOR (test code = Colorless Yellow A 9806684616) PH (test code = 4.8-8.0 9550648490) SP GRAVITY (test code = 1.003-1.030 8435316908) GLU U QUAL (test code = Negative Negative 5567221215) BLOOD (test code = Trace Negative A 5488021692) KETONES (test code = Negative Negative 6298554703) PROTEIN (test code = Negative Negative 2887-8) UROBILIN (test code = 0.2 mg/dL See_Comment [Auto mated message] 0216505461) The system [employer] generated this result transmit keon reference range : 0-1.0 mg/dL. Th e reference range was not used to interpret this result as normal/abnormal . BILIRUBIN (test code = Negative Negative 2017067607) NITRITE (test code = Negative Negative 2130883262) LEUK THANG (test code = Negative Negative 6734680868) RBC/HPF (test code = See_Comment H [Autom ated message] 2500373932) The system [employer] generated this result transmit keon reference range : 0 - 3 HPF. The refe rence range was not u sed to interpret th is result as normal/abnormal . WBC/HPF (test code = See_Comment [Autom ated message] 6341851877) The system [employer] generated this result transmit keon reference range : 0 - 5 HPF. The refe rence range was not u sed to interpret th is result as normal/abnormal . BACTERIA (test code = Few Negative A 0327363947) MUCOUS (test code = Moderate Negative LPF A 5232829874) AMORPHOUS (test code = Few HPF 8421855987) SQ EPITH (test code = HPF 5641949891) SPERM (test code = See_Comment [Automat ed message] 5859302569) The system [employer] generated this result transmit keon reference range : <=1 HPF. The refere nce range was not u sed to interpret th is result as normal/abnormal . Lab Interpretation (test Abnormal code = 45976-1) [facility] [id number] 16:26:00 Test Item Value Reference Range Interpretation Comments TROPONIN I (test <0.012 See_Comment [Automated code = 8665380100) message] The system which generated this result transmitted reference range : <=0.034 ng/mL. The reference range was not used to interpr et this result as normal/abnormal . CHUYITA (test code = Equal or Less than CHUYITA) 0.034 ng/ml---Normal?Not e: Cardiac troponin begins to rise 3-4 hours after the onset of ischemia. Repeat in 4-6 hours if the sample was drawn within 3-4 hours of the onset of the symptom and found normal. Between 0.035 and 0.120 ng/mL--- Borderline. Questionable myocardial injury or necrosis?Note: Serial measurement may be necessary to confirm or exclude the diagnosis of myocardial injury or necrosis; Clinical correlation (symptoms, EKGs, imaging studies, and others) required; Repeat in 4-6 hours if clinically indicated.? Equal or Higher than 0.121 ng/mL---Abnormal. Myocardial Injury or Necrosis Likely? Biotin has been reported to cause a negative bias, interpret results relative to patient's use of biotin.? ? Lab Interpretation Normal (test code = 32353-1) [facility] (NA, K, CL, CO2, GLUCOSE, BUN, CREATININE, CA)2018-11-29 16:15:00 Test Item Value Reference Range Interpretation Comments NA (test code = 147 mmol/L 135-145 H 3561454475) K (test code = 3.2 mmol/L 3.5-5 L 3838142888) CL (test code = 105 mmol/L 98-108 1345175982) CO2 TOTAL (test code = 31 mmol/L 23-31 5851495563) AGAP (test code = 2-16 9455495337) BUN (test code = 11 mg/dL 7-23 3554734488) GLUCOSE (test code = 124 mg/dL 70-110 H 7619917683) CREATININE (test code = 0.77 mg/dL 0.6-1.25 5492877501) CALCIUM (test code = 9.4 mg/dL 8.6-10.6 1629596481) eGFR Calculation mL/min/1.73m2 (Non-) (test code = 5743953968) eGFR Calculation mL/min/1.73m2 () (test code = 5374940138) CHUYITA (test code = CHUYITA) Association of Glomerular Filtration Rate (GFR) and Staging of Kidney Disease*+ + + +| GFR (mL/min/1.73 m2)?| With Kidney Damage?|?Without Kidney Damage+ --------+ --------+ +|?>90?|?S tage one?|? Normal?+ ---------+ ---------+ +|?60-89? |?Stage two?|? Decreased GFR? + --+ --+ ------+|?30-59?|?Stage three?|? Stage three? + --+ --+ ------+|?15-29?|?Stage four? |? Stage four?+ -------+ -------+ +|?<15 (or dialysis)?|?Stage five? |? Stage five?+ -------+ -------+ +*Each stage assumes the associated GFR level has been in effect for at least three months.?Stages 1 to 5, with or without kidney disease, indicate chronic kidney disease.Notes: Determination of stages one and two (with eGFR >59mL/min/1.73 m2) requires estimation of kidney damage for at least three months as defined by structural or functional abnormalities of the kidney, manifested by either:Pathological abnormalities or Markers of kidney damage (including abnormalities in the composition of the blood or urine or abnormalities in imaging tests). Lab Interpretation Abnormal (test code = 07622-5) [facility] [id number] 16:15:00 Test Item Value Reference Range Interpretation Comments LIPASE (test code = 2798479032) 54 U/L 0-220 Lab Interpretation (test code = Normal 36392-6) [facility] (ALB, T.PRO, BILI T, BU/BC, ALT, AST, ALK PHOS)2018-11-29 16:14:00 Test Item Value Reference Range Interpretation Comments TOTAL BILI (test code = 4930965376) 0.3 mg/dL 0.1-1.1 BILI UNCON (test code = 2589475663) 0.2 mg/dL 0.1-1.1 BILI CONJ (test code = 4557328003) 0.0 mg/dL 0-0.3 T PROTEIN (test code = 3486423991) 8.3 g/dL 6.3-8.2 H ALBUMIN (test code = 9344629362) 4.6 g/dL 3.5-5 ALK PHOS (test code = 4877616685) 92 U/L 34-122 ALT(SGPT) (test code = 4499576510) 13 U/L 9-51 AST(SGOT) (test code = 2834155539) 25 U/L 13-40 Lab Interpretation (test code = Abnormal 99503-4) [facility] WITH [id number] 15:58:00 Test Item Value Reference Range Interpretation Comments WBC (test code = See_Comment [Automated 4790-2) message] The sy stem which generated this result transmitted reference range : 4.20 - 10.70 10*3/?L. The reference range was not used to interpret this result as normal/abnormal . RBC (test code = See_Comment [Automated 850-8) message] The sy stem which generated this result transmitted reference range : 4.26 - 5.52 10*6/?L. The reference range was not used to interpret this result as normal/abnormal . HGB (test code = 13.5 g/dL 12.2-16.4 718-7) HCT (test code = 40.5 % 38.4-49.3 4544-3) MCV (test code = 82.7 fL 81.7-95.6 787-2) MCH (test code = 27.6 pg 26.1-32.7 785-6) MCHC (test code = 33.3 g/dL 31.2-35 786-4) RDW-SD (test code = 45.9 fL 38.5-51.6 97380-5) RDW-CV (test code = 15.3 % 12.1-15.4 788-0) PLT (test code = See_Comment [Automated 777-3) message] The sy stem which generated this result transmitted reference range : 150 - 328 10*3/ ?L. The reference r gayle was not used to interpret this result as normal/abnormal . MPV (test code = 9.6 fL 9.8-13 L 92316-0) NRBC/100 WBC (test See_Comment [Automat ed code = 4118410219) message] The system which generated this result transmitted reference range : 0.0 - 10.0 /100 WBCs. The refer ence range was not u sed to interpret th is result as normal/abnormal . NRBC x10^3 (test code <0.01 See_Comment [Auto mated = 5250642849) message] The s ystem which generated this result transmitted reference range : 10*3/?L. The reference range was not used to interpret this result as normal/abnormal . GRAN MAT (NEUT) % 72.7 % (test code = 770-8) IMM GRAN % (test code 0.20 % = 8108136259) LYMPH % (test code = 20.5 % 736-9) MONO % (test code = 5.4 % 5905-5) EOS % (test code = 0.8 % 713-8) BASO % (test code = 0.4 % 706-2) GRAN MAT x10^3(ANC) 7.03 10*3/uL 1.99-6.95 H (test code = 4962217069) IMM GRAN x10^3 (test <0.03 0-0.06 code = 4045269646) LYMPH x10^3 (test code 1.98 10*3/uL 1.09-3.23 = 731-0) MONO x10^3 (test code 0.52 10*3/uL 0.36-1.02 = 742-7) EOS x10^3 (test code = 0.08 10*3/uL 0.06-0.53 711-2) BASO x10^3 (test code 0.04 10*3/uL 0.01-0.09 = 704-7) Lab Interpretation Abnormal (test code = 79337-2) [facility] Acid Whole [id number] 15:34:00 Test Item Value Reference Range Interpretation Comments LACTIC ACID (test code = 1.91 mmol/L 0.5-2.2 0532347931) Lab Interpretation (test code = Normal 50294-7) [facility]
[2022-06-22 10:53] LABS: Absolute Lymphocytes (CBC) 2.2 K/uL (0.7-4.9); Lymphocytes % 37.1 % (15.3-44.8); MCV 84.5 fL (80-100); MPV 7.1 fL (7.6-11.3); RBC Red Blood Cell Count 4.74 M/uL (4.33-5.43)
[2022-06-22 10:54] LABS: Protime INR 1.05
[2022-06-22] MEDS ORDERED: MORPHINE 4 MG/ML SYR ONE (10:54)
[2022-06-22] MEDS ORDERED: ONDANSETRON 4 MG/2 ML VIAL ONE (10:54)
[2022-06-22 11:12] LABS: ALT/SGPT 17 U/L (16-61); AST/SGOT 10 U/L (15-37); Alkaline Phosphatase 107 U/L (45-117); BUN Blood Urea Nitrogen 13 mg/dL (7-18); Bicarbonate 31 mmol/L (21-32); Bilirubin Direct < 0.1 mg/dL (0-0.2); Bilirubin Total 0.4 mg/dL (0.2-1.0); Glomerular Filtration Rate 78 ml/min (=/>90); Glucose Level 114 mg/dL (74-106); NT PRO-BNP 82 pg/mL (<125); Potassium 3.9 mmol/L (3.5-5.1); Protein, Total 8.3 g/dL (6.4-8.2); Sodium Level 138 mmol/L (136-145); Troponin High Sensitivity 6.3 pg/mL (<58.9)
--- NOTE | 2022-06-22 11:51 | RAD REPORT ---
EXAM DESCRIPTION: CT - Angio Aorta For Dissection - 06/22/2022 11:26 am CLINICAL HISTORY: chest pain,, shortness of breath, back pain, HTN COMPARISON: Chest Abdomen Pelvis W Cont dated 07/17/2020 TECHNIQUE: Dynamically enhanced 3 mm thick images of the chest, abdomen, and upper pelvis were obtai mallika during administration of approximately 100mL Isovue 370 IV contrast. Sagittal and coronal reconst ructions as well as maximal intensity projection reconstruction were generated and reviewed per an ao rtic angiography protocol. All CT scans are performed using dose optimization technique as appropriate and may include automated exposure control or mA/KV adjustment according to patient size. FINDINGS: Aorta is normal in diameter with no dissection or other acute aortic findings. Thoracic ao rta is normal in caliber. Fusiform dilation of the infrarenal abdominal aorta with moderate burden of predominantly noncalcified atherosclerotic plaque. Aneurysm sac measures 3.2 x 3.0 centimeter in gre atest axial dimensions. Similar changes with atherosclerotic plaque formation and luminal irregularit y along the common iliac vessels bilaterally, measuring up to 2 centimeter in greatest caliber on bot h sides. Ectasia of the right more than left internal iliac arteries, measuring 1.7 and 1.1 centimete r respectively. The findings are grossly stable compared to the prior abdominal CT allowing for diffe rences in technique. Reconstruction images show no other significant findings. Pulmonary arteries are normal as well, allowing for the level of contrast opacification present. No mass or infiltrate in the lung parenchyma. No pleural thickening, pleural effusion or pneumothorax . No abnormal mediastinal or hilar mass or lymphadenopathy seen. No chest wall mass or abnormal axillar y lymphadenopathy. Celiac, SMA and renal arteries show no suspicious findings. Solid abdominal viscera and bowel show no suspicious findings. Stable bilateral renal cortical cystic lesions, the largest at the lower pole o n the left measuring 7.9 centimeter. Patient status post cholecystectomy. No mass or abnormal lymphad enopathy. IMPRESSION: No acute abnormalities on CT angiogram of the aorta. Grossly stable Fusiform aneurysmal dilation of the infrarenal abdominal aorta, as well as fusiform an eurysms of the common iliac and bilateral internal iliac arteries, as detailed above. Moderate burden of predominantly noncalcified atherosclerotic plaque with luminal irregularity along those segments. No other significant findings on chest, abdomen and pelvis examination.
[2022-06-22 12:00] LABS: SARS-COV-2 RT PCR POSITIVE (NEGATIVE)
--- NOTE | 2022-06-22 12:11 | RAD REPORT ---
[facility] CLINICAL HISTORY: CHEST PAIN COMPARISON: Chest Single View dated 07/17/2020; Chest Single View dated 05/21/2019 TECHNIQUE: Portable AP view of the chest. FINDINGS: The lungs are clear. No pneumothorax or effusion. The cardiomediastinal contours are unrem arkable. IMPRESSION: No acute cardiopulmonary process.
--- NOTE | 2022-06-22 12:48 | EKG ---
Test Date: 2022-06-22 Test Time: 10:20:26 Document Management Analyst: KRYS New MEASUREMENT RESULTS: Intervals: Rate: 55 WI: 180 QRSD: 102 QT: 432 QTc: 413 [place]: P: 24 WI: 180 QRS: -52 T: 1 INTERPRETIVE STATEMENTS: Sinus bradycardia Incomplete right bundle branch block Left anterior fascicular block Abnormal ECG Compared to ECG 07/17/2020 07:15:09 Incomplete right bundle-branch block now present Left ventricular hypertrophy no longer present Myocardial infarct finding no longer present Electronically Signed On 06-22-22 12:47:32 [employer]YING SURVEY WORKER by Con Downing
[2022-06-22] MEDS ORDERED: HYDRALAZINE HCL 20 MG/ML VIAL ONE (13:03)
[2022-06-22] MEDS ORDERED: AMLODIPINE 10 MG TAB ONE (15:03)
--- NOTE | 2022-06-22 15:33 | EDPHYS ---
Physician Documentation [facility] Name: River Plunkett Age: 62 yrs Sex: Male : 1960 Arrival Date: 06/22/2022 Time: 10:03 Bed 24 Private MD: ED Physician Valentin Delarosa HPI: 06/22 11:15 This 62 yrs old Black Male presents to ER via Ambulatory with complaints of Chest Pain, rn High Blood Pressure. 11:15 The patient or guardian reports chest pain that is located primarily in the substernal rn area. Onset: this morning. The pain radiates to back. Associated signs and symptoms: Pertinent negatives: abdominal pain, cough, diaphoresis, near syncope, palpitations, shortness of breath, syncope, vomiting. The chest pain is described as a heaviness, a pressure. Duration: The patient or guardian reports multiple episodes, that are intermittent. Modifying factors: The symptoms are alleviated by nothing. the symptoms are aggravated by nothing. Severity of pain: At its worst the pain was moderate in the emergency department the pain is unchanged. The patient has not experienced similar symptoms in the past. The patient has not recently seen a physician. Historical: - Allergies: 10:23 No Known Allergies; kr3 - Home Meds: 10:23 metoprolol tartrate 25 mg Oral tab [Active]; kr3 - PMHx: 10:23 High Cholesterol; Hypertension; Pancreatitis; kr3 - Immunization history:: Adult Immunizations not up to date. - Social history:: Smoking status: Patient reports the use of cigarette tobacco products, smokes one-half pack cigarettes per day. - Family history:: not pertinent. - Hospitalizations: : No recent hospitalization is reported. ROS: 11:15 Constitutional: Negative for fever, chills, and weight loss, Eyes: Negative for injury, rn pain, redness, and discharge, Cardiovascular: + chest pain Respiratory: Negative for shortness of breath, cough, wheezing Abdomen/GI: Negative for abdominal pain, nausea, vomiting, diarrhea, and constipation, Back: Negative for injury and pain, MS/Extremity: Negative for injury and deformity, Skin: Negative for injury, rash, and discoloration, Neuro: Negative for headache, weakness, numbness, tingling, and seizure. Exam: 11:15 Constitutional: This is a well developed, well nourished patient who is awake, alert, rn appears in pain Head/Face: Normocephalic, atraumatic. Cardiovascular: Bradycardic, regular. No pulse deficits. Respiratory: No increased work of breathing, no retractions or nasal flaring. Abdomen/GI: Soft, non-tender Skin: Warm, dry MS/ Extremity: Pulses equal, no cyanosis. Neurovascular intact. Full, normal range of motion. Equal circumference. Neuro: Awake and alert, GCS 15 11:26 ECG was reviewed by the Attending Physician. rn Vital Signs: 10:21 BP 210 / 109; Pulse 59; Resp 20; Temp 98.2; Pulse Ox 100% on R/A; Weight 71.21 kg; kr3 Height 5 ft. 11 in. (180.34 cm); Pain 9/10; 11:14 BP 168 / 98; Pulse 54; Resp 20; Pulse Ox 100% on R/A; kr3 12:18 BP 178 / 106; Pulse 52; Resp 18; Pulse Ox 100% on 4 lpm NC; kr3 13:45 BP 186 / 96; Pulse 59; Resp 18; Pulse Ox 100% on Nebulizer Mask; kr3 14:45 BP 187 / 106; Pulse 58; Resp 18; Pulse Ox 100% on 4 lpm NC; kr3 15:45 BP 196 / 108; Pulse 60; Resp 18; Pulse Ox 100% on 2 lpm NC; kr3 10:21 Body Mass Index 21.90 (71.21 kg, 180.34 cm) kr3 MDM: 10:14 Patient medically screened. rn 14:25 Differential diagnosis: acute myocardial infarction, acute pericarditis, anxiety, chest rn wall pain, costochondritis, esophagitis, gastroesophageal reflux disease (GERD), pleurisy, pneumothorax, pulmonary embolus, stable angina, thoracic aortic disection. Data reviewed: vital signs, nurses notes, lab test result(s), EKG, radiologic studies, CT scan, plain films, and as a result, I will discharge patient. Consideration of Admission/Observation Escalation of care including admission/observation considered. 15:28 Counseling: I had a detailed discussion with the patient and/or guardian regarding: the rn historical points, exam findings, and any diagnostic results supporting the discharge/admit diagnosis, lab results, radiology results, the need for outpatient follow up, to return to the emergency department if symptoms worsen or persist or if there are any questions or concerns that arise at home. Response to treatment: the patient's symptoms have markedly improved after treatment, and as a result, I will discharge patient. Special discussion: Based on the patient's history, exam, and Dx evaluation, there is no indication for emergent intervention or inpatient Tx. It is understood by the patient/guardian that if the Sx's persist or worsen they need to return immediately for re-evaluation. I discussed with the patient/guardian in detail that at this point there is no indication for admission to the hospital. It is understood, however, that if the symptoms persist or worsen the patient needs to return immediately for re-evaluation. Based on the history and exam findings, there is no indication for further emergent testing or inpatient evaluation. I discussed with the patient/guardian the need to see the emergency management specialist for further evaluation of the symptoms. ED course: CT aorta with chronic aneurysms without evidence of dissection or leakage. Trop neg x 2. No ischemia on ecg. Spoke at length with patient and spouse regarding his need for immediate smoking cessation and HTN control. Pt COVID+. No oxygen requirement. NO pneumonia on CXR or CT aorta. Will dc home with return precautions. . 06/22 10:23 Order name: Basic Metabolic Panel; Complete Time: 11:06/22 10:23 Order name: CBC with Diff; Complete Time: 06/22 10:23 Order name: LFT's; Complete Time: 06/22 10:23 Order name: NT PRO-BNP; Complete Time: :06/22 10:23 Order name: PT-INR; Complete Time: :06/22 10:23 Order name: Troponin HS; Complete Time: 06/22 10:23 Order name: XRAY Chest (1 view); Complete Time: 12:48 06/22 10:23 Order name: EKG; Complete Time: :06/22 10:23 Order name: Cardiac monitoring; Complete Time: 06/22 10:23 Order name: EKG - Nurse/Tech; Complete Time: :06/22 10:23 Order name: IV Saline Lock; Complete Time: 06/22 10:23 Order name: Labs collected and sent; Complete Time: 06/22 10:23 Order name: O2 Per Protocol; Complete Time: 10:44 rn 06/22 10:23 Order name: O2 Sat Monitoring; Complete Time: 10:44 rn 06/22 10:23 Order name: CT Aorta for Dissection; Complete Time: 12:48 rn 06/22 10:52 Order name: COVID-19/FLU A+B; Complete Time: 12:48 kr3 06/22 13:09 Order name: Troponin High Sensitivity; Complete Time: 14:24 rn 06/22 13:48 Order name: Labs - recollect needed: recollect troponin; Complete Time: 14:48 bd EC:26 Rate is 55 beats/min. Rhythm is regular. Left axis deviation noted. QRS is positive in rn lead I and negative in lead aVF. DC interval is normal. QRS interval is normal. QT interval is normal. No Q waves. T waves are Normal. No ST changes noted. Clinical impression: Sinus bradycardia. Interpreted by me. Reviewed by me. Administered Medications: 10:53 Drug: morphine 4 mg Route: IVP; Infused Over: 4 mins; Site: right antecubital; kr3 16:10 Follow up: Response: No adverse reaction; RASS: Alert and Calm (0) kr3 10:53 Drug: Zofran (Ondansetron) 4 mg Route: IVP; Site: right antecubital; kr3 16:10 Follow up: Response: No adverse reaction kr3 13:03 Drug: hydrALAZINE 10 mg Route: IVP; Site: right antecubital; kr3 16:10 Follow up: Response: No adverse reaction kr3 14:59 Drug: Norvasc (amlodipine) 10 mg Route: PO; kr3 16:10 Follow up: Response: No adverse reaction kr3 Disposition Summary: 06/22/22 15:33 Discharge Ordered Location: Home rn Problem: new rn Symptoms: have improved rn Condition: Stable rn Diagnosis - Chest pain, unspecified rn - Essential (primary) hypertension rn - SARS-associated coronavirus as the cause of diseases classified elsewhere rn Followup: rn - With: Private Physician - When: As needed - Reason: Recheck today's complaints, Re-evaluation by your physician Discharge Instructions: - Discharge Summary Sheet rn - Abdominal Aortic Aneurysm rn - Nonspecific Chest Pain, Adult rn - Hypertension, Adult rn - Managing Your Hypertension rn - COVID-19 rn Forms: - Medication Reconciliation Form rn - Thank You Letter rn - Antibiotic supervisor frame sample and pattern - Prescription Opioid Use rn Prescriptions: - Norvasc 10 mg Oral Tablet - take 1 tablet by ORAL route once daily; 30 tablet; Refills: 0, Product rn Selection Permitted Signatures: Dispatcher [employer] EDMS Lorena Egan Joel, PA PA jmm Nieto, Roman, MD MD rn Reid, Kelley, RN RN kr3 Corrections: (The following items were deleted from the chart) 10:55 10:24 SARS-COV-2 Antigen Rapid+I.LAB.BRZ ordered. EDMS EDMS
--- NOTE | 2022-06-22 15:33 | ER ---
Nurse's Notes [facility] Name: River Plunkett Age: 62 yrs Sex: Male : 1960 Arrival Date: 06/22/2022 Time: 10:03 Bed 24 Private MD: Diagnosis: Chest pain, unspecified;Essential (primary) hypertension;SARS-associated coronavirus as the cause of diseases classified elsewhere Presentation: 06/22 10:21 Chief complaint: Patient states: SOB and chest pain that does not radiate x 4 hours. kr3 Came from doctor office. Coronavirus screen: Vaccine status: Patient reports receiving the 2nd dose of the covid vaccine. Ebola Screen: Patient denies travel to an Ebola-affected area in the 21 days before illness onset. Initial Sepsis Screen: Does the patient meet any 2 criteria? No. Patient's initial sepsis screen is negative. Does the patient have a suspected source of infection? No. Patient's initial sepsis screen is negative. Risk Assessment: Do you want to hurt yourself or someone else? Patient reports no desire to harm self or others. Onset of symptoms was June 22, 2022. 10:21 Method Of Arrival: Ambulatory kr3 10:21 Acuity: ROBERT 3 kr3 Triage Assessment: 10:24 General: Appears distressed, uncomfortable, Behavior is calm, cooperative, appropriate kr3 for age. Pain: Complains of pain in chest. EENT: No signs and/or symptoms were reported regarding the EENT system. Neuro: Level of Consciousness is awake, alert, obeys commands, Oriented to person, place, time, situation. Cardiovascular: Reports chest pain, shortness of breath. Respiratory: Airway is patent Respiratory effort is even, unlabored, Respiratory pattern is regular. GI: No signs and/or symptoms were reported involving the gastrointestinal system. : No signs and/or symptoms were reported regarding the genitourinary system. Derm: No signs and/or symptoms reported regarding the dermatologic system. Musculoskeletal: Range of motion: intact in all extremities. Historical: - Allergies: 10:23 No Known Allergies; kr3 - Home Meds: 10:23 metoprolol tartrate 25 mg Oral tab [Active]; kr3 - PMHx: 10:23 High Cholesterol; Hypertension; Pancreatitis; kr3 - Immunization history:: Adult Immunizations not up to date. - Social history:: Smoking status: Patient reports the use of cigarette tobacco products, smokes one-half pack cigarettes per day. - Family history:: not pertinent. - Hospitalizations: : No recent hospitalization is reported. Screenin:08 [facility] [place] ED Fall Risk Assessment (Adult) History of falling in the last 3 months, kr3 including since admission No falls in past 3 months (0 pts) Confusion or Disorientation No (0 pts) Intoxicated or Sedated No (0 pts) Impaired Gait No (0 pts) Mobility Assist Device Used No (0 pt) Altered Elimination No (0 pt) Score/Fall Risk Level 0 - 2 = Low Risk. Abuse screen: Denies threats or abuse. Nutritional screening: No deficits noted. Tuberculosis screening: No symptoms or risk factors identified. Assessment: 11:14 Reassessment: Patient and/or family updated on plan of care and expected duration. Pain kr3 level reassessed. Patient is alert, oriented x 3, equal unlabored respirations, skin warm/dry/pink. 12:18 Reassessment: Patient and/or family updated on plan of care and expected duration. Pain kr3 level reassessed. Patient is alert, oriented x 3, equal unlabored respirations, skin warm/dry/pink. 13:15 Reassessment: Patient and/or family updated on plan of care and expected duration. Pain kr3 level reassessed. Patient is alert, oriented x 3, equal unlabored respirations, skin warm/dry/pink. 14:15 Reassessment: Patient and/or family updated on plan of care and expected duration. Pain kr3 level reassessed. Patient is alert, oriented x 3, equal unlabored respirations, skin warm/dry/pink. 15:52 Reassessment: Patient and/or family updated on plan of care and expected duration. Pain kr3 level reassessed. Patient is alert, oriented x 3, equal unlabored respirations, skin warm/dry/pink. 16:10 Pain: Pain does not radiate. kr3 16:10 Pain: Pain began gradually. kr3 Vital Signs: 10:21 BP 210 / 109; Pulse 59; Resp 20; Temp 98.2; Pulse Ox 100% on R/A; Weight 71.21 kg; kr3 Height 5 ft. 11 in. (180.34 cm); Pain 9/10; 11:14 BP 168 / 98; Pulse 54; Resp 20; Pulse Ox 100% on R/A; kr3 12:18 BP 178 / 106; Pulse 52; Resp 18; Pulse Ox 100% on 4 lpm NC; kr3 13:45 BP 186 / 96; Pulse 59; Resp 18; Pulse Ox 100% on Nebulizer Mask; kr3 14:45 BP 187 / 106; Pulse 58; Resp 18; Pulse Ox 100% on 4 lpm NC; kr3 15:45 BP 196 / 108; Pulse 60; Resp 18; Pulse Ox 100% on 2 lpm NC; kr3 10:21 Body Mass Index 21.90 (71.21 kg, 180.34 cm) kr3 ED Course: 10:03 Patient arrived in ED. mr 10:14 Valenitn Delarosa MD is Attending Physician. rn 10:21 France Arteaga RN is Primary Nurse. kr3 10:23 Triage completed. kr3 10:27 Arm band placed on right wrist. Patient placed in an exam room, on a stretcher. kr3 10:40 Client placed on continuous cardiac and pulse oximetry monitoring. NIBP monitoring kr3 applied. 10:44 Inserted saline lock: 20 gauge in right antecubital area, using aseptic technique. kr3 Blood collected. 10:45 Bed in low position. Call light in reach. Side rails up X 1. kr3 11:01 XRAY Chest (1 view) In Process Unspecified. EDMS 11:28 CT Aorta for Dissection In Process Unspecified. EDMS 16:08 No provider procedures requiring assistance completed. IV discontinued, intact, kr3 bleeding controlled, No redness/swelling at site. Pressure dressing applied. Patient maintains SpO2 saturation greater than 95% on room air. Administered Medications: 10:53 Drug: morphine 4 mg Route: IVP; Infused Over: 4 mins; Site: right antecubital; kr3 16:10 Follow up: Response: No adverse reaction; RASS: Alert and Calm (0) kr3 10:53 Drug: Zofran (Ondansetron) 4 mg Route: IVP; Site: right antecubital; kr3 16:10 Follow up: Response: No adverse reaction kr3 13:03 Drug: hydrALAZINE 10 mg Route: IVP; Site: right antecubital; kr3 16:10 Follow up: Response: No adverse reaction kr3 14:59 Drug: Norvasc (amlodipine) 10 mg Route: PO; kr3 16:10 Follow up: Response: No adverse reaction kr3 Medication: 16:10 VIS not applicable for this client. kr3 Outcome: 15:33 Discharge ordered by . rn 16:09 Discharged to home ambulatory. kr3 16:09 Condition: stable 16:09 Discharge instructions given to patient, family, Instructed on discharge instructions, follow up and referral plans. medication usage, Demonstrated understanding of instructions, follow-up care, medications, Prescriptions given X 1. 16:11 Patient left the ED. kr3 Signatures: Dispatcher [employer] [facility] Guerda RoseValentin MD MD rn Reid, Kelley, RN RN kr3 Corrections: (The following items were deleted from the chart) 15:55 12:18 BP 178 / 106; Pulse 52bpm; Resp 18bpm; Pulse Ox 100% RA; kr3 kr3
[2022-06-22 17:07] VITALS: TEMP 98.2; O2SAT 100
[2022-06-22 17:13] VITALS: BP 196/108
== END 2022-06-22 16:11 | disposition home or self-care (01) ==
LOC: ER 10:02
DX: U07.1 COVID-19 (principal); I10 Essential (primary) hypertension; F17.210 Nicotine dependence, cigarettes, uncomplicated
CPT/HCPCS: 0240U; 36415; 71045; 71275; 74175; 80048; 80076; 83880; 84484; 85025; 85610; 93005; 96374; 96375; 99284; J0360; J2405; Q9967

== ENCOUNTER 2022-08-31 22:07 | Emergency (ER) | payer SELFPAY ==
--- OUTSIDE RECORDS SUMMARY | 2022-08-31 22:29 | XMS REPORT | Continuity of Care Document ---
:1960 Author Organization [facility] t Address [address] [place] [address] [address] [place] [address] Care Team Providers Name Role Phone Asked, No Pcp Primary Care Physician Unavailable Vaccine, [facility] Attending Clinician Unavailable Jewel Shabazz DO Attending Clinician Digna Medina DO Attending Clinician DIGNA MEDINA Attending Clinician Unavailable Christine Good MD Attending Clinician [phone] Doctor Unassigned, [place] Attending Clinician Unavailable KIMBERLY REYNA Attending Clinician Unavailable TRUONG HICKS Attending Clinician Unavailable IBRAHIMA URIAS Attending Clinician Unavailable Selam Wiley Attending Clinician Unavailable SHARYN OKEEFE Admitting Clinician Unavailable BRIAN PALENCIA Admitting Clinician Unavailable IBRAHIMA URIAS Admitting Clinician Unavailable Selam Wiley Admitting Clinician Unavailable Payers Payer Name Policy Type Policy Number Effective Date Expiration Date S ki Problems Condition Condition Condition Status Onset Resolution Last Treating Co mments Source Name Details Category Date Date Treatment Clinician Date Pancreatic Pancreatic Disease Recurre Methodi insufficie insufficie nce 2 [facility] ncy ncy 00:00: Hospita 00 l 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 pylori H. 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 Added automatic ally from request for surgery [id number] Dysphagia Dysphagia Disease Active Overview: Methodi 05-[address] 00:00: g of this Hospita 00 note l might be different from the original. Added automatic ally from request for surgery [id number] Dehydratio Dehydratio Disease Active 2018-04 U nivers n n 2-27 ity of 00:00: [address] MONAE MONAE Diagnosis Active 2018-12-05 Memoria BILLING BILLING 12-05 14:15:00 l Active 00:00: Roland 12/05/[address] [place] [address] HYPERTENSI HYPERTENS Diagnosis Active 2019-02-15 Memoria VE LINO 12-01 15:40:00 l EMERGENCY EMERGENCY 00:00: Herm cecelia Active [address] CHEST PAIN CHEST Diagnosis Active 2018-12-01 Memoria PAIN 12-01 12:01:00 l Active 00:00: Roland 12/01/2018 00 [facility] No known No known Disease Unive rs active active ity of problems problems [facility] Allergies, Adverse Reactions, Alerts Allergy Allergy Status Severity Reaction(s) Onset Inactive Treating Comm ents Source Name Type Date Date Clinician No Known DA Active U 2020-0 [facility]13 [place] [facility] No Known DA Active U 2020-0 [facility] All[facility]ie 2[facility]13 [place] [facility] No Known No Known Active Memori a Medicati Medicati l on on [place] Allergie Allergie s s NO KNOWN Drug Active Univers ALLERGIE Class ity of S [facility] Social History Social Habit Start Date Stop Date Quantity Comments Source History of tobacco Cigarette [facility]oker [facility] Exposure to Not sure University of SARS-CoV-2 (event) [facility] Alcohol intake 2019-07-05 2019-07-05 Ex-drinker [facility] 00:00:00 00:00:00 (finding) Hospital History of Social 2019-06-03 2019-06-[address] function 00:00:00 00:00:00 Hospital Tobacco use and 2019-05-22 2019-05-22 Smokeless [facility] exposure 00:00:00 00:00:00 tobacco non-user Hospital Cigarettes smoked 2019-05-22 2019-05-22 [facility] current (pack per 00:00:00 00:00:00 Hospita l day) - Reported Cigarette 2019-04-20 2019-04-20 University of pack-years 00:00:00 00:00:00 [facility] Sex Ass[birth year] At [birth year] [facility] 00:00:00 00:00:00 Hospital Smoking Status Start Date Stop Date Source Smokes tobacco daily 2019-05-22 00:00:00 [facility] Social History 2018-12-01 15:56:47 [facility] [place] [facility] Unknown if ever smoked [facility] y [facility] Medications Ordered Filled Start Stop Current Ordering Indication Dosage Frequency Signature Comments Components Source Medication Medication Date Date Medication? Clinician (SIG) Name Name amLODIPine 0 202- No 10mg 10 mg, Univ ers (NORVASC) 06-07 Oral, ity of tablet 10 19:15: 18:33 [place]CE[place] mg [place] :[place] dose, Sat Medical 06/07/20 at Branch 1315, FUENTES lisinopriL 2020- No 10mg 10 mg, Univ ers (PRINIVIL,Z 06-07 Oral, ity of ESTRIL) 19:15: 18:33 ONCE, [...] 10mg 10 mg, Uni vers bella HCl 06-07 Slow IV ity of (REGLAN) 16:30: 16:08 Push, [place] injection 00 :00 ONCE, 1 Medical 10 mg dose, Sat Branch 06/07/20 at 1030, FUENTES NaCl 0.9% 2020- No 1000mL at 999 Uni vers (NS) bolus 06-07 mL/hr, ity of infusion 15:30: 19:29 1,000 mL, Eladio as 1,000 mL 00 :00 IV Medical Infusion, Branch ONCE, 1 dose, 06/07/20 at 0930, FUENTES metoclopram 2020-0 Yes [id number] 10mg Take 1 Univers bella HCl 10 2-13 tablet by ity of mg tablet 00:00: mouth [place] 00 every 6 Medical (six) Branch hours as needed for Nausea and Vomiting (N/V). metoclopram 2020-0 Yes [id number] 10mg Take 1 Univers bella HCl 10 2-13 tablet by ity of mg tablet 00:00: mouth [place] 00 every 6 Medical (six) Branch hours as needed for Nausea and Vomiting (N/V). metoclopram 2020-0 Yes [id number] 10mg Take 1 Univers bella HCl 10 2-13 tablet by ity of mg tablet 00:00: mouth [place] 00 every 6 Medical (six) Branch hours as needed for Nausea and Vomiting (N/V). hydrALAZINE 2020- No 12.5mg 12.5 mg, Univers (APRESOLINE 2-19 02-19 Oral, ONCE i ty of ) tablet 01:15: 00:30 NOW, 1 [place] 12.5 mg 00 :00 dose, [facility] 06/12/19 at Branch 1915, Routine folic acid [...] by mouth l daily .vitamin supplement ation. folic acid 2020-0 Yes 1mg QD Take 1 Metho di (FOLVITE) 1 2-11 tablet (1 st MG tablet 00:00: mg total) Hos ronald 00 by mouth l daily .vitamin supplement ation. multivitami 2020-0 Yes 1{tbl} QD Take 1 Me thodi n 2-[address] (THERAGRAN) 00:00: mouth Hospi ta tablet 00 daily l .vitamin supplement ation. multivitami 2020-0 Yes 1{tbl} [...] l .vitamin supplement ation. polyethylen 2020-0 Yes [id number] 17g QD Take 17 g Methodi e glycol 2-[address] (MIRALAX) 00:00: daily Hospita 17 gram 00 .constipat l packet ion. polyethylen 2020-0 Yes [id number] 17g QD Take 17 g Methodi e glycol 2-[address] (MIRALAX) 00:00: daily Hospita 17 gram 00 .constipat l packet ion. polyethylen 2020-0 Yes [id number] 17g QD Take 17 g Methodi e glycol 2-[address] (MIRALAX) 00:00: daily Hospita 17 gram 00 .constipat l packet ion. polyethylen 2020-0 Yes [id number] 17g QD Take 17 g Methodi e glycol 2-[address] (MIRALAX) 00:00: daily Hospita 17 gram 00 .constipat l packet ion. polyethylen 2020-0 Yes [id number] 17g QD Take 17 g Methodi e glycol 2-[address] (MIRALAX) 00:00: daily Hospita 17 gram 00 .constipat l packet ion. polyethylen 2020-0 Yes [id number] 17g QD Take 17 g Methodi e glycol 2-[address] (MIRALAX) 00:00: daily Hospita 17 gram 00 .constipat l packet ion. polyethylen Yes [id number] 17g QD Take 17 g Methodi e glycol 2-[address] (MIRALAX) 00:00: daily Hospita 17 gram 00 .constipat l packet ion. amLODIPine 2018-04 Yes 10mg Take 10 mg U nivers 10 mg 2-31 by mouth ity of tablet 21:55: daily. [address] amLODIPine 2018-04 Yes 10mg Take 10 mg U nivers 10 mg 2-31 by mouth ity of tablet 21:55: daily. [address] amLODIPine 2018-04 Yes 10mg Take 10 mg U nivers 10 mg 2-31 by mouth ity of tablet 21:55: daily. [address] amLODIPine 2018-04 Yes 10mg Take 10 mg U nivers 10 mg 2-31 by mouth ity of tablet 15:55: daily. [address] amLODIPine 2018-04 Yes 10mg Take 10 mg U nivers 10 mg 2-31 by mouth ity of tablet 15:55: daily. [address] lisinopril Yes 20 mg = 1 Me moria 20 mg oral 8-12 tab, PO, l tablet 17:49: Daily, # [place] 00 30 tab, 1 Refill(s) amLODIPine Yes 10 mg = 1 Me moria 10 mg oral 8-12 tab, PO, l tablet 17:49: Daily, # [place] 00 30 tab, 1 Refill(s) lisinopril Yes 20 mg = 1 Me moria 20 mg oral 8-12 tab, PO, l tablet 17:49: Daily, # [place] 00 30 tab, 1 Refill(s) amLODIPine Yes 10 mg = 1 Me moria 10 mg oral 8-12 tab, PO, l tablet 17:49: Daily, # [place] 00 30 tab, 1 Refill(s) lisinopril Yes [...] tab, PO, l tablet 17:49: Daily, # [place] 00 30 tab, 1 Refill(s) amLODIPine 2019-0 Yes 10 mg = 1 Me moria 10 mg oral 8-12 tab, PO, l tablet 17:49: Daily, # [place] 00 30 tab, 1 Refill(s) lisinopril 2019-0 Yes 20 mg = 1 Me moria 20 mg oral 8-12 tab, PO, l tablet 17:49: Daily, # [place] 00 30 tab, 1 Refill(s) amLODIPine 2019-0 Yes 10 mg = 1 Me moria 10 mg oral 8-12 tab, PO, l tablet 17:49: Daily, # [place] 00 30 tab, 1 Refill(s) lisinopril 2019-0 Yes 20 mg = 1 Me moria 20 mg oral 8-12 tab, PO, l tablet 17:49: Daily, # [place] 30 tab, 1 Refill(s) amLODIPine 2019-0 Yes 10 mg = 1 Me moria 10 mg oral 8-12 tab, PO, l tablet 17:49: Daily, # [place] 00 30 tab, 1 Refill(s) amLODIPine 2019-0 Yes 10 mg = 1 Me moria 10 mg oral 8-12 tab, PO, l tablet 17:49: Daily, # [place] 00 30 tab, 1 Refill(s) lisinopril 2019-0 Yes 20 mg = 1 Me moria 20 mg oral 8-12 tab, PO, l tablet 17:49: Daily, # [place] 30 tab, 1 Refill(s) Maalox 2019-0 No 30 mL, [facility] Advanced 12-04 Route: PO, l Regular 15:24: Drug Form: Herm cecelia Strength 00 SUSP, SUSP Dosing Weight 64.205, kg, QID, PRN Indigestio n, Start date: 12/04/18 10:24:00 CDT, Duration: 30 day, Stop date: 01/03/19 10:23:00 CDT Maalox 2019-0 No 30 mL, [facility] Advanced 12-04 Route: PO, l Regular 15:24: Drug Form: Herm cecelia Strength 00 SUSP, SUSP Dosing Weight 64.205, kg, QID, PRN Indigestio n, Start date: 12/04/18 10:24:00 CDT, Duration: 30 day, Stop date: 01/03/19 10:23:00 CDT Maalox 2019-0 No 30 mL, [facility] Advanced 8- Route: PO, l Regular 15:24: Drug Form: Herm cecelia Strength 00 SUSP, SUSP Dosing Weight 64.205, kg, QID, PRN Indigestio n, Start date: 12/04/18 10:24:00 CDT, Duration: 30 day, Stop date: 01/03/19 10:23:00 CDT Maalox 2019-0 No 30 mL, [facility] Advanced 8- Route: PO, l Regular 15:24: Drug Form: Herm cecelia Strength 00 SUSP, SUSP Dosing Weight 64.205, kg, QID, PRN Indigestio n, Start date: 12/04/18 10:24:00 CDT, Duration: 30 day, Stop date: 01/03/19 10:23:00 CDT Maalox 2019-0 No 30 mL, [facility] Advanced 8- Route: PO, l Regular 15:24: Drug Form: Herm cecelia Strength 00 SUSP, SUSP Dosing Weight 64.205, kg, QID, PRN Indigestio n, Start date: 12/04/18 10:24:00 CDT, Duration: 30 day, Stop date: 01/03/19 10:23:00 CDT Maalox 2019-0 No 30 mL, [facility] Advanced 8- Route: PO, l Regular 15:24: Drug Form: Herm cecelia Strength 00 SUSP, SUSP Dosing Weight 64.205, kg, QID, PRN Indigestio n, Start date: 12/04/18 10:24:00 CDT, Duration: 30 day, Stop date: 01/03/19 10:23:00 CDT Maalox 2019-0 No 30 mL, [facility] Advanced 8- Route: PO, l Regular 15:24: Drug Form: Herm cecelia Strength 00 SUSP, SUSP Dosing Weight 64.205, kg, QID, PRN Indigestio n, Start date: 12/04/18 10:24:00 CDT, Duration: 30 day, Stop date: 01/03/19 10:23:00 CDT Xylocaine 2019-0 Yes Notes: Memori a Viscous 2% 8-12 (Same as: l mucous 14:00: Xylocaine) Bonnie nn membrane 00 solution Al No Notes: Memoria hydroxide/M 8-12 (aluminum l g 14:00: hydroxide- [place] hydroxide/s 00 magnesium imethicone hyd-simeth icone 200-200-20 [...] 14:00: Xylocaine) Bonnie nn membrane 00 solution No Notes: Memoria hydroxide/M 8-12 (aluminum l [...] 200-200-20 mg/5ml 30 ml ud GRECIA) Al No Notes: Memoria hydroxide/M 8-12 (aluminum [...] Route: PO, l hydroxide/m 12:29: Drug Form: [place] agnesium 00 SUSP, hydroxide/l Dosing idocaine/si Weight methicone) 64.205, kg, ONCE, Routine, Start date: 12/04/18 7:29:00 CDT, Stop date: 12/04/18 7:29:00 CDT GI cocktail No 45 ml, Ketan brooks (aluminum 8-12 Route: PO, l hydroxide/m 12:29: Drug Form: [place] agnesium 00 SUSP, hydroxide/l Dosing idocaine/si Weight methicone) 64.205, kg, ONCE, Routine, Start date: 12/04/18 7:29:00 CDT, Stop date: 12/04/18 7:29:00 CDT GI cocktail No 45 ml, Ketan brooks (aluminum 8-12 Route: PO, l hydroxide/m 12:29: Drug Form: [place] agnesium 00 SUSP, hydroxide/l Dosing idocaine/si Weight [...] Route: PO, l hydroxide/m 12:29: Drug Form: [place] agnesium 00 SUSP, hydroxide/l Dosing idocaine/si Weight methicone) 64.205, kg, ONCE, Routine, Start date: 12/04/18 7:29:00 CDT, Stop date: 12/04/18 7:29:00 CDT Imdur No Notes: Memoria 8-12 (Same l 02:00: as:Imdur) [place] 00 "Do Not Crush" Take on empty stomach/ full glass of water. Do not crush Imdur No Notes: Memoria 8-12 (Same l 02:00: as:Imdur) [place] 00 "Do Not Crush" Take on empty [...] 30 mg, Memor ia 30 mg oral 8 Route: PO, l tablet, 02:00: Drug form: [...] 30 mg, Memor ia 30 mg oral 8 Route: PO, l tablet, 02:00: Drug form: Herm cecelia extended 00 ERTAB, release Q12H, Dosing Weight 64.205, kg, Start date: 12/02/18 21:00:00 CDT, Duration: 30 day, Stop date: 01/01/19 9:00:00 CDT metoprolol 2019-0 No Notes: Memor ia tartrate 8-11 (Same as: l 02:00: Lopressor) NIFEdipine 2019-0 No 30 mg, Memor ia 30 mg oral 8-11 Route: PO, l tablet, 02:00: Drug form: Herm cecelia extended 00 ERTAB, release Q12H, Dosing Weight 64.205, kg, Start date: 12/02/18 21:00:00 CDT, Duration: 30 day, Stop date: 01/01/19 9:00:00 CDT metoprolol 2019-0 No Notes: Memor ia tartrate 8-11 (Same as: l 02:00: Lopressor) NIFEdipine 2018-0 No 30 mg, Memor ia 30 mg oral 8-11 Route: PO, l tablet, 02:00: Drug form: Herm cecelia extended 00 ERTAB, release Q12H, Dosing Weight 64.205, kg, Start date: 12/02/18 21:00:00 CDT, Duration: 30 day, Stop date: 01/01/19 9:00:00 CDT metoprolol 2019-0 No Notes: Memor ia tartrate 8-11 (Same as: l 02:00: Lopressor) NIFEdipine 2018-0 No 30 mg, Memor ia 30 mg oral 8-11 Route: PO, l tablet, 02:00: Drug form: Herm cecelia extended 00 ERTAB, release Q12H, Dosing Weight 64.205, kg, Start date: 12/02/18 21:00:00 CDT, Duration: 30 day, Stop date: 01/01/19 9:00:00 CDT metoprolol 2019-0 No Notes: Memor ia tartrate 8-11 (Same as: l 02:00: Lopressor) NIFEdipine 2018-0 No 30 mg, Memor ia 30 mg oral 8-11 Route: PO, l tablet, 02:00: Drug form: Herm cecelia extended 00 ERTAB, release Q12H, Dosing Weight 64.205, kg, Start date: 12/02/18 21:00:00 CDT, Duration: 30 day, Stop date: 01/01/19 9:00:00 CDT metoprolol 2019-0 No Notes: Memor ia tartrate 8-11 (Same as: l 02:00: Lopressor) Maalox 2018-0 No Notes: [facility] Advanced 8-11 (aluminum l [...] Memoria 8-11 Route: PO, l 01:12: Daily, Roland Dosing Weight 64.205, kg, Priority: NOW, Start date: 12/02/18 20:12:00 CDT, Duration: 30 day, Stop date: 01/01/19 9:00:00 CDT Protonix 2019-0 No 40 mg, Memoria 8-11 Route: PO, l 01:12: Daily, [place] 00 Dosing Weight 64.205, kg, Priority: NOW, [...] and grapefruit juice". Do not crush NIFEdipine 2019-0 No Notes: Memor ia 30 mg oral 8-11 (Same as: l tablet, 00:48: Adalat CC, Herm cecelia extended 00 Procardia release XL) Give on empty stomach. Take 1 hour before or 2 hours after meal; "Avoid grapefruit and grapefruit juice". Do not crush NIFEdipine 2019-0 No Notes: Memor ia 30 mg oral 8-11 (Same as: l tablet, 00:48: Adalat CC, Herm cecelia extended 00 Procardia release XL) Give on empty stomach. Take 1 hour before or 2 hours after meal; "Avoid grapefruit and grapefruit juice". Do not crush NIFEdipine No Notes: Memor ia 30 mg oral 8-11 (Same as: l tablet, 00:48: Adalat CC, Herm cecelia extended 00 Procardia release XL) Give on empty stomach. Take 1 hour before or 2 hours after meal; "Avoid grapefruit and grapefruit juice". Do not crush NIFEdipine No Notes: Memor ia 30 mg oral 8-11 (Same as: l tablet, 00:48: Adalat CC, Herm cecelia extended 00 Procardia release XL) Give on empty stomach. Take 1 hour before or 2 hours after meal; "Avoid grapefruit and grapefruit juice". Do not crush NIFEdipine No Notes: Memor ia 30 mg oral 8-11 (Same as: l tablet, 00:48: Adalat CC, Herm cecelia extended 00 Procardia release XL) Give on empty stomach. Take 1 hour before or 2 hours after meal; "Avoid grapefruit and grapefruit juice". Do not crush NIFEdipine No Notes: Memor ia 30 mg [...] Route: PO, l tablet, 22:00: Drug form: Darshana cecelia extended 00 ERTAB, release BID, Dosing Weight 64.205, kg, Start date: 12/02/18 17:00:00 CDT, Duration: 30 day, Stop date: 01/01/19 9:00:00 CDT NIFEdipine 2019-0 No 30 mg, Memor ia 30 mg oral 8-10 Route: PO, l tablet, 22:00: Drug form: Darshana cecelia extended 00 ERTAB, release BID, Dosing Weight 64.205, kg, Start date: 12/02/18 17:00:00 CDT, Duration: 30 day, Stop date: 01/01/19 9:00:00 CDT NIFEdipine 2019-0 No 30 mg, Memor ia 30 mg oral 8-10 Route: PO, l tablet, 22:00: Drug form: Darshana cecelia extended 00 ERTAB, release BID, Dosing Weight 64.205, kg, Start date: 12/02/18 17:00:00 CDT, Duration: 30 day, Stop date: 01/01/19 9:00:00 CDT NIFEdipine 2019-0 No 30 mg, Memor ia 30 mg oral 8-10 Route: PO, l tablet, 22:00: Drug form: Darshana cecelia extended 00 ERTAB, release BID, Dosing Weight 64.205, kg, Start date: 12/02/18 17:00:00 CDT, Duration: 30 day, Stop date: 01/01/19 9:00:00 CDT NIFEdipine 2019-0 No 30 mg, Memor ia 30 mg oral 8-10 Route: PO, l tablet, 22:00: Drug form: Darshana cecelia extended 00 ERTAB, release BID, Dosing Weight 64.205, kg, Start date: 12/02/18 17:00:00 CDT, Duration: 30 day, Stop date: 01/01/19 9:00:00 CDT Lisinopril 2019-0 No Notes: Memor ia 8-10 (Same as: l 16:46: PrinivRoland miller 00 Zestril) Lisinopril 2019-0 No Notes: Memor ia 8-10 (Same as: l 16:46: Prinivil, [place] 00 Zestril) Lisinopril No Notes: Memor ia 8-10 (Same as: l 16:46: Prinivil, [place] 00 Zestril) Lisinopril No Notes: Memor ia 8-10 (Same as: l 16:46: Prinivil, [place] 00 Zestril) Lisinopril No Notes: Memor ia 8-10 (Same as: l 16:46: Prinivil, [place] 00 Zestril) Lisinopril No Notes: Memor ia 8-10 (Same as: l 16:46: Prinivil, [place] 00 Zestril) Lisinopril No Notes: Memor ia 8-10 (Same as: l 16:46: Prinivil, [place] 00 Zestril) Famotidine No Notes: Memor ia [...] 8-10 (Same as: l 14:00: Pepcid AC) [place] 00 Aspirin No Notes: Memoria 8-10 Take with l 14:00: food. Famotidine No Notes: Memor ia 8-10 (Same as: l 14:00: Pepcid AC) Aspirin No Notes: Memoria 8-10 Take with l 14:00: food. Famotidine No Notes: Memor ia 8-10 (Same as: l 14:00: Pepcid AC) Aspirin 2018- No Notes: Memoria 8-10 Take with l [...] 0.9% 8-10 (Same as: l 02:00: BD [place] 00 Posiflush) Saline No Notes: Memoria Flush 0.9% 8-10 (Same as: l 02:00: BD [place] Posiflush) Saline No Notes: [facility]oria Flush 0.9% 8-10 (Same as: l 02:00: BD [place] Posiflush) Saline No Notes: [facility]oria Flush 0.9% 8-10 (Same as: l 02:00: BD [place] 00 Posiflush) Saline No Notes: Memoria Flush 0.9% 8-10 (Same as: l 02:00: BD [place] Posiflush) Saline No Notes: [facility]oria Flush 0.9% 8-10 (Same as: l 02:00: BD [place] Posiflush) Saline No Notes: [facility]oria Flush 0.9% 8-10 (Same as: l 02:00: BD [place] Posiflush) Lisinopril No 20 mg, PO, M emoria 8-09 Daily, 0 l 23:43: Refill(s) [place] 00 Lisinopril 0 No 20 mg, PO, M emoria 8- Daily, 0 l 23:43: Refill(s) [place] 00 Lisinopril 0 No 20 mg, PO, M emoria 8- Daily, 0 l 23:43: Refill(s) [place] Lisinopril 0 No 20 mg, PO, M emoria 8-09 Daily, 0 l 23:43: Refill(s) [place] Lisinopril 0 No 20 mg, PO, M emoria 8-09 Daily, 0 l 23:43: Refill(s) [place] Lisinopril 0 No 20 mg, PO, M emoria 8-09 Daily, 0 l 23:43: Refill(s) [place] 00 Lisinopril 0 No 20 mg, PO, M emoria 8-09 Daily, 0 l 23:43: Refill(s) [place] Potassium No Notes: Memori a Chloride 12-01 [...] s with feeding tube less than 14 Brazilian (Dobhoff, J-tube etc) and pediatric and patients. potassium No Notes: Memori a phosphate-s 12-01 (Same as: l odium 23:34: Phos-NaK) phosphate 00 Each 1.5 250 mg-280 gm [...] phosphate 12-01 Infuse l 23:34: over 4 00 hour. Do not infuse phosphorou s [...] Oxide 12-01 (Same as: l 23:34: Mag-Ox [place] 400) Magnesium oxide 791eh=602w g elemental magnesium Dose=____m g magnesium oxide (___mg elemental magnesium) Calcium No Notes: Memoria Gluconate 12-01 WASTE: F/P l 23:34: - Sink; E - Municipal Trash Bin Potassium No Notes: Memori a Chloride 12-01 (Same as: l 23:34: K-Dur 20) [place] 00 "Do Not Crush" Give with food and full glass of water For patients unable to swallow tablet, dissolve in one half glass of water. Allow about 2 minutes for the tablets to disintegra te. Stir before giving to prepare slurry and administer . Please exclude Patient s with feeding tube less than 14 Brazilian (Dobhoff, J-tube etc) and pediatric and patients. potassium No Notes: Memori a phosphate-s 12-01 (Same as: l odium 23:34: Phos-NaK) [place] phosphate 00 Each 1.5 250 mg-280 gm pkt has mg-160 mg 250mg oral powder phosphorou for s. Mix reconstitut w/2.5oz ion water and stir. Potassium No Notes: Memori a Chloride 12-01 (Same as: l 23:34: K-Dur 20) [place] 00 "Do Not Crush" Give with food and full glass of water For patients unable to swallow tablet, dissolve in one half glass of water. Allow about 2 minutes for the tablets to disintegra te. Stir before giving to prepare slurry and administer . Please exclude Patient s with feeding tube less than 14 Brazilian (Dobhoff, J-tube etc) and pediatric and patients. [...] phosphate 12-01 Infuse l 23:34: over 4 [place] 00 hour. Do not infuse phosphorou s concurrent ly in the same line as TPN or IVF that contains calcium. For double lumen central lines, phosphorou s may be infused in a separate lumen from TPN. Magnesium No Notes: Memori a Sulfate 12-01 WASTE: F/P l 23:34: - Sink; E [place] - [facility] Trash Bin Magnesium No Notes: Memori a Oxide 12-01 (Same as: l 23:34: Mag-Ox [place] 400) Magnesium oxide 416hg=360k g elemental magnesium Dose=____m g magnesium oxide (___mg elemental magnesium) Calcium No Notes: Memoria Gluconate 12-01 WASTE: F/P l 23:34: - Sink; E [place] - [facility] Trash Bin potassium No Notes: [...] phosphate 12-01 Infuse l 23:34: over 4 [place] 00 hour. Do not infuse phosphorou s [...] 12-01 (Same as: l 23:34: Mag-Ox [place] 400) Magnesium oxide 199lo=458a g elemental magnesium Dose=____m g magnesium oxide (___mg elemental magnesium) Calcium No Notes: [facility]oria Gluconate 12-01 WASTE: F/P l 23:34: - Sink; E [place] - [facility] Trash Bin Potassium No Notes: [...] s with feeding tube less than 14 Brazilian (Dobhoff, J-tube etc) and pediatric and patients. [...] WASTE: F/P l 23:34: - Sink; E [place] - [facility] Trash Bin Magnesium No Notes: Memori a Oxide 12-01 (Same as: l 23:34: Mag-Ox [place] 00 400) Magnesium oxide 283fe=231w g elemental magnesium Dose=____m g magnesium oxide [...] s with feeding tube less than 14 Brazilian (Dobhoff, J-tube etc) and pediatric and patients. potassium No Notes: Memori a phosphate-s 12-01 (Same as: l odium 23:34: Phos-NaK) [place] phosphate 00 Each 1.5 250 mg-280 gm pkt has mg-160 mg 250mg oral powder phosphorou for s. Mix reconstitut w/2.5oz ion water and stir. potassium No Notes: Memori a phosphate 12-01 (Same as: l 23:34: K [place] 00 Phosphate. ) Do not infuse phosphorou s concurrent ly in the same line as TPN or IVF that contains calcium. For double lumen central lines, phosphorou s may be infused in a separate lumen from TPN. 1 mMol phoshate has 1.47 mEq potassium Infuse over 4 hours sodium No Notes: Memoria phosphate 12-01 Infuse l 23:34: over 4 [place] 00 hour. Do not infuse phosphorou s concurrent ly in the same line as TPN or IVF that contains calcium. For double lumen central lines, phosphorou s may be infused in a separate lumen from TPN. Magnesium No Notes: Memori a Sulfate 12-01 WASTE: F/P l 23:34: - Sink; E [place] 00 - Municipal Trash Bin Magnesium No Notes: Memori a Oxide 12-01 (Same as: l 23:34: Mag-Ox 400) Magnesium oxide 295bw=595b g elemental magnesium Dose=____m g magnesium oxide [...] s with feeding tube less than 14 Brazilian (Dobhoff, J-tube etc) and pediatric and patients. potassium No Notes: Memori a phosphate-s 12-01 (Same as: l odium 23:34: Phos-NaK) [place] phosphate 00 Each 1.5 250 mg-280 gm pkt has mg-160 mg 250mg oral powder phosphorou for s. Mix reconstitut w/2.5oz ion water and stir. potassium No Notes: Memori a phosphate 12-01 (Same as: l 23:34: K Phosphate. ) Do not infuse phosphorou s [...] Oxide 12-01 (Same as: l 23:34: Mag-Ox 00 400) Magnesium oxide 935ro=317k g elemental magnesium Dose=____m g magnesium oxide [...] s with feeding tube less than 14 Brazilian (Dobhoff, J-tube etc) and pediatric and patients. potassium No Notes: Memori a phosphate-s 12-01 (Same as: l odium 23:34: Phos-NaK) [place] phosphate 00 Each 1.5 250 mg-280 gm pkt has mg-160 mg 250mg oral powder phosphorou for s. Mix reconstitut w/2.5oz ion water and stir. potassium 2018- No Notes: Memori a phosphate 12-01 (Same as: l 23:34: K [place] 00 Phosphate. ) Do not infuse phosphorou s concurrent ly in the same line as TPN or IVF that contains calcium. For double lumen central lines, phosphorou s may be infused in a separate lumen from TPN. 1 mMol phoshate has 1.47 mEq potassium Infuse over 4 hours sodium 2019- No Notes: Memoria phosphate - Infuse l 23:34: over 4 [place] 00 hour. Do not infuse phosphorou s [...] Oxide 12-01 (Same as: l 23:34: Mag-Ox [place] 00 400) Magnesium oxide 499gu=389p g elemental magnesium Dose=____m g magnesium oxide (___mg elemental magnesium) Calcium No Notes: Memoria Gluconate 12-01 WASTE: F/P l 23:34: - Sink; E [place] - [facility] heparin No Notes: Memoria 8 porcine l 21:00: heparin [place] 00 heparin No Notes: Memoria 8 porcine l 21:00: heparin [place] heparin No Notes: Memoria 8- porcine l 21:00: heparin [place] 00 heparin No Notes: Memoria 8- porcine l 21:00: heparin [place] 00 heparin No Notes: Memoria 8- porcine l 21:00: heparin [place] 00 heparin No Notes: Memoria 8- porcine l 21:00: heparin [place] 00 heparin No Notes: Memoria 8 porcine l 21:00: heparin [place] 00 Magnesium No Notes: Memori a Sulfate 12-01 WASTE: F/P l 20:36: - Sink; E [place] - [facility] Magnesium No Notes: Memori a Sulfate 8-09 WASTE: F/P l 20:36: - Sink; E [place] - [facility] Magnesium 2019 No Notes: Memori a Sulfate 8-09 WASTE: F/P l 20:36: - Sink; E [place] - [facility] Magnesium No Notes: Memori a Sulfate 8-09 WASTE: F/P l 20:36: - Sink; E [place] [facility] Magnesium No Notes: Memori a Sulfate 8-09 WASTE: F/P l 20:36: - Sink; E [place] - [facility] Magnesium No Notes: Memori a Sulfate 8-09 WASTE: F/P l 20:36: - Sink; E [place] - [facility] Magnesium No Notes: Memori a Sulfate 8-09 WASTE: F/P l 20:36: - Sink; E [place] - [facility] Isolyte S No [...] as: l (Bolus) IV 20:34: Isolyte S [facility] PH7.4) Potassium 2019-0 No 80 mEq, 4 Mem [...] (Same as: l 200 mL 20:32: Cardene) [place] (Titrate.) 00 IV 40 mg Cardene 40 No Notes: Memor ia mg in NS 12-01 (Same as: l 200 mL 20:32: Cardene) [place] (Titrate.) 00 IV 40 mg Cardene 40 [...] Notes: Memoria 12-01 (Same l 20:11: as:MORPhin [place] 00 e Sulfate) Morphine No Notes: Memoria 12-01 (Same l 20:11: as:MORPhin [place] 00 e Sulfate) Morphine No Notes: Memoria 12-01 (Same l 20:11: as:MORPhin [place] 00 e Sulfate) Morphine No Notes: Memoria 8-09 (Same l 20:11: as:MORPhin [place] 00 e Sulfate) Morphine 2019- No Notes: Memoria 8-09 (Same l 20:11: as:MORPhin [place] 00 e Sulfate) Morphine 2019-0 No Notes: Memoria 8-09 (Same l 20:11: as:MORPhin [place] 00 e Sulfate) Morphine 2019- No Notes: Memoria 8-09 (Same l 20:11: as:MORPhin [place] 00 e Sulfate) Nystatin No Notes: Memoria 100 UNT/MG 8-09 [...] 0.9% 8-09 (Same as: l 19:04: BD [place] 00 Posiflush) Nystatin No Notes: Memoria 100 [...] 0.9% 8-09 (Same as: l 19:04: BD [place] 00 Posiflush) Nystatin No Notes: Memoria 100 UNT/MG 8-09 (Same l Topical 19:04: as:Mycosta Herm cecelia Powder 00 tin, Nilstat) For external use only. Saline No Notes: Memoria Flush 0.9% 8-09 (Same as: l 19:04: BD [place] 00 Posiflush) Nystatin No Notes: Memoria 100 UNT/MG 12-01 (Same l Topical 19:04: as:Mycosta Herm cecelia Powder 00 tin, Nilstat) For external use only. Saline No Notes: Memoria Flush 0.9% 12-01 (Same as: l 19:04: BD [place] Posiflush) Nystatin No Notes: Memoria 100 UNT/MG 12-01 (Same l Topical 19:04: as:Mycosta Herm cecelia Powder 00 tin, Nilstat) For external use only. Saline No Notes: Memoria Flush 0.9% 12-01 (Same as: l 19:04: BD [place] Posiflush) Nitroglycer No Notes: Ketan brooks in 12-01 (Same l 17:29: as:Tridil) [place] 00 Nitroglycer No Notes: Ketan brooks in 12-01 (Same l 17:29: as:Tridil) [place] 00 Nitroglycer No Notes: Ketan brooks in 12-01 (Same l 17:29: as:Tridil) [place] Nitroglycer No Notes: Ketan brooks in 12-01 (Same l 17:29: as:Tridil) [place] Nitroglycer No Notes: Ketan brooks in 12-01 (Same l 17:29: as:Tridil) [place] Nitroglycer No Notes: Ketan brooks in 12-01 (Same l 17:29: as:Tridil) [place] Nitroglycer No Notes: Ketan brooks in 12-01 (Same l 17:29: as:Tridil) [place] Xylocaine No Notes: Memori a Viscous 2% [...] Xylocaine) Bonnie nn membrane 00 solution Xylocaine 0 No Notes: Memori a Viscous 2% 8-09 (Same as: l mucous 17:00: Xylocaine) [place] nn membrane 00 solution Xylocaine No Notes: Memori a Viscous 2% 8-09 (Same as: l mucous 17:00: Xylocaine) [place] nn membrane 00 solution Al 0 No Notes: Memoria hydroxide/M 8-09 (aluminum l g 16:51: hydroxide- [place] hydroxide/s 00 magnesium imethicone hyd-simeth icone 200-200-20 mg/5ml 30 ml ud GRECIA) Al 0 No Notes: Memoria hydroxide/M 8-09 (aluminum l g 16:51: hydroxide- [place] hydroxide/s 00 magnesium imethicone hyd-simeth icone 200-200-20 mg/5ml 30 ml ud GRECIA) Al 0 No Notes: Memoria hydroxide/M 8-09 (aluminum l g 16:51: hydroxide- [place] hydroxide/s 00 magnesium imethicone hyd-simeth icone 200-200-20 mg/5ml 30 ml ud GRECIA) Al 0 No Notes: Memoria hydroxide/M 8-09 (aluminum l g 16:51: hydroxide- [place] hydroxide/s 00 magnesium imethicone hyd-simeth icone 200-200-20 mg/5ml 30 ml ud GRECIA) Al 0 No Notes: Memoria hydroxide/M 8-09 (aluminum l g 16:51: hydroxide- [place] hydroxide/s 00 magnesium imethicone hyd-simeth icone 200-200-20 mg/5ml 30 ml ud GRECIA) Al 2018-0 No Notes: Memoria hydroxide/M 8-09 (aluminum l g 16:51: hydroxide- [place] hydroxide/s 00 magnesium imethicone hyd-simeth icone 200-200-20 mg/5ml 30 ml ud GRECIA) Al 2018-0 No Notes: Memoria hydroxide/M 8-09 (aluminum l g 16:51: hydroxide- [place] hydroxide/s 00 magnesium imethicone hyd-simeth icone 200-200-20 mg/5ml 30 ml ud GRECIA) GI cocktail 0 No 45 mL, Ketan brooks (aluminum 12-01 Route: PO, l hydroxide/m 16:45: Dosing Herm cecelia agnesium 00 Weight hydroxide/l 68.182, idocaine/si kg, ONCE, methicone) STAT, Start date: 12/01/18 11:45:00 CDT, Stop date: 12/01/18 11:45:00 CDT GI cocktail 2018-0 No 45 mL, Ketan brooks (aluminum 12-01 Route: PO, l hydroxide/m 16:45: Dosing Herm cecelia agnesium 00 Weight hydroxide/l 68.182, idocaine/si kg, ONCE, methicone) STAT, Start date: 12/01/18 11:45:00 CDT, Stop date: 12/01/18 11:45:00 CDT GI cocktail 2018-0 No 45 mL, Ketan brooks (aluminum 12-01 Route: PO, l hydroxide/m 16:45: Dosing Herm cecelia agnesium 00 Weight hydroxide/l 68.182, idocaine/si kg, ONCE, methicone) STAT, Start date: 12/01/18 11:45:00 CDT, Stop date: 12/01/18 11:45:00 CDT GI cocktail 2018-0 No 45 mL, Ketan brooks (aluminum 12-01 Route: PO, l hydroxide/m 16:45: Dosing Herm cecelia agnesium 00 Weight hydroxide/l 68.182, idocaine/si kg, ONCE, methicone) STAT, Start date: 12/01/18 11:45:00 CDT, Stop date: 12/01/18 11:45:00 CDT GI cocktail 2018-0 No 45 mL, Ketan brooks (aluminum 12-01 [...] Stop date: 12/01/18 11:45:00 CDT GI cocktail 2019-0 No 45 mL, Ketan brooks (aluminum 12-01 Route: PO, l hydroxide/m 16:45: Dosing Herm cecelia agnesium 00 Weight hydroxide/l 68.182, idocaine/si kg, ONCE, methicone) STAT, Start date: 12/01/18 11:45:00 CDT, Stop date: 12/01/18 11:45:00 CDT Nitroglycer No Notes: Ketan brooks in 12-01 (Same l 16:14: as:Tridil) Final conc = 0.4 mg/ml. Premix bottle. Nitroglycer No Notes: Ketan brooks in 12-01 (Same l 16:14: as:Tridil) Final conc = 0.4 mg/ml. Premix bottle. Nitroglycer No Notes: Ketan brooks in 12-01 (Same l 16:14: as:Tridil) Final conc = 0.4 mg/ml. Premix bottle. Nitroglycer No Notes: Ketan brooks in 12-01 (Same l 16:14: as:Tridil) Final conc = 0.4 mg/ml. Premix bottle. Nitroglycer No Notes: Ketan brooks in 12-01 (Same l 16:14: as:Tridil) Final conc = 0.4 mg/ml. Premix bottle. Nitroglycer No Notes: Ketan brooks in 12-01 (Same l 16:14: as:Tridil) Final conc = 0.4 mg/ml. Premix bottle. Nitroglycer No Notes: Ketan brooks in 12-01 (Same l 16:14: as:Tridil) Final conc = 0.4 mg/ml. Premix bottle. Iohexol 0 No 100 mL, Memoria 12-01 Route: l 16:11: IVP, Drug Form: SOLN, Dosing Weight 68.182, kg, ONCALL, [...] Memoria 12-01 Route: l 16:11: IVP, Drug [place] 00 Form: SOLN, Dosing Weight 68.182, kg, [...] ia 12-01 (Same as: l 15:23: Pepcid) [place] 00 Can be dilute in 5-10cc NS [...] ia 12-01 (Same as: l 15:23: Pepcid) [place] 00 Can be dilute in 5-10cc NS IVP: Slow IV push over at least 2 minutes. Famotidine No Notes: Memor ia - (Same as: l 15:23: Pepcid) [place] 00 Can be dilute in 5-10cc NS IVP: Slow IV push over at least 2 minutes. Famotidine No Notes: Memor ia 12-01 (Same as: l 15:23: Pepcid) [place] 00 Can be dilute in 5-10cc NS IVP: Slow IV push over at least 2 minutes. GI cocktail No 45 mL, Ketan brooks (aluminum 8 Route: PO, l hydroxide/m 15:20: kg, ONCE, H ermann agnesium 00 STAT, hydroxide/l Start idocaine/si date: methicone) 12/01/18 10:20:00 CDT, Stop date: 12/01/18 10:20:00 CDT GI cocktail 2018-0 No 45 mL, Ketan brooks (aluminum 12-01 Route: PO, l hydroxide/m 15:20: kg, ONCE, H [place] agnesium 00 STAT, hydroxide/l Start idocaine/si date: methicone) 12/01/18 10:20:00 CDT, Stop date: 12/01/18 10:20:00 CDT GI cocktail 0 No 45 mL, Ketan brooks (aluminum 12-01 Route: PO, l hydroxide/m 15:20: kg, ONCE, H ermann agnesium 00 STAT, hydroxide/l Start idocaine/si date: methicone) 12/01/18 10:20:00 CDT, Stop date: 12/01/18 10:20:00 CDT GI cocktail 2018-0 No 45 mL, Ketan brooks (aluminum 12-01 Route: PO, l hydroxide/m 15:20: kg, ONCE, H ermann agnesium 00 STAT, hydroxide/l Start idocaine/si date: methicone) 12/01/18 10:20:00 CDT, Stop date: 12/01/18 10:20:00 CDT GI cocktail 2018-0 No 45 mL, Ketan brooks (aluminum 12-01 Route: PO, l hydroxide/m 15:20: kg, ONCE, H ermann agnesium 00 STAT, hydroxide/l Start idocaine/si date: methicone) 12/01/18 10:20:00 CDT, Stop date: 12/01/18 10:20:00 CDT GI cocktail 0 No 45 mL, Ketan brooks (aluminum 12-01 Route: PO, l hydroxide/m 15:20: kg, ONCE, H ermann agnesium 00 STAT, hydroxide/l Start idocaine/si date: methicone) 12/01/18 10:20:00 CDT, Stop date: 12/01/18 10:20:00 CDT GI cocktail 0 No 45 mL, Ketan brooks (aluminum 12-01 Route: PO, l hydroxide/m 15:20: kg, ONCE, H ermann agnesium 00 STAT, hydroxide/l Start idocaine/si date: methicone) 12/01/18 10:20:00 CDT, Stop date: 12/01/18 10:20:00 CDT dicyclomine 2019- No 20mg 20 mg, Uni vers (BENTYL) 11-29 Intramuscu ity of injection 19:00: 17:57 lar, ONCE, [place] 20 mg 00 :00 1 dose, Medical [facility] 11/29/18 Branch at 1400, Routine metoclopram 2019- No 10mg 10 mg, Uni vers bella HCl 11-29 Slow IV ity of (REGLAN) 19:00: 17:57 Push, [place] injection 00 :00 ONCE, 1 Medical 10 mg dose, [facility] Branch 11/29/18 at 1400, FUENTES enalaprilat 2019- No 1.25mg 1.25 mg, Univers (VASOTEC 11-29 Slow IV ity of I.V.) 18:15: 17:35 Push, [place] injection 00 :00 ONCE, 1 Medical 1.25 mg dose, [facility] Branch 11/29/18 at 1315, STAT iohexol 2019- No 120mL 120 mL, Unive rs (OMNIPAQUE 11-29 Intravenou it y of 350 17:15: 17:15 s, ONCE, 1 [place] BULK-150 00 :00 dose, [facility] Medica l mL) 11/29/18 at Branch injection 1215, 120 mL Routine NaCl 0.9% 2019- No 1000mL at 999 Uni vers (NS) bolus 11-29 mL/hr, ity of infusion 15:30: 17:40 1,000 mL, Eladio as 1,000 mL 00 :00 IV Medical Infusion, Branch ONCE, 1 dose, [facility] 11/29/18 at 1030, FUENTES lisinopril Yes [id number] 10mg Take 1 Univers 10 mg 11-29 tablet by ity of tablet 00:00: mouth at [place] 00 bedtime. Medical Branch ondansetron Yes [id number] 4mg Take 1 Univers (ZOFRAN 8-07 tablet by ity of ODT) 4 mg 00:00: mouth [place] disintegrat 00 every 8 Medic al ing tablet (eight) Branch hours as needed for Nausea and Vomiting (N/V). lisinopril Yes [id number] 10mg Take 1 Univers 10 mg 8-07 tablet by ity of tablet 00:00: mouth at [place] 00 bedtime. Medical Branch lisinopril Yes [id number] 10mg Take 1 Univers 10 mg 8-07 tablet by ity of tablet 00:00: mouth at [place] 00 bedtime. Medical Branch lisinopril Yes [id number] 10mg Take 1 Univers 10 mg 8-07 tablet by ity of tablet 00:00: mouth at [place] 00 bedtime. Medical Branch lisinopril Yes [id number] 10mg Take 1 Univers 10 mg 8-07 tablet by ity of tablet 00:00: mouth at [place] 00 bedtime. Medical Branch lisinopril Yes [id number] 10mg Take 1 Univers 10 mg 8-07 tablet by ity of tablet 00:00: mouth at [place] 00 bedtime. Medical Branch cephALEXin Yes 500mg Take 1 Univ ers (KEFLEX) 5-16 capsule by ity o f 500 mg 00:00: mouth 3 [place] capsule 00 (three) Medical times Branch daily. sulfamethox Yes 1{tbl} Take 1 Un angelo azole-trime 5-16 tablet by ity of thoprim 00:00: mouth [place] 800-160 mg 00 every 12 Medic al per tablet (twelve) Branc h hours. traMADOL 50 Yes 50mg Take 1 Univ ers mg tablet 5-16 tablet by ity o f 00:00: mouth [place] 00 every 6 Medical (six) Branch hours as needed for Pain (scale 4-6). Immunizations Ordered Filled Immunization Date Status Comments [facility] e Immunization Name Name SARS-COV-2 COVID-19 2021-12-10 Completed Unive rsity of PFIZER LIDIA-SUCROSE 00:00:00 [employer] Medical VACCINE (DAIGLE TOP) Branch SARS-COV-2 COVID-19 2021-10-12 Completed Unive rsity of PFIZER LIDIA-SUCROSE 00:00:00 [place] Medical VACCINE (DAIGLE TOP) Branch SARS-COV-2 COVID-19 2021-10-12 Completed Unive rsity of PFIZER LIDIA-SUCROSE 00:00:00 [place] Medical VACCINE (DAIGLE TOP) Branch PFIZER COVID-19 2020-07-07 Completed [employer] MRNA VACCINATION 00:00:00 [facility] PFIZER COVID-19 2020-07-07 Completed [facility] MRNA VACCINATION 00:00:00 Hospital PFIZER COVID-19 2020-07-07 Completed [employer] MRNA VACCINATION 00:00:00 Hospital PFIZER COVID-19 2020-07-07 Completed [employer] MRNA VACCINATION 00:00:00 Hospital PFIZER COVID-19 2020-07-07 Completed [employer] MRNA VACCINATION 00:00:00 Hospital PFIZER COVID-19 2020-07-07 Completed [employer] MRNA VACCINATION 00:00:00 Hospital PFIZER COVID-19 2020-07-07 Completed [employer] MRNA VACCINATION 00:00:00 Hospital Vital Signs Vital Name Observation Time Observation Value Comments Source Systolic blood 2020-06-07 19:16:00 194 mm[Hg] Univer sity of pressure [facility] Diastolic blood 2020-06-07 19:16:00 99 mm[Hg] Unive rsity of pressure [facility] Heart rate 2020-06-07 19:16:00 43 /min [facility] Respiratory rate 2020-06-07 19:16:00 18 /[facility] in 2020-06-07 19:16:00 100 /min [facility] Arterial blood by [facility] Pulse oximetry Branch Body temperature 2020-06-07 15:19:00 36.28 Carine [facility] Body weight 2020-06-07 15:19:00 63.05 kg Universi [facility] BMI 2020-06-07 15:19:00 19.39 kg/m2 [facility] Systolic blood 2020-06-07 19:16:00 194 mm[Hg] Univer sity of pressure [facility] Diastolic blood 2020-06-07 19:16:00 99 mm[Hg] Unive rsity of pressure [facility] Heart rate 2020-06-07 19:16:00 43 /[facility] 2020-06-07 19:16:00 18 /min Univ [facility] [place] [facility] Oxygen saturation in 2020-06-07 19:16:00 100 /min University of Arterial blood by [facility] Pulse oximetry Branch Body temperature 2020-06-07 15:19:00 36.28 Carine [facility] [place] [facility] Body weight 2020-06-07 15:19:00 63.05 kg [facility] [place] [facility] BMI 2020-06-07 15:19:00 19.39 kg/m2 [facility] [place] [facility] Systolic blood 2019-06-13 00:20:02 166 mm[Hg] Univer sity of pressure [place] [facility] Diastolic blood 2019-06-13 00:20:02 101 mm[Hg] Unive rsity of pressure [place] [facility] Heart rate 2019-06-13 00:20:02 70 /min [facility] [place] [facility] Respiratory rate 2019-06-13 00:20:02 20 /min Univ [facility] [place] [facility] Oxygen saturation in 2019-06-13 00:20:02 100 /min University of Arterial blood by [facility] Pulse oximetry Branch Body temperature 2019-06-12 23:20:00 36.56 Carine [facility] [place] [facility] Body weight 2019-06-12 23:20:00 63.05 kg [facility] [place] [facility] BMI 2019-06-12 23:20:00 19.39 kg/m2 [facility] [place] [facility] Systolic blood 2019-06-13 00:20:02 166 mm[Hg] Univer sity of pressure [place] [facility] Diastolic blood 2019-06-13 00:20:02 101 mm[Hg] Unive rsity of pressure [place] [facility] Heart rate 2019-06-13 00:20:02 70 /min [facility] [place] [facility] Respiratory rate 2019-06-13 00:20:02 20 /min Univ [facility] [place] [facility] Oxygen saturation in 2019-06-13 00:20:02 100 /min University of Arterial blood by [facility] Pulse oximetry Branch Body temperature 2019-06-12 23:20:00 36.56 Carine Univ [facility] [place] [facility] Body weight 2019-06-12 23:20:00 63.05 kg [facility] [place] [facility] BMI 2019-06-12 23:20:00 19.39 kg/m2 [facility] [place] [facility] Systolic blood 2018-11-29 18:28:00 186 mm[Hg] Univer sity of pressure [place] [facility] Diastolic blood 2018-11-29 18:28:00 103 mm[Hg] Unive rsity of pressure [place] [facility] Heart rate 2018-11-29 18:28:00 46 /min [facility] [place] [facility] Respiratory rate 2018-11-29 18:28:00 15 /min Univ ers[facility] [place] [facility] Oxygen saturation in 2018-11-29 18:28:00 100 /min University of Arterial blood by [facility] Pulse oximetry Branch Body temperature 2018-11-29 15:18:00 36.67 Carine Univ ers[facility] [place] [facility] Body height 2018-11-29 15:18:00 180.3 cm [facility] [place] [facility] Body weight 2018-11-29 15:18:00 72.576 kg [facility] [place] [facility] BMI 2018-11-29 15:18:00 22.32 kg/m2 [facility] [place] [facility] Systolic blood 2018-11-29 18:28:00 186 mm[Hg] Univer sity of pressure [place] [facility] Diastolic blood 2018-11-29 18:28:00 103 mm[Hg] Unive rsity of pressure [place] [facility] Heart rate 2018-11-29 18:28:00 46 /min [facility] [place] [facility] Respiratory rate 2018-11-29 18:28:00 15 /min Univ ers[facility] [place] [facility] Oxygen saturation in 2018-11-29 18:28:00 100 /min University of Arterial blood by [facility] Pulse oximetry Branch Body temperature 2018-11-29 15:18:00 36.67 Carine Univ ers[facility] [place] [facility] Body height 2018-11-29 15:18:00 180.3 cm [facility] [place] [facility] Body weight 2018-11-29 15:18:00 72.576 kg [facility] [place] [facility] BMI 2018-11-29 15:18:00 22.32 kg/m2 [facility] [place] [facility] Temperature Oral (F) 2018-12-04 17:00:00 98.3 F [facility] [place] Respitory Rate 2018-12-04 15:00:00 Memliset al [place] Systolic (mm Hg) 2018-12-04 15:00:00 Ketan angel [place] Diastolic (mm Hg) 2018-12-04 15:00:00 Mem orial [place] Respitory Rate 2018-12-04 14:00:00 Memori al [place] Systolic (mm Hg) 2018-12-04 14:00:00 Ketan rial [place] Diastolic (mm Hg) 2018-12-04 14:00:00 Mem orial [place] Respitory Rate 2018-12-04 13:00:00 Memori al [place] Systolic (mm Hg) 2018-12-04 13:00:00 Ketan rial [place] Diastolic (mm Hg) 2018-12-04 13:00:00 Mem orial [place] Temperature Oral (F) 2018-12-04 12:32:00 98.5 F [facility] [place] Temperature Oral (F) 2018-12-04 04:44:00 98.5 F [facility] [place] Height 2018-12-01 23:35:00 180.34 cm [facility] [place] Weight 2018-12-01 23:35:00 [facility] [place] BMI Calculated 2018-12-01 23:35:00 Memori al [place] Heart Rate 2018-12-01 15:16:00 [facility] [place] Height 2018-12-01 15:16:00 180.34 cm [facility] [place] BMI Calculated 2018-12-01 15:16:00 Memori al [place] Weight 2018-12-01 15:16:00 [facility] [place] Procedures Procedure Date / Time Performing Clinician Source Performed SARS-COV-2 COVID-19 2021-12-10 19:42:29 Doctor Unassigned, [facility] VACCINE 12 YRS+,0.3ML,IM [place] [facility] (PFIZER - DAIGLE TOP) SARS-COV-2 COVID-19 2021-10-12 16:25:59 Doctor Unassigned, [facility] VACCINE 12 YRS+,0.3ML,IM [place] [facility] (PFIZER - DAIGLE TOP) URINALYSIS 2020-06-07 16:42:00 Digna Medina [facility] CBC WITH DIFF 2020-06-07 15:24:00 Digna Medina [facility] LIPASE 2020-06-07 15:24:00 Digna Medina [facility] COMP. METABOLIC PANEL 2020-06-07 15:24:00 Digna Medina [facility] ([id number] POCT GLUCOSE (AUTOMATED) 2020-06-07 15:19:00 Digna Medina [facility] NOTICE OF PRIVACY 2019-06-12 23:08:16 Doctor Unassigned, [facility] PRACTICES [place] [facility] CONSENT/REFUSAL FOR 2019-06-12 23:08:00 Doctor Unassigned, [facility] DIAGNOSIS AND TREATMENT [place] [facility] CT ABDOMEN PELVIS W 2018-11-29 17:24:50 Digna Medina [facility] CONTRAST [facility] LIPASE 2018-11-29 15:30:00 Digna Medina [facility] TROPONIN I 2018-11-29 15:30:00 Digna Medina [facility] HEPATIC FUNCTION PANEL 2018-11-29 15:30:00 Digna Medina [facility] ([id number]) (ALB,T.PRO,BILI [facility] [place] T,BU/BC,ALT,AST,ALK PHOS) BASIC METABOLIC PANEL (NA, 2018-11-29 15:30:00 Digna Medina [facility] K, CL, CO2, GLUCOSE, BUN, Medica l Branch CREATININE, CA) CBC WITH DIFFERENTIAL 2018-11-29 15:30:00 [facility] 2018-11-29 15:30:00 Digna Medina [facility] LACTIC ACID WHOLE BLOOD 2018-11-29 15:30:00 [facility] LEAD 2018-11-29 15:18:19 Digna Medina [facility] Cholecystectomy [facility] Plan of Care Planned Activity Planned Date Details Comments Source Future Scheduled 2022-07-30 COLONOSCOPY SCREENING [facility] Test 18:07:05 [code = COLONOSCOPY SCREENING] Future Scheduled 2022-07-30 SHINGLES VACCINES (1 [facility] Test 18:07:05 of 2) [code = SHINGLES VACCINES (1 of 2)] Future Scheduled 2022-07-30 COVID-19 VACCINE (2 - [facility] Test 18:07:05 Pfizer series) [code = COVID-19 VACCINE (2 - Pfizer series)] Future Scheduled 2022-07-30 INFLUENZA VACCINE [facility] 18:07:05 [code = INFLUENZA VACCINE] Future Scheduled 2022-06-22 Pneumococcal Vaccine: [facility] Test 10:05:14 Pediatrics (0 to 5 Years) and At-Risk Patients (6 to 64 Years) (1 - PCV) [code = Pneumococcal Vaccine: Pediatrics (0 to 5 Years) and At-Risk Patients (6 to 64 Years) (1 - PCV)] Future Scheduled 2022-06-22 Hepatitis C screening [facility] Test 10:05:14 (procedure) [code = [id number]] Future Scheduled 2022-06-22 COLONOSCOPY SCREENING [facility] Test 10:05:14 [code = COLONOSCOPY SCREENING] Future Scheduled 2022-06-22 SHINGLES VACCINES ([address] [facility] Test 10:05:14 of 2) [code = SHINGLES VACCINES (1 of 2)] Future Scheduled 2022-06-22 COVID-19 VACCINE (2 - [facility] Test 10:05:14 Pfizer series) [code = COVID-19 VACCINE (2 - Pfizer series)] Future Scheduled 2022-06-22 INFLUENZA VACCINE [facility] Test 10:05:14 [code = INFLUENZA VACCINE] Future Scheduled 2022-06-22 Pneumococcal Vaccine: [facility] Test 10:05:14 Pediatrics (0 to 5 Years) and At-Risk Patients (6 to 64 Years) (1 - PCV) [code = Pneumococcal Vaccine: Pediatrics (0 to 5 Years) and At-Risk Patients (6 to 64 Years) (1 - PCV)] Future Scheduled 2022-06-22 Hepatitis C screening [facility] Test 10:05:14 (procedure) [code = 560565099] Future Scheduled 2022-06-22 COLONOSCOPY SCREENING [facility] Test 10:05:14 [code = COLONOSCOPY SCREENING] Future Scheduled 2022-06-22 SHINGLES VACCINES ([address] [facility] Test 10:05:14 of 2) [code = SHINGLES VACCINES (1 of 2)] Future Scheduled 2022-06-22 COVID-19 VACCINE (2 - [facility] Test 10:05:14 Pfizer series) [code = COVID-19 VACCINE (2 - Pfizer series)] Future Scheduled 2022-06-22 INFLUENZA VACCINE Method [facility] Test 10:05:14 [code = INFLUENZA VACCINE] Future Scheduled 2022-06-22 Pneumococcal Vaccine: [facility] Test 10:05:14 Pediatrics (0 to 5 Years) and At-Risk Patients (6 to 64 Years) (1 - PCV) [code = Pneumococcal Vaccine: Pediatrics (0 to 5 Years) and At-Risk Patients (6 to 64 Years) (1 - PCV)] Future Scheduled 2022-06-22 Hepatitis C screening [facility] Test 10:05:14 (procedure) [code = [id number]] Future Scheduled 2022-06-22 COLONOSCOPY SCREENING [facility] Test 10:05:14 [code = COLONOSCOPY SCREENING] Future Scheduled 2022-06-22 SHINGLES VACCINES (1 Met [facility] Test 10:05:14 of 2) [code = SHINGLES VACCINES (1 of 2)] Future Scheduled 2022-06-22 COVID-19 VACCINE (2 - [facility] Test 10:05:14 Pfizer series) [code = COVID-19 VACCINE (2 - Pfizer series)] Future Scheduled 2022-06-22 INFLUENZA VACCINE Method [facility] Test 10:05:14 [code = INFLUENZA VACCINE] Future Scheduled 2022-04-09 Pneumococcal Vaccine: [facility] Test 08:46:51 Pediatrics (0 to 5 Years) and At-Risk Patients (6 to 64 Years) (1 - PCV) [code = Pneumococcal Vaccine: Pediatrics (0 to 5 Years) and At-Risk Patients (6 to 64 Years) (1 - PCV)] Future Scheduled 2022-04-09 Hepatitis C screening [facility] Test 08:46:51 (procedure) [code = [id number]] Future Scheduled 2022-04-09 COLONOSCOPY SCREENING [facility] Test 08:46:51 [code = COLONOSCOPY SCREENING] Future Scheduled 2022-04-09 SHINGLES VACCINES (1 Met [facility] Test 08:46:51 of 2) [code = SHINGLES VACCINES (1 of 2)] Future Scheduled 2022-04-09 COVID-19 VACCINE (2 - [facility] Test 08:46:51 Pfizer series) [code = COVID-19 VACCINE (2 - Pfizer series)] Future Scheduled 2022-04-09 INFLUENZA VACCINE [facility] Test 08:46:51 [code = INFLUENZA VACCINE] Future Scheduled 2022-04-09 [facility] 08:46:51 Pediatrics (0 to 5 Years) and At-Risk Patients (6 to 64 Years) (1 - PCV) [code = Pneumococcal Vaccine: Pediatrics (0 to 5 Years) and At-Risk Patients (6 to 64 Years) (1 - PCV)] Future Scheduled 2022-04-09 Hepatitis C screening [facility] Test 08:46:51 (procedure) [code = [id number]] Future Scheduled 2022-04-09 COLONOSCOPY SCREENING [facility] Test 08:46:51 [code = COLONOSCOPY SCREENING] Future Scheduled 2022-04-09 SHINGLES VACCINES ([address] [facility] Test 08:46:51 of 2) [code = SHINGLES VACCINES (1 of 2)] Future Scheduled 2022-04-09 COVID-19 VACCINE (2 - [facility] Test 08:46:51 Pfizer series) [code = COVID-19 VACCINE (2 - Pfizer series)] Future Scheduled 2022-04-09 INFLUENZA VACCINE Method [facility] Test 08:46:51 [code = INFLUENZA VACCINE] Future Scheduled 2021-12-24 COVID-19 VACCINE (2 - [facility] Test 03:33:05 Pfizer series) [code = COVID-19 VACCINE (2 - Pfizer series)] Future Scheduled 2021-12-24 INFLUENZA VACCINE Method [facility] Test 03:33:05 [code = INFLUENZA VACCINE] Future Scheduled 2021-12-[address] [facility] Test 03:33:05 (1 of 3 - 3-dose series) [code = HEPATITIS B VACCINES (1 of 3 - 3-dose series)] Future Scheduled 2021-12-24 Pneumococcal Vaccine: [facility] Test 03:33:05 Pediatrics (0 to 5 Years) and At-Risk Patients (6 to 64 Years) (1 - PCV) [code = Pneumococcal Vaccine: Pediatrics (0 to 5 Years) and At-Risk Patients (6 to 64 Years) (1 - PCV)] Future Scheduled 2021-12-24 Hepatitis C screening [facility] Test 03:33:05 (procedure) [code = [id number]] Future Scheduled 2021-12-24 COLONOSCOPY SCREENING [facility] Test 03:33:05 [code = COLONOSCOPY SCREENING] Future Scheduled 2021-12-24 SHINGLES VACCINES ([address] [facility] Test 03:33:05 of 2) [code = SHINGLES VACCINES (1 of 2)] Encounters Start End Encounter Admission Attending Care Care Encounter Source Date/Time Date/Time Type Type Clinicians Facility Department ID 2019-06-07 Inpatient HCAPM MANNIE [id number] [facility] 02:13:00 28 [facility] 2022-06-28 2022-06-28 Outpatient [facility] [id number] [place] 10:02:05 10:02:05 [address] [place] 2022-06-22 2022-06-22 Outpatient [facility] [id number] [place] 09:08:37 09:08:37 0228 [place] 2022-06-21 2022-06-21 Outpatient [facility] [id number] [place] 14:07:14 14:07:14 0227 [place] 2021-12-10 2021-12-10 Imm/Inj Vaccine, [facility] [id number] [facility] 15:00:00 15:10:00 Visit Jewel Shabazz 350.1.13 .10 ity of [place] [phone] Fl dical NAL 044 [facility] 2021-10-12 2021-10-12 Imm/Inj Vaccine, [facility] 1.2.840.114 [id number] [facility] 11:00:00 11:10:00 Visit Jewel Shabazz 350.1.13 .10 it[place] [id number] Fl dical NAL 044 [facility] 2020-07-07 2020-07-07 Outpatient [facility] [id number] 831 [place] 00:00:00 00:00:[address] 2020-06-07 2020-06-07 Emergency [facility] 1.2.840.114 [id number] [facility] 09:18:00 13:32:00 Digna Burns 350.1.13.10 it[place] [phone] [facility] [address] [place] 2020-06-072020-06-07 [facility] 1.2.840.114 [id number] 09:18:00 13:32:00 Digna Burns 350.1.13.10 [place] 4.2.7.2.686 [place] [id number] [id number] 2020-06-07 2020-06-07 [facility] [id number] [facility] 09:18:00 09:18:00 DIGNA sinclair of [facility] 2019-06-12 2019-06-12 [facility] 1.2.840.114 [id number] [facility] 17:21:36 19:07:00 , Christine Burns 350.1.13.10 i ty of [facility] 4.2.7.2.686 [facility] [phone] [address] 2019-06-12 2019-06-12 [facility] 1.2.840.114 [id number] 17:21:36 19:07:00 , Christine Burns 350.1.13.10 [place] 4.2.7.2.686 [place] [phone] [facility] 2019-06-12 2019-06-12 Orders Doctor HAYLEE 1.2.840.114 [id number] Univers 00:00:00 00:00:00 Only Unassigned, HAI[place] 350.1.13.10 [place] [facility] 4.2.7.2.686 [facility] [phone] [address] 2019-06-12 2019-06-12 Orders Doctor HAYLEE 1.2.840.114 [id number] 00:00:00 00:00:00 Only Unassigned, [place] 350.1.13.10 [place] [facility] 4.2.7.2.686 [id number] 009 2019-05-22 2019-06-04 Inpatient [facility] [id number] [place] [address] 00:00:00 00:00:00 KIMBERLY [address] 2019-04-20 2019-04-24 Inpatient X KURT [facility] SAMANTHA [id number] Univers 12:26:58 15:05:00 TRUONG sinclair of [facility] 2019-04-18 2019-04-18 Emergency [facility] ERT [id number] Univers 16:34:57 21:50:00 IBRAHIMA kryshanh [facility] 2018-12-01 2018-12-04 Inpatient nullFlavo [facility] [id number] Mem[place] 15:16:00 19:55:[address] 2018-12-01 2018-12-04 Inpatient [facility] [id number] Mem[place] 15:16:00 19:55:[address] 2018-12-01 2018-12-04 Outpatient Saurabh, [facility] [id number] 10:16:00 14:55:00 Selam Romero 2018-12-01 2018-12-01 Inpatient E [facility] CAR 9367 [facility] 13:43:00 10:12:00 2018-12-01 2018-12-01 Outpatient [facility] LEROY 9370 [facility] 10:12:00 10:12:00 2018-11-29 2018-11-29 [facility] 1.2.840.114 [id number] [facility] 10:15:46 14:01:00 Digna uBrns 350.1.13.10 [facility] [place] 4.2.7.2.686 [facility] [phone] [address] 2018-11-29 2018-11-29 [facility] 1.2.840.114 [id number] 10:15:46 14:01:00 Digna Burns 350.1.13.10 [place] 4.2.7.2.686 [place] [id number] 4 Results Test Description Test Time Test Comments Results Result Comments Source LIPID PANEL 2022-01-06 06:57:58 Test Item Value Reference Range Interpretation Comme nts CHOLESTEROL (test code = 2210) 200 MG/DL <200 H TRIGLYCERIDES (test code = 2232) 112 MG/DL <150 HDL CHOLESTEROL (test code = 34 MG/DL >39 L 2220) CALC LDL CHOL (test code = 2237) 143 MG/DL <100 H NOTE: CALCULATED LDL IS BASED ON TAINA-COCHRAN METHOD WHICHINCLUDES A DJUSTABLE TRIGLYCERIDE:VL DL CHOLESTEROL RATIO.THIS FACT OR VARIES BY MEASURED TRIGLY CERIDE AND NON-HDLCHOLESTE ROL CONCENTRATIONS WITH INCREASED CALCULATED LDL SEENIN HIGHER T RIGLYCERIDE OR LOWER NON-HDL S PECIMENS. FOR MOREINFORMATION , SEE CLIENT ANNOUNCEMENT AT [email or web address] RATIO LDL/HDL (test code = 4.21 RATIO <3.55 H 2237) COMPREHENSIVE METABOLIC [id number] 06:57:58 Test Item Value Reference Range Interpretation Comments GLUCOSE (test code = 70 MG/DL 70-99 2216) BUN (test code = 9 MG/DL 8-23 2207) CREATININE (test 1.05 MG/DL 0.80-1.40 code = 221) eGFR (2020 CKD-EPI) 81 ML/MIN/1.73 >60 (test code = 77480) CALC BUN/CREAT (test 9 RATIO 6-28 code = 2235) SODIUM (test code = 143 MEQ/L 983-126 1918) POTASSIUM (test code 4.6 MEQ/L 3.5-5.4 = 2227) CHLORIDE (test code 103 MEQ/L 95-107 = 2214) CARBON DIOXIDE (test 28 MEQ/L 19-31 code = 2206) CALCIUM (test code = 9.8 MG/DL 8.5-10.5 2208) PROTEIN, TOTAL (test 7.5 G/DL 6.1-8.3 code = 222) ALBUMIN (test code = 4.5 G/DL 3.5-5.2 2200) CALC GLOBULIN (test 3.0 G/DL 1.9-3.7 code = 2240) CALC A/G RATIO (test 1.5 RATIO 1.0-2.6 code = 2234) BILIRUBIN, TOTAL 0.2 MG/DL See_Comment [Automated message] (test code = 2207) The syste m which generated this result transmit keon reference range : <=1.2. The refe rence range was not u sed to interpret th is result as normal/abnormal . ALKALINE PHOSPHATASE 123 U/L 40-123 (test code = 2204) AST (test code = 13 U/L 9-50 2217) ALT (test code = <5 U/L 5-50 L 2218) CBC W/AUTO DIFF WITH [id number] 06:22:07 Test Item Value Reference Range Interpretation [...] RBCS 0.00 K/UL 0.00-0.11 (test code = 96065) [id number] 03:21:52 Test Item Value Reference Range Interpretation Comments RPR RESULT (test NON-REACTIVE NON-REACTIVE code = 3501) RPR TITER (test NOT INDIC. NOT INDIC. UNLESS OTHE RWISE code = 3500) TITER INDICATED, ALL TESTING PERFORMED [facility] PATHOLOGY [facility]. [address] [place] [address] 4 LABORATORY DIRE CTOR: GABBY DIAZ M.D. CLIA NUMBER [id number] [place] [id number] 17:21:00 Test Item Value Reference Range Interpretation Comments APPEARANCE (test code = Clear Clear 9221175091) COLOR (test code = Yellow Yellow 7725068841) PH (test code = 4.8-8.0 2688194163) SP GRAVITY (test code = 1.003-1.030 5248544587) GLU U QUAL (test code = Normal Normal 7022308554) BLOOD (test code = Negative Negative 3931823246) KETONES (test code = 20 mg/dL Negative A 1892102244) PROTEIN (test code = Negative Negative 2887-8) UROBILIN (test code = Normal Normal 7878025966) BILIRUBIN (test code = Negative Negative 1629320133) NITRITE (test code = Negative Negative 7596120361) LEUK THANG (test code = Negative Negative 6548794529) RBC/HPF (test code = See_Comment [Autom ated message] 5360324847) The system [employer] generated this result transmitted ref erence range: 0 - 3 HP F. The reference range was not used to int erpret this result as normal/abnormal . WBC/HPF (test code = See_Comment [Autom ated message] 8832863780) The system [employer] generated this result transmitted ref erence range: 0 - 5 HP F. The reference range was not used to int erpret this result as normal/abnormal . BACTERIA (test code = Negative Negative 2425881246) Lab Interpretation (test Abnormal code = 46658-9) [facility] [id number] 16:15:00 Test Item Value Reference Range Interpretation Comments NA (test code = 138 mmol/L 135-145 3717970054) K (test code = 3.3 mmol/L 3.5-5 L 4415222668) CL (test code = 104 mmol/L 98-108 4084528186) CO2 TOTAL (test code = 24 mmol/L 23-31 5412443141) AGAP (test code = 2-16 6858571762) BUN (test code = 21 mg/dL 7-23 9154492412) GLUCOSE (test code = 121 mg/dL 70-110 H 5714317727) CREATININE (test code = 0.80 mg/dL 0.6-1.25 7427028038) TOTAL BILI (test code = 0.7 mg/dL 0.1-1.2 2109187821) CALCIUM (test code = 9.6 mg/dL 8.6-10.6 4114666617) T PROTEIN (test code = 8.0 g/dL 6.3-8.2 4731083453) ALBUMIN (test code = 4.8 g/dL 3.5-5 2196413777) ALK PHOS (test code = 97 U/L 34-122 8534801856) ALTv (test code = 11 U/L 5-50 1742-6) AST(SGOT) (test code = 34 U/L 13-40 7338211380) eGFR Calculation mL/min/1.73m2 (Non-) (test code = 6278248035) eGFR Calculation mL/min/1.73m2 () (test code = 4431388000) CHUYITA (test code = CHUYITA) Association of [...] tests). Lab Interpretation Abnormal (test code = 24325-8) [facility] CenterLipase, [id number] 16:14:00 Test Item Value Reference Range Interpretation Comments LIPASE (test code = 5265667802) 52 U/L 0-220 Lab Interpretation (test code = Normal 51923-0) [facility] CenterCBC with [id number] 16:00:00 Test Item Value Reference Range Interpretation Comments WBC (test code = See_Comment [Automated 8090-2) message] The sy stem which generated this result transmitted reference range : 4.20 - 10.70 10*3/?L. The reference range was not used to interpret this result as normal/abnormal . RBC (test code = See_Comment [Automated 979-8) message] The sy stem which generated this [...] RDW-SD (test code = 46.6 fL 38.5-51.6 06298-1) RDW-CV (test code = 15.7 % 12.1-15.4 H 788-0) PLT (test code = See_Comment [Automated 347-3) message] The sy stem which generated this result transmitted reference range : 150 - 328 10*3/ ?L. The reference r gayle was not used to interpret this result as normal/abnormal . MPV (test code = 9.6 fL 9.8-13 L 92023-0) NRBC/100 WBC (test See_Comment [Automat ed code = 4721441624) message] The system which generated this result transmitted reference range : 0.0 - 10.0 /100 WBCs. The refer ence range was not u sed to interpret th is result as normal/abnormal . NRBC x10^3 (test code <0.01 See_Comment [Auto mated = 9000654080) message] The s ystem which generated this result transmitted reference range : 10*3/?L. The reference range was not used to interpret this result as normal/abnormal . GRAN MAT (NEUT) % 55.4 % (test code = 770-8) IMM GRAN % (test code 0.10 % = 4759592029) LYMPH % (test code = 35.4 % 736-9) MONO % (test code = 6.4 % 5905-5) EOS % (test code = 2.2 % 713-8) BASO % (test code = 0.5 % 706-2) GRAN MAT x10^3(ANC) 4.24 10*3/uL 1.99-6.95 (test code = 3629980663) IMM GRAN x10^3 (test <0.03 0-0.06 code = 5713582190) LYMPH x10^3 (test code 2.71 10*3/uL 1.09-3.23 = 731-0) MONO x10^3 (test code 0.49 10*3/uL 0.36-1.02 = 742-7) EOS x10^3 (test code = 0.17 10*3/uL 0.06-0.53 711-2) BASO x10^3 (test code 0.04 10*3/uL 0.01-0.09 = 704-7) Lab Interpretation Abnormal (test code = 06297-3) [facility] (AUTOMATED)2020-06-07 15:24:00 Test Item Value Reference Range Interpretation Comments POCT GLU (test code = 6135428231) 115 mg/dL 70-110 H Lab Interpretation (test code = Abnormal 13392-2) [facility] Center[facility]OLIC [id number] 03:18:00 Test Item Value Reference Range Interpretation [...] 9.7 MG/DL 8.5-10.1 N Last Dose Date: 04/25/00Las Dose Time: HEPATIC FUNCTION [id number] 03:18:00 Test Item Value Reference Range Interpretation [...] N code = ALKP) Last Dose Date: 04/25/00Las Dose Time: [id number] 03:18:00 Test Item Value Reference Range Interpretation Comments LIPASE (test code = LIP) 114 Unit/L 114-286 N Last Dose Date: 04/25/00Las Dose Time: [id number] 03:18:00 Test Item Value Reference Range Interpretation Comments ACETAMINOPHEN (test code = ACET) <2.0 mcG/ML 10.0-30.0 L Last Dose Date: 04/25/00Las Dose Time: [id number] 03:18:00 Test Item Value Reference Range Interpretation Comments ALCOHOL (test code = ALC) < 3 MG/DL 0-10 N Last Dose Date: 04/25/00Last Dose Time: [id number] 03:10:00 Test Item Value Reference Range Interpretation Comments SALICYLATE (test code = ALYSSA) < 1.7 MG/DL 2.8-20.0 THER L UA RFLX MICR CULT IF [id number] 02:59:00 Test Item Value Reference Range Interpretation [...] for culture: Suprapubic PainDRUGS OF ABUSE SCREEN [id number] 02:59:00 Test Item Value Reference Range Interpretation [...] CLEAN CATCHIndication for culture: Suprapubic PainBASIC METABOLIC [id number] 02:57:00 Test Item Value Reference Range Interpretation [...] Dose Date: 04/25/00Last Dose Time: 0000HEPATIC FUNCTION [id number] 02:57:00 Test Item Value Reference Range Interpretation [...] Unit/L 50-136 = ALKP) Last Dose Date: 04/25/00Last Dose Time: [id number] 02:57:00 Test Item Value Reference Range Interpretation Comments LIPASE (test code = LIP) 114 Unit/L 114-286 N Last Dose Date: 04/25/00Las Dose Time: [id number] 02:57:00 Test Item Value Reference Range Interpretation Comments ACETAMINOPHEN (test code = ACET) mcG/ML 10.0-30.0 Last Dose Date: 04/25/00Las Dose Time: [id number] 02:57:00 Test Item Value Reference Range Interpretation [...] for culture: Suprapubic PainDRUGS OF ABUSE SCREEN [id number] 02:55:00 Test Item Value Reference Range Interpretation [...] CLEAN CATCHIndication for culture: Suprapubic PainCBC W/AUTO [id number] 02:43:00 Test Item Value Reference Range Interpretation [...] CRITERIA MDIFF) UA RFLX MICR CULT IF [id number] 02:42:00 Test Item Value Reference Range Interpretation [...] for culture: Suprapubic PainDRUGS OF ABUSE SCREEN [id number] 02:42:00 Test Item Value Reference Range Interpretation [...] (test code = Glucose Lvl) 95 70-99 [facility] [id number] 05:19:00 Test Item Value Reference Range Interpretation Comments BUN (test code = BUN) 10 7-22 [facility] [id number] 05:19:00 Test Item Value Reference Range Interpretation Comments Creatinine Lvl (test code = Creatinine 0.80 0.50-1.40 Lvl) [facility] [id number] 05:19:00 Test Item Value Reference Range Interpretation Comments Sodium Lvl (test code = Sodium Lvl) 139 135-145 [facility] [id number] 05:19:00 Test Item Value Reference Range Interpretation Comments Potassium Lvl (test code = Potassium 3.5 3.5-5.1 Lvl) [facility] [id number] 05:19:00 Test Item Value Reference Range Interpretation Comments Chloride Lvl (test code = Chloride Lvl) 103 95-109 [facility] [id number] 05:19:00 Test Item Value Reference Range Interpretation Comments CO2 (test code = CO2) 30 24-32 [facility] [id number] 05:19:00 Test Item Value Reference Range Interpretation Comments Calcium Lvl (test code = Calcium Lvl) 8.7 8.5-10.5 [facility]2019-08-12 05:19:00 Test Item Value Reference Range Interpretation Comments eGFR (test code = eGFR) 114 [facility]2019-08-12 05:19:00 Test Item Value Reference Range Interpretation Comments AGAP (test code = AGAP) 9.5 10.0-20.0 [facility]2019-08-12 05:19:00 Test Item Value Reference Range Interpretation Comments Magnesium Lvl (test code = Magnesium 2.3 1.8-2.4 Lvl) [facility]2019-08-12 05:19:00 Test Item Value Reference Range Interpretation Comments Phosphorus (test code = Phosphorus) 2.8 2.5-4.5 [facility]uxmhysDRNKUZDVDV3941-17-67 05:19:00 Test Item Value Reference Range Interpretation Comments WBC (test code = WBC) 8.1 3.7-10.4 [facility] HospitalLzcntlmDTMOGWVFQD8441-61-39 05:19:00 Test Item Value Reference Range Interpretation Comments RBC (test code = RBC) 4.27 4.70-6.10 [facility] HospitalUuahiyhWIGMTZHQQS5303-40-27 05:19:00 Test Item Value Reference Range Interpretation Comments Hgb (test code = Hgb) 12.2 14.0-18.0 [facility] HospitalMltmmqoQHGOHTGSXE1759-65-41 05:19:00 Test Item Value Reference Range Interpretation Comments Hct (test code = Hct) 35.7 42.0-54.0 [facility] HospitalDlfvystVOJJFKIPTN3487-20-98 05:19:00 Test Item Value Reference Range Interpretation Comments MCV (test code = MCV) 83.8 80.0-94.0 [facility] HospitalUprlqkeUIGJQGPIIN2707-36-92 05:19:00 Test Item Value Reference Range Interpretation Comments MCH (test code = MCH) 28.6 pg 27.0-31.0 [facility] HospitalCqqppvnASIISLWTLD0990-18-36 05:19:00 Test Item Value Reference Range Interpretation Comments MCHC (test code = MCHC) 34.2 32.0-36.0 [facility] HospitalNewcotuNGXQREGBRH7939-26-35 05:19:00 Test Item Value Reference Range Interpretation Comments RDW (test code = RDW) 15.1 11.5-14.5 [facility] HospitalKuouufxDEQAXIXXBA4106-39-69 05:19:00 Test Item Value Reference Range Interpretation Comments Platelet (test code = Platelet) 250 133-450 [facility] HospitalWjlfbyrLVXAMRCPGF3589-74-24 05:19:00 Test Item Value Reference Range Interpretation Comments MPV (test code = MPV) 7.7 7.4-10.4 [facility] HospitalTacaaboTSEOTZLFQM8200-64-36 05:19:00 Test Item Value Reference Range Interpretation Comments Segs (test code = Segs) 40.4 45.0-75.0 [facility] HospitalFtdbsepTMRQKMWRRI4727-36-55 05:19:00 Test Item Value Reference Range Interpretation Comments Lymphocytes (test code = Lymphocytes) 48.4 20.0-40.0 [facility] HospitalGrnvjfxHHHKWFIARF9219-42-97 05:19:00 Test Item Value Reference Range Interpretation Comments Monocytes (test code = Monocytes) 8.6 2.0-12.0 [facility] HospitalCbunoupPAFPYKOWTD0436-30-22 05:19:00 Test Item Value Reference Range Interpretation Comments Eosinophils (test code = 1.7 See_Comment [A utomated message] The Eosinophils) system which ge nerated this result tra nsmitted reference range : <=4.0. The reference r gayle was not used to int erpret this result as normal/abnormal . [facility] HospitalIdgtjpjBWGSZJXCBK3401-73-58 05:19:00 Test Item Value Reference Range Interpretation Comments Basophils (test code = 0.9 See_Comment [Aut omated message] The Basophils) system which ge nerated this result tra nsmitted reference range : <=1.0. The reference r gayle was not used to int erpret this result as normal/abnormal . [facility] [facility]il[facility]JGUNKV0184-68-07 05:19:00 Test Item Value Reference Range Interpretation Comments Neutrophils # (test code = Neutrophils 3.3 1.5-8.1 #) [facility]iaryhpFILQOQCHAX7756-82-78 05:19:00 Test Item Value Reference Range Interpretation Comments Lymphocytes # (test code = Lymphocytes 3.9 1.0-5.5 #) [facility]RenvybxLIHYHNDTCV9229-75-59 05:19:00 Test Item Value Reference Range Interpretation Comments Monocytes # (test code 0.7 See_Comment [Aut omated message] The = Monocytes #) system which generated this result tra nsmitted reference range : <=0.8. The reference r gayle was not used to int erpret this result as normal/abnormal . [facility] HospitalSconmqaMEDESGVWII8882-38-86 05:19:00 Test Item Value Reference Range Interpretation Comments Eosinophils # (test code 0.1 See_Comment [A utomated message] The = Eosinophils #) system whic h generated this result tra nsmitted reference range : <=0.5. The reference r gayle was not used to int erpret this result as normal/abnormal . [facility] HospitalJzjmiwmUZQLWIVWUS6864-82-22 05:19:00 Test Item Value Reference Range Interpretation Comments Basophils # (test code 0.1 See_Comment [Aut omated message] The = Basophils #) system which generated this result tra nsmitted reference range : <=0.2. The reference r gayle was not used to int erpret this result as normal/abnormal . [facility]2019-08-12 05:19:00 Test Item Value Reference Range Interpretation Comments Ca Ion WB (test code = Ca Ion WB) 1.12 1.05-1.25 [facility]2019-08-12 05:19:00 Test Item Value Reference Range Interpretation Comments Ca Norm WB (test code = Ca Norm WB) 1.16 1.05-1.25 [facility]2019-08-12 05:19:00 Test Item Value Reference Range Interpretation Comments Glucose Lvl (test code = Glucose Lvl) 95 70-99 [facility]2019-08-12 05:19:00 Test Item Value Reference Range Interpretation Comments BUN (test code = BUN) 10 7-22 [facility]2019-08-12 05:19:00 Test Item Value Reference Range Interpretation Comments Creatinine Lvl (test code = Creatinine 0.80 0.50-1.40 Lvl) [facility]2019-08-12 05:19:00 Test Item Value Reference Range Interpretation Comments Sodium Lvl (test code = Sodium Lvl) 139 135-145 [facility]2019-08-12 05:19:00 Test Item Value Reference Range Interpretation Comments Potassium Lvl (test code = Potassium 3.5 3.5-5.1 Lvl) [facility]2019-08-12 05:19:00 Test Item Value Reference Range Interpretation Comments Chloride Lvl (test code = Chloride Lvl) 103 95-109 [facility]2019-08-12 05:19:00 Test Item Value Reference Range Interpretation Comments CO2 (test code = CO2) 30 24-32 [facility]2019-08-12 05:19:00 Test Item Value Reference Range Interpretation Comments Calcium Lvl (test code = Calcium Lvl) 8.7 8.5-10.5 [facility]2019-08-12 05:19:00 Test Item Value Reference Range Interpretation Comments eGFR (test code = eGFR) 114 [facility]2019-08-12 05:19:00 Test Item Value Reference Range Interpretation Comments AGAP (test code = AGAP) 9.5 10.0-20.0 [facility]2019-08-12 05:19:00 Test Item Value Reference Range Interpretation Comments Magnesium Lvl (test code = Magnesium 2.3 1.8-2.4 Lvl) [facility]2019-08-12 05:19:00 Test Item Value Reference Range Interpretation Comments Phosphorus (test code = Phosphorus) 2.8 2.5-4.5 [facility] HospitalTnxhejbSPNRMAOYEV8571-57-44 05:19:00 Test Item Value Reference Range Interpretation Comments WBC (test code = WBC) 8.1 3.7-10.4 [facility] HospitalWzwojtfVZLIZVWHUS1923-19-57 05:19:00 Test Item Value Reference Range Interpretation Comments RBC (test code = RBC) 4.27 4.70-6.10 [facility] HospitalJqjntdoMXWDLSBGIY5740-84-80 05:19:00 Test Item Value Reference Range Interpretation Comments Hgb (test code = Hgb) 12.2 14.0-18.0 [facility] HospitalRgqkxamFSBYHSONBG9259-83-94 05:19:00 Test Item Value Reference Range Interpretation Comments Hct (test code = Hct) 35.7 42.0-54.0 [facility] HospitalOgezeqrIFLBIWTFWN0618-38-03 05:19:00 Test Item Value Reference Range Interpretation Comments MCV (test code = MCV) 83.8 80.0-94.0 [facility] HospitalAbpmwnpJZOKIBTKTX2162-06-43 05:19:00 Test Item Value Reference Range Interpretation Comments MCH (test code = MCH) 28.6 pg 27.0-31.0 [facility] HospitalEduijceWSRACTQDUL6621-57-39 05:19:00 Test Item Value Reference Range Interpretation Comments MCHC (test code = MCHC) 34.2 32.0-36.0 [facility] HospitalPxyvpxpUBLEVEXMRR4804-51-02 05:19:00 Test Item Value Reference Range Interpretation Comments RDW (test code = RDW) 15.1 11.5-14.5 [facility] HospitalXmzettgQVAPEWVKTK1343-28-55 05:19:00 Test Item Value Reference Range Interpretation Comments Platelet (test code = Platelet) 250 133-450 [facility] HospitalHtzchbhFLABFKWSVZ8128-18-63 05:19:00 Test Item Value Reference Range Interpretation Comments MPV (test code = MPV) 7.7 7.4-10.4 [facility] HospitalJlebkwbDBOJDXJBHR1718-44-20 05:19:00 Test Item Value Reference Range Interpretation Comments Segs (test code = Segs) 40.4 45.0-75.0 [facility] HospitalNodcviaCLLDDVOTXC5093-26-89 05:19:00 Test Item Value Reference Range Interpretation Comments Lymphocytes (test code = Lymphocytes) 48.4 20.0-40.0 [facility] HospitalRftpvjlCGXJCOQVRQ8073-33-68 05:19:00 Test Item Value Reference Range Interpretation Comments Monocytes (test code = Monocytes) 8.6 2.0-12.0 [facility] HospitalYqbdfyvWEIFQPWXMG7201-71-09 05:19:00 Test Item Value Reference Range Interpretation Comments Eosinophils (test code = 1.7 See_Comment [A utomated message] The Eosinophils) system which ge nerated this result tra nsmitted reference range : <=4.0. The reference r gayle was not used to int erpret this result as normal/abnormal . [facility] HospitalLqyxrcbJXDVVGDLEO5923-73-18 05:19:00 Test Item Value Reference Range Interpretation Comments Basophils (test code = 0.9 See_Comment [Aut omated message] The Basophils) system which ge nerated this result tra nsmitted reference range : <=1.0. The reference r gayle was not used to int erpret this result as normal/abnormal . [facility] HospitalXqrgbpvJLXYKQOWGV5862-90-16 05:19:00 Test Item Value Reference Range Interpretation Comments Neutrophils # (test code = Neutrophils 3.3 1.5-8.1 #) [facility] HospitalHieusnpEPDAJXLEZM8573-39-45 05:19:00 Test Item Value Reference Range Interpretation Comments Lymphocytes # (test code = Lymphocytes 3.9 1.0-5.5 #) [facility] HospitalNnjfijcNSPPCMHJSH3621-19-14 05:19:00 Test Item Value Reference Range Interpretation Comments Monocytes # (test code 0.7 See_Comment [Aut omated message] The = Monocytes #) system which generated this result tra nsmitted reference range : <=0.8. The reference r gayle was not used to int erpret this result as normal/abnormal . [facility] HospitalMoturnhCUTAADJODV7684-45-23 05:19:00 Test Item Value Reference Range Interpretation Comments Eosinophils # (test code 0.1 See_Comment [A utomated message] The = Eosinophils #) system whic h generated this result tra nsmitted reference range : <=0.5. The reference r gayle was not used to int erpret this result as normal/abnormal . [facility] HospitalJilhttbDFEHACBZTD0588-42-42 05:19:00 Test Item Value Reference Range Interpretation Comments Basophils # (test code 0.1 See_Comment [Aut omated message] The = Basophils #) system which generated this result tra nsmitted reference range : <=0.2. The reference r gayle was not used to int erpret this result as normal/abnormal . [facility]2019-08-12 05:19:00 Test Item Value Reference Range Interpretation Comments Ca Ion WB (test code = Ca Ion WB) 1.12 1.05-1.25 [facility]2019-08-12 05:19:00 Test Item Value Reference Range Interpretation Comments Ca Norm WB (test code = Ca Norm WB) 1.16 1.05-1.25 [facility]2019-08-12 05:19:00 Test Item Value Reference Range Interpretation Comments Glucose Lvl (test code = Glucose Lvl) 95 70-99 [facility]2019-08-12 05:19:00 Test Item Value Reference Range Interpretation Comments BUN (test code = BUN) 10 7-22 [facility]2019-08-12 05:19:00 Test Item Value Reference Range Interpretation Comments Creatinine Lvl (test code = Creatinine 0.80 0.50-1.40 Lvl) [facility]2019-08-12 05:19:00 Test Item Value Reference Range Interpretation Comments Sodium Lvl (test code = Sodium Lvl) 139 135-145 [facility]2019-08-12 05:19:00 Test Item Value Reference Range Interpretation Comments Potassium Lvl (test code = Potassium 3.5 3.5-5.1 Lvl) [facility]2019-08-12 05:19:00 Test Item Value Reference Range Interpretation Comments Chloride Lvl (test code = Chloride Lvl) 103 95-109 [facility]2019-08-12 05:19:00 Test Item Value Reference Range Interpretation Comments CO2 (test code = CO2) 30 24-32 [facility]2019-08-12 05:19:00 Test Item Value Reference Range Interpretation Comments Calcium Lvl (test code = Calcium Lvl) 8.7 8.5-10.5 [facility]2019-08-12 05:19:00 Test Item Value Reference Range Interpretation Comments eGFR (test code = eGFR) 114 [facility]2019-08-12 05:19:00 Test Item Value Reference Range Interpretation Comments AGAP (test code = AGAP) 9.5 10.0-20.0 [facility]2019-08-12 05:19:00 Test Item Value Reference Range Interpretation Comments Magnesium Lvl (test code = Magnesium 2.3 1.8-2.4 Lvl) [facility]2019-08-12 05:19:00 Test Item Value Reference Range Interpretation Comments Phosphorus (test code = Phosphorus) 2.8 2.5-4.5 [facility] HospitalPiakilhANWSOWTIYC1884-27-36 05:19:00 Test Item Value Reference Range Interpretation Comments WBC (test code = WBC) 8.1 3.7-10.4 [facility] HospitalCmckexyXMHWMQXMQI9177-96-02 05:19:00 Test Item Value Reference Range Interpretation Comments RBC (test code = RBC) 4.27 4.70-6.10 [facility] HospitalHnsvnzwOZWYLKLXTP7229-74-01 05:19:00 Test Item Value Reference Range Interpretation Comments Hgb (test code = Hgb) 12.2 14.0-18.0 [facility] HospitalUslylwjSDWZITSDJO0759-54-72 05:19:00 Test Item Value Reference Range Interpretation Comments Hct (test code = Hct) 35.7 42.0-54.0 [facility] HospitalWcmlvahCPNVCUWWWA7980-45-56 05:19:00 Test Item Value Reference Range Interpretation Comments MCV (test code = MCV) 83.8 80.0-94.0 [facility] HospitalAroiuxbAENMCNXFPZ4561-92-77 05:19:00 Test Item Value Reference Range Interpretation Comments MCH (test code = MCH) 28.6 pg 27.0-31.0 [facility] HospitalTdfxwziOORPAPFAQR1741-99-52 05:19:00 Test Item Value Reference Range Interpretation Comments MCHC (test code = MCHC) 34.2 32.0-36.0 [facility] HospitalFggpxrsXXVAYWWBPF0704-22-11 05:19:00 Test Item Value Reference Range Interpretation Comments RDW (test code = RDW) 15.1 11.5-14.5 [facility] HospitalTnhgoqjCLJCSYBYRX2141-91-65 05:19:00 Test Item Value Reference Range Interpretation Comments Platelet (test code = Platelet) 250 133-450 [facility] HospitalJgozcsqQLXUXTKUDX5601-07-33 05:19:00 Test Item Value Reference Range Interpretation Comments MPV (test code = MPV) 7.7 7.4-10.4 [facility] HospitalVhzmwbvJLYOULNUOR7044-73-48 05:19:00 Test Item Value Reference Range Interpretation Comments Segs (test code = Segs) 40.4 45.0-75.0 [facility] HospitalOwioyvbUQQRYIZKIM8451-83-24 05:19:00 Test Item Value Reference Range Interpretation Comments Lymphocytes (test code = Lymphocytes) 48.4 20.0-40.0 [facility] HospitalLyzueusPHPDUSEEVT0101-48-74 05:19:00 Test Item Value Reference Range Interpretation Comments Monocytes (test code = Monocytes) 8.6 2.0-12.0 [facility] HospitalPhzkxmwOTJWUNOSIC1477-93-83 05:19:00 Test Item Value Reference Range Interpretation Comments Eosinophils (test code = 1.7 See_Comment [A utomated message] The Eosinophils) system which ge nerated this result tra nsmitted reference range : <=4.0. The reference r gayle was not used to int erpret this result as normal/abnormal . [facility] HospitalWamrtchUBTXZHWQNG9671-97-32 05:19:00 Test Item Value Reference Range Interpretation Comments Basophils (test code = 0.9 See_Comment [Aut omated message] The Basophils) system which ge nerated this result tra nsmitted reference range : <=1.0. The reference r gayle was not used to int erpret this result as normal/abnormal . [facility] HospitalQpzozvhWPCQTRIWOJ7451-32-90 05:19:00 Test Item Value Reference Range Interpretation Comments Neutrophils # (test code = Neutrophils 3.3 1.5-8.1 #) [facility] HospitalRayxebfJHKBYNRCLU4070-39-19 05:19:00 Test Item Value Reference Range Interpretation Comments Lymphocytes # (test code = Lymphocytes 3.9 1.0-5.5 #) [facility] HospitalJoycuyxBFKRVJREVS1781-28-83 05:19:00 Test Item Value Reference Range Interpretation Comments Monocytes # (test code 0.7 See_Comment [Aut omated message] The = Monocytes #) system which generated this result tra nsmitted reference range : <=0.8. The reference r gayle was not used to int erpret this result as normal/abnormal . [facility] HospitalHemasccCXWMWRZXUY0694-27-42 05:19:00 Test Item Value Reference Range Interpretation Comments Eosinophils # (test code 0.1 See_Comment [A utomated message] The = Eosinophils #) system whic h generated this result tra nsmitted reference range : <=0.5. The reference r gayle was not used to int erpret this result as normal/abnormal . [facility] HospitalIpkgbfwTNNHROASPN2434-23-18 05:19:00 Test Item Value Reference Range Interpretation Comments Basophils # (test code 0.1 See_Comment [Aut omated message] The = Basophils #) system which generated this result tra nsmitted reference range : <=0.2. The reference r gayle was not used to int erpret this result as normal/abnormal . [facility]2019-08-12 05:19:00 Test Item Value Reference Range Interpretation Comments Ca Ion WB (test code = Ca Ion WB) 1.12 1.05-1.25 [facility]2019-08-12 05:19:00 Test Item Value Reference Range Interpretation Comments Ca Norm WB (test code = Ca Norm WB) 1.16 1.05-1.25 [facility]2019-08-12 05:19:00 Test Item Value Reference Range Interpretation Comments Glucose Lvl (test code = Glucose Lvl) 95 70-99 [facility]2019-08-12 05:19:00 Test Item Value Reference Range Interpretation Comments BUN (test code = BUN) 10 7-22 [facility]2019-08-12 05:19:00 Test Item Value Reference Range Interpretation Comments Creatinine Lvl (test code = Creatinine 0.80 0.50-1.40 Lvl) [facility]2019-08-12 05:19:00 Test Item Value Reference Range Interpretation Comments Sodium Lvl (test code = Sodium Lvl) 139 135-145 [facility]2019-08-12 05:19:00 Test Item Value Reference Range Interpretation Comments Potassium Lvl (test code = Potassium 3.5 3.5-5.1 Lvl) [facility]2019-08-12 05:19:00 Test Item Value Reference Range Interpretation Comments Chloride Lvl (test code = Chloride Lvl) 103 95-109 [facility]2019-08-12 05:19:00 Test Item Value Reference Range Interpretation Comments CO2 (test code = CO2) 30 24-32 [facility]2019-08-12 05:19:00 Test Item Value Reference Range Interpretation Comments Calcium Lvl (test code = Calcium Lvl) 8.7 8.5-10.5 [facility]2019-08-12 05:19:00 Test Item Value Reference Range Interpretation Comments eGFR (test code = eGFR) 114 [facility]2019-08-12 05:19:00 Test Item Value Reference Range Interpretation Comments AGAP (test code = AGAP) 9.5 10.0-20.0 [facility]2019-08-12 05:19:00 Test Item Value Reference Range Interpretation Comments Magnesium Lvl (test code = Magnesium 2.3 1.8-2.4 Lvl) [facility]2019-08-12 05:19:00 Test Item Value Reference Range Interpretation Comments Phosphorus (test code = Phosphorus) 2.8 2.5-4.5 [facility] HospitalWbfskraAZKUGHCGKC5653-18-28 05:19:00 Test Item Value Reference Range Interpretation Comments WBC (test code = WBC) 8.1 3.7-10.4 [facility] HospitalMawxdjtPWMAZNVJHO3592-66-29 05:19:00 Test Item Value Reference Range Interpretation Comments RBC (test code = RBC) 4.27 4.70-6.10 [place] 760719-08-12 05:19:00 Test Item Value Reference Range Interpretation Comments Hgb (test code = Hgb) 12.2 14.0-18.0 [facility] HospitalDqzwcnkDWQZRASZSL2440-27-97 05:19:00 Test Item Value Reference Range Interpretation Comments Hct (test code = Hct) 35.7 42.0-54.0 [facility] HospitalSniucazEATRSDTYTT7966-96-06 05:19:00 Test Item Value Reference Range Interpretation Comments MCV (test code = MCV) 83.8 80.0-94.0 [facility] HospitalDokcnxsACLRJEUQQF2034-94-27 05:19:00 Test Item Value Reference Range Interpretation Comments MCH (test code = MCH) 28.6 pg 27.0-31.0 [facility] HospitalGygscfhOPFSWDYKMI7092-34-96 05:19:00 Test Item Value Reference Range Interpretation Comments MCHC (test code = MCHC) 34.2 32.0-36.0 [facility] HospitalPelikpfEWDOPCNQCG4793-54-33 05:19:00 Test Item Value Reference Range Interpretation Comments RDW (test code = RDW) 15.1 11.5-14.5 [facility] HospitalKixhhabSIKMKNTRPC9471-18-25 05:19:00 Test Item Value Reference Range Interpretation Comments Platelet (test code = Platelet) 250 133-450 [facility] HospitalJzhphufQGKKVYQZZE7334-27-42 05:19:00 Test Item Value Reference Range Interpretation Comments MPV (test code = MPV) 7.7 7.4-10.4 [facility] HospitalRqeinntOYZQCIGYUJ7827-86-47 05:19:00 Test Item Value Reference Range Interpretation Comments Segs (test code = Segs) 40.4 45.0-75.0 [facility] HospitalJsysdhhSGSIXOYLTA5014-93-19 05:19:00 Test Item Value Reference Range Interpretation Comments Lymphocytes (test code = Lymphocytes) 48.4 20.0-40.0 [facility] HospitalMdoczjoYOOJLBDEKU8138-18-08 05:19:00 Test Item Value Reference Range Interpretation Comments Monocytes (test code = Monocytes) 8.6 2.0-12.0 [facility] HospitalFxoneugEOTEWJSBRN8221-29-46 05:19:00 Test Item Value Reference Range Interpretation Comments Eosinophils (test code = 1.7 See_Comment [A utomated message] The Eosinophils) system which ge nerated this result tra nsmitted reference range : <=4.0. The reference r gayle was not used to int erpret this result as normal/abnormal . [facility] HospitalVfjmbtzYXNNOMIVLK8102-72-83 05:19:00 Test Item Value Reference Range Interpretation Comments Basophils (test code = 0.9 See_Comment [Aut omated message] The Basophils) system which ge nerated this result tra nsmitted reference range : <=1.0. The reference r gayle was not used to int erpret this result as normal/abnormal . [facility] HospitalBkzxireCKLNYZKBVF6830-91-42 05:19:00 Test Item Value Reference Range Interpretation Comments Neutrophils # (test code = Neutrophils 3.3 1.5-8.1 #) [facility] HospitalTqqdivgVJHRVJLVZD2659-84-95 05:19:00 Test Item Value Reference Range Interpretation Comments Lymphocytes # (test code = Lymphocytes 3.9 1.0-5.5 #) [facility] HospitalLzvseloNJPICVOYHY5449-48-61 05:19:00 Test Item Value Reference Range Interpretation Comments Monocytes # (test code 0.7 See_Comment [Aut omated message] The = Monocytes #) system which generated this result tra nsmitted reference range : <=0.8. The reference r gayle was not used to int erpret this result as normal/abnormal . [facility] HospitalBponsxhOWCPMZLWUW5547-28-02 05:19:00 Test Item Value Reference Range Interpretation Comments Eosinophils # (test code 0.1 See_Comment [A utomated message] The = Eosinophils #) system whic h generated this result tra nsmitted reference range : <=0.5. The reference r gayle was not used to int erpret this result as normal/abnormal . [facility] HospitalQnfsyuoLDALNUAFPU7942-88-94 05:19:00 Test Item Value Reference Range Interpretation Comments Basophils # (test code 0.1 See_Comment [Aut omated message] The = Basophils #) system which generated this result tra nsmitted reference range : <=0.2. The reference r gayle was not used to int erpret this result as normal/abnormal . [facility]2019-08-12 05:19:00 Test Item Value Reference Range Interpretation Comments Ca Ion WB (test code = Ca Ion WB) 1.12 1.05-1.25 [facility]2019-08-12 05:19:00 Test Item Value Reference Range Interpretation Comments Ca Norm WB (test code = Ca Norm WB) 1.16 1.05-1.25 [facility]2019-08-12 05:19:00 Test Item Value Reference Range Interpretation Comments Glucose Lvl (test code = Glucose Lvl) 95 70-99 [facility]2019-08-12 05:19:00 Test Item Value Reference Range Interpretation Comments BUN (test code = BUN) 11-13 [facility]2019-08-12 05:19:00 Test Item Value Reference Range Interpretation Comments Creatinine Lvl (test code = Creatinine 0.80 0.50-1.40 Lvl) [facility]2019-08-12 05:19:00 Test Item Value Reference Range Interpretation Comments Sodium Lvl (test code = Sodium Lvl) 139 135-145 [facility]2019-08-12 05:19:00 Test Item Value Reference Range Interpretation Comments Glucose Lvl (test code = Glucose Lvl) 95 70-99 [facility]2019-08-12 05:19:00 Test Item Value Reference Range Interpretation Comments BUN (test code = BUN) 11-13 [facility]2019-08-12 05:19:00 Test Item Value Reference Range Interpretation Comments Creatinine Lvl (test code = Creatinine 0.80 0.50-1.40 Lvl) [facility]2019-08-12 05:19:00 Test Item Value Reference Range Interpretation Comments Potassium Lvl (test code = Potassium 3.5 3.5-5.1 Lvl) [facility]2019-08-12 05:19:00 Test Item Value Reference Range Interpretation Comments Sodium Lvl (test code = Sodium Lvl) 139 135-145 [facility]2019-08-12 05:19:00 Test Item Value Reference Range Interpretation Comments Potassium Lvl (test code = Potassium 3.5 3.5-5.1 Lvl) [facility]2019-08-12 05:19:00 Test Item Value Reference Range Interpretation Comments Chloride Lvl (test code = Chloride Lvl) 103 95-109 [facility]2019-08-12 05:19:00 Test Item Value Reference Range Interpretation Comments CO2 (test code = CO2) 30 24-32 [facility]2019-08-12 05:19:00 Test Item Value Reference Range Interpretation Comments Calcium Lvl (test code = Calcium Lvl) 8.7 8.5-10.5 [facility]2019-08-12 05:19:00 Test Item Value Reference Range Interpretation Comments eGFR (test code = eGFR) 114 [facility]2019-08-12 05:19:00 Test Item Value Reference Range Interpretation Comments AGAP (test code = AGAP) 9.5 10.0-20.0 [facility]2019-08-12 05:19:00 Test Item Value Reference Range Interpretation Comments Magnesium Lvl (test code = Magnesium 2.3 1.8-2.4 Lvl) [facility]2019-08-12 05:19:00 Test Item Value Reference Range Interpretation Comments Phosphorus (test code = Phosphorus) 2.8 2.5-4.5 [facility]XpvyzwwVJAEXVZPQZ5506-66-70 05:19:00 Test Item Value Reference Range Interpretation Comments WBC (test code = WBC) 8.1 3.7-10.4 [facility]2019-08-12 05:19:00 Test Item Value Reference Range Interpretation Comments Chloride Lvl (test code = Chloride Lvl) 103 95-109 [facility]LqkzvlyACIQRHYLPJ3865-40-70 05:19:00 Test Item Value Reference Range Interpretation Comments RBC (test code = RBC) 4.27 4.70-6.10 [facility] HospitalUfgpopnIFZIVHCDRI5457-38-93 05:19:00 Test Item Value Reference Range Interpretation Comments Hgb (test code = Hgb) 12.2 14.0-18.0 [facility] HospitalKjnudnmBIXBJJAVLP0109-94-90 05:19:00 Test Item Value Reference Range Interpretation Comments Hct (test code = Hct) 35.7 42.0-54.0 [facility] HospitalRuykireGEFQRXODFC1208-43-52 05:19:00 Test Item Value Reference Range Interpretation Comments MCV (test code = MCV) 83.8 80.0-94.0 [facility]ApvkfxiWCMLQOYEKJ9883-02-25 05:19:00 Test Item Value Reference Range Interpretation Comments MCH (test code = MCH) 28.6 pg 27.0-31.0 [facility] HospitalAthwumjLEVKYRFXQE6015-93-40 05:19:00 Test Item Value Reference Range Interpretation Comments MCHC (test code = MCHC) 34.2 32.0-36.0 [facility] HospitalEegbpgaLQTHNGDRVS5393-39-01 05:19:00 Test Item Value Reference Range Interpretation Comments RDW (test code = RDW) 15.1 11.5-14.5 [facility] HospitalJeomwccSCZRCZOZCU8984-85-19 05:19:00 Test Item Value Reference Range Interpretation Comments Platelet (test code = Platelet) 250 133-450 [facility] HospitalZrtypsaSQYLSPDQWI8966-13-42 05:19:00 Test Item Value Reference Range Interpretation Comments MPV (test code = MPV) 7.7 7.4-10.4 [facility] HospitalRhnfgaiHTEMUFODWY0758-99-16 05:19:00 Test Item Value Reference Range Interpretation Comments Segs (test code = Segs) 40.4 45.0-75.0 [facility]2019-08-12 05:19:00 Test Item Value Reference Range Interpretation Comments CO2 (test code = CO2) 30 24-32 [facility] HospitalSygvesjBYTFWDALLE1893-92-00 05:19:00 Test Item Value Reference Range Interpretation Comments Lymphocytes (test code = Lymphocytes) 48.4 20.0-40.0 [facility] HospitalCnoruqxPCLNHMWQMD2353-56-57 05:19:00 Test Item Value Reference Range Interpretation Comments Monocytes (test code = Monocytes) 8.6 2.0-12.0 [facility] HospitalNphilajYWYHAPUDAZ4912-83-22 05:19:00 Test Item Value Reference Range Interpretation Comments Eosinophils (test code = 1.7 See_Comment [A utomated message] The Eosinophils) system which ge nerated this result tra nsmitted reference range : <=4.0. The reference r gayle was not used to int erpret this result as normal/abnormal . [facility] HospitalXxhahlrRUZBRDFDWT5815-94-71 05:19:00 Test Item Value Reference Range Interpretation Comments Basophils (test code = 0.9 See_Comment [Aut omated message] The Basophils) system which ge nerated this result tra nsmitted reference range : <=1.0. The reference r gayle was not used to int erpret this result as normal/abnormal . [facility] HospitalKziuembJGHAPTSPRL5632-00-15 05:19:00 Test Item Value Reference Range Interpretation Comments Neutrophils # (test code = Neutrophils 3.3 1.5-8.1 #) [facility] HospitalQevolepHIIXBQSULV2045-74-21 05:19:00 Test Item Value Reference Range Interpretation Comments Lymphocytes # (test code = Lymphocytes 3.9 1.0-5.5 #) [facility] HospitalDbbhvqsJZDPKCTAXP7468-90-59 05:19:00 Test Item Value Reference Range Interpretation Comments Monocytes # (test code 0.7 See_Comment [Aut omated message] The = Monocytes #) system which generated this result tra nsmitted reference range : <=0.8. The reference r gayle was not used to int erpret this result as normal/abnormal . [facility] HospitalJoeghkeYBAGHCMOQN7906-95-40 05:19:00 Test Item Value Reference Range Interpretation Comments Eosinophils # (test code 0.1 See_Comment [A utomated message] The = Eosinophils #) system whic h generated this result tra nsmitted reference range : <=0.5. The reference r gayle was not used to int erpret this result as normal/abnormal . [facility] HospitalBfqjaxtPBSSYAKAWO3958-82-71 05:19:00 Test Item Value Reference Range Interpretation Comments Basophils # (test code 0.1 See_Comment [Aut omated message] The = Basophils #) system which generated this result tra nsmitted reference range : <=0.2. The reference r gayle was not used to int erpret this result as normal/abnormal . [facility]2019-08-12 05:19:00 Test Item Value Reference Range Interpretation Comments Ca Ion WB (test code = Ca Ion WB) 1.12 1.05-1.25 [facility]2019-08-12 05:19:00 Test Item Value Reference Range Interpretation Comments Calcium Lvl (test code = Calcium Lvl) 8.7 8.5-10.5 [facility]2019-08-12 05:19:00 Test Item Value Reference Range Interpretation Comments Ca Norm WB (test code = Ca Norm WB) 1.16 1.05-1.25 [facility]2019-08-12 05:19:00 Test Item Value Reference Range Interpretation Comments eGFR (test code = eGFR) 114 [facility]2019-08-12 05:19:00 Test Item Value Reference Range Interpretation Comments AGAP (test code = AGAP) 9.5 10.0-20.0 [facility]2019-08-12 05:19:00 Test Item Value Reference Range Interpretation Comments Magnesium Lvl (test code = Magnesium 2.3 1.8-2.4 Lvl) [facility]2019-08-12 05:19:00 Test Item Value Reference Range Interpretation Comments Phosphorus (test code = Phosphorus) 2.8 2.5-4.5 [facility] HospitalWmrbyuyJRTBIIRKIQ3292-86-38 05:19:00 Test Item Value Reference Range Interpretation Comments WBC (test code = WBC) 8.1 3.7-10.4 [facility]XckytlgFDEXCHGAHM9288-30-98 05:19:00 Test Item Value Reference Range Interpretation Comments RBC (test code = RBC) 4.27 4.70-6.10 [facility] HospitalDqydvcqZZBAVDFWAP9711-73-52 05:19:00 Test Item Value Reference Range Interpretation Comments Hgb (test code = Hgb) 12.2 14.0-18.0 [facility] HospitalDurzalgQGCQPNYJIK6956-82-52 05:19:00 Test Item Value Reference Range Interpretation Comments Hct (test code = Hct) 35.7 42.0-54.0 [facility] HospitalPheqwyuGWQVGGRKGP2967-30-18 05:19:00 Test Item Value Reference Range Interpretation Comments MCV (test code = MCV) 83.8 80.0-94.0 [facility] HospitalFowvbpxWJNKLXOVTE2252-48-38 05:19:00 Test Item Value Reference Range Interpretation Comments MCH (test code = MCH) 28.6 pg 27.0-31.0 [facility] HospitalWjmuctbAJITHITWNX0340-14-55 05:19:00 Test Item Value Reference Range Interpretation Comments MCHC (test code = MCHC) 34.2 32.0-36.0 [facility] HospitalBczjtppZDZAQXNKOE4202-93-20 05:19:00 Test Item Value Reference Range Interpretation Comments RDW (test code = RDW) 15.1 11.5-14.5 [facility] HospitalDfzssfbJUSKEXXVWY9511-11-98 05:19:00 Test Item Value Reference Range Interpretation Comments Platelet (test code = Platelet) 250 133-450 [facility] HospitalXrnydqgUPMFUPJDMC4531-30-39 05:19:00 Test Item Value Reference Range Interpretation Comments MPV (test code = MPV) 7.7 7.4-10.4 [facility] HospitalRypenylFPGEACSXBH6857-50-74 05:19:00 Test Item Value Reference Range Interpretation Comments Segs (test code = Segs) 40.4 45.0-75.0 [facility] HospitalMdexjldMWQLLJRCOB0298-73-28 05:19:00 Test Item Value Reference Range Interpretation Comments Lymphocytes (test code = Lymphocytes) 48.4 20.0-40.0 [facility] HospitalMeklcikERUSVCLUGQ5657-98-34 05:19:00 Test Item Value Reference Range Interpretation Comments Monocytes (test code = Monocytes) 8.6 2.0-12.0 [facility] HospitalQfnazohNOMUKAYSXG2094-02-63 05:19:00 Test Item Value Reference Range Interpretation Comments Eosinophils (test code = 1.7 See_Comment [A utomated message] The Eosinophils) system which ge nerated this result tra nsmitted reference range : <=4.0. The reference r gayle was not used to int erpret this result as normal/abnormal . [facility] HospitalHrdhjysMBXZOJVLBK7076-28-35 05:19:00 Test Item Value Reference Range Interpretation Comments Basophils (test code = 0.9 See_Comment [Aut omated message] The Basophils) system which ge nerated this result tra nsmitted reference range : <=1.0. The reference r gayle was not used to int erpret this result as normal/abnormal . [facility] HospitalZbfmtltQQNHPPTNAB4102-14-02 05:19:00 Test Item Value Reference Range Interpretation Comments Neutrophils # (test code = Neutrophils 3.3 1.5-8.1 #) [facility]2019-08-12 05:19:00 Test Item Value Reference Range Interpretation Comments Glucose Lvl (test code = Glucose Lvl) 95 70-99 [facility]2019-08-12 05:19:00 Test Item Value Reference Range Interpretation Comments BUN (test code = BUN) 10 7-22 [facility]2019-08-12 05:19:00 Test Item Value Reference Range Interpretation Comments Creatinine Lvl (test code = Creatinine 0.80 0.50-1.40 Lvl) [facility]2019-08-12 05:19:00 Test Item Value Reference Range Interpretation Comments Sodium Lvl (test code = Sodium Lvl) 139 135-145 [facility]2019-08-12 05:19:00 Test Item Value Reference Range Interpretation Comments Potassium Lvl (test code = Potassium 3.5 3.5-5.1 Lvl) [facility]2019-08-12 05:19:00 Test Item Value Reference Range Interpretation Comments Chloride Lvl (test code = Chloride Lvl) 103 95-109 [facility]2019-08-12 05:19:00 Test Item Value Reference Range Interpretation Comments CO2 (test code = CO2) 30 24-32 [facility]2019-08-12 05:19:00 Test Item Value Reference Range Interpretation Comments Calcium Lvl (test code = Calcium Lvl) 8.7 8.5-10.5 [facility]2019-08-12 05:19:00 Test Item Value Reference Range Interpretation Comments eGFR (test code = eGFR) 114 [facility]2019-08-12 05:19:00 Test Item Value Reference Range Interpretation Comments AGAP (test code = AGAP) 9.5 10.0-20.0 [facility] HospitalExshedyWIZJGXOPQD6057-43-21 05:19:00 Test Item Value Reference Range Interpretation Comments Lymphocytes # (test code = Lymphocytes 3.9 1.0-5.5 #) [facility]2019-08-12 05:19:00 Test Item Value Reference Range Interpretation Comments Magnesium Lvl (test code = Magnesium 2.3 1.8-2.4 Lvl) [facility]2019-08-12 05:19:00 Test Item Value Reference Range Interpretation Comments Phosphorus (test code = Phosphorus) 2.8 2.5-4.5 [facility] HospitalEziczrrUWJUJAJTOC9219-48-16 05:19:00 Test Item Value Reference Range Interpretation Comments WBC (test code = WBC) 8.1 3.7-10.4 [facility] HospitalQzeokkxYKMBTXERAY7623-94-25 05:19:00 Test Item Value Reference Range Interpretation Comments RBC (test code = RBC) 4.27 4.70-6.10 [facility] HospitalGrezzxvQMNSKDGAIW5634-33-06 05:19:00 Test Item Value Reference Range Interpretation Comments Hgb (test code = Hgb) 12.2 14.0-18.0 [place] 760719-08-12 05:19:00 Test Item Value Reference Range Interpretation Comments Hct (test code = Hct) 35.7 42.0-54.0 [facility] HospitalEflnbwgPIMTDRYIKI0152-22-48 05:19:00 Test Item Value Reference Range Interpretation Comments MCV (test code = MCV) 83.8 80.0-94.0 [facility] HospitalQxfdvgxZFDKYYPPBW8554-83-23 05:19:00 Test Item Value Reference Range Interpretation Comments MCH (test code = MCH) 28.6 pg 27.0-31.0 [facility] HospitalUuryygbXAXYKIVRDI2148-96-44 05:19:00 Test Item Value Reference Range Interpretation Comments MCHC (test code = MCHC) 34.2 32.0-36.0 [facility] HospitalDbikxrnMSJRZESIQB3294-30-89 05:19:00 Test Item Value Reference Range Interpretation Comments RDW (test code = RDW) 15.1 11.5-14.5 [facility] HospitalGerecitGOXYLPBIBX2630-82-37 05:19:00 Test Item Value Reference Range Interpretation Comments Monocytes # (test code 0.7 See_Comment [Aut omated message] The = Monocytes #) system which generated this result tra nsmitted reference range : <=0.8. The reference r gayle was not used to int erpret this result as normal/abnormal . [facility] HospitalHqieecaKCVEWQWWXA4168-72-19 05:19:00 Test Item Value Reference Range Interpretation Comments Platelet (test code = Platelet) 250 133-450 [facility] HospitalQucobrnUKIGYVNDJG4936-74-92 05:19:00 Test Item Value Reference Range Interpretation Comments MPV (test code = MPV) 7.7 7.4-10.4 [facility] HospitalCgoriymCYRHUBFBEA2952-68-97 05:19:00 Test Item Value Reference Range Interpretation Comments Segs (test code = Segs) 40.4 45.0-75.0 [facility] HospitalIolnolwOOSZONMWCR0470-21-62 05:19:00 Test Item Value Reference Range Interpretation Comments Lymphocytes (test code = Lymphocytes) 48.4 20.0-40.0 [facility] HospitalXqqxxhxIRYLGYPMXQ2402-34-57 05:19:00 Test Item Value Reference Range Interpretation Comments Monocytes (test code = Monocytes) 8.6 2.0-12.0 [facility] HospitalVioevbvIEUYUQGOGN9416-57-89 05:19:00 Test Item Value Reference Range Interpretation Comments Eosinophils (test code = 1.7 See_Comment [A utomated message] The Eosinophils) system which ge nerated this result tra nsmitted reference range : <=4.0. The reference r gayle was not used to int erpret this result as normal/abnormal . [facility] HospitalHygoimaTHBLONYGHK5305-86-68 05:19:00 Test Item Value Reference Range Interpretation Comments Basophils (test code = 0.9 See_Comment [Aut omated message] The Basophils) system which ge nerated this result tra nsmitted reference range : <=1.0. The reference r gayle was not used to int erpret this result as normal/abnormal . [facility] HospitalIlydlbiEEFYVIBKZC7784-19-81 05:19:00 Test Item Value Reference Range Interpretation Comments Neutrophils # (test code = Neutrophils 3.3 1.5-8.1 #) [facility] HospitalGyxbzxwIOGMVLOSBC5906-47-92 05:19:00 Test Item Value Reference Range Interpretation Comments Lymphocytes # (test code = Lymphocytes 3.9 1.0-5.5 #) [facility] HospitalMlzodhcSWGAPFXQSX2472-42-83 05:19:00 Test Item Value Reference Range Interpretation Comments Monocytes # (test code 0.7 See_Comment [Aut omated message] The = Monocytes #) system which generated this result tra nsmitted reference range : <=0.8. The reference r gayle was not used to int erpret this result as normal/abnormal . [facility] HospitalIevyiukOIBMFYHQVO0566-51-42 05:19:00 Test Item Value Reference Range Interpretation Comments Eosinophils # (test code 0.1 See_Comment [A utomated message] The = Eosinophils #) system [facility] [employer] generated this result tra nsmitted reference range : <=0.5. The reference r gayle was not used to int erpret this result as normal/abnormal . [facility] HospitalWkdfwskKFQMZLOMPJ0025-19-75 05:19:00 Test Item Value Reference Range Interpretation Comments Eosinophils # (test code 0.1 See_Comment [A utomated message] The = Eosinophils #) system [employer] generated this result tra nsmitted reference range : <=0.5. The reference r gayle was not used to int erpret this result as normal/abnormal . [facility] HospitalXrsskuwFKKWTIIQYB9318-21-23 05:19:00 Test Item Value Reference Range Interpretation Comments Basophils # (test code 0.1 See_Comment [Aut omated message] The = Basophils #) system which generated this result tra nsmitted reference range : <=0.2. The reference r gayle was not used to int erpret this result as normal/abnormal . [facility] YCBQTFP1119[facility] 05:19:00 Test Item Value Reference Range Interpretation Comments Ca Ion WB (test code = Ca Ion WB) 1.12 1.05-1.25 [facility]2019-08-12 05:19:00 Test Item Value Reference Range Interpretation Comments Ca Norm WB (test code = Ca Norm WB) 1.16 1.05-1.25 [facility]YgvwjsiKHOGRWLXAE7596-99-80 05:19:00 Test Item Value Reference Range Interpretation Comments Basophils # (test code 0.1 See_Comment [Aut omated message] The = Basophils #) system which generated this result tra nsmitted reference range : <=0.2. The reference r gayle was not used to int erpret this result as normal/abnormal . [facility]2019-08-12 05:19:00 Test Item Value Reference Range Interpretation Comments Ca Ion WB (test code = Ca Ion WB) 1.12 1.05-1.25 [facility]2019-08-12 05:19:00 Test Item Value Reference Range Interpretation Comments Ca Norm WB (test code = Ca Norm WB) 1.16 1.05-1.25 [facility] CenterKcxgwweQVDIYH0102-07-85 13:51:00 Test Item Value Reference Range Interpretation Comments LDL (Calculated) (test code = LDL 119 (Calculated)) [facility] CenterQzyjnikNWRKVP5207-07-99 13:51:00 Test Item Value Reference Range Interpretation Comments Trig (test code = Trig) 86 [facility] CenterVwnvjsxFRMYBF0903-16-55 13:51:00 Test Item Value Reference Range Interpretation Comments Chol (test code = Chol) 171 [facility] CenterQofsitzYCZHYA1145-86-22 13:51:00 Test Item Value Reference Range Interpretation Comments HDL (test code = HDL) 35 [facility]KksxqjeEMBVXY8762-74-61 13:51:00 Test Item Value Reference Range Interpretation Comments CHD Risk (test code = CHD Risk) 4.89 1 4.00-7.30 [facility] CampusJethqgpPQYDWW2453-25-16 13:51:00 Test Item Value Reference Range Interpretation Comments VLDL (test code = VLDL) 17 1 [facility] CampusQdhopprCLGYXW6217-14-41 13:51:00 Test Item Value Reference Range Interpretation Comments LDL (Calculated) (test code = LDL 119 (Calculated)) [facility]ZoietzmHHVOKH8344-43-58 13:51:00 Test Item Value Reference Range Interpretation Comments Trig (test code = Trig) 86 [facility] CenterEeiexhpCMTAYT2823-82-67 13:51:00 Test Item Value Reference Range Interpretation Comments Chol (test code = Chol) 171 [facility] CenterIrhrvojWAJYIE7927-38-77 13:51:00 Test Item Value Reference Range Interpretation Comments HDL (test code = HDL) 35 [facility] CenterMxktzodJKJYNG8674-62-02 13:51:00 Test Item Value Reference Range Interpretation Comments CHD Risk (test code = CHD Risk) 4.89 1 4.00-7.30 [facility] CenterZxvgfneXXJZLI5379-71-25 13:51:00 Test Item Value Reference Range Interpretation Comments VLDL (test code = VLDL) 17 1 [facility] CenterDjiycjwOLEZWL2526-88-55 13:51:00 Test Item Value Reference Range Interpretation Comments LDL (Calculated) (test code = LDL 119 (Calculated)) [facility] CenterYjnfguuTPOTVV2098-15-69 13:51:00 Test Item Value Reference Range Interpretation Comments Trig (test code = Trig) 86 [facility] CenterJmdfjobDNYFMG9878-57-26 13:51:00 Test Item Value Reference Range Interpretation Comments Chol (test code = Chol) 171 [facility] CenterJaxanpeFARRNT8594-97-57 13:51:00 Test Item Value Reference Range Interpretation Comments HDL (test code = HDL) 35 [facility] CenterHdcbvayKJRGTF3125-90-80 13:51:00 Test Item Value Reference Range Interpretation Comments CHD Risk (test code = CHD Risk) 4.89 1 4.00-7.30 [facility] CenterNofdoliPHTUHW5946-56-92 13:51:00 Test Item Value Reference Range Interpretation Comments VLDL (test code = VLDL) 17 1 [facility] CenterExealonDCCMXB7050-05-97 13:51:00 Test Item Value Reference Range Interpretation Comments LDL (Calculated) (test code = LDL 119 (Calculated)) [facility] CenterNnsdcdtIIXIIS7378-40-56 13:51:00 Test Item Value Reference Range Interpretation Comments Trig (test code = Trig) 86 [facility] CenterJuiauqgCUZOPX1728-83-71 13:51:00 Test Item Value Reference Range Interpretation Comments Chol (test code = Chol) 171 [facility] CenterHxrzwwiYZIDMS4420-84-47 13:51:00 Test Item Value Reference Range Interpretation Comments HDL (test code = HDL) 35 [facility] CenterLftgsbiDKFPWM1545-87-33 13:51:00 Test Item Value Reference Range Interpretation Comments CHD Risk (test code = CHD Risk) 4.89 1 4.00-7.30 [facility] CenterQhnbcycVCJAJQ7822-01-60 13:51:00 Test Item Value Reference Range Interpretation Comments VLDL (test code = VLDL) 17 1 [facility] CenterJwbupnwIXAFSF3697-53-88 13:51:00 Test Item Value Reference Range Interpretation Comments LDL (Calculated) (test code = LDL 119 (Calculated)) [facility] CenterLwowcdvPITQPP5772-22-74 13:51:00 Test Item Value Reference Range Interpretation Comments Trig (test code = Trig) 86 [facility] CenterMqqzykvXQWVVQ6754-46-76 13:51:00 Test Item Value Reference Range Interpretation Comments Chol (test code = Chol) 171 [facility] CenterUtxstofMQYSJE2063-28-14 13:51:00 Test Item Value Reference Range Interpretation Comments HDL (test code = HDL) 35 [facility] CenterMmiltfqSWENLZ7333-06-36 13:51:00 Test Item Value Reference Range Interpretation Comments CHD Risk (test code = CHD Risk) 4.89 1 4.00-7.30 [facility] CenterEpsjuonWFOWGK3694-21-41 13:51:00 Test Item Value Reference Range Interpretation Comments VLDL (test code = VLDL) 17 1 [facility] CenterNjdkbgrHKFCIE2928-50-31 13:51:00 Test Item Value Reference Range Interpretation Comments LDL (Calculated) (test code = LDL 119 (Calculated)) [facility] CenterKdcayrbLDHVGD3684-40-49 13:51:00 Test Item Value Reference Range Interpretation Comments Trig (test code = Trig) 86 [facility] CenterYimiirnIOJJRL1643-74-82 13:51:00 Test Item Value Reference Range Interpretation Comments Chol (test code = Chol) 171 [facility] CenterNcmbsfzIFQKUP3064-31-36 13:51:00 Test Item Value Reference Range Interpretation Comments HDL (test code = HDL) 35 [facility] CenterWwjgcinHVUZMU6377-49-15 13:51:00 Test Item Value Reference Range Interpretation Comments CHD Risk (test code = CHD Risk) 4.89 1 4.00-7.30 [facility] CenterQqzjuiiDMKDDR4426-24-82 13:51:00 Test Item Value Reference Range Interpretation Comments VLDL (test code = VLDL) 17 1 [facility] CenterIjgewjoEEUTRQ0499-46-39 13:51:00 Test Item Value Reference Range Interpretation Comments LDL (Calculated) (test code = LDL 119 (Calculated)) [facility] CenterRslfpseXFPQME0763-35-85 13:51:00 Test Item Value Reference Range Interpretation Comments Trig (test code = Trig) 86 [facility] CenterZurndkwJGRRSX3400-34-13 13:51:00 Test Item Value Reference Range Interpretation Comments Chol (test code = Chol) 171 [facility] CenterFwwqvxdFTKCEN9623-04-48 13:51:00 Test Item Value Reference Range Interpretation Comments HDL (test code = HDL) 35 [facility] CenterNhkicieIWPSIU3752-71-91 13:51:00 Test Item Value Reference Range Interpretation Comments CHD Risk (test code = CHD Risk) 4.89 1 4.00-7.30 [facility] CenterKuqybpeNXPYQR6235-43-20 13:51:00 Test Item Value Reference Range Interpretation Comments VLDL (test code = VLDL) 17 1 [facility]2019-08-11 09:48:00 Test Item Value Reference Range Interpretation Comments Calcium Lvl (test code = Calcium Lvl) 8.7 8.5-10.5 [facility]2019-08-11 09:48:00 Test Item Value Reference Range Interpretation Comments eGFR (test code = eGFR) 116 [facility]2019-08-11 09:48:00 Test Item Value Reference Range Interpretation Comments AGAP (test code = AGAP) 8.7 10.0-20.0 [facility]2019-08-11 09:48:00 Test Item Value Reference Range Interpretation Comments Magnesium Lvl (test code = Magnesium 2.4 1.8-2.4 Lvl) [facility]2019-08-11 09:48:00 Test Item Value Reference Range Interpretation Comments Phosphorus (test code = Phosphorus) 2.7 2.5-4.5 [facility]ud[facility]PTQW[facility]MVUFY4217-98-17 09:48:00 Test Item Value Reference Range Interpretation Comments Segs (test code = Segs) 46.3 45.0-75.0 [facility]WdgaiqfCIQHLLKHNS5213-19-63 09:48:00 Test Item Value Reference Range Interpretation Comments Lymphocytes (test code = Lymphocytes) 42.1 20.0-40.0 [facility]XpumqvrVYGOWTSLDO7839-48-01 09:48:00 Test Item Value Reference Range Interpretation Comments Monocytes (test code = Monocytes) 9.0 2.0-12.0 [facility] HospitalOjwmcitPBXJUVWFUH1802-04-40 09:48:00 Test Item Value Reference Range Interpretation Comments Eosinophils (test code = 1.4 See_Comment [A utomated message] The Eosinophils) system which ge nerated this result tra nsmitted reference range : <=4.0. The reference r gayle was not used to int erpret this result as normal/abnormal . [facility] HospitalLjpnjuePFOZEJVBXG6713-19-15 09:48:00 Test Item Value Reference Range Interpretation Comments Basophils (test code = 1.2 See_Comment [Aut omated message] The Basophils) system which ge nerated this result tra nsmitted reference range : <=1.0. The reference r gayle was not used to int erpret this result as normal/abnormal . [facility] HospitalHknfhomQEUJYVDEVY1028-86-98 09:48:00 Test Item Value Reference Range Interpretation Comments Neutrophils # (test code = Neutrophils 3.4 1.5-8.1 #) [facility] HospitalGgefxfjACWFWHRIQR2261-89-47 09:48:00 Test Item Value Reference Range Interpretation Comments Lymphocytes # (test code = Lymphocytes 3.1 1.0-5.5 #) [facility] HospitalOjeeblaIRTSKIGHHQ8741-10-91 09:48:00 Test Item Value Reference Range Interpretation Comments Monocytes # (test code 0.7 See_Comment [Aut omated message] The = Monocytes #) system which generated this result tra nsmitted reference range : <=0.8. The reference r gayle was not used to int erpret this result as normal/abnormal . [facility] HospitalQrrkmtdBDKOWHRPWK4405-12-93 09:48:00 Test Item Value Reference Range Interpretation Comments Eosinophils # (test code 0.1 See_Comment [A utomated message] The = Eosinophils #) system whic h generated this result tra nsmitted reference range : <=0.5. The reference r gayle was not used to int erpret this result as normal/abnormal . [facility] HospitalXabfyuyCPXDAVUPQI3676-47-63 09:48:00 Test Item Value Reference Range Interpretation Comments Basophils # (test code 0.1 See_Comment [Aut omated message] The = Basophils #) system which generated this result tra nsmitted reference range : <=0.2. The reference r gayle was not used to int erpret this result as normal/abnormal . [facility] HospitalWydzrunZKDZMJHAOM7712-28-14 09:48:00 Test Item Value Reference Range Interpretation Comments WBC (test code = WBC) 7.4 3.7-10.4 [facility] HospitalEjdqezbIZCWSJOZGV1200-47-68 09:48:00 Test Item Value Reference Range Interpretation Comments RBC (test code = RBC) 4.42 4.70-6.10 [facility] HospitalZmlwekxDAEHXTNZND3052-23-00 09:48:00 Test Item Value Reference Range Interpretation Comments Hgb (test code = Hgb) 12.7 14.0-18.0 [facility] HospitalHcnnxhzDEBJNTUVFE9858-67-35 09:48:00 Test Item Value Reference Range Interpretation Comments Hct (test code = Hct) 37.1 42.0-54.0 [facility] HospitalWzcitedZYEIGNRYZR3229-45-27 09:48:00 Test Item Value Reference Range Interpretation Comments MCV (test code = MCV) 83.9 80.0-94.0 [facility] HospitalVywaabrWOMUWKBGMY0338-74-42 09:48:00 Test Item Value Reference Range Interpretation Comments MCH (test code = MCH) 28.7 pg 27.0-31.0 [facility] HospitalDslykylWOTQDFGSJJ1385-07-01 09:48:00 Test Item Value Reference Range Interpretation Comments MCHC (test code = MCHC) 34.1 32.0-36.0 [facility] HospitalZfoqkhnGXDBKXDHHD9356-24-43 09:48:00 Test Item Value Reference Range Interpretation Comments RDW (test code = RDW) 15.2 11.5-14.5 [facility] HospitalLffhlnvVZEULQLMUW1614-83-97 09:48:00 Test Item Value Reference Range Interpretation Comments Platelet (test code = Platelet) 269 133-450 [facility] HospitalUzhlheoAMBJHXKKLK1456-37-92 09:48:00 Test Item Value Reference Range Interpretation Comments MPV (test code = MPV) 7.8 7.4-10.4 [facility] FDCZIAF9312-19-21 09:48:00 Test Item Value Reference Range Interpretation Comments Ca Ion WB (test code = Ca Ion WB) 1.04 1.05-1.25 [facility] Q[facility]XQL0549-43-03 09:48:00 Test Item Value Reference Range Interpretation Comments Ca Norm WB (test code = Ca Norm WB) 1.09 1.05-1.25 [facility] HQMALJSVH4134-47-04 09:48:00 Test Item Value Reference Range Interpretation Comments Hgb A1C (test code = Hgb A1C) 5.6 [facility]2019-08-11 09:48:00 Test Item Value Reference Range Interpretation Comments Glucose Lvl (test code = Glucose Lvl) 90 70-99 [facility]2019-08-11 09:48:00 Test Item Value Reference Range Interpretation Comments BUN (test code = BUN) 13 7-22 [facility]2019-08-11 09:48:00 Test Item Value Reference Range Interpretation Comments Creatinine Lvl (test code = Creatinine 0.77 0.50-1.40 Lvl) [facility]2019-08-11 09:48:00 Test Item Value Reference Range Interpretation Comments Sodium Lvl (test code = Sodium Lvl) 140 135-145 [facility]2019-08-11 09:48:00 Test Item Value Reference Range Interpretation Comments Potassium Lvl (test code = Potassium 3.7 3.5-5.1 Lvl) [facility]2019-08-11 09:48:00 Test Item Value Reference Range Interpretation Comments Chloride Lvl (test code = Chloride Lvl) 106 95-109 [facility]2019-08-11 09:48:00 Test Item Value Reference Range Interpretation Comments CO2 (test code = CO2) 29 24-32 [facility]2019-08-11 09:48:00 Test Item Value Reference Range Interpretation Comments Magnesium Lvl (test code = Magnesium 2.4 1.8-2.4 Lvl) [facility]2019-08-11 09:48:00 Test Item Value Reference Range Interpretation Comments Phosphorus (test code = Phosphorus) 2.7 2.5-4.5 [facility]EeefcbpKZSWQONCXS9145-12-13 09:48:00 Test Item Value Reference Range Interpretation Comments Segs (test code = Segs) 46.3 45.0-75.0 [facility] HospitalFsvvblpPWSUMSEDMP8677-88-42 09:48:00 Test Item Value Reference Range Interpretation Comments Lymphocytes (test code = Lymphocytes) 42.1 20.0-40.0 [facility] HospitalIiboxhiSILHHFGDCG1327-55-70 09:48:00 Test Item Value Reference Range Interpretation Comments Monocytes (test code = Monocytes) 9.0 2.0-12.0 [facility]2019-08-11 09:48:00 Test Item Value Reference Range Interpretation Comments Glucose Lvl (test code = Glucose Lvl) 90 70-99 [facility]2019-08-11 09:48:00 Test Item Value Reference Range Interpretation Comments BUN (test code = BUN) 13 7-22 [facility]2019-08-11 09:48:00 Test Item Value Reference Range Interpretation Comments Creatinine Lvl (test code = Creatinine 0.77 0.50-1.40 Lvl) [facility]2019-08-11 09:48:00 Test Item Value Reference Range Interpretation Comments Sodium Lvl (test code = Sodium Lvl) 140 135-145 [place] 849359-08-11 09:48:00 Test Item Value Reference Range Interpretation Comments Potassium Lvl (test code = Potassium 3.7 3.5-5.1 Lvl) [facility]2019-08-11 09:48:00 Test Item Value Reference Range Interpretation Comments Chloride Lvl (test code = Chloride Lvl) 106 95-109 [facility]2019-08-11 09:48:00 Test Item Value Reference Range Interpretation Comments CO2 (test code = CO2) 29 24-32 [facility] HospitalGeqwxipVQNAANADIH0643-09-37 09:48:00 Test Item Value Reference Range Interpretation Comments Eosinophils (test code = 1.4 See_Comment [A utomated message] The Eosinophils) system which ge nerated this result tra nsmitted reference range : <=4.0. The reference r gayle was not used to int erpret this result as normal/abnormal . [facility]2019-08-11 09:48:00 Test Item Value Reference Range Interpretation Comments Calcium Lvl (test code = Calcium Lvl) 8.7 8.5-10.5 [facility]2019-08-11 09:48:00 Test Item Value Reference Range Interpretation Comments eGFR (test code = eGFR) 116 [facility]2019-08-11 09:48:00 Test Item Value Reference Range Interpretation Comments AGAP (test code = AGAP) 8.7 10.0-20.0 [facility]2019-08-11 09:48:00 Test Item Value Reference Range Interpretation Comments Magnesium Lvl (test code = Magnesium 2.4 1.8-2.4 Lvl) [facility]2019-08-11 09:48:00 Test Item Value Reference Range Interpretation Comments Phosphorus (test code = Phosphorus) 2.7 2.5-4.5 [facility] HospitalMoooafwTLGEIXEKVG0078-49-22 09:48:00 Test Item Value Reference Range Interpretation Comments Segs (test code = Segs) 46.3 45.0-75.0 [facility] HospitalQpioegnEOKUGNTTEP1427-58-17 09:48:00 Test Item Value Reference Range Interpretation Comments Lymphocytes (test code = Lymphocytes) 42.1 20.0-40.0 [facility] HospitalUjvnykxRMQNDNMTTA6999-61-07 09:48:00 Test Item Value Reference Range Interpretation Comments Monocytes (test code = Monocytes) 9.0 2.0-12.0 [facility] HospitalWqtyypdARZPVFMHSG0335-43-75 09:48:00 Test Item Value Reference Range Interpretation Comments Eosinophils (test code = 1.4 See_Comment [A utomated message] The Eosinophils) system which ge nerated this result tra nsmitted reference range : <=4.0. The reference r gayle was not used to int erpret this result as normal/abnormal . [facility] HospitalXlrkmnpMDYTORKMSQ5227-12-29 09:48:00 Test Item Value Reference Range Interpretation Comments Basophils (test code = 1.2 See_Comment [Aut omated message] The Basophils) system which ge nerated this result tra nsmitted reference range : <=1.0. The reference r gayle was not used to int erpret this result as normal/abnormal . [facility] HospitalSghoapfJUJEQMTOGF7302-59-74 09:48:00 Test Item Value Reference Range Interpretation Comments Basophils (test code = 1.2 See_Comment [Aut omated message] The Basophils) system which ge nerated this result tra nsmitted reference range : <=1.0. The reference r gayle was not used to int erpret this result as normal/abnormal . [facility] HospitalAvhsefsIPSIAGXSZD9880-79-50 09:48:00 Test Item Value Reference Range Interpretation Comments Neutrophils # (test code = Neutrophils 3.4 1.5-8.1 #) [facility] HospitalGeosjkqDYIINFZUSV4330-66-83 09:48:00 Test Item Value Reference Range Interpretation Comments Lymphocytes # (test code = Lymphocytes 3.1 1.0-5.5 #) [facility] HospitalJlxpupgJSZGHKYENF0704-47-16 09:48:00 Test Item Value Reference Range Interpretation Comments Monocytes # (test code 0.7 See_Comment [Aut omated message] The = Monocytes #) system which generated this result tra nsmitted reference range : <=0.8. The reference r gayle was not used to int erpret this result as normal/abnormal . [facility] HospitalQbjkoxiLFJUEKOLRD5014-09-12 09:48:00 Test Item Value Reference Range Interpretation Comments Eosinophils # (test code 0.1 See_Comment [A utomated message] The = Eosinophils #) system whic h generated this result tra nsmitted reference range : <=0.5. The reference r gayle was not used to int erpret this result as normal/abnormal . [facility] HospitalXyxczhdOGKEZXEUSJ6401-45-73 09:48:00 Test Item Value Reference Range Interpretation Comments Basophils # (test code 0.1 See_Comment [Aut omated message] The = Basophils #) system which generated this result tra nsmitted reference range : <=0.2. The reference r gayle was not used to int erpret this result as normal/abnormal . [facility] HospitalRvdxdcdHPBMLVBORL5680-31-99 09:48:00 Test Item Value Reference Range Interpretation Comments WBC (test code = WBC) 7.4 3.7-10.4 [facility] HospitalIpkeieoHACUXYSIKX2603-01-35 09:48:00 Test Item Value Reference Range Interpretation Comments RBC (test code = RBC) 4.42 4.70-6.10 [facility] HospitalRtpaqiwVPPLDVTICV6882-81-76 09:48:00 Test Item Value Reference Range Interpretation Comments Hgb (test code = Hgb) 12.7 14.0-18.0 [facility] HospitalXrfjvodKSEMAHRQBJ6144-59-25 09:48:00 Test Item Value Reference Range Interpretation Comments Hct (test code = Hct) 37.1 42.0-54.0 [facility] HospitalGqihrpfUXECDDWKYK4975-12-88 09:48:00 Test Item Value Reference Range Interpretation Comments MCV (test code = MCV) 83.9 80.0-94.0 [facility] HospitalHhtfulfRVRAFIDQNG1424-33-13 09:48:00 Test Item Value Reference Range Interpretation Comments Neutrophils # (test code = Neutrophils 3.4 1.5-8.1 #) [facility]UvgaosbMBBXEXGEPK5910-21-40 09:48:00 Test Item Value Reference Range Interpretation Comments MCH (test code = MCH) 28.7 pg 27.0-31.0 [facility] HospitalBfhkproKUDPENEMXI1327-25-88 09:48:00 Test Item Value Reference Range Interpretation Comments MCHC (test code = MCHC) 34.1 32.0-36.0 [facility] HospitalGhncupeZRZMXZGBLS0540-40-21 09:48:00 Test Item Value Reference Range Interpretation Comments RDW (test code = RDW) 15.2 11.5-14.5 [facility] HospitalSytyvkeCFDCWJKXKH8608-20-95 09:48:00 Test Item Value Reference Range Interpretation Comments Platelet (test code = Platelet) 269 794-450 [facility] HospitalAfgluddRNMJFJEZUF7430-79-89 09:48:00 Test Item Value Reference Range Interpretation Comments MPV (test code = MPV) 7.8 7.4-10.4 [facility]PARATHY[facility]ID IWGTGSF2973-74-37 09:48:00 Test Item Value Reference Range Interpretation Comments Ca Ion WB (test code = Ca Ion WB) 1.04 1.05-1.25 [facility]annPAR[facility]YROID YGRLLRQ8644-43-10 09:48:00 Test Item Value Reference Range Interpretation Comments Ca Norm WB (test code = Ca Norm WB) 1.09 1.05-1.25 [facility] CenterSPECIAL HIEJASHVJ2681-73-26 09:48:00 Test Item Value Reference Range Interpretation Comments Hgb A1C (test code = Hgb A1C) 5.6 [facility] HospitalBcocrdcWBTFMZMREE6025-79-56 09:48:00 Test Item Value Reference Range Interpretation Comments Lymphocytes # (test code = Lymphocytes 3.1 1.0-5.5 #) [facility] HospitalBfeirfhHPPKHALMIP9842-62-26 09:48:00 Test Item Value Reference Range Interpretation Comments Monocytes # (test code 0.7 See_Comment [Aut omated message] The = Monocytes #) system which generated this result tra nsmitted reference range : <=0.8. The reference r gayle was not used to int erpret this result as normal/abnormal . [facility] HospitalOibtdvwZQNGTVWVOZ3286-22-63 09:48:00 Test Item Value Reference Range Interpretation Comments Eosinophils # (test code 0.1 See_Comment [A utomated message] The = Eosinophils #) system whic h generated this result tra nsmitted reference range : <=0.5. The reference r gayle was not used to int erpret this result as normal/abnormal . [facility] HospitalYkaxhyvNHPORACOHA0378-65-06 09:48:00 Test Item Value Reference Range Interpretation Comments Basophils # (test code 0.1 See_Comment [Aut omated message] The = Basophils #) system which generated this result tra nsmitted reference range : <=0.2. The reference r gayle was not used to int erpret this result as normal/abnormal . [facility] HospitalHifhqcfHIRRLLJVIP7309-19-35 09:48:00 Test Item Value Reference Range Interpretation Comments WBC (test code = WBC) 7.4 3.7-10.4 [facility] HospitalLfbznnyRIJHKBNPBJ7070-25-50 09:48:00 Test Item Value Reference Range Interpretation Comments RBC (test code = RBC) 4.42 4.70-6.10 [facility] HospitalZcmyvdjDGXHMLIVBG5755-55-91 09:48:00 Test Item Value Reference Range Interpretation Comments Hgb (test code = Hgb) 12.7 14.0-18.0 [facility] HospitalMhmvfvxZQWREZYDYW3448-40-58 09:48:00 Test Item Value Reference Range Interpretation Comments Hct (test code = Hct) 37.1 42.0-54.0 [facility] HospitalJcvrdfiQWUVXBWGNL6920-22-78 09:48:00 Test Item Value Reference Range Interpretation Comments MCV (test code = MCV) 83.9 80.0-94.0 [facility] HospitalEqbwyqpGHBAKEWIUM2368-66-72 09:48:00 Test Item Value Reference Range Interpretation Comments MCH (test code = MCH) 28.7 pg 27.0-31.0 [facility] HospitalHtbkfsjDYARAUGCIV5822-36-96 09:48:00 Test Item Value Reference Range Interpretation Comments MCHC (test code = MCHC) 34.1 32.0-36.0 [facility] HospitalMaxnhdvCFTIIVRYNJ8231-51-87 09:48:00 Test Item Value Reference Range Interpretation Comments RDW (test code = RDW) 15.2 11.5-14.5 [facility] HospitalHxkuqhaLHJDSCKEUK4646-99-51 09:48:00 Test Item Value Reference Range Interpretation Comments Platelet (test code = Platelet) 269 133-450 [facility] CenterEjyuhvzUYDAIPYJWO7197-60-20 09:48:00 Test Item Value Reference Range Interpretation Comments MPV (test code = MPV) 7.8 7.4-10.4 [facility] CenterPARATHYROID CFFSOSH4766-43-26 09:48:00 Test Item Value Reference Range Interpretation Comments Ca Ion WB (test code = Ca Ion WB) 1.04 1.05-1.25 [facility] HospitalATHYROID RSTDPSY6978-46-65 09:48:00 Test Item Value Reference Range Interpretation Comments Ca Norm WB (test code = Ca Norm WB) 1.09 1.05-1.25 [facility]IAL LAVFQSSOK7517-16-67 09:48:00 Test Item Value Reference Range Interpretation Comments Hgb A1C (test code = Hgb A1C) 5.6 [facility]2019-08-11 09:48:00 Test Item Value Reference Range Interpretation Comments Glucose Lvl (test code = Glucose Lvl) 90 70-99 [facility]2019-08-11 09:48:00 Test Item Value Reference Range Interpretation Comments BUN (test code = BUN) 13 7-22 [facility]2019-08-11 09:48:00 Test Item Value Reference Range Interpretation Comments Creatinine Lvl (test code = Creatinine 0.77 0.50-1.40 Lvl) [facility]2019-08-11 09:48:00 Test Item Value Reference Range Interpretation Comments Sodium Lvl (test code = Sodium Lvl) 140 135-145 [facility]2019-08-11 09:48:00 Test Item Value Reference Range Interpretation Comments Potassium Lvl (test code = Potassium 3.7 3.5-5.1 Lvl) [facility]2019-08-11 09:48:00 Test Item Value Reference Range Interpretation Comments Chloride Lvl (test code = Chloride Lvl) 106 95-109 [facility]2019-08-11 09:48:00 Test Item Value Reference Range Interpretation Comments CO2 (test code = CO2) 29 24-32 [facility]2019-08-11 09:48:00 Test Item Value Reference Range Interpretation Comments Calcium Lvl (test code = Calcium Lvl) 8.7 8.5-10.5 [facility]2019-08-11 09:48:00 Test Item Value Reference Range Interpretation Comments eGFR (test code = eGFR) 116 [facility]2019-08-11 09:48:00 Test Item Value Reference Range Interpretation Comments AGAP (test code = AGAP) 8.7 10.0-20.0 [facility]2019-08-11 09:48:00 Test Item Value Reference Range Interpretation Comments Magnesium Lvl (test code = Magnesium 2.4 1.8-2.4 Lvl) [facility]2019-08-11 09:48:00 Test Item Value Reference Range Interpretation Comments Phosphorus (test code = Phosphorus) 2.7 2.5-4.5 [facility] HospitalSsehtzcAXTVUJOLQC9959-25-80 09:48:00 Test Item Value Reference Range Interpretation Comments Segs (test code = Segs) 46.3 45.0-75.0 [facility] HospitalEhaucmzMBXKXMCODI5645-23-41 09:48:00 Test Item Value Reference Range Interpretation Comments Lymphocytes (test code = Lymphocytes) 42.1 20.0-40.0 [facility] HospitalUmvcqqoZULTAXZSXD1596-61-67 09:48:00 Test Item Value Reference Range Interpretation Comments Monocytes (test code = Monocytes) 9.0 2.0-12.0 [facility] HospitalJytilzvBNREUZXVXT9669-16-47 09:48:00 Test Item Value Reference Range Interpretation Comments Eosinophils (test code = 1.4 See_Comment [A utomated message] The Eosinophils) system which ge nerated this result tra nsmitted reference range : <=4.0. The reference r gayle was not used to int erpret this result as normal/abnormal . [facility] HospitalJpvvzpnUDPCPYPDLW4005-53-41 09:48:00 Test Item Value Reference Range Interpretation Comments Basophils (test code = 1.2 See_Comment [Aut omated message] The Basophils) system which ge nerated this result tra nsmitted reference range : <=1.0. The reference r gayle was not used to int erpret this result as normal/abnormal . [facility] HospitalQrafmyhFVDFSFZWYQ4003-98-18 09:48:00 Test Item Value Reference Range Interpretation Comments Neutrophils # (test code = Neutrophils 3.4 1.5-8.1 #) [facility] HospitalUlxcgoaXEKWHGIYAB7143-37-58 09:48:00 Test Item Value Reference Range Interpretation Comments Lymphocytes # (test code = Lymphocytes 3.1 1.0-5.5 #) [facility] HospitalNypoxrmFTVZCOZCUU2710-81-06 09:48:00 Test Item Value Reference Range Interpretation Comments Monocytes # (test code 0.7 See_Comment [Aut omated message] The = Monocytes #) system which generated this result tra nsmitted reference range : <=0.8. The reference r gayle was not used to int erpret this result as normal/abnormal . [facility] HospitalUmsatabRVFZNEHTYX7477-19-57 09:48:00 Test Item Value Reference Range Interpretation Comments Eosinophils # (test code 0.1 See_Comment [A utomated message] The = Eosinophils #) system whic h generated this result tra nsmitted reference range : <=0.5. The reference r gayle was not used to int erpret this result as normal/abnormal . [facility] HospitalPmoqjvuFCUHTHGQDU6903-82-49 09:48:00 Test Item Value Reference Range Interpretation Comments Basophils # (test code 0.1 See_Comment [Aut omated message] The = Basophils #) system which generated this result tra nsmitted reference range : <=0.2. The reference r gayle was not used to int erpret this result as normal/abnormal . [facility] HospitalKqexzxqSBILXTAKIG5826-38-44 09:48:00 Test Item Value Reference Range Interpretation Comments WBC (test code = WBC) 7.4 3.7-10.4 [facility] HospitalAsyivhpSJNFWLXNWV1348-85-80 09:48:00 Test Item Value Reference Range Interpretation Comments RBC (test code = RBC) 4.42 4.70-6.10 [facility] HospitalIfnspoyGQTVTCLELU1974-54-95 09:48:00 Test Item Value Reference Range Interpretation Comments Hgb (test code = Hgb) 12.7 14.0-18.0 [facility] HospitalOlqbhidVBFTJPSHVB7549-97-19 09:48:00 Test Item Value Reference Range Interpretation Comments Hct (test code = Hct) 37.1 42.0-54.0 [facility] HospitalJduytiiZTMYPQDAQF5309-57-95 09:48:00 Test Item Value Reference Range Interpretation Comments MCV (test code = MCV) 83.9 80.0-94.0 [facility] HospitalDusbsueHBKXFXJZCG4802-67-66 09:48:00 Test Item Value Reference Range Interpretation Comments MCH (test code = MCH) 28.7 pg 27.0-31.0 [facility] CenterXopkozoOBBPOTDXRF0919-95-43 09:48:00 Test Item Value Reference Range Interpretation Comments MCHC (test code = MCHC) 34.1 32.0-36.0 [facility] HospitalVtqyxxtJYKRVUKYIO9079-84-06 09:48:00 Test Item Value Reference Range Interpretation Comments RDW (test code = RDW) 15.2 11.5-14.5 [facility]QfwjyusTUTBRUEAPV6665-69-13 09:48:00 Test Item Value Reference Range Interpretation Comments Platelet (test code = Platelet) 269 133-450 [facility] HospitalJvjyeckUKLHKPSYQT4900-68-00 09:48:00 Test Item Value Reference Range Interpretation Comments MPV (test code = MPV) 7.8 7.4-10.4 [facility]PAR[facility]ID [id number] 09:48:00 Test Item Value Reference Range Interpretation Comments Ca Ion WB (test code = Ca Ion WB) 1.04 1.05-1.25 [facility] [id number] 09:48:00 Test Item Value Reference Range Interpretation Comments Ca Norm WB (test code = Ca Norm WB) 1.09 1.05-1.25 [facility]IAL FMCCKASWJ6019-22-19 09:48:00 Test Item Value Reference Range Interpretation Comments Hgb A1C (test code = Hgb A1C) 5.6 [facility] [id number] 09:48:00 Test Item Value Reference Range Interpretation Comments Glucose Lvl (test code = Glucose Lvl) 90 70-99 [facility] [id number] 09:48:00 Test Item Value Reference Range Interpretation Comments BUN (test code = BUN) 13 7-22 [facility] [id number] 09:48:00 Test Item Value Reference Range Interpretation Comments Creatinine Lvl (test code = Creatinine 0.77 0.50-1.40 Lvl) [facility] [id number] 09:48:00 Test Item Value Reference Range Interpretation Comments Sodium Lvl (test code = Sodium Lvl) 140 135-145 [facility] [id number] 09:48:00 Test Item Value Reference Range Interpretation Comments Potassium Lvl (test code = Potassium 3.7 3.5-5.1 Lvl) [facility] [id number] 09:48:00 Test Item Value Reference Range Interpretation Comments Chloride Lvl (test code = Chloride Lvl) 106 95-109 [facility]2019-08-11 09:48:00 Test Item Value Reference Range Interpretation Comments CO2 (test code = CO2) 29 24-32 [place] [id number] 09:48:00 Test Item Value Reference Range Interpretation Comments Calcium Lvl (test code = Calcium Lvl) 8.7 8.5-10.5 [facility]2019-08-11 09:48:00 Test Item Value Reference Range Interpretation Comments eGFR (test code = eGFR) 116 [facility]2019-08-11 09:48:00 Test Item Value Reference Range Interpretation Comments AGAP (test code = AGAP) 8.7 10.0-20.0 [facility]2019-08-11 09:48:00 Test Item Value Reference Range Interpretation Comments Magnesium Lvl (test code = Magnesium 2.4 1.8-2.4 Lvl) [facility]2019-08-11 09:48:00 Test Item Value Reference Range Interpretation Comments Phosphorus (test code = Phosphorus) 2.7 2.5-4.5 [facility]TwqgakeKNKFINKZMU3249-35-29 09:48:00 Test Item Value Reference Range Interpretation Comments Segs (test code = Segs) 46.3 45.0-75.0 [facility] HospitalKtehdyvDTTFXOKCDX5564-84-97 09:48:00 Test Item Value Reference Range Interpretation Comments Lymphocytes (test code = Lymphocytes) 42.1 20.0-40.0 [facility] HospitalKhzydorLPZXPFFDTL8547-54-71 09:48:00 Test Item Value Reference Range Interpretation Comments Monocytes (test code = Monocytes) 9.0 2.0-12.0 [facility] HospitalDbdlycwPLSHAZHZJC9509-85-08 09:48:00 Test Item Value Reference Range Interpretation Comments Eosinophils (test code = 1.4 See_Comment [A utomated message] The Eosinophils) system which ge nerated this result tra nsmitted reference range : <=4.0. The reference r gayle was not used to int erpret this result as normal/abnormal . [facility] HospitalTnexlciCNAKRIGBFR4111-63-20 09:48:00 Test Item Value Reference Range Interpretation Comments Basophils (test code = 1.2 See_Comment [Aut omated message] The Basophils) system which ge nerated this result tra nsmitted reference range : <=1.0. The reference r gayle was not used to int erpret this result as normal/abnormal . [facility] HospitalSoslhucSTBGXPTVRY5961-71-29 09:48:00 Test Item Value Reference Range Interpretation Comments Neutrophils # (test code = Neutrophils 3.4 1.5-8.1 #) [facility] HospitalHkbjoydTKFWLXWHKA6807-55-98 09:48:00 Test Item Value Reference Range Interpretation Comments Lymphocytes # (test code = Lymphocytes 3.1 1.0-5.5 #) [facility] HospitalDkybpcmESRXBJDBWC6099-47-60 09:48:00 Test Item Value Reference Range Interpretation Comments Monocytes # (test code 0.7 See_Comment [Aut omated message] The = Monocytes #) system which generated this result tra nsmitted reference range : <=0.8. The reference r gayle was not used to int erpret this result as normal/abnormal . [facility] HospitalNpefmlhSPNDHEUOAB3684-35-67 09:48:00 Test Item Value Reference Range Interpretation Comments Eosinophils # (test code 0.1 See_Comment [A utomated message] The = Eosinophils #) system whic h generated this result tra nsmitted reference range : <=0.5. The reference r gayle was not used to int erpret this result as normal/abnormal . [facility] HospitalEzfzajiNVRHNLGGGP6865-52-29 09:48:00 Test Item Value Reference Range Interpretation Comments Basophils # (test code 0.1 See_Comment [Aut omated message] The = Basophils #) system which generated this result tra nsmitted reference range : <=0.2. The reference r gayle was not used to int erpret this result as normal/abnormal . [facility] HospitalDirssthYZQAAFLMAN0942-30-41 09:48:00 Test Item Value Reference Range Interpretation Comments WBC (test code = WBC) 7.4 3.7-10.4 [facility] HospitalWkudngxGADZOQDCCF4431-61-96 09:48:00 Test Item Value Reference Range Interpretation Comments RBC (test code = RBC) 4.42 4.70-6.10 [facility] HospitalTwhrhyiVOGRTRMDGB0503-35-14 09:48:00 Test Item Value Reference Range Interpretation Comments Hgb (test code = Hgb) 12.7 14.0-18.0 [facility] CenterUyzvbtkAQFOVNXPQP0708-47-77 09:48:00 Test Item Value Reference Range Interpretation Comments Hct (test code = Hct) 37.1 42.0-54.0 [facility] CenterNfzpzkxHFVLIRPQHT9565-74-94 09:48:00 Test Item Value Reference Range Interpretation Comments MCV (test code = MCV) 83.9 80.0-94.0 [facility] CenterMyptallSOMRGWDFHN4433-20-70 09:48:00 Test Item Value Reference Range Interpretation Comments MCH (test code = MCH) 28.7 pg 27.0-31.0 [facility] CenterPfnomvpKATZDIIITH4764-38-41 09:48:00 Test Item Value Reference Range Interpretation Comments MCHC (test code = MCHC) 34.1 32.0-36.0 [facility] CenterLfdztlrIYFHEXZPEH9167-26-55 09:48:00 Test Item Value Reference Range Interpretation Comments RDW (test code = RDW) 15.2 11.5-14.5 [facility] CampusHqmrdrkGEHSAAZFTY3218-42-35 09:48:00 Test Item Value Reference Range Interpretation Comments Platelet (test code = Platelet) 269 133-450 [facility]WksgmwjHDVKCKUVOF9484-97-28 09:48:00 Test Item Value Reference Range Interpretation Comments MPV (test code = MPV) 7.8 7.4-10.4 [facility] CampusannPARATHYROID VMGLBRW5317-71-09 09:48:00 Test Item Value Reference Range Interpretation Comments Ca Ion WB (test code = Ca Ion WB) 1.04 1.05-1.25 [facility] CampusannPARATHYROID [id number] 09:48:00 Test Item Value Reference Range Interpretation Comments Ca Norm WB (test code = Ca Norm WB) 1.09 1.05-1.25 [facility]IAL GFVOYRADH9447-66-76 09:48:00 Test Item Value Reference Range Interpretation Comments Hgb A1C (test code = Hgb A1C) 5.6 [facility] CenterCHEM LEYSJ2596-19-36 09:48:00 Test Item Value Reference Range Interpretation Comments Glucose Lvl (test code = Glucose Lvl) 90 70-99 [facility] CenterCHEM [id number] 09:48:00 Test Item Value Reference Range Interpretation Comments BUN (test code = BUN) 13 7-22 [facility] CenterCHEM JMMNK1796-72-35 09:48:00 Test Item Value Reference Range Interpretation Comments Creatinine Lvl (test code = Creatinine 0.77 0.50-1.40 Lvl) [facility]2019-08-11 09:48:00 Test Item Value Reference Range Interpretation Comments Sodium Lvl (test code = Sodium Lvl) 140 135-145 [place] [id number] 09:48:00 Test Item Value Reference Range Interpretation Comments Potassium Lvl (test code = Potassium 3.7 3.5-5.1 Lvl) [facility]2019-08-11 09:48:00 Test Item Value Reference Range Interpretation Comments Chloride Lvl (test code = Chloride Lvl) 106 95-109 [facility]2019-08-11 09:48:00 Test Item Value Reference Range Interpretation Comments CO2 (test code = CO2) 29 24-32 [facility]2019-08-11 09:48:00 Test Item Value Reference Range Interpretation Comments Calcium Lvl (test code = Calcium Lvl) 8.7 8.5-10.5 [facility]2019-08-11 09:48:00 Test Item Value Reference Range Interpretation Comments eGFR (test code = eGFR) 116 [facility]2019-08-11 09:48:00 Test Item Value Reference Range Interpretation Comments AGAP (test code = AGAP) 8.7 10.0-20.0 [facility]2019-08-11 09:48:00 Test Item Value Reference Range Interpretation Comments Magnesium Lvl (test code = Magnesium 2.4 1.8-2.4 Lvl) [facility]2019-08-11 09:48:00 Test Item Value Reference Range Interpretation Comments Phosphorus (test code = Phosphorus) 2.7 2.5-4.5 [facility] HospitalEerqjgvMRKEZQOERS8861-38-86 09:48:00 Test Item Value Reference Range Interpretation Comments Segs (test code = Segs) 46.3 45.0-75.0 [facility] HospitalTfiwpkqQMJWILAVPY1926-74-21 09:48:00 Test Item Value Reference Range Interpretation Comments Lymphocytes (test code = Lymphocytes) 42.1 20.0-40.0 [place] 760719-08-11 09:48:00 Test Item Value Reference Range Interpretation Comments Monocytes (test code = Monocytes) 9.0 2.0-12.0 [facility] HospitalVaevtkeIKYADDIWXU4726-17-74 09:48:00 Test Item Value Reference Range Interpretation Comments Eosinophils (test code = 1.4 See_Comment [A utomated message] The Eosinophils) system which ge nerated this result tra nsmitted reference range : <=4.0. The reference r gayle was not used to int erpret this result as normal/abnormal . [facility] HospitalUyoeanvGZKXGRRJHZ9959-45-90 09:48:00 Test Item Value Reference Range Interpretation Comments Basophils (test code = 1.2 See_Comment [Aut omated message] The Basophils) system which ge nerated this result tra nsmitted reference range : <=1.0. The reference r gayle was not used to int erpret this result as normal/abnormal . [facility] HospitalRhuarlpACNOIVEJZG0294-10-29 09:48:00 Test Item Value Reference Range Interpretation Comments Neutrophils # (test code = Neutrophils 3.4 1.5-8.1 #) [facility] HospitalRmfyzlvMOBYAMMWKX3674-35-25 09:48:00 Test Item Value Reference Range Interpretation Comments Lymphocytes # (test code = Lymphocytes 3.1 1.0-5.5 #) [facility] HospitalDvkbvbnLBMHLUOWBM9942-40-10 09:48:00 Test Item Value Reference Range Interpretation Comments Monocytes # (test code 0.7 See_Comment [Aut omated message] The = Monocytes #) system which generated this result tra nsmitted reference range : <=0.8. The reference r gayle was not used to int erpret this result as normal/abnormal . [facility] HospitalSuaebewDJKGHCLFSY8056-28-82 09:48:00 Test Item Value Reference Range Interpretation Comments Eosinophils # (test code 0.1 See_Comment [A utomated message] The = Eosinophils #) system whic h generated this result tra nsmitted reference range : <=0.5. The reference r gayle was not used to int erpret this result as normal/abnormal . [facility] HospitalTrgaiiaCVPASEQUWQ1213-00-87 09:48:00 Test Item Value Reference Range Interpretation Comments Basophils # (test code 0.1 See_Comment [Aut omated message] The = Basophils #) system which generated this result tra nsmitted reference range : <=0.2. The reference r gayle was not used to int erpret this result as normal/abnormal . [facility] HospitalZskyyszLQGSICKAMA1486-69-01 09:48:00 Test Item Value Reference Range Interpretation Comments WBC (test code = WBC) 7.4 3.7-10.4 [facility] HospitalPgyomvgOQHOZCSKAN5155-83-24 09:48:00 Test Item Value Reference Range Interpretation Comments RBC (test code = RBC) 4.42 4.70-6.10 [facility] HospitalKiezwuqAKBHTKUAKD3365-74-18 09:48:00 Test Item Value Reference Range Interpretation Comments Hgb (test code = Hgb) 12.7 14.0-18.0 [facility] HospitalSyhmkrpTBBBVLIDPR0450-51-88 09:48:00 Test Item Value Reference Range Interpretation Comments Hct (test code = Hct) 37.1 42.0-54.0 [facility] HospitalMbgkkpfNOLXYPXYJT6312-94-19 09:48:00 Test Item Value Reference Range Interpretation Comments MCV (test code = MCV) 83.9 80.0-94.0 [facility] HospitalGdaylzvHDMDWTTIVJ9317-19-85 09:48:00 Test Item Value Reference Range Interpretation Comments MCH (test code = MCH) 28.7 pg 27.0-31.0 [facility] HospitalWztwmmgPAYAPGCIHI6564-22-07 09:48:00 Test Item Value Reference Range Interpretation Comments MCHC (test code = MCHC) 34.1 32.0-36.0 [facility] HospitalHciyjmmGJBYSUKACF8640-10-02 09:48:00 Test Item Value Reference Range Interpretation Comments RDW (test code = RDW) 15.2 11.5-14.5 [facility] HospitalIvysqugJHPAYYSVTM4999-37-14 09:48:00 Test Item Value Reference Range Interpretation Comments Platelet (test code = Platelet) 269 133-450 [facility] HospitalHadeghtVPPIUTWLUK9159-52-68 09:48:00 Test Item Value Reference Range Interpretation Comments MPV (test code = MPV) 7.8 7.4-10.4 [facility]annPARATHYROID ULMHZLZ8060-75-77 09:48:00 Test Item Value Reference Range Interpretation Comments Ca Ion WB (test code = Ca Ion WB) 1.04 1.05-1.25 [facility] CampusannPARATHYROID CTMYMWC0028-16-05 09:48:00 Test Item Value Reference Range Interpretation Comments Ca Norm WB (test code = Ca Norm WB) 1.09 1.05-1.25 [facility] LJJNDTTJV0379-79-35 09:48:00 Test Item Value Reference Range Interpretation Comments Hgb A1C (test code = Hgb A1C) 5.6 [facility]2019-08-11 09:48:00 Test Item Value Reference Range Interpretation Comments Glucose Lvl (test code = Glucose Lvl) 90 70-99 [facility]2019-08-11 09:48:00 Test Item Value Reference Range Interpretation Comments BUN (test code = BUN) 13 7-22 [facility]2019-08-11 09:48:00 Test Item Value Reference Range Interpretation Comments Creatinine Lvl (test code = Creatinine 0.77 0.50-1.40 Lvl) [facility]2019-08-11 09:48:00 Test Item Value Reference Range Interpretation Comments Sodium Lvl (test code = Sodium Lvl) 140 135-145 [facility]2019-08-11 09:48:00 Test Item Value Reference Range Interpretation Comments Potassium Lvl (test code = Potassium 3.7 3.5-5.1 Lvl) [facility]2019-08-11 09:48:00 Test Item Value Reference Range Interpretation Comments Chloride Lvl (test code = Chloride Lvl) 106 95-109 [facility]2019-08-11 09:48:00 Test Item Value Reference Range Interpretation Comments CO2 (test code = CO2) 29 24-32 [facility]2019-08-11 09:48:00 Test Item Value Reference Range Interpretation Comments Calcium Lvl (test code = Calcium Lvl) 8.7 8.5-10.5 [facility]2019-08-11 09:48:00 Test Item Value Reference Range Interpretation Comments eGFR (test code = eGFR) 116 [facility]2019-08-11 09:48:00 Test Item Value Reference Range Interpretation Comments AGAP (test code = AGAP) 8.7 10.0-20.0 [facility]2019-08-11 09:48:00 Test Item Value Reference Range Interpretation Comments Magnesium Lvl (test code = Magnesium 2.4 1.8-2.4 Lvl) [facility]2019-08-11 09:48:00 Test Item Value Reference Range Interpretation Comments Phosphorus (test code = Phosphorus) 2.7 2.5-4.5 [facility] HospitalBxatgrmKBJUPYHPNZ8488-34-14 09:48:00 Test Item Value Reference Range Interpretation Comments Segs (test code = Segs) 46.3 45.0-75.0 [facility] HospitalTknbelbWDYBMVCHJP3086-95-28 09:48:00 Test Item Value Reference Range Interpretation Comments Lymphocytes (test code = Lymphocytes) 42.1 20.0-40.0 [facility] HospitalNjskgtlEITUPVMOPO7472-19-03 09:48:00 Test Item Value Reference Range Interpretation Comments Monocytes (test code = Monocytes) 9.0 2.0-12.0 [facility] HospitalTzrihvsIWYVUUBZDY4157-41-27 09:48:00 Test Item Value Reference Range Interpretation Comments Eosinophils (test code = 1.4 See_Comment [A utomated message] The Eosinophils) system which ge nerated this result tra nsmitted reference range : <=4.0. The reference r gayle was not used to int erpret this result as normal/abnormal . [facility] HospitalPaeufkyZBGTBAFLXO0939-31-21 09:48:00 Test Item Value Reference Range Interpretation Comments Basophils (test code = 1.2 See_Comment [Aut omated message] The Basophils) system which ge nerated this result tra nsmitted reference range : <=1.0. The reference r gayle was not used to int erpret this result as normal/abnormal . [facility] HospitalWckfwrwSSNDRGLHUM0287-23-99 09:48:00 Test Item Value Reference Range Interpretation Comments Neutrophils # (test code = Neutrophils 3.4 1.5-8.1 #) [facility] HospitalRoyrdxfIPHHFYXWBZ6651-33-73 09:48:00 Test Item Value Reference Range Interpretation Comments Lymphocytes # (test code = Lymphocytes 3.1 1.0-5.5 #) [facility] HospitalRvyaqwiGJUESRUOML9679-47-15 09:48:00 Test Item Value Reference Range Interpretation Comments Monocytes # (test code 0.7 See_Comment [Aut omated message] The = Monocytes #) system which generated this result tra nsmitted reference range : <=0.8. The reference r gayle was not used to int erpret this result as normal/abnormal . [facility] HospitalPitgmjySWEORQJKPR4323-04-27 09:48:00 Test Item Value Reference Range Interpretation Comments Eosinophils # (test code 0.1 See_Comment [A utomated message] The = Eosinophils #) system whic h generated this result tra nsmitted reference range : <=0.5. The reference r gayle was not used to int erpret this result as normal/abnormal . [facility] HospitalLfxdvuoOGISNQQZTV3282-55-26 09:48:00 Test Item Value Reference Range Interpretation Comments Basophils # (test code 0.1 See_Comment [Aut omated message] The = Basophils #) system which generated this result tra nsmitted reference range : <=0.2. The reference r gayle was not used to int erpret this result as normal/abnormal . [facility] HospitalTaealkjMYYWPFHZRW5288-77-78 09:48:00 Test Item Value Reference Range Interpretation Comments WBC (test code = WBC) 7.4 3.7-10.4 [facility] HospitalYyhsqsiTGENVIHLBH6549-84-97 09:48:00 Test Item Value Reference Range Interpretation Comments RBC (test code = RBC) 4.42 4.70-6.10 [facility] HospitalQegtzlzMSYEDWBWUQ9174-92-32 09:48:00 Test Item Value Reference Range Interpretation Comments Hgb (test code = Hgb) 12.7 14.0-18.0 [facility] HospitalQphuucmPLSLCYBQFC8756-73-53 09:48:00 Test Item Value Reference Range Interpretation Comments Hct (test code = Hct) 37.1 42.0-54.0 [facility] HospitalShghxlxVEWBGEJHJR4240-02-21 09:48:00 Test Item Value Reference Range Interpretation Comments MCV (test code = MCV) 83.9 80.0-94.0 [facility] HospitalCguekxtWHVRNFBJNW3321-97-92 09:48:00 Test Item Value Reference Range Interpretation Comments MCH (test code = MCH) 28.7 pg 27.0-31.0 [facility] HospitalVfamxgjRIRJUGBYXF5769-50-68 09:48:00 Test Item Value Reference Range Interpretation Comments MCHC (test code = MCHC) 34.1 32.0-36.0 [facility] HospitalTgbuffqZJIEHSLLQZ6639-59-49 09:48:00 Test Item Value Reference Range Interpretation Comments RDW (test code = RDW) 15.2 11.5-14.5 [facility] HospitalJbtubnuGTDFAMHXNW0005-67-02 09:48:00 Test Item Value Reference Range Interpretation Comments Platelet (test code = Platelet) 269 133-450 [facility] HospitalTygwzrlHVPZGBTXYN7132-22-12 09:48:00 Test Item Value Reference Range Interpretation Comments MPV (test code = MPV) 7.8 7.4-10.4 [facility] NXQZCFP4244-72-18 09:48:00 Test Item Value Reference Range Interpretation Comments Ca Ion WB (test code = Ca Ion WB) 1.04 1.05-1.25 [facility] HospitalATHYROID AIRWYVJ3609-09-30 09:48:00 Test Item Value Reference Range Interpretation Comments Ca Norm WB (test code = Ca Norm WB) 1.09 1.05-1.25 [facility]IAL RUKBYSKRI2149-15-97 09:48:00 Test Item Value Reference Range Interpretation Comments Hgb A1C (test code = Hgb A1C) 5.6 [facility] VHQFG8194-85-62 09:48:00 Test Item Value Reference Range Interpretation Comments Glucose Lvl (test code = Glucose Lvl) 90 70-99 [facility]2019-08-11 09:48:00 Test Item Value Reference Range Interpretation Comments BUN (test code = BUN) 13 7-22 [facility]2019-08-11 09:48:00 Test Item Value Reference Range Interpretation Comments Creatinine Lvl (test code = Creatinine 0.77 0.50-1.40 Lvl) [facility]2019-08-11 09:48:00 Test Item Value Reference Range Interpretation Comments Sodium Lvl (test code = Sodium Lvl) 140 135-145 [facility]2019-08-11 09:48:00 Test Item Value Reference Range Interpretation Comments Potassium Lvl (test code = Potassium 3.7 3.5-5.1 Lvl) [facility]2019-08-11 09:48:00 Test Item Value Reference Range Interpretation Comments Chloride Lvl (test code = Chloride Lvl) 106 95-109 [facility]2019-08-11 09:48:00 Test Item Value Reference Range Interpretation Comments CO2 (test code = CO2) 29 24-32 [facility]2019-08-11 09:48:00 Test Item Value Reference Range Interpretation Comments Calcium Lvl (test code = Calcium Lvl) 8.7 8.5-10.5 [facility] AHGOH3910-79-30 09:48:00 Test Item Value Reference Range Interpretation Comments eGFR (test code = eGFR) 116 [facility]2019-08-11 09:48:00 Test Item Value Reference Range Interpretation Comments AGAP (test code = AGAP) 8.7 10.0-20.0 [facility]2019-08-10 21:45:00 Test Item Value Reference Range Interpretation Comments Lipase Lvl (test code = Lipase Lvl) 114 73-393 [facility]2019-08-10 21:45:00 Test Item Value Reference Range Interpretation Comments ALT (test code = ALT) 18 See_Comment [Auto mated message] The system which ge nerated this result transmit keon reference range : <=65. The reference range was not used to interpr et this result as evan l/abnormal. [facility]2019-08-10 21:45:00 Test Item Value Reference Range Interpretation Comments Albumin Lvl (test code = Albumin Lvl) 3.6 3.5-5.0 [facility]2019-08-10 21:45:00 Test Item Value Reference Range Interpretation Comments Alk Phos (test code = Alk Phos) 79 39-136 [facility]2019-08-10 21:45:00 Test Item Value Reference Range Interpretation Comments Bili Direct (test code 0.1 See_Comment [Aut omated message] The = Bili Direct) system which generated this result tra nsmitted reference range : <=0.3. The reference r gayle was not used to int erpret this result as evan l/abnormal. [facility]2019-08-10 21:45:00 Test Item Value Reference Range Interpretation Comments Bili Total (test code = Bili Total) 0.5 0.2-1.3 [facility]2019-08-10 21:45:00 Test Item Value Reference Range Interpretation Comments Bili Indirect (test 0.4 See_Comment [Automa keon message] The code = Bili Indirect) system which generated this result tra nsmitted reference range : <=1.0. The reference r gayle was not used to int erpret this result as normal/abnormal . [facility]2019-08-10 21:45:00 Test Item Value Reference Range Interpretation Comments Total Protein (test code = Total 6.9 6.4-8.4 Protein) [facility]2019-08-10 21:45:00 Test Item Value Reference Range Interpretation Comments AST (test code = AST) 18 See_Comment [Auto mated message] The system which ge nerated this result transmit keon reference range : <=37. The reference range was not used to interpr et this result as evan l/abnormal. [facility]2019-08-10 21:45:00 Test Item Value Reference Range Interpretation Comments Globulin (test code = Globulin) 3.3 2.7-4.2 [facility]2019-08-10 21:45:00 Test Item Value Reference Range Interpretation Comments A/G Ratio (test code = A/G Ratio) 1.1 1 0.7-1.6 [facility] CampusDigilabANGEL MEDICAL [id number] 21:45:00 Test Item Value Reference Range Interpretation Comments Lipase Lvl (test code = Lipase Lvl) 114 73-393 [facility] CampusDigilabANGEL MEDICAL [id number] 21:45:00 Test Item Value Reference Range Interpretation Comments ALT (test code = ALT) 18 See_Comment [Auto mated message] The system which ge nerated this result transmit keon reference range : <=65. The reference range was not used to interpr et this result as evan l/abnormal. [facility] CampusMoney Forward [id number] 21:45:00 Test Item Value Reference Range Interpretation Comments Albumin Lvl (test code = Albumin Lvl) 3.6 3.5-5.0 [facility] [id number] 21:45:00 Test Item Value Reference Range Interpretation Comments Alk Phos (test code = Alk Phos) 79 39-136 [facility] CampusMoney [facility] [id number] 21:45:00 Test Item Value Reference Range Interpretation Comments Bili Direct (test code 0.1 See_Comment [Aut omated message] The = Bili Direct) system which generated this result tra nsmitted reference range : <=0.3. The reference r gayle was not used to int erpret this result as evan l/abnormal. [facility] CampusDigilabANGEL MEDICAL [id number] 21:45:00 Test Item Value Reference Range Interpretation Comments Bili Total (test code = Bili Total) 0.5 0.2-1.3 [facility] [id number] 21:45:00 Test Item Value Reference Range Interpretation Comments Bili Indirect (test 0.4 See_Comment [Automa keon message] The code = Bili Indirect) system which generated this result tra nsmitted reference range : <=1.0. The reference r gayle was not used to int erpret this result as normal/abnormal . [facility]2019-08-10 21:45:00 Test Item Value Reference Range Interpretation Comments Total Protein (test code = Total 6.9 6.4-8.4 Protein) [facility]2019-08-10 21:45:00 Test Item Value Reference Range Interpretation Comments AST (test code = AST) 18 See_Comment [Auto mated message] The system which ge nerated this result transmit keon reference range : <=37. The reference range was not used to interpr et this result as evan l/abnormal. [facility]2019-08-10 21:45:00 Test Item Value Reference Range Interpretation Comments Globulin (test code = Globulin) 3.3 2.7-4.2 [facility]2019-08-10 21:45:00 Test Item Value Reference Range Interpretation Comments A/G Ratio (test code = A/G Ratio) 1.1 1 0.7-1.6 [facility]2019-08-10 21:45:00 Test Item Value Reference Range Interpretation Comments Lipase Lvl (test code = Lipase Lvl) 114 73-393 [facility]2019-08-10 21:45:00 Test Item Value Reference Range Interpretation Comments ALT (test code = ALT) 18 See_Comment [Auto mated message] The system which ge nerated this result transmit keon reference range : <=65. The reference range was not used to interpr et this result as evan l/abnormal. [facility]2019-08-10 21:45:00 Test Item Value Reference Range Interpretation Comments Albumin Lvl (test code = Albumin Lvl) 3.6 3.5-5.0 [facility]2019-08-10 21:45:00 Test Item Value Reference Range Interpretation Comments Alk Phos (test code = Alk Phos) 79 39-136 [facility]2019-08-10 21:45:00 Test Item Value Reference Range Interpretation Comments Bili Direct (test code 0.1 See_Comment [Aut omated message] The = Bili Direct) system which generated this result tra nsmitted reference range : <=0.3. The reference r gayle was not used to int erpret this result as evan l/abnormal. [facility]2019-08-10 21:45:00 Test Item Value Reference Range Interpretation Comments Bili Total (test code = Bili Total) 0.5 0.2-1.3 [facility]2019-08-10 21:45:00 Test Item Value Reference Range Interpretation Comments Bili Indirect (test 0.4 See_Comment [Automa keon message] The code = Bili Indirect) system which generated this result tra nsmitted reference range : <=1.0. The reference r gayle was not used to int erpret this result as normal/abnormal . [facility]2019-08-10 21:45:00 Test Item Value Reference Range Interpretation Comments Total Protein (test code = Total 6.9 6.4-8.4 Protein) [facility]2019-08-10 21:45:00 Test Item Value Reference Range Interpretation Comments AST (test code = AST) 18 See_Comment [Auto mated message] The system which ge nerated this result transmit keon reference range : <=37. The reference range was not used to interpr et this result as evan l/abnormal. [facility]2019-08-10 21:45:00 Test Item Value Reference Range Interpretation Comments Globulin (test code = Globulin) 3.3 2.7-4.2 [facility]2019-08-10 21:45:00 Test Item Value Reference Range Interpretation Comments A/G Ratio (test code = A/G Ratio) 1.1 1 0.7-1.6 [facility]2019-08-10 21:45:00 Test Item Value Reference Range Interpretation Comments Lipase Lvl (test code = Lipase Lvl) 114 73-393 [facility]2019-08-10 21:45:00 Test Item Value Reference Range Interpretation Comments ALT (test code = ALT) 18 See_Comment [Auto mated message] The system which ge nerated this result transmit keon reference range : <=65. The reference range was not used to interpr et this result as evan l/abnormal. [facility]2019-08-10 21:45:00 Test Item Value Reference Range Interpretation Comments Albumin Lvl (test code = Albumin Lvl) 3.6 3.5-5.0 [facility]2019-08-10 21:45:00 Test Item Value Reference Range Interpretation Comments Alk Phos (test code = Alk Phos) 79 39-136 [facility]2019-08-10 21:45:00 Test Item Value Reference Range Interpretation Comments Bili Direct (test code 0.1 See_Comment [Aut omated message] The = Bili Direct) system which generated this result tra nsmitted reference range : <=0.3. The reference r gayle was not used to int erpret this result as evan l/abnormal. [facility]2019-08-10 21:45:00 Test Item Value Reference Range Interpretation Comments Bili Total (test code = Bili Total) 0.5 0.2-1.3 [facility]2019-08-10 21:45:00 Test Item Value Reference Range Interpretation Comments Bili Indirect (test 0.4 See_Comment [Automa keon message] The code = Bili Indirect) system which generated this result tra nsmitted reference range : <=1.0. The reference r gayle was not used to int erpret this result as normal/abnormal . [facility]2019-08-10 21:45:00 Test Item Value Reference Range Interpretation Comments Total Protein (test code = Total 6.9 6.4-8.4 Protein) [facility]2019-08-10 21:45:00 Test Item Value Reference Range Interpretation Comments AST (test code = AST) 18 See_Comment [Auto mated message] The system which ge nerated this result transmit keon reference range : <=37. The reference range was not used to interpr et this result as evan l/abnormal. [facility]2019-08-10 21:45:00 Test Item Value Reference Range Interpretation Comments Globulin (test code = Globulin) 3.3 2.7-4.2 [facility]2019-08-10 21:45:00 Test Item Value Reference Range Interpretation Comments A/G Ratio (test code = A/G Ratio) 1.1 1 0.7-1.6 [facility]2019-08-10 21:45:00 Test Item Value Reference Range Interpretation Comments Lipase Lvl (test code = Lipase Lvl) 114 73-393 [facility]2019-08-10 21:45:00 Test Item Value Reference Range Interpretation Comments ALT (test code = ALT) 18 See_Comment [Auto mated message] The system which ge nerated this result transmit keon reference range : <=65. The reference range was not used to interpr et this result as evan l/abnormal. [facility]2019-08-10 21:45:00 Test Item Value Reference Range Interpretation Comments Albumin Lvl (test code = Albumin Lvl) 3.6 3.5-5.0 [facility]2019-08-10 21:45:00 Test Item Value Reference Range Interpretation Comments Alk Phos (test code = Alk Phos) 79 39-136 [facility]2019-08-10 21:45:00 Test Item Value Reference Range Interpretation Comments Bili Direct (test code 0.1 See_Comment [Aut omated message] The = Bili Direct) system which generated this result tra nsmitted reference range : <=0.3. The reference r gayle was not used to int erpret this result as evan l/abnormal. [facility]2019-08-10 21:45:00 Test Item Value Reference Range Interpretation Comments Bili Total (test code = Bili Total) 0.5 0.2-1.3 [facility]2019-08-10 21:45:00 Test Item Value Reference Range Interpretation Comments Bili Indirect (test 0.4 See_Comment [Automa keon message] The code = Bili Indirect) system which generated this result tra nsmitted reference range : <=1.0. The reference r gayle was not used to int erpret this result as normal/abnormal . [facility]2019-08-10 21:45:00 Test Item Value Reference Range Interpretation Comments Lipase Lvl (test code = Lipase Lvl) 114 73-393 [facility]2019-08-10 21:45:00 Test Item Value Reference Range Interpretation Comments ALT (test code = ALT) 18 See_Comment [Auto mated message] The system which ge nerated this result transmit keon reference range : <=65. The reference range was not used to interpr et this result as evan l/abnormal. [facility]2019-08-10 21:45:00 Test Item Value Reference Range Interpretation Comments Albumin Lvl (test code = Albumin Lvl) 3.6 3.5-5.0 [facility]2019-08-10 21:45:00 Test Item Value Reference Range Interpretation Comments Alk Phos (test code = Alk Phos) 79 39-136 [facility]2019-08-10 21:45:00 Test Item Value Reference Range Interpretation Comments Bili Direct (test code 0.1 See_Comment [Aut omated message] The = Bili Direct) system which generated this result tra nsmitted reference range : <=0.3. The reference r gayle was not used to int erpret this result as evan l/abnormal. [facility]2019-08-10 21:45:00 Test Item Value Reference Range Interpretation Comments Bili Total (test code = Bili Total) 0.5 0.2-1.3 [facility]2019-08-10 21:45:00 Test Item Value Reference Range Interpretation Comments Bili Indirect (test 0.4 See_Comment [Automa keon message] The code = Bili Indirect) system which generated this result tra nsmitted reference range : <=1.0. The reference r gayle was not used to int erpret this result as normal/abnormal . [facility]2019-08-10 21:45:00 Test Item Value Reference Range Interpretation Comments Total Protein (test code = Total 6.9 6.4-8.4 Protein) [facility]2019-08-10 21:45:00 Test Item Value Reference Range Interpretation Comments AST (test code = AST) 18 See_Comment [Auto mated message] The system which ge nerated this result transmit keon reference range : <=37. The reference range was not used to interpr et this result as evan l/abnormal. [facility]2019-08-10 21:45:00 Test Item Value Reference Range Interpretation Comments Total Protein (test code = Total 6.9 6.4-8.4 Protein) [facility]2019-08-10 21:45:00 Test Item Value Reference Range Interpretation Comments Globulin (test code = Globulin) 3.3 2.7-4.2 [place] [id number] 21:45:00 Test Item Value Reference Range Interpretation Comments A/G Ratio (test code = A/G Ratio) 1.1 1 0.7-1.6 [facility]2019-08-10 21:45:00 Test Item Value Reference Range Interpretation Comments AST (test code = AST) 18 See_Comment [Auto mated message] The system which ge nerated this result transmit keon reference range : <=37. The reference range was not used to interpr et this result as evan l/abnormal. [facility] CampusDigilabANGEL MEDICAL [id number] 21:45:00 Test Item Value Reference Range Interpretation Comments Globulin (test code = Globulin) 3.3 2.7-4.2 [facility] CampusDigilabANGEL MEDICAL [id number] 21:45:00 Test Item Value Reference Range Interpretation Comments A/G Ratio (test code = A/G Ratio) 1.1 1 0.7-1.6 [facility]2019-08-10 21:45:00 Test Item Value Reference Range Interpretation Comments Lipase Lvl (test code = Lipase Lvl) 114 73-393 [facility] CampusDigilabANGEL MEDICAL [id number] 21:45:00 Test Item Value Reference Range Interpretation Comments ALT (test code = ALT) 18 See_Comment [Auto mated message] The system which ge nerated this result transmit keon reference range : <=65. The reference range was not used to interpr et this result as evan l/abnormal. [facility] Campus[facility] [id number] 21:45:00 Test Item Value Reference Range Interpretation Comments Albumin Lvl (test code = Albumin Lvl) 3.6 3.5-5.0 [facility] [id number] 21:45:00 Test Item Value Reference Range Interpretation Comments Alk Phos (test code = Alk Phos) 79 39-136 [facility] [id number] 21:45:00 Test Item Value Reference Range Interpretation Comments Bili Direct (test code 0.1 See_Comment [Aut omated message] The = Bili Direct) system which generated this result tra nsmitted reference range : <=0.3. The reference r gayle was not used to int erpret this result as evan l/abnormal. [facility] [id number] 21:45:00 Test Item Value Reference Range Interpretation Comments Bili Total (test code = Bili Total) 0.5 0.2-1.3 [facility] [id number] 21:45:00 Test Item Value Reference Range Interpretation Comments Bili Indirect (test 0.4 See_Comment [Automa keon message] The code = Bili Indirect) system which generated this result tra nsmitted reference range : <=1.0. The reference r gayle was not used to int erpret this result as normal/abnormal . [facility] [id number] 21:45:00 Test Item Value Reference Range Interpretation Comments Total Protein (test code = Total 6.9 6.4-8.4 Protein) [facility] [id number] 21:45:00 Test Item Value Reference Range Interpretation Comments AST (test code = AST) 18 See_Comment [Auto mated message] The system which ge nerated this result transmit keon reference range : <=37. The reference range was not used to interpr et this result as evan l/abnormal. [facility] [id number] 21:45:00 Test Item Value Reference Range Interpretation Comments Globulin (test code = Globulin) 3.3 2.7-4.2 [facility]2019-08-10 21:45:00 Test Item Value Reference Range Interpretation Comments A/G Ratio (test code = A/G Ratio) 1.1 1 0.7-1.6 [facility] CenterBvqivkaJXWKOYPROE7614-13-63 05:53:00 Test Item Value Reference Range Interpretation Comments Platelet (test code = Platelet) 279 133-450 [facility] CenterVyvfffgBQYYQOLQGF3905-64-94 05:53:00 Test Item Value Reference Range Interpretation Comments MPV (test code = MPV) 7.5 7.4-10.4 [facility] CenterCARDIAC [id number] 05:53:00 Test Item Value Reference Range Interpretation Comments Troponin-I (test code no gt See_Comment [Auto mated message] The = Troponin-I) system which g enerated this result transmit keon reference range : <=0.40. The reference r gayle was not used to interpr et this result as evan l/abnormal. [facility] CenterFixational [id number] 05:53:00 Test Item Value Reference Range Interpretation Comments Lactic Acid Lvl (test code = Lactic 1.3 0.5-2.2 Acid Lvl) [facility]2019-08-10 05:53:00 Test Item Value Reference Range Interpretation Comments Glucose Lvl (test code = Glucose Lvl) 101 70-99 [facility]2019-08-10 05:53:00 Test Item Value Reference Range Interpretation Comments BUN (test code = BUN) 19 7-22 [facility]2019-08-10 05:53:00 Test Item Value Reference Range Interpretation Comments Creatinine Lvl (test code = Creatinine 0.92 0.50-1.40 Lvl) [facility]2019-08-10 05:53:00 Test Item Value Reference Range Interpretation Comments Sodium Lvl (test code = Sodium Lvl) 140 135-145 [facility]2019-08-10 05:53:00 Test Item Value Reference Range Interpretation Comments Potassium Lvl (test code = Potassium 3.5 3.5-5.1 Lvl) [facility]2019-08-10 05:53:00 Test Item Value Reference Range Interpretation Comments Chloride Lvl (test code = Chloride Lvl) 103 95-109 [facility]2019-08-10 05:53:00 Test Item Value Reference Range Interpretation Comments CO2 (test code = CO2) 29 24-32 [facility]2019-08-10 05:53:00 Test Item Value Reference Range Interpretation Comments Calcium Lvl (test code = Calcium Lvl) 8.7 8.5-10.5 [facility]2019-08-10 05:53:00 Test Item Value Reference Range Interpretation Comments eGFR (test code = eGFR) 105 [facility]2019-08-10 05:53:00 Test Item Value Reference Range Interpretation Comments AGAP (test code = AGAP) 11.5 10.0-20.0 [facility]2019-08-10 05:53:00 Test Item Value Reference Range Interpretation Comments Magnesium Lvl (test code = Magnesium 2.8 1.8-2.4 Lvl) [facility]2019-08-10 05:53:00 Test Item Value Reference Range Interpretation Comments Phosphorus (test code = Phosphorus) 2.4 2.5-4.5 [facility]LxkspeoFOBPBBEZNL9768-07-[facility] 05:53:00 Test Item Value Reference Range Interpretation Comments Segs (test code = Segs) 51.2 45.0-75.0 [facility] HospitalQfzifpdJHICTEGNIZ9375-62-51 05:53:00 Test Item Value Reference Range Interpretation Comments Lymphocytes (test code = Lymphocytes) 38.9 20.0-40.0 [facility] HospitalHrgpjywPVACKVPVKU8090-95-18 05:53:00 Test Item Value Reference Range Interpretation Comments Monocytes (test code = Monocytes) 8.6 2.0-12.0 [facility] Hos[id number] 05:53:00 Test Item Value Reference Range Interpretation Comments Eosinophils (test code = 0.3 See_Comment [A utomated message] The Eosinophils) system which ge nerated this result tra nsmitted reference range : <=4.0. The reference r gayle was not used to int erpret this result as normal/abnormal . [facility] H[id number] 05:53:00 Test Item Value Reference Range Interpretation Comments Basophils (test code = 1.0 See_Comment [Aut omated message] The Basophils) system which ge nerated this result tra nsmitted reference range : <=1.0. The reference r gayle was not used to int erpret this result as normal/abnormal . [facility] HospitalThfwtoeAPBRGXASJD6209-02-11 05:53:00 Test Item Value Reference Range Interpretation Comments Neutrophils # (test code = Neutrophils 5.6 1.5-8.1 #) [facility] HospitalIfpelhvZOMAROAQJG5613-64-32 05:53:00 Test Item Value Reference Range Interpretation Comments Lymphocytes # (test code = Lymphocytes 4.3 1.0-5.5 #) [facility] H[id number] 05:53:00 Test Item Value Reference Range Interpretation Comments Monocytes # (test code 0.9 See_Comment [Aut omated message] The = Monocytes #) system which generated this result tra nsmitted reference range : <=0.8. The reference r gayle was not used to int erpret this result as normal/abnormal . [facility] HospitalCkfcbrbBRHUPIRTLV9863-58-23 05:53:00 Test Item Value Reference Range Interpretation Comments Basophils # (test code 0.1 See_Comment [Aut omated message] The = Basophils #) system which generated this result tra nsmitted reference range : <=0.2. The reference r gayle was not used to int erpret this result as normal/abnormal . [facility]JovhggpCVGWUKRADJ3469-84-61 05:53:00 Test Item Value Reference Range Interpretation Comments WBC (test code = WBC) 11.0 3.7-10.4 [facility] HospitalDugrxfdCMNNBCBEGZ9491-69-93 05:53:00 Test Item Value Reference Range Interpretation Comments RBC (test code = RBC) 4.46 4.70-6.10 [facility] HospitalSkoswbvTXBIEVQEMI1689-40-41 05:53:00 Test Item Value Reference Range Interpretation Comments Hgb (test code = Hgb) 12.5 14.0-18.0 [facility] HospitalSpcsfpsZBAEDXABZG8475-43-27 05:53:00 Test Item Value Reference Range Interpretation Comments Hct (test code = Hct) 37.3 42.0-54.0 [facility] HospitalVepfgzxHILCWLEISX8885-32-98 05:53:00 Test Item Value Reference Range Interpretation Comments MCV (test code = MCV) 83.7 80.0-94.0 [facility] HospitalCpskztbBWYASUSPTT2633-27-40 05:53:00 Test Item Value Reference Range Interpretation Comments MCH (test code = MCH) 28.0 pg 27.0-31.0 [facility] CenterWzcmyniUBNRFQWYHH7447-99-44 05:53:00 Test Item Value Reference Range Interpretation Comments MCHC (test code = MCHC) 33.5 32.0-36.0 [facility] HospitalYzbkdgaOEZVQODRLU7890-71-59 05:53:00 Test Item Value Reference Range Interpretation Comments RDW (test code = RDW) 15.3 11.5-14.5 [facility] CenterTqvydvtUZJLBZMYHA1162-87-27 05:53:00 Test Item Value Reference Range Interpretation Comments Platelet (test code = Platelet) 279 133-450 [facility] CenterIbfsrgoZWZJGUPIMW1870-97-86 05:53:00 Test Item Value Reference Range Interpretation Comments MPV (test code = MPV) 7.5 7.4-10.4 [facility] CenterCARDIAC [id number] 05:53:00 Test Item Value Reference Range Interpretation Comments Troponin-I (test code no gt See_Comment [Auto mated message] The = Troponin-I) system which g enerated this result transmit keon reference range : <=0.40. The reference r gayle was not used to interpr et this result as evan l/abnormal. [facility]2019-08-10 05:53:00 Test Item Value Reference Range Interpretation Comments Lactic Acid Lvl (test code = Lactic 1.3 0.5-2.2 Acid Lvl) [facility]2019-08-10 05:53:00 Test Item Value Reference Range Interpretation Comments Glucose Lvl (test code = Glucose Lvl) 101 70-99 [facility]2019-08-10 05:53:00 Test Item Value Reference Range Interpretation Comments BUN (test code = BUN) 19 7-22 [facility]2019-08-10 05:53:00 Test Item Value Reference Range Interpretation Comments Creatinine Lvl (test code = Creatinine 0.92 0.50-1.40 Lvl) [facility]2019-08-10 05:53:00 Test Item Value Reference Range Interpretation Comments Sodium Lvl (test code = Sodium Lvl) 140 135-145 [facility]2019-08-10 05:53:00 Test Item Value Reference Range Interpretation Comments Potassium Lvl (test code = Potassium 3.5 3.5-5.1 Lvl) [facility]2019-08-10 05:53:00 Test Item Value Reference Range Interpretation Comments Chloride Lvl (test code = Chloride Lvl) 103 95-109 [facility]2019-08-10 05:53:00 Test Item Value Reference Range Interpretation Comments CO2 (test code = CO2) 29 24-32 [facility]2019-08-10 05:53:00 Test Item Value Reference Range Interpretation Comments Calcium Lvl (test code = Calcium Lvl) 8.7 8.5-10.5 [facility]2019-08-10 05:53:00 Test Item Value Reference Range Interpretation Comments eGFR (test code = eGFR) 105 [facility]2019-08-10 05:53:00 Test Item Value Reference Range Interpretation Comments AGAP (test code = AGAP) 11.5 10.0-20.0 [facility]2019-08-10 05:53:00 Test Item Value Reference Range Interpretation Comments Magnesium Lvl (test code = Magnesium 2.8 1.8-2.4 Lvl) [facility]2019-08-10 05:53:00 Test Item Value Reference Range Interpretation Comments Phosphorus (test code = Phosphorus) 2.4 2.5-4.5 [facility]yv[facility]CKPUAXUDS6453-76-91 05:53:00 Test Item Value Reference Range Interpretation Comments Segs (test code = Segs) 51.2 45.0-75.0 [facility]XvndgdnIJIVXPXHDX1704-68-58 05:53:00 Test Item Value Reference Range Interpretation Comments Lymphocytes (test code = Lymphocytes) 38.9 20.0-40.0 [facility] HospitalCufcdezJFACBAOMJF6390-90-80 05:53:00 Test Item Value Reference Range Interpretation Comments Monocytes (test code = Monocytes) 8.6 2.0-12.0 [facility] HospitalAgbdbcgCYXWKPRRFL0271-61-69 05:53:00 Test Item Value Reference Range Interpretation Comments Eosinophils (test code = 0.3 See_Comment [A utomated message] The Eosinophils) system which ge nerated this result tra nsmitted reference range : <=4.0. The reference r gayle was not used to int erpret this result as normal/abnormal . [facility] HospitalCaexaybGNSDRNUYOU4477-47-15 05:53:00 Test Item Value Reference Range Interpretation Comments Basophils (test code = 1.0 See_Comment [Aut omated message] The Basophils) system which ge nerated this result tra nsmitted reference range : <=1.0. The reference r gayle was not used to int erpret this result as normal/abnormal . [facility] HospitalQsjjwmuJEJGIEYUJS2509-39-17 05:53:00 Test Item Value Reference Range Interpretation Comments Neutrophils # (test code = Neutrophils 5.6 1.5-8.1 #) [facility] HospitalJlibtsfAMNAUMHUWV0246-61-36 05:53:00 Test Item Value Reference Range Interpretation Comments Lymphocytes # (test code = Lymphocytes 4.3 1.0-5.5 #) [facility] HospitalNudmsxcRLJNVWSTUP6013-06-85 05:53:00 Test Item Value Reference Range Interpretation Comments Monocytes # (test code 0.9 See_Comment [Aut omated message] The = Monocytes #) system which generated this result tra nsmitted reference range : <=0.8. The reference r gayle was not used to int erpret this result as normal/abnormal . [facility] HospitalPzliztqDGXKMWNPAB6353-24-12 05:53:00 Test Item Value Reference Range Interpretation Comments Basophils # (test code 0.1 See_Comment [Aut omated message] The = Basophils #) system which generated this result tra nsmitted reference range : <=0.2. The reference r gayle was not used to int erpret this result as normal/abnormal . [facility] HospitalOiwtqyzHZGNWEMAUN4599-71-61 05:53:00 Test Item Value Reference Range Interpretation Comments WBC (test code = WBC) 11.0 3.7-10.4 [facility] HospitalOoinchgGXVGMXTDRU9399-27-30 05:53:00 Test Item Value Reference Range Interpretation Comments RBC (test code = RBC) 4.46 4.70-6.10 [facility] HospitalEpsiepaYIMGPYLESZ2067-80-91 05:53:00 Test Item Value Reference Range Interpretation Comments Hgb (test code = Hgb) 12.5 14.0-18.0 [facility] HospitalTuxgzpgOZXTDBCBGH9688-12-11 05:53:00 Test Item Value Reference Range Interpretation Comments Hct (test code = Hct) 37.3 42.0-54.0 [facility] HospitalGryoqcrDEQMVMMTOT7615-57-33 05:53:00 Test Item Value Reference Range Interpretation Comments MCV (test code = MCV) 83.7 80.0-94.0 [facility] HospitalKardfvkJHFOXTSNBV8415-42-54 05:53:00 Test Item Value Reference Range Interpretation Comments MCH (test code = MCH) 28.0 pg 27.0-31.0 [facility] HospitalWakiivmUTAQJFGTJG9788-36-05 05:53:00 Test Item Value Reference Range Interpretation Comments MCHC (test code = MCHC) 33.5 32.0-36.0 [facility] HospitalMbizbvoLUTZKSDFZR4770-55-59 05:53:00 Test Item Value Reference Range Interpretation Comments RDW (test code = RDW) 15.3 11.5-14.5 [facility] HospitalKbwlmhtRDJMTBVUKX5614-88-65 05:53:00 Test Item Value Reference Range Interpretation Comments Platelet (test code = Platelet) 279 133-450 [facility]DqicnswOCVZGABPZL9940-64-98 05:53:00 Test Item Value Reference Range Interpretation Comments MPV (test code = MPV) 7.5 7.4-10.4 [facility] IWMOEGB5237-12-47 05:53:00 Test Item Value Reference Range Interpretation Comments Troponin-I (test code no gt See_Comment [Auto mated message] The = Troponin-I) system which g enerated this result transmit keon reference range : <=0.40. The reference r gayle was not used to interpr et this result as evan l/abnormal. [facility]2019-08-10 05:53:00 Test Item Value Reference Range Interpretation Comments Lactic Acid Lvl (test code = Lactic 1.3 0.5-2.2 Acid Lvl) [facility]2019-08-10 05:53:00 Test Item Value Reference Range Interpretation Comments Glucose Lvl (test code = Glucose Lvl) 101 70-99 [facility]2019-08-10 05:53:00 Test Item Value Reference Range Interpretation Comments BUN (test code = BUN) 19 7-22 [facility]2019-08-10 05:53:00 Test Item Value Reference Range Interpretation Comments Creatinine Lvl (test code = Creatinine 0.92 0.50-1.40 Lvl) [facility]2019-08-10 05:53:00 Test Item Value Reference Range Interpretation Comments Sodium Lvl (test code = Sodium Lvl) 140 135-145 [facility]2019-08-10 05:53:00 Test Item Value Reference Range Interpretation Comments Potassium Lvl (test code = Potassium 3.5 3.5-5.1 Lvl) [facility]2019-08-10 05:53:00 Test Item Value Reference Range Interpretation Comments Chloride Lvl (test code = Chloride Lvl) 103 95-109 [facility]2019-08-10 05:53:00 Test Item Value Reference Range Interpretation Comments CO2 (test code = CO2) 29 24-32 [facility]2019-08-10 05:53:00 Test Item Value Reference Range Interpretation Comments Calcium Lvl (test code = Calcium Lvl) 8.7 8.5-10.5 [facility]2019-08-10 05:53:00 Test Item Value Reference Range Interpretation Comments eGFR (test code = eGFR) 105 [facility]2019-08-10 05:53:00 Test Item Value Reference Range Interpretation Comments AGAP (test code = AGAP) 11.5 10.0-20.0 [facility]2019-08-10 05:53:00 Test Item Value Reference Range Interpretation Comments Magnesium Lvl (test code = Magnesium 2.8 1.8-2.4 Lvl) [facility]2019-08-10 05:53:00 Test Item Value Reference Range Interpretation Comments Phosphorus (test code = Phosphorus) 2.4 2.5-4.5 [facility] HospitalNtptkexMZOFMKXIFM6074-25-32 05:53:00 Test Item Value Reference Range Interpretation Comments Segs (test code = Segs) 51.2 45.0-75.0 [facility] HospitalUdzbcpaVONHKDZWNE0311-75-96 05:53:00 Test Item Value Reference Range Interpretation Comments Lymphocytes (test code = Lymphocytes) 38.9 20.0-40.0 [facility] HospitalQqpwlarPMAVMMGFMN1081-13-54 05:53:00 Test Item Value Reference Range Interpretation Comments Monocytes (test code = Monocytes) 8.6 2.0-12.0 [facility] HospitalOlwcfgzDSZDDVHFRB4362-18-15 05:53:00 Test Item Value Reference Range Interpretation Comments Eosinophils (test code = 0.3 See_Comment [A utomated message] The Eosinophils) system which ge nerated this result tra nsmitted reference range : <=4.0. The reference r gayle was not used to int erpret this result as normal/abnormal . [facility] HospitalXhjuuqfBNWEVCWVMG4265-14-78 05:53:00 Test Item Value Reference Range Interpretation Comments Basophils (test code = 1.0 See_Comment [Aut omated message] The Basophils) system which ge nerated this result tra nsmitted reference range : <=1.0. The reference r gayle was not used to int erpret this result as normal/abnormal . [facility] HospitalDlakfuaSCUKLGVHHC4587-05-57 05:53:00 Test Item Value Reference Range Interpretation Comments Neutrophils # (test code = Neutrophils 5.6 1.5-8.1 #) [facility] HospitalCqmvvgpJHTZPPWIOJ0199-73-59 05:53:00 Test Item Value Reference Range Interpretation Comments Lymphocytes # (test code = Lymphocytes 4.3 1.0-5.5 #) [facility] HospitalUulpapzGFXLIHALKN6107-44-61 05:53:00 Test Item Value Reference Range Interpretation Comments Monocytes # (test code 0.9 See_Comment [Aut omated message] The = Monocytes #) system which generated this result tra nsmitted reference range : <=0.8. The reference r gayle was not used to int erpret this result as normal/abnormal . [facility] HospitalQdrllewQZIYXPIAPB1450-51-40 05:53:00 Test Item Value Reference Range Interpretation Comments Basophils # (test code 0.1 See_Comment [Aut omated message] The = Basophils #) system which generated this result tra nsmitted reference range : <=0.2. The reference r gayle was not used to int erpret this result as normal/abnormal . [facility] HospitalBktgxhhMTVEKSVPZD4853-11-60 05:53:00 Test Item Value Reference Range Interpretation Comments WBC (test code = WBC) 11.0 3.7-10.4 [facility] HospitalIduijnzYFRITFLTPM8941-51-42 05:53:00 Test Item Value Reference Range Interpretation Comments RBC (test code = RBC) 4.46 4.70-6.10 [facility] HospitalGyzobzvYTWIXBWOZA8455-26-85 05:53:00 Test Item Value Reference Range Interpretation Comments Hgb (test code = Hgb) 12.5 14.0-18.0 [facility] HospitalIlrwlnqUEQAQHRYPQ4977-29-77 05:53:00 Test Item Value Reference Range Interpretation Comments Hct (test code = Hct) 37.3 42.0-54.0 [facility] HospitalSmkhsywOEVQBPBBRW0374-18-14 05:53:00 Test Item Value Reference Range Interpretation Comments MCV (test code = MCV) 83.7 80.0-94.0 [facility] HospitalCktbwcnQYRGWKYNZE2294-10-62 05:53:00 Test Item Value Reference Range Interpretation Comments MCH (test code = MCH) 28.0 pg 27.0-31.0 [facility] HospitalEgcuwmvQCUGRLWHKT2553-92-66 05:53:00 Test Item Value Reference Range Interpretation Comments MCHC (test code = MCHC) 33.5 32.0-36.0 [facility] HospitalQmxrwadMDIDRPRBJB2909-38-96 05:53:00 Test Item Value Reference Range Interpretation Comments RDW (test code = RDW) 15.3 11.5-14.5 [facility] HospitalIhzhiogTJKRCOHRYW4787-30-19 05:53:00 Test Item Value Reference Range Interpretation Comments Platelet (test code = Platelet) 279 133-450 [facility] HospitalFziurglCMVQYRRBVI6998-18-42 05:53:00 Test Item Value Reference Range Interpretation Comments MPV (test code = MPV) 7.5 7.4-10.4 [facility] MSEPJBN4148-07-23 05:53:00 Test Item Value Reference Range Interpretation Comments Troponin-I (test code no gt See_Comment [Auto mated message] The = Troponin-I) system which g enerated this result transmit keon reference range : <=0.40. The reference r gayle was not used to interpr et this result as evan l/abnormal. [facility] CenterFixational IZNVE5327-20-92 05:53:00 Test Item Value Reference Range Interpretation Comments Lactic Acid Lvl (test code = Lactic 1.3 0.5-2.2 Acid Lvl) [facility]2019-08-10 05:53:00 Test Item Value Reference Range Interpretation Comments Glucose Lvl (test code = Glucose Lvl) 101 70-99 [facility]2019-08-10 05:53:00 Test Item Value Reference Range Interpretation Comments BUN (test code = BUN) 19 7-22 [facility]2019-08-10 05:53:00 Test Item Value Reference Range Interpretation Comments Creatinine Lvl (test code = Creatinine 0.92 0.50-1.40 Lvl) [facility]2019-08-10 05:53:00 Test Item Value Reference Range Interpretation Comments Sodium Lvl (test code = Sodium Lvl) 140 135-145 [facility]2019-08-10 05:53:00 Test Item Value Reference Range Interpretation Comments Potassium Lvl (test code = Potassium 3.5 3.5-5.1 Lvl) [facility]2019-08-10 05:53:00 Test Item Value Reference Range Interpretation Comments Chloride Lvl (test code = Chloride Lvl) 103 95-109 [facility]2019-08-10 05:53:00 Test Item Value Reference Range Interpretation Comments CO2 (test code = CO2) 29 24-32 [facility]2019-08-10 05:53:00 Test Item Value Reference Range Interpretation Comments Calcium Lvl (test code = Calcium Lvl) 8.7 8.5-10.5 [facility]2019-08-10 05:53:00 Test Item Value Reference Range Interpretation Comments eGFR (test code = eGFR) 105 [facility]2019-08-10 05:53:00 Test Item Value Reference Range Interpretation Comments AGAP (test code = AGAP) 11.5 10.0-20.0 [facility]2019-08-10 05:53:00 Test Item Value Reference Range Interpretation Comments Magnesium Lvl (test code = Magnesium 2.8 1.8-2.4 Lvl) [facility]2019-08-10 05:53:00 Test Item Value Reference Range Interpretation Comments Phosphorus (test code = Phosphorus) 2.4 2.5-4.5 [facility] HospitalRkrtlpjQBKGJMLZAD2379-10-11 05:53:00 Test Item Value Reference Range Interpretation Comments Segs (test code = Segs) 51.2 45.0-75.0 [facility] HospitalBzpytwyIUPJHIJYZP4937-96-03 05:53:00 Test Item Value Reference Range Interpretation Comments Lymphocytes (test code = Lymphocytes) 38.9 20.0-40.0 [facility] HospitalExqjizkQCGOBUKIIA9570-52-97 05:53:00 Test Item Value Reference Range Interpretation Comments Monocytes (test code = Monocytes) 8.6 2.0-12.0 [facility] HospitalBywlfgnDLMYMTJDMM0697-43-00 05:53:00 Test Item Value Reference Range Interpretation Comments Eosinophils (test code = 0.3 See_Comment [A utomated message] The Eosinophils) system which ge nerated this result tra nsmitted reference range : <=4.0. The reference r gayle was not used to int erpret this result as normal/abnormal . [facility] HospitalXspwqknJDBOFWSFGC4525-39-59 05:53:00 Test Item Value Reference Range Interpretation Comments Basophils (test code = 1.0 See_Comment [Aut omated message] The Basophils) system which ge nerated this result tra nsmitted reference range : <=1.0. The reference r gayle was not used to int erpret this result as normal/abnormal . [facility] HospitalYzsutalBIZWMWSDAT2200-38-79 05:53:00 Test Item Value Reference Range Interpretation Comments Neutrophils # (test code = Neutrophils 5.6 1.5-8.1 #) [facility] HospitalUkgnxbaUAGSFFDMFS7603-24-83 05:53:00 Test Item Value Reference Range Interpretation Comments Lymphocytes # (test code = Lymphocytes 4.3 1.0-5.5 #) [facility] HospitalFxabjefRIABOCWWBL1910-52-02 05:53:00 Test Item Value Reference Range Interpretation Comments Monocytes # (test code 0.9 See_Comment [Aut omated message] The = Monocytes #) system which generated this result tra nsmitted reference range : <=0.8. The reference r gayle was not used to int erpret this result as normal/abnormal . [facility] HospitalVeiqmqvNYBIKYUBBR5906-77-38 05:53:00 Test Item Value Reference Range Interpretation Comments Basophils # (test code 0.1 See_Comment [Aut omated message] The = Basophils #) system which generated this result tra nsmitted reference range : <=0.2. The reference r gayle was not used to int erpret this result as normal/abnormal . [facility] HospitalErsngkbWPJKSKHETH7732-55-10 05:53:00 Test Item Value Reference Range Interpretation Comments WBC (test code = WBC) 11.0 3.7-10.4 [facility] HospitalImbgsowISDVWTAXZB1188-55-24 05:53:00 Test Item Value Reference Range Interpretation Comments RBC (test code = RBC) 4.46 4.70-6.10 [facility] HospitalPhmmvlxPNXYDWOFQP0854-65-78 05:53:00 Test Item Value Reference Range Interpretation Comments Hgb (test code = Hgb) 12.5 14.0-18.0 [facility] HospitalSgbkkexLJECHKMNQK8518-63-23 05:53:00 Test Item Value Reference Range Interpretation Comments Hct (test code = Hct) 37.3 42.0-54.0 [facility] HospitalRqsrancHDIHTUTSRP2388-37-66 05:53:00 Test Item Value Reference Range Interpretation Comments MCV (test code = MCV) 83.7 80.0-94.0 [facility] HospitalFbpjkduXTGLVFIEGI8509-65-54 05:53:00 Test Item Value Reference Range Interpretation Comments MCH (test code = MCH) 28.0 pg 27.0-31.0 [facility] HospitalOqptikyCXHNDNFYDW3060-14-98 05:53:00 Test Item Value Reference Range Interpretation Comments MCHC (test code = MCHC) 33.5 32.0-36.0 [facility] HospitalQsunkzcKRWFDFQJNU6678-74-59 05:53:00 Test Item Value Reference Range Interpretation Comments RDW (test code = RDW) 15.3 11.5-14.5 [facility] HospitalLpgwxvrMXXZRVOFZA4821-58-78 05:53:00 Test Item Value Reference Range Interpretation Comments Platelet (test code = Platelet) 279 133-450 [facility] HospitalWfunvmwJGFXSTFSPH9721-91-96 05:53:00 Test Item Value Reference Range Interpretation Comments MPV (test code = MPV) 7.5 7.4-10.4 [facility]CARD[facility] CTYZJYM0439-04-28 05:53:00 Test Item Value Reference Range Interpretation Comments Troponin-I (test code no gt See_Comment [Auto mated message] The = Troponin-I) system which g enerated this result transmit keon reference range : <=0.40. The reference r gayle was not used to interpr et this result as evan l/abnormal. [facility]2019-08-10 05:53:00 Test Item Value Reference Range Interpretation Comments Lactic Acid Lvl (test code = Lactic 1.3 0.5-2.2 Acid Lvl) [facility]2019-08-10 05:53:00 Test Item Value Reference Range Interpretation Comments Glucose Lvl (test code = Glucose Lvl) 101 70-99 [facility]2019-08-10 05:53:00 Test Item Value Reference Range Interpretation Comments BUN (test code = BUN) 19 7-22 [facility]2019-08-10 05:53:00 Test Item Value Reference Range Interpretation Comments Creatinine Lvl (test code = Creatinine 0.92 0.50-1.40 Lvl) [facility]2019-08-10 05:53:00 Test Item Value Reference Range Interpretation Comments Sodium Lvl (test code = Sodium Lvl) 140 135-145 [facility]2019-08-10 05:53:00 Test Item Value Reference Range Interpretation Comments Potassium Lvl (test code = Potassium 3.5 3.5-5.1 Lvl) [facility]2019-08-10 05:53:00 Test Item Value Reference Range Interpretation Comments Chloride Lvl (test code = Chloride Lvl) 103 95-109 [facility]2019-08-10 05:53:00 Test Item Value Reference Range Interpretation Comments CO2 (test code = CO2) 29 24-32 [facility]2019-08-10 05:53:00 Test Item Value Reference Range Interpretation Comments Calcium Lvl (test code = Calcium Lvl) 8.7 8.5-10.5 [facility]2019-08-10 05:53:00 Test Item Value Reference Range Interpretation Comments eGFR (test code = eGFR) 105 [facility]2019-08-10 05:53:00 Test Item Value Reference Range Interpretation Comments AGAP (test code = AGAP) 11.5 10.0-20.0 [facility]2019-08-10 05:53:00 Test Item Value Reference Range Interpretation Comments Magnesium Lvl (test code = Magnesium 2.8 1.8-2.4 Lvl) [facility]2019-08-10 05:53:00 Test Item Value Reference Range Interpretation Comments Phosphorus (test code = Phosphorus) 2.4 2.5-4.5 [facility] HospitalGglfvjuUUEUOVRKOM5378-02-72 05:53:00 Test Item Value Reference Range Interpretation Comments Segs (test code = Segs) 51.2 45.0-75.0 [facility] HospitalSckxcxmNRLMZQRVVY5698-33-29 05:53:00 Test Item Value Reference Range Interpretation Comments Lymphocytes (test code = Lymphocytes) 38.9 20.0-40.0 [facility] HospitalAijeuxfSMZSIIUTLG4443-05-66 05:53:00 Test Item Value Reference Range Interpretation Comments Monocytes (test code = Monocytes) 8.6 2.0-12.0 [facility] HospitalGhqeompKFEHWHREWO2857-95-40 05:53:00 Test Item Value Reference Range Interpretation Comments Eosinophils (test code = 0.3 See_Comment [A utomated message] The Eosinophils) system which ge nerated this result tra nsmitted reference range : <=4.0. The reference r gayle was not used to int erpret this result as normal/abnormal . [facility] HospitalPyflgpkYRLMJKSBEU6892-76-77 05:53:00 Test Item Value Reference Range Interpretation Comments Basophils (test code = 1.0 See_Comment [Aut omated message] The Basophils) system which ge nerated this result tra nsmitted reference range : <=1.0. The reference r gayle was not used to int erpret this result as normal/abnormal . [facility] HospitalNwcxgtdFAMXGINLVB0874-91-33 05:53:00 Test Item Value Reference Range Interpretation Comments Neutrophils # (test code = Neutrophils 5.6 1.5-8.1 #) [facility] HospitalGfivmszNSJJZHCBTV3515-38-02 05:53:00 Test Item Value Reference Range Interpretation Comments Lymphocytes # (test code = Lymphocytes 4.3 1.0-5.5 #) [facility] HospitalQjsusgsLYJPQTQDKQ5309-33-30 05:53:00 Test Item Value Reference Range Interpretation Comments Monocytes # (test code 0.9 See_Comment [Aut omated message] The = Monocytes #) system which generated this result tra nsmitted reference range : <=0.8. The reference r gayle was not used to int erpret this result as normal/abnormal . [facility] HospitalZkuvoesWFIBHVJBAF3472-87-53 05:53:00 Test Item Value Reference Range Interpretation Comments Basophils # (test code 0.1 See_Comment [Aut omated message] The = Basophils #) system which generated this result tra nsmitted reference range : <=0.2. The reference r gayle was not used to int erpret this result as normal/abnormal . [facility] HospitalSbvhwbwEPUDOZUHPI9822-62-64 05:53:00 Test Item Value Reference Range Interpretation Comments WBC (test code = WBC) 11.0 3.7-10.4 [facility] HospitalVexxwisXEJUZGVHQY5901-37-60 05:53:00 Test Item Value Reference Range Interpretation Comments RBC (test code = RBC) 4.46 4.70-6.10 [facility] HospitalZupogeeVSSMZGOTFH1355-94-82 05:53:00 Test Item Value Reference Range Interpretation Comments Hgb (test code = Hgb) 12.5 14.0-18.0 [facility] HospitalGkkybzjNIFVTZTCPF2494-20-93 05:53:00 Test Item Value Reference Range Interpretation Comments Hct (test code = Hct) 37.3 42.0-54.0 [facility] HospitalBhjzhaqITIKCEXMIW8998-55-93 05:53:00 Test Item Value Reference Range Interpretation Comments MCV (test code = MCV) 83.7 80.0-94.0 [facility] HospitalOfcbzajVHROJPLZWP3461-56-28 05:53:00 Test Item Value Reference Range Interpretation Comments MCH (test code = MCH) 28.0 pg 27.0-31.0 [facility] HospitalBiaflkvJWILZOIBYO1584-42-57 05:53:00 Test Item Value Reference Range Interpretation Comments MCHC (test code = MCHC) 33.5 32.0-36.0 [facility]kwjqddYPYVMLMFTF3087-82-39 05:53:00 Test Item Value Reference Range Interpretation Comments RDW (test code = RDW) 15.3 11.5-14.5 [facility]FiksbbkTGHDRDSINO3535-13-81 05:53:00 Test Item Value Reference Range Interpretation Comments Platelet (test code = Platelet) 279 133-450 [facility]ZpgourbQSFSIQVAXV3839-28-23 05:53:00 Test Item Value Reference Range Interpretation Comments MPV (test code = MPV) 7.5 7.4-10.4 [facility]CARD[facility] [id number] 05:53:00 Test Item Value Reference Range Interpretation Comments Troponin-I (test code no gt See_Comment [Auto mated message] The = Troponin-I) system which g enerated this result transmit keon reference range : <=0.40. The reference r gayle was not used to interpr et this result as evan l/abnormal. [facility]2019-08-10 05:53:00 Test Item Value Reference Range Interpretation Comments Lactic Acid Lvl (test code = Lactic 1.3 0.5-2.2 Acid Lvl) [facility]2019-08-10 05:53:00 Test Item Value Reference Range Interpretation Comments Glucose Lvl (test code = Glucose Lvl) 101 70-99 [facility]2019-08-10 05:53:00 Test Item Value Reference Range Interpretation Comments BUN (test code = BUN) 19 7-22 [facility]2019-08-10 05:53:00 Test Item Value Reference Range Interpretation Comments Creatinine Lvl (test code = Creatinine 0.92 0.50-1.40 Lvl) [facility]2019-08-10 05:53:00 Test Item Value Reference Range Interpretation Comments Sodium Lvl (test code = Sodium Lvl) 140 135-145 [facility]2019-08-10 05:53:00 Test Item Value Reference Range Interpretation Comments Potassium Lvl (test code = Potassium 3.5 3.5-5.1 Lvl) [facility]2019-08-10 05:53:00 Test Item Value Reference Range Interpretation Comments Chloride Lvl (test code = Chloride Lvl) 103 95-109 [facility]2019-08-10 05:53:00 Test Item Value Reference Range Interpretation Comments CO2 (test code = CO2) 29 24-32 [facility]2019-08-10 05:53:00 Test Item Value Reference Range Interpretation Comments Calcium Lvl (test code = Calcium Lvl) 8.7 8.5-10.5 [facility]2019-08-10 05:53:00 Test Item Value Reference Range Interpretation Comments eGFR (test code = eGFR) 105 [facility]2019-08-10 05:53:00 Test Item Value Reference Range Interpretation Comments AGAP (test code = AGAP) 11.5 10.0-20.0 [facility]2019-08-10 05:53:00 Test Item Value Reference Range Interpretation Comments Magnesium Lvl (test code = Magnesium 2.8 1.8-2.4 Lvl) [facility]2019-08-10 05:53:00 Test Item Value Reference Range Interpretation Comments Phosphorus (test code = Phosphorus) 2.4 2.5-4.5 [facility] HospitalHrawtoaGPKFKNCYHB8575-61-81 05:53:00 Test Item Value Reference Range Interpretation Comments Segs (test code = Segs) 51.2 45.0-75.0 [facility] HospitalSgyggaiVUKGMXIWYC9591-85-72 05:53:00 Test Item Value Reference Range Interpretation Comments Lymphocytes (test code = Lymphocytes) 38.9 20.0-40.0 [facility] HospitalHrosergTXHQFPNCCL3761-31-88 05:53:00 Test Item Value Reference Range Interpretation Comments Monocytes (test code = Monocytes) 8.6 2.0-12.0 [facility] HospitalSbxgjeeAXMKPBDDBM1206-84-26 05:53:00 Test Item Value Reference Range Interpretation Comments Eosinophils (test code = 0.3 See_Comment [A utomated message] The Eosinophils) system which ge nerated this result tra nsmitted reference range : <=4.0. The reference r gayle was not used to int erpret this result as normal/abnormal . [facility] HospitalGabptdbFTEDKQKWSA6309-87-80 05:53:00 Test Item Value Reference Range Interpretation Comments Basophils (test code = 1.0 See_Comment [Aut omated message] The Basophils) system which ge nerated this result tra nsmitted reference range : <=1.0. The reference r gayle was not used to int erpret this result as normal/abnormal . [facility] HospitalPadurjmUVREYPHCOX4647-93-64 05:53:00 Test Item Value Reference Range Interpretation Comments Neutrophils # (test code = Neutrophils 5.6 1.5-8.1 #) [facility] HospitalAxighxcOBVZPXDQRS9889-89-28 05:53:00 Test Item Value Reference Range Interpretation Comments Lymphocytes # (test code = Lymphocytes 4.3 1.0-5.5 #) [facility] HospitalCrohabhHBQRGEKXTG4048-22-91 05:53:00 Test Item Value Reference Range Interpretation Comments Monocytes # (test code 0.9 See_Comment [Aut omated message] The = Monocytes #) system which generated this result tra nsmitted reference range : <=0.8. The reference r gayle was not used to int erpret this result as normal/abnormal . [facility] HospitalAddwgbyIFJFXNVNJS1626-50-35 05:53:00 Test Item Value Reference Range Interpretation Comments Basophils # (test code 0.1 See_Comment [Aut omated message] The = Basophils #) system which generated this result tra nsmitted reference range : <=0.2. The reference r gayle was not used to int erpret this result as normal/abnormal . [facility] HospitalRthptonCYBAUAKFKA6745-82-74 05:53:00 Test Item Value Reference Range Interpretation Comments WBC (test code = WBC) 11.0 3.7-10.4 [facility] HospitalWiowvdpNKSAUDYNJE2052-94-90 05:53:00 Test Item Value Reference Range Interpretation Comments RBC (test code = RBC) 4.46 4.70-6.10 [facility] HospitalLwxmbohMSNUSNJVHG9723-43-30 05:53:00 Test Item Value Reference Range Interpretation Comments Hgb (test code = Hgb) 12.5 14.0-18.0 [facility] HospitalUkunmlwYQWESAHLDI1016-70-37 05:53:00 Test Item Value Reference Range Interpretation Comments Hct (test code = Hct) 37.3 42.0-54.0 [facility] HospitalKpixxgmQZIQOZROSR0437-99-47 05:53:00 Test Item Value Reference Range Interpretation Comments MCV (test code = MCV) 83.7 80.0-94.0 [facility] HospitalWpjcmunUEFJIKECNX6699-65-88 05:53:00 Test Item Value Reference Range Interpretation Comments MCH (test code = MCH) 28.0 pg 27.0-31.0 [facility] HospitalWoxjyzrTCCKDNAQCY4596-99-76 05:53:00 Test Item Value Reference Range Interpretation Comments MCHC (test code = MCHC) 33.5 32.0-36.0 [facility] HospitalHvkkbkjPKUGLPOAKR8740-58-04 05:53:00 Test Item Value Reference Range Interpretation Comments RDW (test code = RDW) 15.3 11.5-14.5 [facility] HospitalAlotbbeFMLKFQHJJL0813-49-31 05:53:00 Test Item Value Reference Range Interpretation Comments Platelet (test code = Platelet) 279 133-450 [facility] HospitalKnrosarQHZRDKZQPN0651-13-23 05:53:00 Test Item Value Reference Range Interpretation Comments MPV (test code = MPV) 7.5 7.4-10.4 [facility] [id number] 05:53:00 Test Item Value Reference Range Interpretation Comments Troponin-I (test code no gt See_Comment [Auto mated message] The = Troponin-I) system which g enerated this result transmit keon reference range : <=0.40. The reference r gayle was not used to interpr et this result as evan l/abnormal. [facility]2019-08-10 05:53:00 Test Item Value Reference Range Interpretation Comments Lactic Acid Lvl (test code = Lactic 1.3 0.5-2.2 Acid Lvl) [facility]2019-08-10 05:53:00 Test Item Value Reference Range Interpretation Comments Glucose Lvl (test code = Glucose Lvl) 101 70-99 [facility]2019-08-10 05:53:00 Test Item Value Reference Range Interpretation Comments BUN (test code = BUN) 19 7-22 [facility]2019-08-10 05:53:00 Test Item Value Reference Range Interpretation Comments Creatinine Lvl (test code = Creatinine 0.92 0.50-1.40 Lvl) [facility]2019-08-10 05:53:00 Test Item Value Reference Range Interpretation Comments Sodium Lvl (test code = Sodium Lvl) 140 135-145 [facility]2019-08-10 05:53:00 Test Item Value Reference Range Interpretation Comments Potassium Lvl (test code = Potassium 3.5 3.5-5.1 Lvl) [facility]2019-08-10 05:53:00 Test Item Value Reference Range Interpretation Comments Chloride Lvl (test code = Chloride Lvl) 103 95-109 [facility]2019-08-10 05:53:00 Test Item Value Reference Range Interpretation Comments CO2 (test code = CO2) 29 24-32 [facility]2019-08-10 05:53:00 Test Item Value Reference Range Interpretation Comments Calcium Lvl (test code = Calcium Lvl) 8.7 8.5-10.5 [facility]2019-08-10 05:53:00 Test Item Value Reference Range Interpretation Comments eGFR (test code = eGFR) 105 [facility]2019-08-10 05:53:00 Test Item Value Reference Range Interpretation Comments AGAP (test code = AGAP) 11.5 10.0-20.0 [facility]2019-08-10 05:53:00 Test Item Value Reference Range Interpretation Comments Magnesium Lvl (test code = Magnesium 2.8 1.8-2.4 Lvl) [facility]2019-08-10 05:53:00 Test Item Value Reference Range Interpretation Comments Phosphorus (test code = Phosphorus) 2.4 2.5-4.5 [facility] HospitalAdthkqmMNYKGIJBNO0347-86-76 05:53:00 Test Item Value Reference Range Interpretation Comments Segs (test code = Segs) 51.2 45.0-75.0 [facility] HospitalHyxcjoyRHZBJSBCFH9178-79-12 05:53:00 Test Item Value Reference Range Interpretation Comments Lymphocytes (test code = Lymphocytes) 38.9 20.0-40.0 [facility] HospitalQsnyrofXIPIABYIWK8557-69-46 05:53:00 Test Item Value Reference Range Interpretation Comments Monocytes (test code = Monocytes) 8.6 2.0-12.0 [facility] HospitalDblykvsJDWKVXODDS0504-40-36 05:53:00 Test Item Value Reference Range Interpretation Comments Eosinophils (test code = 0.3 See_Comment [A utomated message] The Eosinophils) system which ge nerated this result tra nsmitted reference range : <=4.0. The reference r gayle was not used to int erpret this result as normal/abnormal . [facility] HospitalMsmhsrmHPDQHLEOSY9031-00-38 05:53:00 Test Item Value Reference Range Interpretation Comments Basophils (test code = 1.0 See_Comment [Aut omated message] The Basophils) system which ge nerated this result tra nsmitted reference range : <=1.0. The reference r gayle was not used to int erpret this result as normal/abnormal . [facility] HospitalLvmgiceFDVCJXXBYP2642-20-96 05:53:00 Test Item Value Reference Range Interpretation Comments Neutrophils # (test code = Neutrophils 5.6 1.5-8.1 #) [facility] HospitalKwnfnbcRZGMTQHJZB4063-54-44 05:53:00 Test Item Value Reference Range Interpretation Comments Lymphocytes # (test code = Lymphocytes 4.3 1.0-5.5 #) [facility] HospitalAqbbxbxQBDYZGTTWI2588-21-19 05:53:00 Test Item Value Reference Range Interpretation Comments Monocytes # (test code 0.9 See_Comment [Aut omated message] The = Monocytes #) system which generated this result tra nsmitted reference range : <=0.8. The reference r gayle was not used to int erpret this result as normal/abnormal . [facility] HospitalTcuyiuhELAHZATOTN8859-57-03 05:53:00 Test Item Value Reference Range Interpretation Comments Basophils # (test code 0.1 See_Comment [Aut omated message] The = Basophils #) system which generated this result tra nsmitted reference range : <=0.2. The reference r gayle was not used to int erpret this result as normal/abnormal . [facility] HospitalRtfnshkNTTFQHVYQI2725-47-67 05:53:00 Test Item Value Reference Range Interpretation Comments WBC (test code = WBC) 11.0 3.7-10.4 [facility] HospitalGqdcydtRLADWDWYUS1433-34-14 05:53:00 Test Item Value Reference Range Interpretation Comments RBC (test code = RBC) 4.46 4.70-6.10 [facility] HospitalTsowmsxDFPEEAPICS6765-56-91 05:53:00 Test Item Value Reference Range Interpretation Comments Hgb (test code = Hgb) 12.5 14.0-18.0 [facility] HospitalSijkhuqMWSMMLJIBS9667-47-27 05:53:00 Test Item Value Reference Range Interpretation Comments Hct (test code = Hct) 37.3 42.0-54.0 [facility] HospitalQxzwmeqYKAVGETIBI0357-84-39 05:53:00 Test Item Value Reference Range Interpretation Comments MCV (test code = MCV) 83.7 80.0-94.0 [facility] HospitalBvocltaBVNQPFXBCU0736-93-41 05:53:00 Test Item Value Reference Range Interpretation Comments MCH (test code = MCH) 28.0 pg 27.0-31.0 [facility] HospitalEovjcktNBFAZHOJYS9906-29-11 05:53:00 Test Item Value Reference Range Interpretation Comments MCHC (test code = MCHC) 33.5 32.0-36.0 [facility] WnibqnxEIRBAJFQXR4542-32-85 05:53:00 Test Item Value Reference Range Interpretation Comments RDW (test code = RDW) 15.3 11.5-14.5 [facility]BA[facility] - [id number] 03:05:00 Test Item Value Reference Range Interpretation Comments MRSA by PCR (test Negative (12/01/18 10:05 code = MRSA by PCR) PM) [facility] [id number] 03:05:00 Test Item Value Reference Range Interpretation Comments U Amph Scr (test code Negative *NA*(12/01/18 = U Amph Scr) 10:05 PM) [facility] [id number] 03:05:00 Test Item Value Reference Range Interpretation Comments U Bethanie Scr (test code Negative *NA*(12/01/18 = U Bethanie Scr) 10:05 PM) [facility] [id number] 03:05:00 Test Item Value Reference Range Interpretation Comments U Benzodiaz Scr (test Negative *NA*(12/01/18 code = U Benzodiaz Scr) 10:05 PM) [facility] [id number] 03:05:00 Test Item Value Reference Range Interpretation Comments U Cocaine Scr (test Negative *NA*(12/01/18 code = U Cocaine Scr) 10:05 PM) [facility] [id number] 03:05:00 Test Item Value Reference Range Interpretation Comments U Cannab Scr (test Positive *ABN*(12/01/18 code = U Cannab Scr) 10:05 PM) [facility] [id number] 03:05:00 Test Item Value Reference Range Interpretation Comments U Opiate Scr (test Positive *ABN*(12/01/18 code = U Opiate Scr) 10:05 PM) [facility] [id number] 03:05:00 Test Item Value Reference Range Interpretation Comments U Phencyclidine Scr (test Negative *NA*(12/01/18 code = U Phencyclidine 10:05 PM) Scr) [facility] [id number] 03:05:00 Test Item Value Reference Range Interpretation Comments UDS Note (test code = See Note (12/01/18 10:05 UDS Note) PM) [facility] AND [id number] 03:05:00 Test Item Value Reference Range Interpretation Comments UA Color (test code = Yellow *NA*(12/01/18 UA Color) 10:05 PM) [facility] AND [id number] 03:05:00 Test Item Value Reference Range Interpretation Comments UA Turbidity (test code = Clear (12/01/18 10:05 UA Turbidity) PM) [facility] AND [id number] 03:05:00 Test Item Value Reference Range Interpretation Comments UA Spec Grav (test code = UA Spec 1.036 1 Grav) [facility] AND [id number] 03:05:00 Test Item Value Reference Range Interpretation Comments UA pH (test code = UA pH) 5.0 1 5.0-8.0 [facility] AND [id number] 03:05:00 Test Item Value Reference Range Interpretation Comments UA Protein (test code = UA Negative mg/dL Protein) [facility] AND [id number] 03:05:00 Test Item Value Reference Range Interpretation Comments UA Glucose (test code = UA Negative mg/dL Glucose) [facility] AND [id number] 03:05:00 Test Item Value Reference Range Interpretation Comments UA Ketones (test code = UA Negative mg/dL Ketones) [facility] AND [id number] 03:05:00 Test Item Value Reference Range Interpretation Comments UA Bili (test code = Negative *NA*(12/01/18 UA Bili) 10:05 PM) [facility] AND [id number] 03:05:00 Test Item Value Reference Range Interpretation Comments UA Blood (test code = Small *ABN*(12/01/18 UA Blood) 10:05 PM) [facility] AND [id number] 03:05:00 Test Item Value Reference Range Interpretation Comments UA Urobilinogen (test code = UA no gt 0.1-1.0 Urobilinogen) [facility] AND [id number] 03:05:00 Test Item Value Reference Range Interpretation Comments UA Nitrite (test code Negative (12/01/18 10:05 = UA Nitrite) PM) [facility] [id number] 03:05:00 Test Item Value Reference Range Interpretation Comments UA Leuk Est (test Negative (12/01/18 10:05 code = UA Leuk Est) PM) [facility] [id number] 03:05:00 Test Item Value Reference Range Interpretation Comments UA Sq Epi (test code = UA Sq Occasional /LPF Epi) [facility] [id number] 03:05:00 Test Item Value Reference Range Interpretation Comments UA WBC (test code = 1 See_Comment [Automa keon message] The UA WBC) system which ge nerated this result transmit keon reference range : <=5. The reference range was not used to interpr et this result as evan l/abnormal. [facility] [id number] 03:05:00 Test Item Value Reference Range Interpretation Comments UA RBC (test code = 2 See_Comment [Automa keon message] The UA RBC) system which ge nerated this result transmit keon reference range : <=2. The reference range was not used to interpr et this result as evan l/abnormal. [facility] [id number] 03:05:00 Test Item Value Reference Range Interpretation Comments UA Mucus (test code = UA Mucus) Few /LPF [facility] - [id number] 03:05:00 Test Item Value Reference Range Interpretation Comments MRSA by PCR (test Negative (12/01/18 10:05 code = MRSA by PCR) PM) [facility] [id number] 03:05:00 Test Item Value Reference Range Interpretation Comments U Amph Scr (test code Negative *NA*(12/01/18 = U Amph Scr) 10:05 PM) [facility] [id number] 03:05:00 Test Item Value Reference Range Interpretation Comments U Bethanie Scr (test code Negative *NA*(12/01/18 = U Bethanie Scr) 10:05 PM) [facility] [id number] 03:05:00 Test Item Value Reference Range Interpretation Comments U Benzodiaz Scr (test Negative *NA*(12/01/18 code = U Benzodiaz Scr) 10:05 PM) [facility] [id number] 03:05:00 Test Item Value Reference Range Interpretation Comments U Cocaine Scr (test Negative *NA*(12/01/18 code = U Cocaine Scr) 10:05 PM) [facility] [id number] 03:05:00 Test Item Value Reference Range Interpretation Comments U Cannab Scr (test Positive *ABN*(12/01/18 code = U Cannab Scr) 10:05 PM) [facility] [id number] 03:05:00 Test Item Value Reference Range Interpretation Comments U Opiate Scr (test Positive *ABN*(12/01/18 code = U Opiate Scr) 10:05 PM) [facility] [id number] 03:05:00 Test Item Value Reference Range Interpretation Comments U Phencyclidine Scr (test Negative *NA*(12/01/18 code = U Phencyclidine 10:05 PM) Scr) [facility] [id number] 03:05:00 Test Item Value Reference Range Interpretation Comments UDS Note (test code = See Note (12/01/18 10:05 UDS Note) PM) [facility] [id number] 03:05:00 Test Item Value Reference Range Interpretation Comments UA Color (test code = Yellow *NA*(12/01/18 UA Color) 10:05 PM) [facility] [id number] 03:05:00 Test Item Value Reference Range Interpretation Comments UA Turbidity (test code = Clear (12/01/18 10:05 UA Turbidity) PM) [facility] [id number] 03:05:00 Test Item Value Reference Range Interpretation Comments UA Spec Grav (test code = UA Spec 1.036 1 Grav) [facility] [id number] 03:05:00 Test Item Value Reference Range Interpretation Comments UA pH (test code = UA pH) 5.0 1 5.0-8.0 [facility] [id number] 03:05:00 Test Item Value Reference Range Interpretation Comments UA Protein (test code = UA Negative mg/dL Protein) [facility] [id number] 03:05:00 Test Item Value Reference Range Interpretation Comments UA Glucose (test code = UA Negative mg/dL Glucose) [facility] [id number] 03:05:00 Test Item Value Reference Range Interpretation Comments UA Ketones (test code = UA Negative mg/dL Ketones) [facility] AND [id number] 03:05:00 Test Item Value Reference Range Interpretation Comments UA Bili (test code = Negative *NA*(12/01/18 UA Bili) 10:05 PM) [facility] AND [id number] 03:05:00 Test Item Value Reference Range Interpretation Comments UA Blood (test code = Small *ABN*(12/01/18 UA Blood) 10:05 PM) [facility] AND [id number] 03:05:00 Test Item Value Reference Range Interpretation Comments UA Urobilinogen (test code = UA no gt 0.1-1.0 Urobilinogen) [facility] AND [id number] 03:05:00 Test Item Value Reference Range Interpretation Comments UA Nitrite (test code Negative (12/01/18 10:05 = UA Nitrite) PM) [facility] AND [id number] 03:05:00 Test Item Value Reference Range Interpretation Comments UA Leuk Est (test Negative (12/01/18 10:05 code = UA Leuk Est) PM) [facility] AND [id number] 03:05:00 Test Item Value Reference Range Interpretation Comments UA Sq Epi (test code = UA Sq Occasional /LPF Epi) [facility] AND [id number] 03:05:00 Test Item Value Reference Range Interpretation Comments UA WBC (test code = 1 See_Comment [Automa keon message] The UA WBC) system which ge nerated this result transmit keon reference range : <=5. The reference range was not used to interpr et this result as evan l/abnormal. [facility] [id number] 03:05:00 Test Item Value Reference Range Interpretation Comments UA RBC (test code = 2 See_Comment [Automa keon message] The UA RBC) system which ge nerated this result transmit keon reference range : <=2. The reference range was not used to interpr et this result as evan l/abnormal. [facility] AND [id number] 03:05:00 Test Item Value Reference Range Interpretation Comments UA Mucus (test code = UA Mucus) Few /LPF [facility] [id number] 03:05:00 Test Item Value Reference Range Interpretation Comments MRSA by PCR (test Negative (12/01/18 10:05 code = MRSA by PCR) PM) [facility] [id number] 03:05:00 Test Item Value Reference Range Interpretation Comments U Amph Scr (test code Negative *NA*(12/01/18 = U Amph Scr) 10:05 PM) [facility] [id number] 03:05:00 Test Item Value Reference Range Interpretation Comments U Bethanie Scr (test code Negative *NA*(12/01/18 = U Bethanie Scr) 10:05 PM) [facility] [id number] 03:05:00 Test Item Value Reference Range Interpretation Comments U Benzodiaz Scr (test Negative *NA*(12/01/18 code = U Benzodiaz Scr) 10:05 PM) [facility] [id number] 03:05:00 Test Item Value Reference Range Interpretation Comments U Cocaine Scr (test Negative *NA*(12/01/18 code = U Cocaine Scr) 10:05 PM) [facility] [id number] 03:05:00 Test Item Value Reference Range Interpretation Comments U Cannab Scr (test Positive *ABN*(12/01/18 code = U Cannab Scr) 10:05 PM) [facility] [id number] 03:05:00 Test Item Value Reference Range Interpretation Comments U Opiate Scr (test Positive *ABN*(12/01/18 code = U Opiate Scr) 10:05 PM) [facility] [id number] 03:05:00 Test Item Value Reference Range Interpretation Comments U Phencyclidine Scr (test Negative *NA*(12/01/18 code = U Phencyclidine 10:05 PM) Scr) [facility] [id number] 03:05:00 Test Item Value Reference Range Interpretation Comments UDS Note (test code = See Note (12/01/18 10:05 UDS Note) PM) [facility] [id number] 03:05:00 Test Item Value Reference Range Interpretation Comments UA Color (test code = Yellow *NA*(12/01/18 UA Color) 10:05 PM) [facility] [id number] 03:05:00 Test Item Value Reference Range Interpretation Comments UA Turbidity (test code = Clear (12/01/18 10:05 UA Turbidity) PM) [facility] AND [id number] 03:05:00 Test Item Value Reference Range Interpretation Comments UA Spec Grav (test code = UA Spec 1.036 1 Grav) [facility] AND [id number] 03:05:00 Test Item Value Reference Range Interpretation Comments UA pH (test code = UA pH) 5.0 1 5.0-8.0 [facility] AND [id number] 03:05:00 Test Item Value Reference Range Interpretation Comments UA Protein (test code = UA Negative mg/dL Protein) [facility] AND [id number] 03:05:00 Test Item Value Reference Range Interpretation Comments UA Glucose (test code = UA Negative mg/dL Glucose) [facility] AND [id number] 03:05:00 Test Item Value Reference Range Interpretation Comments UA Ketones (test code = UA Negative mg/dL Ketones) [facility] AND [id number] 03:05:00 Test Item Value Reference Range Interpretation Comments UA Bili (test code = Negative *NA*(12/01/18 UA Bili) 10:05 PM) [facility] AND [id number] 03:05:00 Test Item Value Reference Range Interpretation Comments UA Blood (test code = Small *ABN*(12/01/18 UA Blood) 10:05 PM) [facility] AND [id number] 03:05:00 Test Item Value Reference Range Interpretation Comments UA Urobilinogen (test code = UA no gt 0.1-1.0 Urobilinogen) [facility] AND [id number] 03:05:00 Test Item Value Reference Range Interpretation Comments UA Nitrite (test code Negative (12/01/18 10:05 = UA Nitrite) PM) [facility] AND [id number] 03:05:00 Test Item Value Reference Range Interpretation Comments UA Leuk Est (test Negative (12/01/18 10:05 code = UA Leuk Est) PM) [facility] AND [id number] 03:05:00 Test Item Value Reference Range Interpretation Comments UA Sq Epi (test code = UA Sq Occasional /LPF Epi) [facility] [id number] 03:05:00 Test Item Value Reference Range Interpretation Comments UA WBC (test code = 1 See_Comment [Automa keon message] The UA WBC) system which ge nerated this result transmit keon reference range : <=5. The reference range was not used to interpr et this result as evan l/abnormal. [facility] [id number] 03:05:00 Test Item Value Reference Range Interpretation Comments UA RBC (test code = 2 See_Comment [Automa keon message] The UA RBC) system which ge nerated this result transmit keon reference range : <=2. The reference range was not used to interpr et this result as evan l/abnormal. [facility] [id number] 03:05:00 Test Item Value Reference Range Interpretation Comments UA Mucus (test code = UA Mucus) Few /LPF [facility] [id number] 03:05:00 Test Item Value Reference Range Interpretation Comments MRSA by PCR (test Negative (12/01/18 10:05 code = MRSA by PCR) PM) [facility] [id number] 03:05:00 Test Item Value Reference Range Interpretation Comments U Amph Scr (test code Negative *NA*(12/01/18 = U Amph Scr) 10:05 PM) [facility] [id number] 03:05:00 Test Item Value Reference Range Interpretation Comments U Bethanie Scr (test code Negative *NA*(12/01/18 = U Bethanie Scr) 10:05 PM) [facility] [id number] 03:05:00 Test Item Value Reference Range Interpretation Comments U Benzodiaz Scr (test Negative *NA*(12/01/18 code = U Benzodiaz Scr) 10:05 PM) [facility] [id number] 03:05:00 Test Item Value Reference Range Interpretation Comments U Cocaine Scr (test Negative *NA*(12/01/18 code = U Cocaine Scr) 10:05 PM) [facility] [id number] 03:05:00 Test Item Value Reference Range Interpretation Comments U Cannab Scr (test Positive *ABN*(12/01/18 code = U Cannab Scr) 10:05 PM) [facility] [id number] 03:05:00 Test Item Value Reference Range Interpretation Comments U Opiate Scr (test Positive *ABN*(12/01/18 code = U Opiate Scr) 10:05 PM) [facility] [id number] 03:05:00 Test Item Value Reference Range Interpretation Comments U Phencyclidine Scr (test Negative *NA*(12/01/18 code = U Phencyclidine 10:05 PM) Scr) [facility] [id number] 03:05:00 Test Item Value Reference Range Interpretation Comments UDS Note (test code = See Note (12/01/18 10:05 UDS Note) PM) [facility] [id number] 03:05:00 Test Item Value Reference Range Interpretation Comments UA Color (test code = Yellow *NA*(12/01/18 UA Color) 10:05 PM) [facility] [id number] 03:05:00 Test Item Value Reference Range Interpretation Comments UA Turbidity (test code = Clear (12/01/18 10:05 UA Turbidity) PM) [facility] [id number] 03:05:00 Test Item Value Reference Range Interpretation Comments UA Spec Grav (test code = UA Spec 1.036 1 Grav) [facility] [id number] 03:05:00 Test Item Value Reference Range Interpretation Comments UA pH (test code = UA pH) 5.0 1 5.0-8.0 [facility] [id number] 03:05:00 Test Item Value Reference Range Interpretation Comments UA Protein (test code = UA Negative mg/dL Protein) [facility] [id number] 03:05:00 Test Item Value Reference Range Interpretation Comments UA Glucose (test code = UA Negative mg/dL Glucose) [facility] [id number] 03:05:00 Test Item Value Reference Range Interpretation Comments UA Ketones (test code = UA Negative mg/dL Ketones) [facility] [id number] 03:05:00 Test Item Value Reference Range Interpretation Comments UA Bili (test code = Negative *NA*(12/01/18 UA Bili) 10:05 PM) [facility] [id number] 03:05:00 Test Item Value Reference Range Interpretation Comments UA Blood (test code = Small *ABN*(12/01/18 UA Blood) 10:05 PM) [facility] [id number] 03:05:00 Test Item Value Reference Range Interpretation Comments UA Urobilinogen (test code = UA no gt 0.1-1.0 Urobilinogen) [facility] [id number] 03:05:00 Test Item Value Reference Range Interpretation Comments UA Nitrite (test code Negative (12/01/18 10:05 = UA Nitrite) PM) [facility] [id number] 03:05:00 Test Item Value Reference Range Interpretation Comments UA Leuk Est (test Negative (12/01/18 10:05 code = UA Leuk Est) PM) [facility] [id number] 03:05:00 Test Item Value Reference Range Interpretation Comments UA Sq Epi (test code = UA Sq Occasional /LPF Epi) [facility] [id number] 03:05:00 Test Item Value Reference Range Interpretation Comments UA WBC (test code = 1 See_Comment [Automa keon message] The UA WBC) system which ge nerated this result transmit keon reference range : <=5. The reference range was not used to interpr et this result as evan l/abnormal. [facility] [id number] 03:05:00 Test Item Value Reference Range Interpretation Comments UA RBC (test code = 2 See_Comment [Automa keon message] The UA RBC) system which ge nerated this result transmit keon reference range : <=2. The reference range was not used to interpr et this result as evan l/abnormal. [facility] [id number] 03:05:00 Test Item Value Reference Range Interpretation Comments UA Mucus (test code = UA Mucus) Few /LPF [facility] - [id number] 03:05:00 Test Item Value Reference Range Interpretation Comments MRSA by PCR (test Negative (12/01/18 10:05 code = MRSA by PCR) PM) [facility] [id number] 03:05:00 Test Item Value Reference Range Interpretation Comments U Amph Scr (test code Negative *NA*(12/01/18 = U Amph Scr) 10:05 PM) [facility] [id number] 03:05:00 Test Item Value Reference Range Interpretation Comments U Bethanie Scr (test code Negative *NA*(12/01/18 = U Bethanie Scr) 10:05 PM) [facility] [id number] 03:05:00 Test Item Value Reference Range Interpretation Comments U Benzodiaz Scr (test Negative *NA*(12/01/18 code = U Benzodiaz Scr) 10:05 PM) [facility] [id number] 03:05:00 Test Item Value Reference Range Interpretation Comments U Cocaine Scr (test Negative *NA*(12/01/18 code = U Cocaine Scr) 10:05 PM) [facility] [id number] 03:05:00 Test Item Value Reference Range Interpretation Comments U Cannab Scr (test Positive *ABN*(12/01/18 code = U Cannab Scr) 10:05 PM) [facility] [id number] 03:05:00 Test Item Value Reference Range Interpretation Comments U Opiate Scr (test Positive *ABN*(12/01/18 code = U Opiate Scr) 10:05 PM) [facility] [id number] 03:05:00 Test Item Value Reference Range Interpretation Comments U Phencyclidine Scr (test Negative *NA*(12/01/18 code = U Phencyclidine 10:05 PM) Scr) [facility] [id number] 03:05:00 Test Item Value Reference Range Interpretation Comments UDS Note (test code = See Note (12/01/18 10:05 UDS Note) PM) [facility] [id number] 03:05:00 Test Item Value Reference Range Interpretation Comments UA Color (test code = Yellow *NA*(12/01/18 UA Color) 10:05 PM) [facility] [id number] 03:05:00 Test Item Value Reference Range Interpretation Comments UA Turbidity (test code = Clear (12/01/18 10:05 UA Turbidity) PM) [facility] [id number] 03:05:00 Test Item Value Reference Range Interpretation Comments UA Spec Grav (test code = UA Spec 1.036 1 Grav) [facility] [id number] 03:05:00 Test Item Value Reference Range Interpretation Comments UA pH (test code = UA pH) 5.0 1 5.0-8.0 [facility] AND [id number] 03:05:00 Test Item Value Reference Range Interpretation Comments UA Protein (test code = UA Negative mg/dL Protein) [facility] AND [id number] 03:05:00 Test Item Value Reference Range Interpretation Comments UA Glucose (test code = UA Negative mg/dL Glucose) [facility] AND [id number] 03:05:00 Test Item Value Reference Range Interpretation Comments UA Ketones (test code = UA Negative mg/dL Ketones) [facility] AND [id number] 03:05:00 Test Item Value Reference Range Interpretation Comments UA Bili (test code = Negative *NA*(12/01/18 UA Bili) 10:05 PM) [facility] AND [id number] 03:05:00 Test Item Value Reference Range Interpretation Comments UA Blood (test code = Small *ABN*(12/01/18 UA Blood) 10:05 PM) [facility] AND [id number] 03:05:00 Test Item Value Reference Range Interpretation Comments UA Urobilinogen (test code = UA no gt 0.1-1.0 Urobilinogen) [facility] AND [id number] 03:05:00 Test Item Value Reference Range Interpretation Comments UA Nitrite (test code Negative (12/01/18 10:05 = UA Nitrite) PM) [facility] AND [id number] 03:05:00 Test Item Value Reference Range Interpretation Comments UA Leuk Est (test Negative (12/01/18 10:05 code = UA Leuk Est) PM) [facility] AND [id number] 03:05:00 Test Item Value Reference Range Interpretation Comments UA Sq Epi (test code = UA Sq Occasional /LPF Epi) [facility] AND [id number] 03:05:00 Test Item Value Reference Range Interpretation Comments UA WBC (test code = 1 See_Comment [Automa keon message] The UA WBC) system which ge nerated this result transmit keon reference range : <=5. The reference range was not used to interpr et this result as evan l/abnormal. [facility] [id number] 03:05:00 Test Item Value Reference Range Interpretation Comments UA RBC (test code = 2 See_Comment [Automa keon message] The UA RBC) system which ge nerated this result transmit keon reference range : <=2. The reference range was not used to interpr et this result as evan l/abnormal. [facility] [id number] 03:05:00 Test Item Value Reference Range Interpretation Comments UA Mucus (test code = UA Mucus) Few /LPF [facility] [id number] 03:05:00 Test Item Value Reference Range Interpretation Comments MRSA by PCR (test Negative (12/01/18 10:05 code = MRSA by PCR) PM) [facility] [id number] 03:05:00 Test Item Value Reference Range Interpretation Comments U Amph Scr (test code Negative *NA*(12/01/18 = U Amph Scr) 10:05 PM) [facility] [id number] 03:05:00 Test Item Value Reference Range Interpretation Comments U Bethanie Scr (test code Negative *NA*(12/01/18 = U Bethanie Scr) 10:05 PM) [facility] [id number] 03:05:00 Test Item Value Reference Range Interpretation Comments U Benzodiaz Scr (test Negative *NA*(12/01/18 code = U Benzodiaz Scr) 10:05 PM) [facility] [id number] 03:05:00 Test Item Value Reference Range Interpretation Comments U Cocaine Scr (test Negative *NA*(12/01/18 code = U Cocaine Scr) 10:05 PM) [facility] [id number] 03:05:00 Test Item Value Reference Range Interpretation Comments U Cannab Scr (test Positive *ABN*(12/01/18 code = U Cannab Scr) 10:05 PM) [facility] [id number] 03:05:00 Test Item Value Reference Range Interpretation Comments U Opiate Scr (test Positive *ABN*(12/01/18 code = U Opiate Scr) 10:05 PM) [facility] [id number] 03:05:00 Test Item Value Reference Range Interpretation Comments U Phencyclidine Scr (test Negative *NA*(12/01/18 code = U Phencyclidine 10:05 PM) Scr) [facility] [id number] 03:05:00 Test Item Value Reference Range Interpretation Comments UDS Note (test code = See Note (12/01/18 10:05 UDS Note) PM) [facility] [id number] 03:05:00 Test Item Value Reference Range Interpretation Comments UA Color (test code = Yellow *NA*(12/01/18 UA Color) 10:05 PM) [facility] [id number] 03:05:00 Test Item Value Reference Range Interpretation Comments UA Turbidity (test code = Clear (12/01/18 10:05 UA Turbidity) PM) [facility] [id number] 03:05:00 Test Item Value Reference Range Interpretation Comments UA Spec Grav (test code = UA Spec 1.036 1 Grav) [facility] [id number] 03:05:00 Test Item Value Reference Range Interpretation Comments UA pH (test code = UA pH) 5.0 1 5.0-8.0 [facility] [id number] 03:05:00 Test Item Value Reference Range Interpretation Comments UA Protein (test code = UA Negative mg/dL Protein) [facility] [id number] 03:05:00 Test Item Value Reference Range Interpretation Comments UA Glucose (test code = UA Negative mg/dL Glucose) [facility] [id number] 03:05:00 Test Item Value Reference Range Interpretation Comments UA Ketones (test code = UA Negative mg/dL Ketones) [facility] [id number] 03:05:00 Test Item Value Reference Range Interpretation Comments UA Bili (test code = Negative *NA*(12/01/18 UA Bili) 10:05 PM) [facility] [id number] 03:05:00 Test Item Value Reference Range Interpretation Comments UA Blood (test code = Small *ABN*(12/01/18 UA Blood) 10:05 PM) [facility] [id number] 03:05:00 Test Item Value Reference Range Interpretation Comments UA Urobilinogen (test code = UA no gt 0.1-1.0 Urobilinogen) [facility] [id number] 03:05:00 Test Item Value Reference Range Interpretation Comments UA Nitrite (test code Negative (12/01/18 10:05 = UA Nitrite) PM) [facility] [id number] 03:05:00 Test Item Value Reference Range Interpretation Comments UA Leuk Est (test Negative (12/01/18 10:05 code = UA Leuk Est) PM) [facility] [id number] 03:05:00 Test Item Value Reference Range Interpretation Comments UA Sq Epi (test code = UA Sq Occasional /LPF Epi) [facility] [id number] 03:05:00 Test Item Value Reference Range Interpretation Comments UA WBC (test code = 1 See_Comment [Automa keon message] The UA WBC) system which ge nerated this result transmit keon reference range : <=5. The reference range was not used to interpr et this result as evan l/abnormal. [facility] AND [id number] 03:05:00 Test Item Value Reference Range Interpretation Comments UA RBC (test code = 2 See_Comment [Automa keon message] The UA RBC) system which ge nerated this result transmit keon reference range : <=2. The reference range was not used to interpr et this result as evan l/abnormal. [facility] [id number] 03:05:00 Test Item Value Reference Range Interpretation Comments UA Mucus (test code = UA Mucus) Few /LPF [facility]BA[facility] - [id number] 03:05:00 Test Item Value Reference Range Interpretation Comments MRSA by PCR (test Negative (12/01/18 10:05 code = MRSA by PCR) PM) [facility] [id number] 03:05:00 Test Item Value Reference Range Interpretation Comments U Amph Scr (test code Negative *NA*(12/01/18 = U Amph Scr) 10:05 PM) [facility] [id number] 03:05:00 Test Item Value Reference Range Interpretation Comments U Bethanie Scr (test code Negative *NA*(12/01/18 = U Bethanie Scr) 10:05 PM) [facility] [id number] 03:05:00 Test Item Value Reference Range Interpretation Comments U Benzodiaz Scr (test Negative *NA*(12/01/18 code = U Benzodiaz Scr) 10:05 PM) [facility] [id number] 03:05:00 Test Item Value Reference Range Interpretation Comments U Cocaine Scr (test Negative *NA*(12/01/18 code = U Cocaine Scr) 10:05 PM) [facility] [id number] 03:05:00 Test Item Value Reference Range Interpretation Comments U Cannab Scr (test Positive *ABN*(12/01/18 code = U Cannab Scr) 10:05 PM) [facility] [id number] 03:05:00 Test Item Value Reference Range Interpretation Comments U Opiate Scr (test Positive *ABN*(12/01/18 code = U Opiate Scr) 10:05 PM) [facility] [id number] 03:05:00 Test Item Value Reference Range Interpretation Comments U Phencyclidine Scr (test Negative *NA*(12/01/18 code = U Phencyclidine 10:05 PM) Scr) [facility] [id number] 03:05:00 Test Item Value Reference Range Interpretation Comments UDS Note (test code = See Note (12/01/18 10:05 UDS Note) PM) [facility] [id number] 03:05:00 Test Item Value Reference Range Interpretation Comments UA Color (test code = Yellow *NA*(12/01/18 UA Color) 10:05 PM) [facility] [id number] 03:05:00 Test Item Value Reference Range Interpretation Comments UA Turbidity (test code = Clear (12/01/18 10:05 UA Turbidity) PM) [facility] [id number] 03:05:00 Test Item Value Reference Range Interpretation Comments UA Spec Grav (test code = UA Spec 1.036 1 Grav) [facility] [id number] 03:05:00 Test Item Value Reference Range Interpretation Comments UA pH (test code = UA pH) 5.0 1 5.0-8.0 [facility] [id number] 03:05:00 Test Item Value Reference Range Interpretation Comments UA Protein (test code = UA Negative mg/dL Protein) [facility] [id number] 03:05:00 Test Item Value Reference Range Interpretation Comments UA Glucose (test code = UA Negative mg/dL Glucose) [facility] AND [id number] 03:05:00 Test Item Value Reference Range Interpretation Comments UA Ketones (test code = UA Negative mg/dL Ketones) [facility] AND [id number] 03:05:00 Test Item Value Reference Range Interpretation Comments UA Bili (test code = Negative *NA*(12/01/18 UA Bili) 10:05 PM) [facility] AND [id number] 03:05:00 Test Item Value Reference Range Interpretation Comments UA Blood (test code = Small *ABN*(12/01/18 UA Blood) 10:05 PM) [facility] AND [id number] 03:05:00 Test Item Value Reference Range Interpretation Comments UA Urobilinogen (test code = UA no gt 0.1-1.0 Urobilinogen) [facility] AND [id number] 03:05:00 Test Item Value Reference Range Interpretation Comments UA Nitrite (test code Negative (12/01/18 10:05 = UA Nitrite) PM) [facility] AND [id number] 03:05:00 Test Item Value Reference Range Interpretation Comments UA Leuk Est (test Negative (12/01/18 10:05 code = UA Leuk Est) PM) [facility] AND [id number] 03:05:00 Test Item Value Reference Range Interpretation Comments UA Sq Epi (test code = UA Sq Occasional /LPF Epi) [facility] AND [id number] 03:05:00 Test Item Value Reference Range Interpretation Comments UA WBC (test code = 1 See_Comment [Automa keon message] The UA WBC) system which ge nerated this result transmit keon reference range : <=5. The reference range was not used to interpr et this result as evan l/abnormal. [facility] AND [id number] 03:05:00 Test Item Value Reference Range Interpretation Comments UA RBC (test code = 2 See_Comment [Automa keon message] The UA RBC) system which ge nerated this result transmit keon reference range : <=2. The reference range was not used to interpr et this result as evan l/abnormal. [facility] AND [id number] 03:05:00 Test Item Value Reference Range Interpretation Comments UA Mucus (test code = UA Mucus) Few /LPF [facility] CampusceceliaCARAC [id number] 21:40:00 Test Item Value Reference Range Interpretation Comments Troponin-I (test code no gt See_Comment [Auto mated message] The = Troponin-I) system which g enerated this result transmit keon reference range : <=0.40. The reference r gayle was not used to interpr et this result as evan l/abnormal. [facility]cel[facility] [id number] 21:40:00 Test Item Value Reference Range Interpretation Comments Troponin-I (test code no gt See_Comment [Auto mated message] The = Troponin-I) system which g enerated this result transmit keon reference range : <=0.40. The reference r gayle was not used to interpr et this result as evan l/abnormal. [facility]cecelia[facility] [id number] 21:40:00 Test Item Value Reference Range Interpretation Comments Troponin-I (test code no gt See_Comment [Auto mated message] The = Troponin-I) system which g enerated this result transmit keon reference range : <=0.40. The reference r gayle was not used to interpr et this result as evan l/abnormal. [facility]celia[facility] [id number] 21:40:00 Test Item Value Reference Range Interpretation Comments Troponin-I (test code no gt See_Comment [Auto mated message] The = Troponin-I) system which g enerated this result transmit keon reference range : <=0.40. The reference r gayle was not used to interpr et this result as evan l/abnormal. [facility]celia[facility] [id number] 21:40:00 Test Item Value Reference Range Interpretation Comments Troponin-I (test code no gt See_Comment [Auto mated message] The = Troponin-I) system which g enerated this result transmit keon reference range : <=0.40. The reference r gayle was not used to interpr et this result as evan l/abnormal. [facility] [id number] 21:40:00 Test Item Value Reference Range Interpretation Comments Troponin-I (test code no gt See_Comment [Auto mated message] The = Troponin-I) system which g enerated this result transmit keon reference range : <=0.40. The reference r gayle was not used to interpr et this result as evan l/abnormal. [facility] [employer]2019-08-09 21:40:00 Test Item Value Reference Range Interpretation Comments Troponin-I (test code no gt See_Comment [Auto mated message] The = Troponin-I) system which g enerated this result transmit keon reference range : <=0.40. The reference r gayle was not used to interpr et this result as evan l/abnormal. [facility] [employer]2019-08-09 21:18:00 Test Item Value Reference Range Interpretation Comments CK MB (test code = CK MB) 0.7 0.5-3.6 [facility] [employer]2019-08-09 21:18:00 Test Item Value Reference Range Interpretation Comments CK MB Index (test 0.3 1 See_Comment [Automate d message] The code = CK MB Index) system w [facility] generated this result transmit keon reference range : <=2.5. The reference range was not used to interpr et this result as evan l/abnormal. [facility] [employer]2019-08-09 21:18:00 Test Item Value Reference Range Interpretation Comments Total CK (test code = Total CK) 211 12-191 [facility] [employer]2019-08-09 21:18:00 Test Item Value Reference Range Interpretation Comments Troponin-I (test code no gt See_Comment [Auto mated message] The = Troponin-I) system which g enerated this result transmit keon reference range : <=0.40. The reference r gayle was not used to interpr et this result as evan l/abnormal. [employer]2019-08-09 21:18:00 Test Item Value Reference Range Interpretation Comments Lactic Acid Lvl (test code = Lactic 2.1 0.5-2.2 Acid Lvl) [facility] [employer]2019-08-09 21:18:00 Test Item Value Reference Range Interpretation Comments Lipase Lvl (test code = Lipase Lvl) 43 73-393 [facility] [employer]2019-08-09 21:18:00 Test Item Value Reference Range Interpretation Comments Total Protein (test code = Total 7.9 6.4-8.4 Protein) [facility]2019-08-09 21:18:00 Test Item Value Reference Range Interpretation Comments Albumin Lvl (test code = Albumin Lvl) 3.7 3.5-5.0 [place] [id number] 21:18:00 Test Item Value Reference Range Interpretation Comments Globulin (test code = Globulin) 4.2 2.7-4.2 [facility]2019-08-09 21:18:00 Test Item Value Reference Range Interpretation Comments A/G Ratio (test code = A/G Ratio) 0.9 1 0.7-1.6 [facility]2019-08-09 21:18:00 Test Item Value Reference Range Interpretation Comments ALT (test code = ALT) 20 See_Comment [Auto mated message] The system which ge nerated this result transmit keon reference range : <=65. The reference range was not used to interpr et this result as evan l/abnormal. [facility]2019-08-09 21:18:00 Test Item Value Reference Range Interpretation Comments AST (test code = AST) 20 See_Comment [Auto mated message] The system which ge nerated this result transmit keon reference range : <=37. The reference range was not used to interpr et this result as evan l/abnormal. [facility]2019-08-09 21:18:00 Test Item Value Reference Range Interpretation Comments Alk Phos (test code = Alk Phos) 84 39-136 [facility]2019-08-09 21:18:00 Test Item Value Reference Range Interpretation Comments Bili Total (test code = Bili Total) 0.6 0.2-1.3 [facility]2019-08-09 21:18:00 Test Item Value Reference Range Interpretation Comments Bili Direct (test code 0.1 See_Comment [Aut omated message] The = Bili Direct) system which generated this result tra nsmitted reference range : <=0.3. The reference r gayle was not used to int erpret this result as evan l/abnormal. [facility]2019-08-09 21:18:00 Test Item Value Reference Range Interpretation Comments Bili Indirect (test 0.5 See_Comment [Automa keon message] The code = Bili Indirect) system which generated this result tra nsmitted reference range : <=1.0. The reference r gayle was not used to int erpret this result as normal/abnormal . [facility] [id number] 21:18:00 Test Item Value Reference Range Interpretation Comments Trig (test code = Trig) 116 [facility] [id number] 21:18:00 Test Item Value Reference Range Interpretation Comments Chol (test code = Chol) 187 [id number] 21:18:00 Test Item Value Reference Range Interpretation Comments HDL (test code = HDL) 30 [facility] CenterMbaqosbGRFNSI1531-37-39 21:18:00 Test Item Value Reference Range Interpretation Comments LDL (Calculated) (test code = LDL 134 (Calculated)) [facility] CampusEfvcwxtBXXJYE8104-58-66 21:18:00 Test Item Value Reference Range Interpretation Comments VLDL (test code = VLDL) 23 1 [facility] CampusZjkfmxpAQRBZA4615-64-15 21:18:00 Test Item Value Reference Range Interpretation Comments CHD Risk (test code = CHD Risk) 6.23 1 4.00-7.30 [facility] Cen[id number] 21:18:00 Test Item Value Reference Range Interpretation Comments Myoglobin (test code = Myoglobin) 58 25-72 [facility] CampusannPARATHYROID [id number] 21:18:00 Test Item Value Reference Range Interpretation Comments Ca Ion WB (test code = Ca Ion WB) 0.97 1.05-1.25 [facility] CampusannPARATHYROID [id number] 21:18:00 Test Item Value Reference Range Interpretation Comments Ca Norm WB (test code = Ca Norm WB) 1.05 1.05-1.25 [facility]SPE[facility] [id number] 21:18:00 Test Item Value Reference Range Interpretation Comments Hgb A1C (test code = Hgb A1C) 5.5 [facility] CampusannCARDIAC [id number] 21:18:00 Test Item Value Reference Range Interpretation Comments CK MB (test code = CK MB) 0.7 0.5-3.6 [facility] CampusannCARDIAC [id number] 21:18:00 Test Item Value Reference Range Interpretation Comments CK MB Index (test 0.3 1 See_Comment [Automate d message] The code = CK MB Index) system w [facility] generated this result transmit keon reference range : <=2.5. The reference range was not used to interpr et this result as evan l/abnormal. [facility] CampusSovi [id number] 21:18:00 Test Item Value Reference Range Interpretation Comments Total CK (test code = Total CK) 211 12-191 [facility] CenterFunction[facility] Neuromodulation [id number] 21:18:00 Test Item Value Reference Range Interpretation Comments Troponin-I (test code no gt See_Comment [Auto mated message] The = Troponin-I) system which g enerated this result transmit keon reference range : <=0.40. The reference r gayle was not used to interpr et this result as evan l/abnormal. [facility] [employer]2019-08-09 21:18:00 Test Item Value Reference Range Interpretation Comments Lactic Acid Lvl (test code = Lactic 2.1 0.5-2.2 Acid Lvl) [facility] CampusMoney Forward [id number] 21:18:00 Test Item Value Reference Range Interpretation Comments Lipase Lvl (test code = Lipase Lvl) 43 73-393 [facility] [employer] [id number] 21:18:00 Test Item Value Reference Range Interpretation Comments Total Protein (test code = Total 7.9 6.4-8.4 Protein) [facility] CampusMoney Forward [id number] 21:18:00 Test Item Value Reference Range Interpretation Comments Albumin Lvl (test code = Albumin Lvl) 3.7 3.5-5.0 [facility] [employer] [id number] 21:18:00 Test Item Value Reference Range Interpretation Comments Globulin (test code = Globulin) 4.2 2.7-4.2 [facility] CampusMoney Forward [id number] 21:18:00 Test Item Value Reference Range Interpretation Comments A/G Ratio (test code = A/G Ratio) 0.9 1 0.7-1.6 [facility] CampusMoney Forward [id number] 21:18:00 Test Item Value Reference Range Interpretation Comments ALT (test code = ALT) 20 See_Comment [Auto mated message] The system which ge nerated this result transmit keon reference range : <=65. The reference range was not used to interpr et this result as evan l/abnormal. [facility]2019-08-09 21:18:00 Test Item Value Reference Range Interpretation Comments AST (test code = AST) 20 See_Comment [Auto mated message] The system which ge nerated this result transmit keon reference range : <=37. The reference range was not used to interpr et this result as evan l/abnormal. [facility]2019-08-09 21:18:00 Test Item Value Reference Range Interpretation Comments Alk Phos (test code = Alk Phos) 84 39-136 [facility]2019-08-09 21:18:00 Test Item Value Reference Range Interpretation Comments Bili Total (test code = Bili Total) 0.6 0.2-1.3 [facility]2019-08-09 21:18:00 Test Item Value Reference Range Interpretation Comments Bili Direct (test code 0.1 See_Comment [Aut omated message] The = Bili Direct) system which generated this result tra nsmitted reference range : <=0.3. The reference r gayle was not used to int erpret this result as evan l/abnormal. [facility]2019-08-09 21:18:00 Test Item Value Reference Range Interpretation Comments Bili Indirect (test 0.5 See_Comment [Automa keon message] The code = Bili Indirect) system which generated this result tra nsmitted reference range : <=1.0. The reference r gayle was not used to int erpret this result as normal/abnormal . [id number] 21:18:00 Test Item Value Reference Range Interpretation Comments Trig (test code = Trig) 116 [facility] CenterNynyycpKVYZVY4363-81-29 21:18:00 Test Item Value Reference Range Interpretation Comments Chol (test code = Chol) 187 [facility] CenterVpmzdlnZRXLVZ8177-27-30 21:18:00 Test Item Value Reference Range Interpretation Comments HDL (test code = HDL) 30 [facility] CenterQiqtxggJNNQTJ9968-29-98 21:18:00 Test Item Value Reference Range Interpretation Comments LDL (Calculated) (test code = LDL 134 (Calculated)) [place] [id number] 21:18:00 Test Item Value Reference Range Interpretation Comments VLDL (test code = VLDL) 23 1 [facility] CenterUhsnkhkSQGDUN3638-76-00 21:18:00 Test Item Value Reference Range Interpretation Comments CHD Risk (test code = CHD Risk) 6.23 1 4.00-7.30 [facility] CenterYkaqbowTIOYVSXTP5895-53-46 21:18:00 Test Item Value Reference Range Interpretation Comments Myoglobin (test code = Myoglobin) 58 25-72 [facility] CampusannPARATHYROID [id number] 21:18:00 Test Item Value Reference Range Interpretation Comments Ca Ion WB (test code = Ca Ion WB) 0.97 1.05-1.25 [facility] CampusannPARATHYROID [id number] 21:18:00 Test Item Value Reference Range Interpretation Comments Ca Norm WB (test code = Ca Norm WB) 1.05 1.05-1.25 [facility] CenterSPECIAL [id number] 21:18:00 Test Item Value Reference Range Interpretation Comments Hgb A1C (test code = Hgb A1C) 5.5 [facility] CampusannCARDIAC [id number] 21:18:00 Test Item Value Reference Range Interpretation Comments CK MB (test code = CK MB) 0.7 0.5-3.6 [facility] CampusannCARDIAC [id number] 21:18:00 Test Item Value Reference Range Interpretation Comments CK MB Index (test 0.3 1 See_Comment [Automate d message] The code = CK MB Index) system w [facility] generated this result transmit keon reference range : <=2.5. The reference range was not used to interpr et this result as evan l/abnormal. [facility] CampusannCARDIAC [id number] 21:18:00 Test Item Value Reference Range Interpretation Comments Total CK (test code = Total CK) 211 12-191 [facility] CenterCARDIAC [id number] 21:18:00 Test Item Value Reference Range Interpretation Comments Troponin-I (test code no gt See_Comment [Auto mated message] The = Troponin-I) system which g enerated this result transmit keon reference range : <=0.40. The reference r gayle was not used to interpr et this result as evan l/abnormal. [facility] CampusDigilabCHEM [id number] 21:18:00 Test Item Value Reference Range Interpretation Comments Lactic Acid Lvl (test code = Lactic 2.1 0.5-2.2 Acid Lvl) [facility]2019-08-09 21:18:00 Test Item Value Reference Range Interpretation Comments Lipase Lvl (test code = Lipase Lvl) 43 73-393 [facility]2019-08-09 21:18:00 Test Item Value Reference Range Interpretation Comments Total Protein (test code = Total 7.9 6.4-8.4 Protein) [facility]2019-08-09 21:18:00 Test Item Value Reference Range Interpretation Comments Albumin Lvl (test code = Albumin Lvl) 3.7 3.5-5.0 [facility]2019-08-09 21:18:00 Test Item Value Reference Range Interpretation Comments Globulin (test code = Globulin) 4.2 2.7-4.2 [facility]2019-08-09 21:18:00 Test Item Value Reference Range Interpretation Comments A/G Ratio (test code = A/G Ratio) 0.9 1 0.7-1.6 [facility]2019-08-09 21:18:00 Test Item Value Reference Range Interpretation Comments ALT (test code = ALT) 20 See_Comment [Auto mated message] The system which ge nerated this result transmit keon reference range : <=65. The reference range was not used to interpr et this result as evan l/abnormal. [facility]2019-08-09 21:18:00 Test Item Value Reference Range Interpretation Comments AST (test code = AST) 20 See_Comment [Auto mated message] The system which ge nerated this result transmit keon reference range : <=37. The reference range was not used to interpr et this result as evan l/abnormal. [facility]2019-08-09 21:18:00 Test Item Value Reference Range Interpretation Comments Alk Phos (test code = Alk Phos) 84 39-136 [facility]2019-08-09 21:18:00 Test Item Value Reference Range Interpretation Comments Bili Total (test code = Bili Total) 0.6 0.2-1.3 [place] [id number] 21:18:00 Test Item Value Reference Range Interpretation Comments Bili Direct (test code 0.1 See_Comment [Aut omated message] The = Bili Direct) system which generated this result tra nsmitted reference range : <=0.3. The reference r gayle was not used to int erpret this result as evan l/abnormal. [facility] CenterCHE[facility] [id number] 21:18:00 Test Item Value Reference Range Interpretation Comments Bili Indirect (test 0.5 See_Comment [Automa keon message] The code = Bili Indirect) system which generated this result tra nsmitted reference range : <=1.0. The reference r gayle was not used to int erpret this result as normal/abnormal . [facility] [id number] 21:18:00 Test Item Value Reference Range Interpretation Comments Trig (test code = Trig) 116 [facility] [id number] 21:18:00 Test Item Value Reference Range Interpretation Comments Chol (test code = Chol) 187 [facility] CampusQhzfyccNPKWMH9696-53-18 21:18:00 Test Item Value Reference Range Interpretation Comments HDL (test code = HDL) 30 [facility] [id number] 21:18:00 Test Item Value Reference Range Interpretation Comments LDL (Calculated) (test code = LDL 134 (Calculated)) [facility] CampusJdrjdlcPEJXDP9058-62-38 21:18:00 Test Item Value Reference Range Interpretation Comments VLDL (test code = VLDL) 23 1 [facility] [id number] 21:18:00 Test Item Value Reference Range Interpretation Comments CHD Risk (test code = CHD Risk) 6.23 1 4.00-7.30 [facility] CenterFtgmqpqATBCXNULH0569-90-14 21:18:00 Test Item Value Reference Range Interpretation Comments Myoglobin (test code = Myoglobin) 58 25-72 [facility] CampusannPARATHYROID [id number] 21:18:00 Test Item Value Reference Range Interpretation Comments Ca Ion WB (test code = Ca Ion WB) 0.97 1.05-1.25 [facility] CampusannPARATHYROID [id number] 21:18:00 Test Item Value Reference Range Interpretation Comments Ca Norm WB (test code = Ca Norm WB) 1.05 1.05-1.25 [facility]SPE[facility] [id number] 21:18:00 Test Item Value Reference Range Interpretation Comments Hgb A1C (test code = Hgb A1C) 5.5 [facility] CenterCARDIAC [id number] 21:18:00 Test Item Value Reference Range Interpretation Comments CK MB (test code = CK MB) 0.7 0.5-3.6 [facility] CampusHealthcare ITAC [id number] 21:18:00 Test Item Value Reference Range Interpretation Comments CK MB Index (test 0.3 1 See_Comment [Automate d message] The code = CK MB Index) system w [facility] generated this result transmit keon reference range : <=2.5. The reference range was not used to interpr et this result as evan l/abnormal. [facility] [employer] [id number] 21:18:00 Test Item Value Reference Range Interpretation Comments Total CK (test code = Total CK) 211 12-191 [facility] CampusSovi [id number] 21:18:00 Test Item Value Reference Range Interpretation Comments Troponin-I (test code no gt See_Comment [Auto mated message] The = Troponin-I) system which g enerated this result transmit keon reference range : <=0.40. The reference r gayle was not used to interpr et this result as evan l/abnormal. [facility] [employer] [id number] 21:18:00 Test Item Value Reference Range Interpretation Comments Lactic Acid Lvl (test code = Lactic 2.1 0.5-2.2 Acid Lvl) [facility] [employer] [id number] 21:18:00 Test Item Value Reference Range Interpretation Comments Lipase Lvl (test code = Lipase Lvl) 43 73-393 [facility] [employer] [id number] 21:18:00 Test Item Value Reference Range Interpretation Comments Total Protein (test code = Total 7.9 6.4-8.4 Protein) [facility] [employer] [id number] 21:18:00 Test Item Value Reference Range Interpretation Comments Albumin Lvl (test code = Albumin Lvl) 3.7 3.5-5.0 [facility] [employer] [id number] 21:18:00 Test Item Value Reference Range Interpretation Comments Globulin (test code = Globulin) 4.2 2.7-4.2 [facility] [employer] [id number] 21:18:00 Test Item Value Reference Range Interpretation Comments A/G Ratio (test code = A/G Ratio) 0.9 1 0.7-1.6 [facility]2019-08-09 21:18:00 Test Item Value Reference Range Interpretation Comments ALT (test code = ALT) 20 See_Comment [Auto mated message] The system which ge nerated this result transmit keon reference range : <=65. The reference range was not used to interpr et this result as evan l/abnormal. [facility]2019-08-09 21:18:00 Test Item Value Reference Range Interpretation Comments AST (test code = AST) 20 See_Comment [Auto mated message] The system which ge nerated this result transmit keon reference range : <=37. The reference range was not used to interpr et this result as evan l/abnormal. [facility]2019-08-09 21:18:00 Test Item Value Reference Range Interpretation Comments Alk Phos (test code = Alk Phos) 84 39-136 [facility]2019-08-09 21:18:00 Test Item Value Reference Range Interpretation Comments Bili Total (test code = Bili Total) 0.6 0.2-1.3 [place] [id number] 21:18:00 Test Item Value Reference Range Interpretation Comments Bili Direct (test code 0.1 See_Comment [Aut omated message] The = Bili Direct) system which generated this result tra nsmitted reference range : <=0.3. The reference r gayle was not used to int erpret this result as evan l/abnormal. [facility]2019-08-09 21:18:00 Test Item Value Reference Range Interpretation Comments Bili Indirect (test 0.5 See_Comment [Automa keon message] The code = Bili Indirect) system which generated this result tra nsmitted reference range : <=1.0. The reference r gayle was not used to int erpret this result as normal/abnormal . [facility] [id number] 21:18:00 Test Item Value Reference Range Interpretation Comments Trig (test code = Trig) 116 [place] [id number] 21:18:00 Test Item Value Reference Range Interpretation Comments Chol (test code = Chol) 187 [place] [id number] 21:18:00 Test Item Value Reference Range Interpretation Comments HDL (test code = HDL) 30 [facility] [id number] 21:18:00 Test Item Value Reference Range Interpretation Comments LDL (Calculated) (test code = LDL 134 (Calculated)) [facility] CampusIqckxnzRVNVCN2963-23-78 21:18:00 Test Item Value Reference Range Interpretation Comments VLDL (test code = VLDL) 23 1 [facility] [id number] 21:18:00 Test Item Value Reference Range Interpretation Comments CHD Risk (test code = CHD Risk) 6.23 1 4.00-7.30 [facility] CampusLrwolunNVKVXISQX1916-24-63 21:18:00 Test Item Value Reference Range Interpretation Comments Myoglobin (test code = Myoglobin) 58 25-72 [facility] CampusannPARATHYROID [id number] 21:18:00 Test Item Value Reference Range Interpretation Comments Ca Ion WB (test code = Ca Ion WB) 0.97 1.05-1.25 [facility] CampusannPARATHYROID [id number] 21:18:00 Test Item Value Reference Range Interpretation Comments Ca Norm WB (test code = Ca Norm WB) 1.05 1.05-1.25 [facility]SPE[facility] [id number] 21:18:00 Test Item Value Reference Range Interpretation Comments Hgb A1C (test code = Hgb A1C) 5.5 [facility] CampusannCARDIAC [id number] 21:18:00 Test Item Value Reference Range Interpretation Comments CK MB (test code = CK MB) 0.7 0.5-3.6 [facility] CenterCARD[facility]AC [id number] 21:18:00 Test Item Value Reference Range Interpretation Comments CK MB Index (test 0.3 1 See_Comment [Automate d message] The code = CK MB Index) system w [facility] generated this result transmit keon reference range : <=2.5. The reference range was not used to interpr et this result as evan l/abnormal. [facility] CampusannCARDIAC [id number] 21:18:00 Test Item Value Reference Range Interpretation Comments Total CK (test code = Total CK) 211 12-191 [facility] CenterCARD[facility]AC [id number] 21:18:00 Test Item Value Reference Range Interpretation Comments Troponin-I (test code no gt See_Comment [Auto mated message] The = Troponin-I) system which g enerated this result transmit keon reference range : <=0.40. The reference r gayle was not used to interpr et this result as evan l/abnormal. [facility]2019-08-09 21:18:00 Test Item Value Reference Range Interpretation Comments Lactic Acid Lvl (test code = Lactic 2.1 0.5-2.2 Acid Lvl) [facility]2019-08-09 21:18:00 Test Item Value Reference Range Interpretation Comments Lipase Lvl (test code = Lipase Lvl) 43 73-393 [facility]2019-08-09 21:18:00 Test Item Value Reference Range Interpretation Comments Total Protein (test code = Total 7.9 6.4-8.4 Protein) [facility]2019-08-09 21:18:00 Test Item Value Reference Range Interpretation Comments Albumin Lvl (test code = Albumin Lvl) 3.7 3.5-5.0 [facility]2019-08-09 21:18:00 Test Item Value Reference Range Interpretation Comments Globulin (test code = Globulin) 4.2 2.7-4.2 [facility]2019-08-09 21:18:00 Test Item Value Reference Range Interpretation Comments A/G Ratio (test code = A/G Ratio) 0.9 1 0.7-1.6 [facility]2019-08-09 21:18:00 Test Item Value Reference Range Interpretation Comments ALT (test code = ALT) 20 See_Comment [Auto mated message] The system which ge nerated this result transmit keon reference range : <=65. The reference range was not used to interpr et this result as evan l/abnormal. [facility]2019-08-09 21:18:00 Test Item Value Reference Range Interpretation Comments AST (test code = AST) 20 See_Comment [Auto mated message] The system which ge nerated this result transmit keon reference range : <=37. The reference range was not used to interpr et this result as evan l/abnormal. [facility]2019-08-09 21:18:00 Test Item Value Reference Range Interpretation Comments Alk Phos (test code = Alk Phos) 84 39-136 [facility]2019-08-09 21:18:00 Test Item Value Reference Range Interpretation Comments Bili Total (test code = Bili Total) 0.6 0.2-1.3 [facility] [id number] 21:18:00 Test Item Value Reference Range Interpretation Comments Bili Direct (test code 0.1 See_Comment [Aut omated message] The = Bili Direct) system which generated this result tra nsmitted reference range : <=0.3. The reference r gayle was not used to int erpret this result as evan l/abnormal. [facility] [id number] 21:18:00 Test Item Value Reference Range Interpretation Comments Bili Indirect (test 0.5 See_Comment [Automa keon message] The code = Bili Indirect) system which generated this result tra nsmitted reference range : <=1.0. The reference r gayle was not used to int erpret this result as normal/abnormal . [facility] CenterMjtjfotTAVWNL0527-77-16 21:18:00 Test Item Value Reference Range Interpretation Comments Trig (test code = Trig) 116 [facility] [id number] 21:18:00 Test Item Value Reference Range Interpretation Comments Chol (test code = Chol) 187 [facility] CenterYqsscpjRZHPHU9001-59-70 21:18:00 Test Item Value Reference Range Interpretation Comments HDL (test code = HDL) 30 [facility] CenterNvdvcxvQMXYEI8637-87-13 21:18:00 Test Item Value Reference Range Interpretation Comments LDL (Calculated) (test code = LDL 134 (Calculated)) [facility] [id number] 21:18:00 Test Item Value Reference Range Interpretation Comments VLDL (test code = VLDL) 23 1 [facility] [id number] 21:18:00 Test Item Value Reference Range Interpretation Comments CHD Risk (test code = CHD Risk) 6.23 1 4.00-7.30 [facility] Cen[id number] 21:18:00 Test Item Value Reference Range Interpretation Comments Myoglobin (test code = Myoglobin) 58 25-72 [facility] CampusannPARATHYROID [id number] 21:18:00 Test Item Value Reference Range Interpretation Comments Ca Ion WB (test code = Ca Ion WB) 0.97 1.05-1.25 [facility] CampusannPARATHYROID [id number] 21:18:00 Test Item Value Reference Range Interpretation Comments Ca Norm WB (test code = Ca Norm WB) 1.05 1.05-1.25 [facility] [id number] 21:18:00 Test Item Value Reference Range Interpretation Comments Hgb A1C (test code = Hgb A1C) 5.5 [facility] CenterCARAC [id number] 21:18:00 Test Item Value Reference Range Interpretation Comments CK MB (test code = CK MB) 0.7 0.5-3.6 [facility] [id number] 21:18:00 Test Item Value Reference Range Interpretation Comments CK MB Index (test 0.3 1 See_Comment [Automate d message] The code = CK MB Index) system w [facility] generated this result transmit keon reference range : <=2.5. The reference range was not used to interpr et this result as evan l/abnormal. [facility] CentergridCommUOFL [facility] [id number] 21:18:00 Test Item Value Reference Range Interpretation Comments Total CK (test code = Total CK) 211 12-191 [facility] [id number] 21:18:00 Test Item Value Reference Range Interpretation Comments Troponin-I (test code no gt See_Comment [Auto mated message] The = Troponin-I) system which g enerated this result transmit keon reference range : <=0.40. The reference r gayle was not used to interpr et this result as evan l/abnormal. [facility] [employer] [id number] 21:18:00 Test Item Value Reference Range Interpretation Comments Lactic Acid Lvl (test code = Lactic 2.1 0.5-2.2 Acid Lvl) [facility] Campus[facility] [id number] 21:18:00 Test Item Value Reference Range Interpretation Comments Lipase Lvl (test code = Lipase Lvl) 43 73-393 [facility] [id number] 21:18:00 Test Item Value Reference Range Interpretation Comments Total Protein (test code = Total 7.9 6.4-8.4 Protein) [facility] [id number] 21:18:00 Test Item Value Reference Range Interpretation Comments Albumin Lvl (test code = Albumin Lvl) 3.7 3.5-5.0 [place] [id number] 21:18:00 Test Item Value Reference Range Interpretation Comments Globulin (test code = Globulin) 4.2 2.7-4.2 [facility]2019-08-09 21:18:00 Test Item Value Reference Range Interpretation Comments A/G Ratio (test code = A/G Ratio) 0.9 1 0.7-1.6 [place] [id number] 21:18:00 Test Item Value Reference Range Interpretation Comments ALT (test code = ALT) 20 See_Comment [Auto mated message] The system which ge nerated this result transmit keon reference range : <=65. The reference range was not used to interpr et this result as evan l/abnormal. [facility]2019-08-09 21:18:00 Test Item Value Reference Range Interpretation Comments AST (test code = AST) 20 See_Comment [Auto mated message] The system which ge nerated this result transmit keon reference range : <=37. The reference range was not used to interpr et this result as evan l/abnormal. [facility]2019-08-09 21:18:00 Test Item Value Reference Range Interpretation Comments Alk Phos (test code = Alk Phos) 84 39-136 [facility]2019-08-09 21:18:00 Test Item Value Reference Range Interpretation Comments Bili Total (test code = Bili Total) 0.6 0.2-1.3 [facility]2019-08-09 21:18:00 Test Item Value Reference Range Interpretation Comments Bili Direct (test code 0.1 See_Comment [Aut omated message] The = Bili Direct) system which generated this result tra nsmitted reference range : <=0.3. The reference r gayle was not used to int erpret this result as evan l/abnormal. [facility]2019-08-09 21:18:00 Test Item Value Reference Range Interpretation Comments Bili Indirect (test 0.5 See_Comment [Automa keon message] The code = Bili Indirect) system which generated this result tra nsmitted reference range : <=1.0. The reference r gayle was not used to int erpret this result as normal/abnormal . [facility] [id number] 21:18:00 Test Item Value Reference Range Interpretation Comments Trig (test code = Trig) 116 [facility] [id number] 21:18:00 Test Item Value Reference Range Interpretation Comments Chol (test code = Chol) 187 [facility] [id number] 21:18:00 Test Item Value Reference Range Interpretation Comments HDL (test code = HDL) 30 [facility] CampusPrpzboeUZGTEF6519-24-36 21:18:00 Test Item Value Reference Range Interpretation Comments LDL (Calculated) (test code = LDL 134 (Calculated)) [facility] [id number] 21:18:00 Test Item Value Reference Range Interpretation Comments VLDL (test code = VLDL) 23 1 [facility] [id number] 21:18:00 Test Item Value Reference Range Interpretation Comments CHD Risk (test code = CHD Risk) 6.23 1 4.00-7.30 [facility] CenterZcjkyrxHLJBSIDXK0454-53-23 21:18:00 Test Item Value Reference Range Interpretation Comments Myoglobin (test code = Myoglobin) 58 25-72 [facility] CampusannPARATHYROID [id number] 21:18:00 Test Item Value Reference Range Interpretation Comments Ca Ion WB (test code = Ca Ion WB) 0.97 1.05-1.25 [facility] CampusannPARATHYROID [id number] 21:18:00 Test Item Value Reference Range Interpretation Comments Ca Norm WB (test code = Ca Norm WB) 1.05 1.05-1.25 [facility] CenterSPECIAL [id number] 21:18:00 Test Item Value Reference Range Interpretation Comments Hgb A1C (test code = Hgb A1C) 5.5 [facility] CampusannCARDIAC [id number] 21:18:00 Test Item Value Reference Range Interpretation Comments CK MB (test code = CK MB) 0.7 0.5-3.6 [facility] CampusannCARDIAC [id number] 21:18:00 Test Item Value Reference Range Interpretation Comments CK MB Index (test 0.3 1 See_Comment [Automate d message] The code = CK MB Index) system w [facility] generated this result transmit keon reference range : <=2.5. The reference range was not used to interpr et this result as evan l/abnormal. [facility] CampusannCARDIAC [id number] 21:18:00 Test Item Value Reference Range Interpretation Comments Total CK (test code = Total CK) 211 12-191 [facility] CampusHealth[facility] IT [id number] 21:18:00 Test Item Value Reference Range Interpretation Comments Troponin-I (test code no gt See_Comment [Auto mated message] The = Troponin-I) system which g enerated this result transmit keon reference range : <=0.40. The reference r gayle was not used to interpr et this result as evan l/abnormal. [facility] [employer] [id number] 21:18:00 Test Item Value Reference Range Interpretation Comments Lactic Acid Lvl (test code = Lactic 2.1 0.5-2.2 Acid Lvl) [facility] Campus[facility] [id number] 21:18:00 Test Item Value Reference Range Interpretation Comments Lipase Lvl (test code = Lipase Lvl) 43 73-393 [facility] [id number] 21:18:00 Test Item Value Reference Range Interpretation Comments Total Protein (test code = Total 7.9 6.4-8.4 Protein) [facility] [employer] [id number] 21:18:00 Test Item Value Reference Range Interpretation Comments Albumin Lvl (test code = Albumin Lvl) 3.7 3.5-5.0 [facility] [employer] [id number] 21:18:00 Test Item Value Reference Range Interpretation Comments Globulin (test code = Globulin) 4.2 2.7-4.2 [facility] [employer] [id number] 21:18:00 Test Item Value Reference Range Interpretation Comments A/G Ratio (test code = A/G Ratio) 0.9 1 0.7-1.6 [facility] [employer] [id number] 21:18:00 Test Item Value Reference Range Interpretation Comments ALT (test code = ALT) 20 See_Comment [Auto mated message] The system which ge nerated this result transmit keon reference range : <=65. The reference range was not used to interpr et this result as evan l/abnormal. [facility] [employer] [id number] 21:18:00 Test Item Value Reference Range Interpretation Comments AST (test code = AST) 20 See_Comment [Auto mated message] The system which ge nerated this result transmit keon reference range : <=37. The reference range was not used to interpr et this result as evan l/abnormal. [facility] Center[facility] [id number] 21:18:00 Test Item Value Reference Range Interpretation Comments Alk Phos (test code = Alk Phos) 84 39-136 [facility]2019-08-09 21:18:00 Test Item Value Reference Range Interpretation Comments Bili Total (test code = Bili Total) 0.6 0.2-1.3 [facility]2019-08-09 21:18:00 Test Item Value Reference Range Interpretation Comments Bili Direct (test code 0.1 See_Comment [Aut omated message] The = Bili Direct) system which generated this result tra nsmitted reference range : <=0.3. The reference r gayle was not used to int erpret this result as evan l/abnormal. [facility]2019-08-09 21:18:00 Test Item Value Reference Range Interpretation Comments Bili Indirect (test 0.5 See_Comment [Automa keon message] The code = Bili Indirect) system which generated this result tra nsmitted reference range : <=1.0. The reference r gayle was not used to int erpret this result as normal/abnormal . [facility] [id number] 21:18:00 Test Item Value Reference Range Interpretation Comments Trig (test code = Trig) 116 [facility] [id number] 21:18:00 Test Item Value Reference Range Interpretation Comments Chol (test code = Chol) 187 [facility] CenterXpovdriECBYVE5040-26-20 21:18:00 Test Item Value Reference Range Interpretation Comments HDL (test code = HDL) 30 [facility] CenterBkgolxbSXNMTO5669-23-98 21:18:00 Test Item Value Reference Range Interpretation Comments LDL (Calculated) (test code = LDL 134 (Calculated)) [facility] [id number] 21:18:00 Test Item Value Reference Range Interpretation Comments VLDL (test code = VLDL) 23 1 [facility] [id number] 21:18:00 Test Item Value Reference Range Interpretation Comments CHD Risk (test code = CHD Risk) 6.23 1 4.00-7.30 [facility] CenterMkciyzrEARKHMXFQ9366-88-64 21:18:00 Test Item Value Reference Range Interpretation Comments Myoglobin (test code = Myoglobin) 58 25-72 [facility] CampusannPARATHYROID [id number] 21:18:00 Test Item Value Reference Range Interpretation Comments Ca Ion WB (test code = Ca Ion WB) 0.97 1.05-1.25 [facility] CampusannPARATHYROID [id number] 21:18:00 Test Item Value Reference Range Interpretation Comments Ca Norm WB (test code = Ca Norm WB) 1.05 1.05-1.25 [facility]IAL [id number] 21:18:00 Test Item Value Reference Range Interpretation Comments Hgb A1C (test code = Hgb A1C) 5.5 [facility] [employer] [id number] 15:51:00 Test Item Value Reference Range Interpretation Comments POC Creatinine (test code = POC 1.3 0.5-1.4 Creatinine) [facility] [employer] [id number] 15:51:00 Test Item Value Reference Range Interpretation Comments POC Creatinine (test code = POC 1.3 0.5-1.4 Creatinine) [facility] [employer] [id number] 15:51:00 Test Item Value Reference Range Interpretation Comments POC Creatinine (test code = POC 1.3 0.5-1.4 Creatinine) Leo [id number] 15:51:00 Test Item Value Reference Range Interpretation Comments POC Creatinine (test code = POC 1.3 0.5-1.4 Creatinine) [facility] [employer] [id number] 15:51:00 Test Item Value Reference Range Interpretation Comments POC Creatinine (test code = POC 1.3 0.5-1.4 Creatinine) [place] [id number] 15:51:00 Test Item Value Reference Range Interpretation Comments POC Creatinine (test code = POC 1.3 0.5-1.4 Creatinine) [place] [id number] 15:51:00 Test Item Value Reference Range Interpretation Comments POC Creatinine (test code = POC 1.3 0.5-1.4 Creatinine) DATY [id number] 15:42:00 Test Item Value Reference Range Interpretation Comments ABO/Rh (test code = ABO/Rh) A POS [facility] [employer] [id number] 15:42:00 Test Item Value Reference Range Interpretation Comments Antibody Scrn (test Negative (12/01/18 10:42 code = Antibody Scrn) AM) [facility] [employer] [id number] 15:42:00 Test Item Value Reference Range Interpretation Comments ABO/Rh (test code = ABO/Rh) A [facility] [employer] [id number] 15:42:00 Test Item Value Reference Range Interpretation Comments Antibody Scrn (test Negative (12/01/18 10:42 code = Antibody Scrn) AM) [facility] [id number] 15:42:00 Test Item Value Reference Range Interpretation Comments ABO/Rh (test code = ABO/Rh) A [facility] [employer] [id number] 15:42:00 Test Item Value Reference Range Interpretation Comments Antibody Scrn (test Negative (12/01/18 10:42 code = Antibody Scrn) AM) [facility] [employer] [id number] 15:42:00 Test Item Value Reference Range Interpretation Comments ABO/Rh (test code = ABO/Rh) A [facility] [employer] [id number] 15:42:00 Test Item Value Reference Range Interpretation Comments Antibody Scrn (test Negative (12/01/18 10:42 code = Antibody Scrn) AM) [facility] [id number] 15:42:00 Test Item Value Reference Range Interpretation Comments ABO/Rh (test code = ABO/Rh) A [facility] [employer] [id number] 15:42:00 Test Item Value Reference Range Interpretation Comments Antibody Scrn (test Negative (12/01/18 10:42 code = Antibody Scrn) AM) [facility] [id number] 15:42:00 Test Item Value Reference Range Interpretation Comments ABO/Rh (test code = ABO/Rh) A [facility] [employer] [id number] 15:42:00 Test Item Value Reference Range Interpretation Comments Antibody Scrn (test Negative (12/01/18 10:42 code = Antibody Scrn) AM) [facility] [employer] [id number] 15:42:00 Test Item Value Reference Range Interpretation Comments ABO/Rh (test code = ABO/Rh) A POS [facility] [id number] 15:42:00 Test Item Value Reference Range Interpretation Comments Antibody Scrn (test Negative (12/01/18 10:42 code = Antibody Scrn) AM) [facility]2019-08-09 15:40:57 Test Item Value Reference Range Interpretation Comments Total Protein (test code = Total 8.3 6.4-8.4 Protein) [facility]2019-08-09 15:40:57 Test Item Value Reference Range Interpretation Comments Albumin Lvl (test code = Albumin Lvl) 4.0 3.5-5.0 [facility]2019-08-09 15:40:57 Test Item Value Reference Range Interpretation Comments ALT (test code = ALT) 20 See_Comment [Auto mated message] The system which ge nerated this result transmit keon reference range : <=65. The reference range was not used to interpr et this result as evan l/abnormal. [facility]2019-08-09 15:40:57 Test Item Value Reference Range Interpretation Comments AST (test code = AST) 31 See_Comment [Auto mated message] The system which ge nerated this result transmit keon reference range : <=37. The reference range was not used to interpr et this result as evan l/abnormal. [facility]2019-08-09 15:40:57 Test Item Value Reference Range Interpretation Comments Alk Phos (test code = Alk Phos) 89 39-136 [facility]2019-08-09 15:40:57 Test Item Value Reference Range Interpretation Comments Bili Total (test code = Bili Total) 0.5 0.2-1.3 [facility]2019-08-09 15:40:57 Test Item Value Reference Range Interpretation Comments Bili Direct (test code 0.1 See_Comment [Aut omated message] The = Bili Direct) system which generated this result tra nsmitted reference range : <=0.3. The reference r gayle was not used to int erpret this result as evan l/abnormal. [facility] [id number] 15:40:57 Test Item Value Reference Range Interpretation Comments Bili Indirect (test 0.4 See_Comment [Automa keon message] The code = Bili Indirect) system which generated this result tra nsmitted reference range : <=1.0. The reference r gayle was not used to int erpret this result as normal/abnormal . [facility]2019-08-09 15:40:57 Test Item Value Reference Range Interpretation Comments Globulin (test code = Globulin) 4.3 2.7-4.2 [facility]2019-08-09 15:40:57 Test Item Value Reference Range Interpretation Comments A/G Ratio (test code = A/G Ratio) 0.9 1 0.7-1.6 [facility]2019-08-09 15:40:57 Test Item Value Reference Range Interpretation Comments Lactic Acid Lvl (test code = Lactic 2.8 0.5-2.2 Acid Lvl) [facility]2019-08-09 15:40:57 Test Item Value Reference Range Interpretation Comments Lipase Lvl (test code = Lipase Lvl) 73 73-393 [facility]OrodnptRGVHWXAZER1588-65-12 15:40:57 Test Item Value Reference Range Interpretation Comments PTT (test code = PTT) 31.7 s 22.9-35.8 [place] [id number] 15:40:57 Test Item Value Reference Range Interpretation Comments PT (test code = PT) 13.7 s 12.0-14.7 [facility] H[id number] 15:40:57 Test Item Value Reference Range Interpretation Comments INR (test code = INR) 1.07 1 0.85-1.17 [facility]2019-08-09 15:40:57 Test Item Value Reference Range Interpretation Comments Total Protein (test code = Total 8.3 6.4-8.4 Protein) [facility]2019-08-09 15:40:57 Test Item Value Reference Range Interpretation Comments Albumin Lvl (test code = Albumin Lvl) 4.0 3.5-5.0 [facility]2019-08-09 15:40:57 Test Item Value Reference Range Interpretation Comments ALT (test code = ALT) 20 See_Comment [Auto mated message] The system which ge nerated this result transmit keon reference range : <=65. The reference range was not used to interpr et this result as evan l/abnormal. [facility]2019-08-09 15:40:57 Test Item Value Reference Range Interpretation Comments AST (test code = AST) 31 See_Comment [Auto mated message] The system which ge nerated this result transmit keon reference range : <=37. The reference range was not used to interpr et this result as evan l/abnormal. [facility]2019-08-09 15:40:57 Test Item Value Reference Range Interpretation Comments Alk Phos (test code = Alk Phos) 89 39-136 [facility]2019-08-09 15:40:57 Test Item Value Reference Range Interpretation Comments Bili Total (test code = Bili Total) 0.5 0.2-1.3 [facility]2019-08-09 15:40:57 Test Item Value Reference Range Interpretation Comments Bili Direct (test code 0.1 See_Comment [Aut omated message] The = Bili Direct) system which generated this result tra nsmitted reference range : <=0.3. The reference r gayle was not used to int erpret this result as evan l/abnormal. [facility]2019-08-09 15:40:57 Test Item Value Reference Range Interpretation Comments Bili Indirect (test 0.4 See_Comment [Automa keon message] The code = Bili Indirect) system which generated this result tra nsmitted reference range : <=1.0. The reference r gayle was not used to int erpret this result as normal/abnormal . [facility]2019-08-09 15:40:57 Test Item Value Reference Range Interpretation Comments Globulin (test code = Globulin) 4.3 2.7-4.2 [facility]2019-08-09 15:40:57 Test Item Value Reference Range Interpretation Comments A/G Ratio (test code = A/G Ratio) 0.9 1 0.7-1.6 [facility]2019-08-09 15:40:57 Test Item Value Reference Range Interpretation Comments Lactic Acid Lvl (test code = Lactic 2.8 0.5-2.2 Acid Lvl) [facility]2019-08-09 15:40:57 Test Item Value Reference Range Interpretation Comments Lipase Lvl (test code = Lipase Lvl) 73 73-393 [facility] HospitalAkuypffEJLWNJXZJR8545-39-04 15:40:57 Test Item Value Reference Range Interpretation Comments PTT (test code = PTT) 31.7 s 22.9-35.8 [facility]772[facility] 15:40:57 Test Item Value Reference Range Interpretation Comments PT (test code = PT) 13.7 s 12.0-14.7 [facility]YvchhwuHGMYLVZVDO0209-98-85 15:40:57 Test Item Value Reference Range Interpretation Comments INR (test code = INR) 1.07 1 0.85-1.17 [facility]2019-08-09 15:40:57 Test Item Value Reference Range Interpretation Comments Total Protein (test code = Total 8.3 6.4-8.4 Protein) [facility]2019-08-09 15:40:57 Test Item Value Reference Range Interpretation Comments Albumin Lvl (test code = Albumin Lvl) 4.0 3.5-5.0 [facility]2019-08-09 15:40:57 Test Item Value Reference Range Interpretation Comments ALT (test code = ALT) 20 See_Comment [Auto mated message] The system which ge nerated this result transmit keon reference range : <=65. The reference range was not used to interpr et this result as evan l/abnormal. [facility]2019-08-09 15:40:57 Test Item Value Reference Range Interpretation Comments AST (test code = AST) 31 See_Comment [Auto mated message] The system which ge nerated this result transmit keon reference range : <=37. The reference range was not used to interpr et this result as evan l/abnormal. [facility]2019-08-09 15:40:57 Test Item Value Reference Range Interpretation Comments Alk Phos (test code = Alk Phos) 89 39-136 [facility]2019-08-09 15:40:57 Test Item Value Reference Range Interpretation Comments Bili Total (test code = Bili Total) 0.5 0.2-1.3 [facility]2019-08-09 15:40:57 Test Item Value Reference Range Interpretation Comments Bili Direct (test code 0.1 See_Comment [Aut omated message] The = Bili Direct) system which generated this result tra nsmitted reference range : <=0.3. The reference r gayle was not used to int erpret this result as evan l/abnormal. [facility]2019-08-09 15:40:57 Test Item Value Reference Range Interpretation Comments Bili Indirect (test 0.4 See_Comment [Automa keon message] The code = Bili Indirect) system which generated this result tra nsmitted reference range : <=1.0. The reference r gayle was not used to int erpret this result as normal/abnormal . [facility]2019-08-09 15:40:57 Test Item Value Reference Range Interpretation Comments Globulin (test code = Globulin) 4.3 2.7-4.2 [facility]2019-08-09 15:40:57 Test Item Value Reference Range Interpretation Comments A/G Ratio (test code = A/G Ratio) 0.9 1 0.7-1.6 [facility]2019-08-09 15:40:57 Test Item Value Reference Range Interpretation Comments Lactic Acid Lvl (test code = Lactic 2.8 0.5-2.2 Acid Lvl) [facility]2019-08-09 15:40:57 Test Item Value Reference Range Interpretation Comments Lipase Lvl (test code = Lipase Lvl) 73 73-393 [facility]UmrxmhbHIMWZBFRBG0640-48-26 15:40:57 Test Item Value Reference Range Interpretation Comments PTT (test code = PTT) 31.7 s 22.9-35.8 [facility]WuwhklfYBGTCQGBQO6424-77-68 15:40:57 Test Item Value Reference Range Interpretation Comments PT (test code = PT) 13.7 s 12.0-14.7 [facility] HospitalBvyfgtuLSKXLEMSII4354-25-65 15:40:57 Test Item Value Reference Range Interpretation Comments INR (test code = INR) 1.07 1 0.85-1.17 [facility]2019-08-09 15:40:57 Test Item Value Reference Range Interpretation Comments Total Protein (test code = Total 8.3 6.4-8.4 Protein) [facility]2019-08-09 15:40:57 Test Item Value Reference Range Interpretation Comments Albumin Lvl (test code = Albumin Lvl) 4.0 3.5-5.0 [facility]2019-08-09 15:40:57 Test Item Value Reference Range Interpretation Comments ALT (test code = ALT) 20 See_Comment [Auto mated message] The system which ge nerated this result transmit keon reference range : <=65. The reference range was not used to interpr et this result as evan l/abnormal. [facility]2019-08-09 15:40:57 Test Item Value Reference Range Interpretation Comments AST (test code = AST) 31 See_Comment [Auto mated message] The system which ge nerated this result transmit keon reference range : <=37. The reference range was not used to interpr et this result as evan l/abnormal. [facility]2019-08-09 15:40:57 Test Item Value Reference Range Interpretation Comments Alk Phos (test code = Alk Phos) 89 39-136 [facility]2019-08-09 15:40:57 Test Item Value Reference Range Interpretation Comments Bili Total (test code = Bili Total) 0.5 0.2-1.3 [facility]2019-08-09 15:40:57 Test Item Value Reference Range Interpretation Comments Bili Direct (test code 0.1 See_Comment [Aut omated message] The = Bili Direct) system which generated this result tra nsmitted reference range : <=0.3. The reference r gayle was not used to int erpret this result as evan l/abnormal. [facility]2019-08-09 15:40:57 Test Item Value Reference Range Interpretation Comments Bili Indirect (test 0.4 See_Comment [Automa keon message] The code = Bili Indirect) system which generated this result tra nsmitted reference range : <=1.0. The reference r gayle was not used to int erpret this result as normal/abnormal . [facility] QFKLF1321-93-62 15:40:57 Test Item Value Reference Range Interpretation Comments Globulin (test code = Globulin) 4.3 2.7-4.2 [facility]2019-08-09 15:40:57 Test Item Value Reference Range Interpretation Comments A/G Ratio (test code = A/G Ratio) 0.9 1 0.7-1.6 [facility]2019-08-09 15:40:57 Test Item Value Reference Range Interpretation Comments Lactic Acid Lvl (test code = Lactic 2.8 0.5-2.2 Acid Lvl) [facility]2019-08-09 15:40:57 Test Item Value Reference Range Interpretation Comments Lipase Lvl (test code = Lipase Lvl) 73 73-393 [facility]NohbofgFMHZCRQZYV0694-04-54 15:40:57 Test Item Value Reference Range Interpretation Comments PTT (test code = PTT) 31.7 s 22.9-35.8 [facility] HospitalMyvfnykCBPQLBUVLT5597-91-59 15:40:57 Test Item Value Reference Range Interpretation Comments PT (test code = PT) 13.7 s 12.0-14.7 [facility] HospitalTclytpgNHUMGMUHMD9283-03-14 15:40:57 Test Item Value Reference Range Interpretation Comments INR (test code = INR) 1.07 1 0.85-1.17 [facility]2019-08-09 15:40:57 Test Item Value Reference Range Interpretation Comments Total Protein (test code = Total 8.3 6.4-8.4 Protein) [facility]2019-08-09 15:40:57 Test Item Value Reference Range Interpretation Comments Albumin Lvl (test code = Albumin Lvl) 4.0 3.5-5.0 [facility]2019-08-09 15:40:57 Test Item Value Reference Range Interpretation Comments ALT (test code = ALT) 20 See_Comment [Auto mated message] The system which ge nerated this result transmit keon reference range : <=65. The reference range was not used to interpr et this result as evan l/abnormal. [facility]2019-08-09 15:40:57 Test Item Value Reference Range Interpretation Comments AST (test code = AST) 31 See_Comment [Auto mated message] The system which ge nerated this result transmit keon reference range : <=37. The reference range was not used to interpr et this result as evna l/abnormal. [facility]2019-08-09 15:40:57 Test Item Value Reference Range Interpretation Comments Alk Phos (test code = Alk Phos) 89 39-136 [facility]2019-08-09 15:40:57 Test Item Value Reference Range Interpretation Comments Bili Total (test code = Bili Total) 0.5 0.2-1.3 [place] 849359-08-09 15:40:57 Test Item Value Reference Range Interpretation Comments Bili Direct (test code 0.1 See_Comment [Aut omated message] The = Bili Direct) system which generated this result tra nsmitted reference range : <=0.3. The reference r gayle was not used to int erpret this result as evan l/abnormal. [facility]2019-08-09 15:40:57 Test Item Value Reference Range Interpretation Comments Bili Indirect (test 0.4 See_Comment [Automa keon message] The code = Bili Indirect) system which generated this result tra nsmitted reference range : <=1.0. The reference r gayle was not used to int erpret this result as normal/abnormal . [facility]2019-08-09 15:40:57 Test Item Value Reference Range Interpretation Comments Globulin (test code = Globulin) 4.3 2.7-4.2 [facility]2019-08-09 15:40:57 Test Item Value Reference Range Interpretation Comments A/G Ratio (test code = A/G Ratio) 0.9 1 0.7-1.6 [facility]2019-08-09 15:40:57 Test Item Value Reference Range Interpretation Comments Lactic Acid Lvl (test code = Lactic 2.8 0.5-2.2 Acid Lvl) [facility]2019-08-09 15:40:57 Test Item Value Reference Range Interpretation Comments Lipase Lvl (test code = Lipase Lvl) 73 73-393 [facility] HospitalQxvscbnLNFGVIXKPS7255-00-01 15:40:57 Test Item Value Reference Range Interpretation Comments PTT (test code = PTT) 31.7 s 22.9-35.8 [facility] HospitalYwgxlyxQTOMSJYIYM6861-29-43 15:40:57 Test Item Value Reference Range Interpretation Comments PT (test code = PT) 13.7 s 12.0-14.7 [facility] HospitalBsefxfsYJGIMDLIFS8308-26-57 15:40:57 Test Item Value Reference Range Interpretation Comments INR (test code = INR) 1.07 1 0.85-1.17 [place] 849359-08-09 15:40:57 Test Item Value Reference Range Interpretation Comments Total Protein (test code = Total 8.3 6.4-8.4 Protein) [facility]2019-08-09 15:40:57 Test Item Value Reference Range Interpretation Comments Albumin Lvl (test code = Albumin Lvl) 4.0 3.5-5.0 [facility]2019-08-09 15:40:57 Test Item Value Reference Range Interpretation Comments ALT (test code = ALT) 20 See_Comment [Auto mated message] The system which ge nerated this result transmit keon reference range : <=65. The reference range was not used to interpr et this result as evan l/abnormal. [place] 849359-08-09 15:40:57 Test Item Value Reference Range Interpretation Comments AST (test code = AST) 31 See_Comment [Auto mated message] The system which ge nerated this result transmit keon reference range : <=37. The reference range was not used to interpr et this result as evan l/abnormal. [facility]2019-08-09 15:40:57 Test Item Value Reference Range Interpretation Comments Alk Phos (test code = Alk Phos) 89 39-136 [facility]2019-08-09 15:40:57 Test Item Value Reference Range Interpretation Comments Bili Total (test code = Bili Total) 0.5 0.2-1.3 [facility]2019-08-09 15:40:57 Test Item Value Reference Range Interpretation Comments Bili Direct (test code 0.1 See_Comment [Aut omated message] The = Bili Direct) system which generated this result tra nsmitted reference range : <=0.3. The reference r gayle was not used to int erpret this result as evan l/abnormal. [facility]2019-08-09 15:40:57 Test Item Value Reference Range Interpretation Comments Bili Indirect (test 0.4 See_Comment [Automa keon message] The code = Bili Indirect) system which generated this result tra nsmitted reference range : <=1.0. The reference r gayle was not used to int erpret this result as normal/abnormal . [facility]2019-08-09 15:40:57 Test Item Value Reference Range Interpretation Comments Globulin (test code = Globulin) 4.3 2.7-4.2 [facility]2019-08-09 15:40:57 Test Item Value Reference Range Interpretation Comments A/G Ratio (test code = A/G Ratio) 0.9 1 0.7-1.6 [facility]2019-08-09 15:40:57 Test Item Value Reference Range Interpretation Comments Lactic Acid Lvl (test code = Lactic 2.8 0.5-2.2 Acid Lvl) [facility]2019-08-09 15:40:57 Test Item Value Reference Range Interpretation Comments Lipase Lvl (test code = Lipase Lvl) 73 73-393 [facility] HospitalWifbwtmSCDDPRCBLB5977-76-61 15:40:57 Test Item Value Reference Range Interpretation Comments PTT (test code = PTT) 31.7 s 22.9-35.8 [facility] HospitalYlqnwnkALFEPUKRLO7453-23-04 15:40:57 Test Item Value Reference Range Interpretation Comments PT (test code = PT) 13.7 s 12.0-14.7 [facility] HospitalSsiimpfRRWYMZFFZF9945-89-43 15:40:57 Test Item Value Reference Range Interpretation Comments INR (test code = INR) 1.07 1 0.85-1.17 [facility]2019-08-09 15:40:57 Test Item Value Reference Range Interpretation Comments Total Protein (test code = Total 8.3 6.4-8.4 Protein) [facility]2019-08-09 15:40:57 Test Item Value Reference Range Interpretation Comments Albumin Lvl (test code = Albumin Lvl) 4.0 3.5-5.0 [facility]2019-08-09 15:40:57 Test Item Value Reference Range Interpretation Comments ALT (test code = ALT) 20 See_Comment [Auto mated message] The system which ge nerated this result transmit keon reference range : <=65. The reference range was not used to interpr et this result as evan l/abnormal. [facility]2019-08-09 15:40:57 Test Item Value Reference Range Interpretation Comments AST (test code = AST) 31 See_Comment [Auto mated message] The system which ge nerated this result transmit keon reference range : <=37. The reference range was not used to interpr et this result as evan l/abnormal. [facility]2019-08-09 15:40:57 Test Item Value Reference Range Interpretation Comments Alk Phos (test code = Alk Phos) 89 39-136 [facility]2019-08-09 15:40:57 Test Item Value Reference Range Interpretation Comments Bili Total (test code = Bili Total) 0.5 0.2-1.3 [facility]2019-08-09 15:40:57 Test Item Value Reference Range Interpretation Comments Bili Direct (test code 0.1 See_Comment [Aut omated message] The = Bili Direct) system which generated this result tra nsmitted reference range : <=0.3. The reference r gayle was not used to int erpret this result as evan l/abnormal. [facility]2019-08-09 15:40:57 Test Item Value Reference Range Interpretation Comments Bili Indirect (test 0.4 See_Comment [Automa keon message] The code = Bili Indirect) system which generated this result tra nsmitted reference range : <=1.0. The reference r gayle was not used to int erpret this result as normal/abnormal . [facility]2019-08-09 15:40:57 Test Item Value Reference Range Interpretation Comments Globulin (test code = Globulin) 4.3 2.7-4.2 [facility]2019-08-09 15:40:57 Test Item Value Reference Range Interpretation Comments A/G Ratio (test code = A/G Ratio) 0.9 1 0.7-1.6 [place] 849359-08-09 15:40:57 Test Item Value Reference Range Interpretation Comments Lactic Acid Lvl (test code = Lactic 2.8 0.5-2.2 Acid Lvl) [facility]2019-08-09 15:40:57 Test Item Value Reference Range Interpretation Comments Lipase Lvl (test code = Lipase Lvl) 73 73-393 [facility] HospitalZwbcktuCJNKVREYKO3814-19-23 15:40:57 Test Item Value Reference Range Interpretation Comments PTT (test code = PTT) 31.7 s 22.9-35.8 [place] 760719-08-09 15:40:57 Test Item Value Reference Range Interpretation Comments PT (test code = PT) 13.7 s 12.0-14.7 [place] 760719-08-09 15:40:57 Test Item Value Reference Range Interpretation Comments INR (test code = INR) 1.07 1 0.85-1.17 [facility] ABDOMEN PELVIS W HVTAYWHX9755-39-30 17:43:181. No definite acute intra-abdominal or pelvic [...] following intravenous administration of 120 mL of Gpdjzqkkc066. Sagittal and coronal preformation the carried out. [...] retrolisthesis ofL5. Nosuspicious bony abnormality is noted. [facility], Radiant Results Inft User - 11/29/2018 12:45 PM CDT* * * * * * ORIGINAL REPORT * * * * * * * *EXAM: CT SCAN OF THE ABDOMEN AND PELVIS WITH CONTRASTHISTORY: Abd pain, acute, generalizedTECHNIQUE:3 mm axial images are obtained from diaphragmatic domes tosymphysis pubis following intravenous administration of 120 mL of Tejoivygk618. Sagittal and coronal preformation the carried out.COMPARISON: [...] The abdominal aorta is ectatic in general. [facility] LcvjigRbnlnbgley4088-64-03 16:31:00 Test Item Value Reference Range Interpretation Comments APPEARANCE (test code = Clear Clear 9129943797) COLOR (test code = Colorless Yellow A 0603599282) PH (test code = 4.8-8.0 1497087133) SP GRAVITY (test code = 1.003-1.030 2879705789) GLU U QUAL (test code = Negative Negative 1157010576) BLOOD (test code = Trace Negative A 7953998611) KETONES (test code = Negative Negative 2335546061) PROTEIN (test code = Negative Negative 2887-8) UROBILIN (test code = 0.2 mg/dL See_Comment [Auto mated message] 6813728656) The system [employer] generated this result transmit keon reference range : 0-1.0 mg/dL. Th e reference range was not used to interpret this result as normal/abnormal . BILIRUBIN (test code = Negative Negative 6291605546) NITRITE (test code = Negative Negative 1993666675) LEUK THANG (test code = Negative Negative 3019015760) RBC/HPF (test code = See_Comment H [Autom ated message] 2903945835) The system [employer] generated this result transmit keon reference range : 0 - 3 HPF. The refe rence range was not u sed to interpret th is result as normal/abnormal . WBC/HPF (test code = See_Comment [Autom ated message] 5293582273) The system [employer] generated this result transmit keon reference range : 0 - 5 HPF. The refe rence range was not u sed to interpret th is result as normal/abnormal . BACTERIA (test code = Few Negative A 3993612502) MUCOUS (test code = Moderate Negative LPF A 1934213791) AMORPHOUS (test code = Few HPF 6496218628) SQ EPITH (test code = HPF 7783834900) SPERM (test code = See_Comment [Automat ed message] 4635770192) The system [employer] generated this result transmit keon reference range : <=1 HPF. The refere nce range was not u sed to interpret th is result as normal/abnormal . Lab Interpretation (test Abnormal code = 60761-2) [facility] [id number] 16:26:00 Test Item Value Reference Range Interpretation Comments TROPONIN I (test <0.012 See_Comment [Automated code = 3973485243) message] The system which generated this result [...] ? Lab Interpretation Normal (test code = 54773-5) [facility] (NA, K, CL, CO2, GLUCOSE, BUN, CREATININE, CA)2018-11-29 16:15:00 Test Item Value Reference Range Interpretation Comments NA (test code = 147 mmol/L 135-145 H 8976993119) K (test code = 3.2 mmol/L 3.5-5 L 8083150891) CL (test code = 105 mmol/L 98-108 9270999534) CO2 TOTAL (test code = 31 mmol/L 23-31 5457516320) AGAP (test code = 2-16 5422135754) BUN (test code = 11 mg/dL 7-23 1240721451) GLUCOSE (test code = 124 mg/dL 70-110 H 1325897778) CREATININE (test code = 0.77 mg/dL 0.6-1.25 6881534129) CALCIUM (test code = 9.4 mg/dL 8.6-10.6 1820154073) eGFR Calculation mL/min/1.73m2 (Non-) (test code = 8651530641) eGFR Calculation mL/min/1.73m2 () (test code = 1569092591) CHUYITA (test code = CHUYITA) Association of [...] tests). Lab Interpretation Abnormal (test code = 65903-3) [facility] CenterLip[facility] Paarb2771-74-00 16:15:00 Test Item Value Reference Range Interpretation Comments LIPASE (test code = 6129331923) 54 U/L 0-220 Lab Interpretation (test code = Normal 84556-8) [facility] (ALB, T.PRO, BILI T, BU/BC, ALT, AST, ALK PHOS)2018-11-29 16:14:00 Test Item Value Reference Range Interpretation Comments TOTAL BILI (test code = 4544261786) 0.3 mg/dL 0.1-1.1 BILI UNCON (test code = 5337980962) 0.2 mg/dL 0.1-1.1 BILI CONJ (test code = 4710268439) 0.0 mg/dL 0-0.3 T PROTEIN (test code = 9575271829) 8.3 g/dL 6.3-8.2 H ALBUMIN (test code = 1801849486) 4.6 g/dL 3.5-5 ALK PHOS (test code = 6236787619) 92 U/L 34-122 ALT(SGPT) (test code = 3046155948) 13 U/L 9-51 AST(SGOT) (test code = 3876340978) 25 U/L 13-40 Lab Interpretation (test code = Abnormal 86714-6) [facility] WITH GPHJLDKOGIDF8230-61-66 15:58:00 Test Item Value Reference Range Interpretation [...] RDW-SD (test code = 45.9 fL 38.5-51.6 11694-1) RDW-CV (test code = 15.3 % 12.1-15.4 788-0) PLT (test code = See_Comment [Automated 777-3) message] The sy stem which generated this result transmitted reference range : 150 - 328 10*3/ ?L. The reference r gayle was not used to interpret this result as normal/abnormal . MPV (test code = 9.6 fL 9.8-13 L 33561-7) NRBC/100 WBC (test See_Comment [Automat ed code = 8168634120) message] The system which generated this result transmitted reference range : 0.0 - 10.0 /100 WBCs. The refer ence range was not u sed to interpret th is result as normal/abnormal . NRBC x10^3 (test code <0.01 See_Comment [Auto mated = 8038717671) message] The s ystem which generated this result transmitted reference range : 10*3/?L. The reference range was not used to interpret this result as normal/abnormal . GRAN MAT (NEUT) % 72.7 % (test code = 770-8) IMM GRAN % (test code 0.20 % = 7006841531) LYMPH % (test code = 20.5 % 736-9) MONO % (test code = 5.4 % 5905-5) EOS % (test code = 0.8 % 713-8) BASO % (test code = 0.4 % 706-2) GRAN MAT x10^3(ANC) 7.03 10*3/uL 1.99-6.95 H (test code = 7526675723) IMM GRAN x10^3 (test <0.03 0-0.06 code = 0047160249) LYMPH x10^3 (test code 1.98 10*3/uL 1.09-3.23 = 731-0) MONO x10^3 (test code 0.52 10*3/uL 0.36-1.02 = 742-7) EOS x10^3 (test code = 0.08 10*3/uL 0.06-0.53 711-2) BASO x10^3 (test code 0.04 10*3/uL 0.01-0.09 = 704-7) Lab Interpretation Abnormal (test code = 71494-0) [facility] CenterL[facility] Acid Whole Iffrf8607-00-40 15:34:00 Test Item Value Reference Range Interpretation Comments LACTIC ACID (test code = 1.91 mmol/L 0.5-2.2 5029531164) Lab Interpretation (test code = Normal 83512-5) [facility]
--- NOTE | 2022-08-31 22:31 | RAD REPORT ---
EXAM DESCRIPTION: Yogesh Single View08/31/2022 10:24 pm CLINICAL HISTORY: Abdominal pain COMPARISON: May 2022 : The lungs appear clear of acute infiltrate. The heart is normal size IMPRESSION: No acute abnormalities displayed
[2022-08-31 22:38] LABS: Protime INR 1.07
[2022-08-31 22:39] LABS: Absolute Lymphocytes (CBC) 3.1 K/uL (0.7-4.9); Hematocrit 41.2 % (39.6-49.0); Lymphocytes % 30.9 % (15.3-44.8); MCV 84.7 fL (80-100); MPV 7.4 fL (7.6-11.3); RBC Red Blood Cell Count 4.86 M/uL (4.33-5.43)
[2022-08-31 22:59] LABS: Albumin 3.9 g/dL (3.4-5.0); Bilirubin Direct 0.1 mg/dL (0-0.2); Bilirubin Total 0.4 mg/dL (0.2-1.0); Protein, Total 8.3 g/dL (6.4-8.2); Troponin High Sensitivity 6.1 pg/mL (<58.9)
[2022-08-31] MEDS ORDERED: NA CHLORIDE 0.9% 1,000 ML ONE (23:01)
[2022-08-31 23:07] LABS: Magnesium 2.1 mg/dL (1.6-2.4); Potassium 3.5 mEq/L (3.5-5.1)
[2022-08-31 23:25] LABS: Specific Gravity 1.012 (1.005-1.030); Urine Bilirubin NEGATIVE (Negative); Urine Blood Negative (Negative); Urine Clarity Clear (Clear); Urine Color Yellow (Yellow); Urine Glucose NEGATIVE (Negative); Urine Protein NEGATIVE (Negative); Urine Urobilinogen 1+ (Normal)
--- NOTE | 2022-09-01 01:22 | ER ---
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 Coronavirus screen: Vaccine status: Patient reports receiving the 2nd dose of the covid vaccine. Ebola Screen: Patient negative for fever greater than or equal to 101.5 degrees Fahrenheit, and additional compatible Ebola Virus Disease symptoms. Initial Sepsis Screen: Does the patient meet any 2 criteria? No. Patient's initial sepsis screen is negative. Does the patient have a suspected source of infection? No. Patient's initial sepsis screen is negative. Risk Assessment: Do you want to hurt yourself or someone else? Patient reports no desire to harm self or others. 22:11 Method Of Arrival: [facility]: [facility] 22:11 Acuity: ROBERT 3 22:34 Care prior to arrival: Medication(s) given: fentanyl 50mcg IV initiated. 18 GA, in the right antecubital area. 09/01 02:12 Onset of symptoms was August 31, 2022 at 21:00. Triage Assessment: 08/31 22:13 General: Appears uncomfortable, slender, Behavior is calm, cooperative. Pain: Complains kl of pain in left upper quadrant. EENT: No deficits noted. Neuro: No deficits noted. Cardiovascular: Rhythm is sinus rhythm. Respiratory: No deficits noted. GI: Reports upper abdominal pain, nausea. : No deficits noted. No signs and/or symptoms were reported regarding the genitourinary system. Derm: No deficits noted. No signs and/or symptoms reported regarding the dermatologic system. Derm:. Musculoskeletal: No deficits noted. No signs and/or symptoms reported regarding the musculoskeletal system. Historical: - Allergies: 22:12 No Known Allergies; kl - Home Meds: 22:12 hydralazine 10 mg Oral tab 1 tab 2 times per day [Active]; lisinopril 20 mg Oral tab 1 kl tab once daily [Active]; metoprolol tartrate 25 mg Oral tab [Active]; - PMHx: 22:12 High Cholesterol; Hypertension; Pancreatitis; aneurysm; kl - PSHx: 22:12 None; kl - Immunization history:: Adult Immunizations up to date. - Social history:: Smoking status: Patient reports the use of cigarette tobacco products, smokes one pack cigarettes per day. Screenin:35 [place] ED Fall Risk Assessment (Adult) History of falling in the last 3 months, kl including since admission No falls in past 3 months (0 pts) Confusion or Disorientation No (0 pts) Intoxicated or Sedated No (0 pts) Impaired Gait No (0 pts) Mobility Assist Device Used No (0 pt) Altered Elimination No (0 pt) Score/Fall Risk Level 0 - 2 = Low Risk Oriented to surroundings, Maintained a safe environment. Abuse screen: Denies threats or abuse. Nutritional screening: No deficits noted. Tuberculosis screening: No symptoms or risk factors identified. Assessment: 22:35 Reassessment: Patient appears in no apparent distress at this time. Patient is alert, kl oriented x 3, equal unlabored respirations, skin warm/dry/pink. Patient states feeling better. Patient states symptoms have improved. 09/01 02:11 Reassessment: No changes from previously documented assessment. Patient is alert, kl oriented x 3, equal unlabored respirations, skin warm/dry/pink. Patient states feeling better. Patient states symptoms have improved. Vital Signs: 08/31 22:11 BP 163 / 96; Pulse 65; Resp 18; Temp 98(TE); Pulse Ox 94% ; Pain 4/10; kl 22:35 BP 148 / 93; Pulse 65; Resp 18; Pulse Ox 93% on R/A; kl 22:58 BP 173 / 97; Pulse 68; kl 05 01:10 BP 120 / 84; Pulse 60; Resp 18; Pulse Ox 99% on R/A; kl 02:11 BP 121 / 82; Pulse 59; Resp 18; Temp 98(TE); Pulse Ox 98% on R/A; Pain 0/10; kl 05 22:11 Pain Scale: Adult kl 02:11 Pain Scale: Adult ED Course: 08/31 22:09 Patient arrived in ED. rv1 22:10 Dusty Flores MD is Attending Physician. [facility] 22:12 Triage completed. kl 22:25 Inserted saline lock: 18 gauge in right antecubital area, using aseptic technique. ll3 Blood collected. 22:26 XRAY Chest (1 view) In Process Unspecified. EDMS 22:29 Basic Metabolic Panel Sent. ll3 22:29 CBC with Diff Sent. ll3 22:29 LFT's Sent. ll3 22:29 Magnesium Sent. ll3 22:29 NT PRO-BNP Sent. ll3 22:29 PT-INR Sent. ll3 22:29 Troponin HS Sent. ll3 22:35 Patient has correct armband on for positive identification. Placed in gown. Bed in low kl position. Call light in reach. Side rails up X2. 22:36 Basic Metabolic Panel Sent. kl 22:36 CBC with Diff Sent. kl 22:36 Magnesium Sent. kl 22:36 LFT's Sent. kl 22:36 NT PRO-BNP Sent. kl 22:36 PT-INR Sent. kl 22:36 Troponin HS Sent. kl 23:51 CT Aorta for Dissection In Process Unspecified. EDMS 23:57 Chest Single View In Process Unspecified. EDMS 09/01 01:05 Troponin High Sensitivity: 1 am Sent. kl 01:10 No apparent distress. Resting quietly. Appears to be sleeping. kl 01:20 Con Downing MD is Referral Physician. ryan 02:12 No provider procedures requiring assistance completed. IV discontinued, intact, kl bleeding controlled, No redness/swelling at site. Pressure dressing applied. 02:12 Arm band placed on left wrist. kl Administered Medications: 08/31 22:29 Drug: NS 0.9% IV 1000 ml Route: IV; Rate: 125 ml/hr; Site: right antecubital; ll3 22:52 Drug: NS 0.9% IV 1000 ml Route: IV; Rate: 1 bolus; Site: right antecubital; kl 22:55 Follow up: IV Status: Completed infusion; IV Intake: 1000ml kl 22:55 Not Given (Physician Discretion): NS 0.9% IV 1000 ml IV at 1 bolus Per protocol; 1000 kl mL bolus Medication: 09/01 02:13 VIS not applicable for this client. kl Intake: 08/31 22:55 IV: 1000ml; Total: 1000ml. kl Outcome: 09/01 01:20 Discharge ordered by . ryan 02:12 Discharged to home ambulatory, with family. kl 02:12 Condition: improved 02:12 Discharge instructions given to patient, family, Instructed on discharge instructions, follow up and referral plans. medication usage, Demonstrated understanding of instructions, follow-up care, medications, Prescriptions given X 3. 02:13 Patient left the ED. kl Signatures: Dispatcher [employer] Lary Nicolas RN RN kl Anderson, Corey, MD MD cha Loubet, Lynsea, RN RN [facility] Natalie Carrera [facility]
--- NOTE | 2022-09-01 01:22 | EDPHYS ---
Physician Documentation [facility] Name: River Plunkett Age: 62 yrs Sex: Male : 1960 Arrival Date: 08/31/2022 Time: 22:07 Bed 3 Private MD: ED Physician Dusty Flores HPI: 08/31 22:49 This 62 yrs old Black Male presents to ER via EMS with complaints of abdominal pain. ryan 22:49 The patient presents with abdominal pain in the epigastric area, in the upper abdomen. ryan Onset: The symptoms/episode began/occurred today. The symptoms do not radiate. Associated signs and symptoms: none. 22:50 The symptoms are described as constant, crampy. Severity of pain: At its worst the pain ryan was mild moderate in the emergency department the pain is unchanged. The patient has not experienced similar symptoms in the past. Historical: - Allergies: 22:12 No Known Allergies; kl - Home Meds: 22:12 hydralazine 10 mg Oral tab 1 tab 2 times per day [Active]; lisinopril 20 mg Oral tab 1 kl tab once daily [Active]; metoprolol tartrate 25 mg Oral tab [Active]; - PMHx: 22:12 High Cholesterol; Hypertension; Pancreatitis; aneurysm; kl - PSHx: 22:12 None; kl - Immunization history:: Adult Immunizations up to date. - Social history:: Smoking status: Patient reports the use of cigarette tobacco products, smokes one pack cigarettes per day. ROS: 22:54 Constitutional: Negative for fever, chills, and weight loss, Eyes: Negative for injury, ryan pain, redness, and discharge, ENT: Negative for injury, pain, and discharge, Neck: Negative for injury, pain, and swelling, Cardiovascular: Negative for chest pain, palpitations, and edema, Respiratory: Negative for shortness of breath, cough, wheezing, and pleuritic chest pain, Back: Negative for injury and pain, : Negative for injury, bleeding, discharge, and swelling, MS/Extremity: Negative for injury and deformity, Skin: Negative for injury, rash, and discoloration, Neuro: Negative for headache, weakness, numbness, tingling, and seizure, Psych: Negative for depression, anxiety, suicide ideation, homicidal ideation, and hallucinations, Allergy/Immunology: Negative for hives, rash, and allergies, Endocrine: Negative for neck swelling, polydipsia, polyuria, polyphagia, and marked weight changes, Hematologic/Lymphatic: Negative for swollen nodes, abnormal bleeding, and unusual bruising. 22:54 Abdomen/GI: Positive for abdominal pain, nausea, of the epigastric area, right upper quadrant and left upper quadrant. Exam: 22:54 Constitutional: This is a well developed, well nourished patient who is awake, alert, ryan and in no acute distress. Head/Face: Normocephalic, atraumatic. Eyes: Pupils equal round and reactive to light, extra-ocular motions intact. Lids and lashes normal. Conjunctiva and sclera are non-icteric and not injected. Cornea within normal limits. Periorbital areas with no swelling, redness, or edema. ENT: Nares patent. No nasal discharge, no septal abnormalities noted. Tympanic membranes are normal and external auditory canals are clear. Oropharynx with no redness, swelling, or masses, exudates, or evidence of obstruction, uvula midline. Mucous membranes moist. Neck: Trachea midline, no thyromegaly or masses palpated, and no cervical lymphadenopathy. Supple, full range of motion without nuchal rigidity, or vertebral point tenderness. No Meningismus. Chest/axilla: Normal chest wall appearance and motion. Nontender with no deformity. No lesions are appreciated. Cardiovascular: Regular rate and rhythm with a normal S1 and S2. No gallops, murmurs, or rubs. Normal PMI, no JVD. No pulse deficits. Respiratory: Lungs have equal breath sounds bilaterally, clear to auscultation and percussion. No rales, rhonchi or wheezes noted. No increased work of breathing, no retractions or nasal flaring. Back: No spinal tenderness. No costovertebral tenderness. Full range of motion. Male : Normal genitalia with no discharge or lesions. Skin: Warm, dry with normal turgor. Normal color with no rashes, no lesions, and no evidence of cellulitis. MS/ Extremity: Pulses equal, no cyanosis. Neurovascular intact. Full, normal range of motion. Neuro: Awake and alert, GCS 15, oriented to person, place, time, and situation. Cranial nerves II-XII grossly intact. Motor strength 5/5 in all extremities. Sensory grossly intact. Cerebellar exam normal. Normal gait. Psych: Awake, alert, with orientation to person, place and time. Behavior, mood, and affect are within normal limits. 22:54 Abdomen/GI: Inspection: distension, that is mild, Bowel sounds: normal, Palpation: mild abdominal tenderness, in the epigastric area, right upper quadrant and left upper quadrant, Liver: no appreciated palpable abnormalities, Hernia: not appreciated. 23:08 ECG was reviewed by the Attending Physician. [facility] Vital Signs: 22:11 BP 163 / 96; Pulse 65; Resp 18; Temp 98(TE); Pulse Ox 94% ; Pain 4/10; kl 22:35 BP 148 / 93; Pulse 65; Resp 18; Pulse Ox 93% on R/A; kl 22:58 BP 173 / 97; Pulse 68; kl 05 01:10 BP 120 / 84; Pulse 60; Resp 18; Pulse Ox 99% on R/A; kl 02:11 BP 121 / 82; Pulse 59; Resp 18; Temp 98(TE); Pulse Ox 98% on R/A; Pain 0/10; kl 08/31 22:11 Pain Scale: Adult kl 02:11 Pain Scale: Adult kl MDM: 08/31 22:10 Patient medically screened. ryan 22:55 Differential diagnosis: Nonspecific abd pain, gastritis, cholecystitis, pancreatitis, ryan viral gastroenteritis, gastroenteritis, acute coronary syndrome, bowel obstruction, diverticulitis, gastritis, gastroesophageal reflux disease, non-specific abd pain, pancreatitis, Prostatitis, Pyelonephritis, Ureterolithiasis, urinary tract infection. Data reviewed: vital signs, nurses notes, EMS record, lab test result(s), EKG, radiologic studies, CT scan, plain films. Consideration of Admission/Observation Escalation of care including admission/observation considered. I considered the following discharge prescriptions or medication management in the emergency department Medications were administered in the Emergency Department. See MAR. Test considered but Not performed: Ultrasound no usg limited. Care significantly affected by the following chronic conditions: Hypertension, aaa, pancreatitis, high cholesterol. Counseling: I had a detailed discussion with the patient and/or guardian regarding: the historical points, exam findings, and any diagnostic results supporting the discharge/admit diagnosis, the presence of at least one elevated blood pressure reading (>120/80) during this emergency department visit, lab results, radiology results, the need for outpatient follow up, for definitive care, a gluing machine operator automatic, a research study assistant, an manufacturing engineer paint. 08/31 22:11 Order name: Basic Metabolic Panel; Complete Time: 23:38 [facility] 08/31 22:11 Order name: CBC with Diff; Complete Time: 23:38 [facility] 08/31 22:11 Order name: LFT's; Complete Time: 23:38 [facility] 08/31 22:11 Order name: Magnesium; Complete Time: 23:38 [facility] 08/31 22:11 Order name: NT PRO-BNP; Complete Time: 23:38 [facility] 08/31 22:11 Order name: PT-INR; Complete Time: 23:38 [facility] 08/31 22:11 Order name: Troponin HS; Complete Time: 23:38 [facility] 08/31 22:11 Order name: Lipase; Complete Time: 23:38 [facility] 08/31 22:11 Order name: Urinalysis w/ reflexes; Complete Time: 23:38 [facility] 08/31 23:39 Order name: Troponin High Sensitivity: 1 am [facility] 08/31 22:11 Order name: XRAY Chest (1 view); Complete Time: 23:38 [facility] 08/31 22:11 Order name: CT Aorta for Dissection [facility] 08/31 23:37 Order name: Chest Single View [facility] 08/31 22:11 Order name: EKG; Complete Time: 22:12 [facility] 08/31 22:11 Order name: Cardiac monitoring; Complete Time: 22:29 [facility] 08/31 22:11 Order name: EKG - Nurse/Tech; Complete Time: 22:36 [facility] 08/31 22:11 Order name: IV Saline Lock; Complete Time: 22:29 [facility] 08/31 22:11 Order name: Labs collected and sent; Complete Time: 22:29 [facility] 08/31 22:11 Order name: O2 Per Protocol; Complete Time: 22:29 [facility] 08/31 22:11 Order name: O2 Sat Monitoring; Complete Time: 22:29 [facility] EC:08 Rate is 60 beats/min. Rhythm is regular. QRS [place] is Normal. OK interval is normal. QRS ryan interval is normal. QT interval is normal. No Q waves. T waves are Normal. No ST changes noted. Clinical impression: Normal ECG and No evidence of ischemia. Interpreted by me. Reviewed by me. Administered Medications: 22:29 Drug: NS 0.9% IV 1000 ml Route: IV; Rate: 125 ml/hr; Site: right antecubital; ll3 22:52 Drug: NS 0.9% IV 1000 ml Route: IV; Rate: 1 bolus; Site: right antecubital; kl 22:55 Follow up: IV Status: Completed infusion; IV Intake: 1000ml kl 22:55 Not Given (Physician Discretion): NS 0.9% IV 1000 ml IV at 1 bolus Per protocol; 1000 kl mL bolus Disposition Summary: 09/01/22 01:20 Discharge Ordered Location: Home ryan Problem: new ryan Symptoms: have improved ryan Condition: Stable ryan Diagnosis - Epigastric abdominal tenderness ryan - Essential (primary) hypertension ryan - Nausea ryan Followup: ryan - With: Private Physician - When: 2 - 3 days - Reason: Recheck today's complaints, Continuance of care, Re-evaluation by your physician Followup: ryan - With: - When: 2 - 3 days - Reason: Recheck today's complaints, Re-evaluation by your physician Discharge Instructions: - Discharge Summary Sheet ryan - Abdominal Pain, Adult ryan - Hypertension, Adult ryan - Nausea and Vomiting, Adult ryan - Nausea, Adult ryan - Hypertension, Adult, [id number] rayn - How to Take Your Blood Pressure, [id number] ryan - Managing Your Hypertension [facility] Forms: - Medication Reconciliation Form ryan - Thank You Letter ryan - Antibiotic Education ryan - Prescription Opioid Use [facility] Prescriptions: - Norvasc 5 mg Oral Tablet - take 1 tablet by ORAL route once daily; 20 tablet; Refills: 0, Product [facility] Selection Permitted - Pepcid 20 mg Oral Tablet - take 1 tablet by ORAL route every 12 hours for 10 days; 20 tablet; Refills: 0, [facility] Product Selection Permitted - Zofran 4 mg Oral Tablet - take 1 tablet by ORAL route every 12 hours As needed; 20 tablet; Refills: 0, [facility] Product Selection Permitted Signatures: Dispatcher [employer] Lary Nicolas RN RN kl Anderson, Corey, MD MD cha Loubet, Lynsea RN RN 3
[2022-09-01 08:04] VITALS: TEMP 98
[2022-09-01 08:14] VITALS: BP 121/82; O2SAT 98
--- NOTE | 2022-09-01 10:48 | RAD REPORT ---
EXAM DESCRIPTION: RAD - Chest Single View - 08/31/2022 11:55 pm CLINICAL HISTORY: 62 years Male Abd distention COMPARISON: None FINDINGS: Lung volumes adequate. Cardiac silhouette is normal in size. No pneumothorax. No large pleural effusion. No focal consolidation. No acute bony finding. IMPRESSION: No acute cardiopulmonary findings. Electronically signed by: Chilo Thomason MD 09/01/2022 12:16 AM CDT Due to temporary technical issues with the PACS/Fluency reporting system, reports are being signed by the in house radiologists without review as a courtesy to insure prompt reporting. The interpreting radiologist is fully responsible for the content of the report.
--- NOTE | 2022-09-01 10:50 | RAD REPORT ---
EXAM DESCRIPTION: CT - Angio Aorta For Dissection - 09/01/2022 6:32 am CLINICAL HISTORY: ABD PAIN. COMPARISON: CTA of the chest, abdomen, and pelvis from June 22, 2022. TECHNIQUE: CTA of the chest, abdomen, and pelvis was performed following intravenous administration of iodinated contrast. Axial soft tissue and lung window, and coronal and sagittal soft tissue window reconstructions were created and sent to PACS. 3D postprocessing was performed on an independent workstation, with images sent to PACS for subsequen t review. This exam was performed according to our departmental dose-optimization program, which includes autom ated exposure control, adjustment of the mA and/or kV according to patient size and/or use of iterati ve reconstruction technique. FINDINGS: Vascular: No evidence of aortic dissection. Moderate predominantly noncalcified atheroscle rosis. Infrarenal abdominal aorta measures up to 3.5 cm in diameter in a fusiform configuration. Mild prominence of the common iliac arteries, measuring up to 2 cm in diameter on the right and 1.9 cm in diameter on the left. The celiac axis, SMA, and OUMAR are patent. Patent bilateral renal arteries, dup licated on the left. Lungs and pleura: There is mild paraseptal and centrilobular emphysema. Mild biapical scarring. No pu lmonary consolidation. No pleural effusion. No pneumothorax. Mediastinum and neck: No mediastinal lymphadenopathy by CT size criteria. Unremarkable appearance of the thyroid gland. Cardiac: No cardiomegaly or pericardial effusion. Hepatobiliary: No concerning hepatic lesion identified. The portal veins are patent. The gallbladder is surgically absent. No biliary ductal dilatation. Pancreas: Unremarkable. Spleen: Unremarkable. Gastrointestinal: No evidence of bowel obstruction or perienteric inflammation. The appendix is evan l. Moderate amount of fecal material in the sigmoid colon and rectum. Small to moderate amount throug hout the rest of the colon.. Adrenals: No abnormality identified in either adrenal gland. Renal: No concerning parenchymal abnormality in either kidney. Few simple bilateral renal cysts, gloria uring up to 6.7 cm on the left (no follow-up imaging is recommended). No hydronephrosis or urolithias is. Bladder/Reproductive: Unremarkable appearance of the urinary bladder by CT technique. Lymphatics: No lymphadenopathy identified by CT size criteria. Musculoskeletal: No concerning osseous lesion identified. Prominent disc and endplate degenerative ch anges at L5-S1. Fluid / peritoneum: No significant free fluid. No free intraperitoneal air identified. IMPRESSION: 1. No evidence of aortic dissection. 2. Mild infrarenal abdominal aortic aneurysm measuring up to 3.5 cm. Recommend follow-up every 2 ye ars (Reference: J Am Mario Alberto Radiol 2013;10:789-794). 3. No acute abnormality identified in the chest, abdomen, or pelvis. Electronically signed by: Mary Noel MD 09/01/2022 12:19 AM CDT Due to temporary technical issues with the PACS/Fluency reporting system, reports are being signed by the in house radiologists without review as a courtesy to insure prompt reporting. The interpreting radiologist is fully responsible for the content of the report.
--- NOTE | 2022-09-01 15:58 | EKG ---
Test Date: 2022-08-31 Test Time: 22:29:25 Printing Pressman: JESSICA MEASUREMENT RESULTS: Intervals: Rate: 60 MA: 172 QRSD: 96 QT: 396 QTc: 396 [place]: P: 145 MA: 172 QRS: 245 T: -82 INTERPRETIVE STATEMENTS: Suspect arm lead reversal, interpretation assumes no reversal Unusual P axis, possible ectopic atrial rhythm Voltage criteria for left ventricular hypertrophy ST & T wave abnormality, consider inferior ischemia Abnormal ECG Compared to ECG 06/22/2022 10:20:26 Left ventricular hypertrophy now present ST (T wave) deviation now present Possible ischemia now present Sinus bradycardia no longer present Incomplete right bundle-branch block no longer present Left anterior fascicular block no longer present Electronically Signed On 09-01-22 15:56:56 CDT by Ezra Haddad
== END 2022-09-01 02:13 | disposition home or self-care (01) ==
LOC: ER 22:07
DX: R10.816 Epigastric abdominal tenderness (principal); R11.0 Nausea; I10 Essential (primary) hypertension; F17.210 Nicotine dependence, cigarettes, uncomplicated
CPT/HCPCS: 36415; 71045; 71275; 74175; 80048; 80076; 81003; 83690; 83735; 83880; 84484; 85025; 85610; 93005; J7030; Q9967